=== PATIENT | male | born 1950 | race Caucasian/White ===

== ENCOUNTER 2016-08-11 01:44 | Inpatient (IN) | payer MEDICARE ==
[~2016-08-11] VITALS: Ht 182.9 cm; Wt 71.3 kg
[2016-08-11] VITALS (11 sets, daily range): BP systolic 101–121; BP diastolic 67–88; PULSE 76–114; RESP 12–20; TEMP 97.1–98.1; O2SAT 90–98
[~2016-08-11 01:44] MED LIST: ACIDCAP17 PO; ADVA250A INH; ALBU.5I NEB; ALBU6.7H INH; CARD120C4 PO; CIAL5TAB PO; CITRTAB7 PO; DICL1GEL TOP; DIGO.125 PO; DIPH25 PO; DOCU1CAP39 PO; FLUT1SPR9 EACH NARE; FOLI1 PO; GABA100C4 PO; GLUCTAB6 PO; KCL10C PO; LACT20SO4 PO; MECL25 PO; MULT-65 PO; NITR0.4S SL; OXYC5 PO; PERI8.6T PO; PREV30CA36 PO; PROM25TA5 PO; RAMI2.5C29 PO; REST30CA PO; ROSU10 PO; SPIRCAP INH; TORS20 PO; TRAZ100 PO; VALI10TA PO; VENL75XR PO; VIST25CA PO; VITA400C58 PO; VITA500C PO; [UNRECOGNIZED DRUG - CODE] IV
[2016-08-11] MEDS ORDERED: SODIUM CHLOR 0.9% 1000 ML INJ 1,000 ML IV SCH (02:10)
[2016-08-11] MEDS ORDERED: PANTOPRAZOLE SODIUM 40 MG VIAL IVP ONE (02:15)
[2016-08-11] MEDS ORDERED: ONDANSETRON HCL 4 MG/2 ML VIAL IVP ONE (02:15)
[2016-08-11] MEDS ORDERED: SODIUM CHLORIDE 0.9% FLUSH 5 ML FLUSH IVF PRN (02:15)
[2016-08-11] MEDS ORDERED: FAMOTIDINE 20 MG/2 ML VIAL IV PUSH ONE (02:15)
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
[2016-08-11] MEDS ORDERED: SODIUM CHLORID 0.9% 500 ML INJ 500 ML IV ONE (02:30)
--- NOTE | 2016-08-11 02:56 | RADRPT ---
EXAM DATE/TIME: 08/11/2016 02:16 [facility] COMPARISON: CHEST PA & LAT, May 11, 2016, 16:40. INDICATIONS : Chest and abdominal pain. MEDICAL HISTORY : Congestive hearrt failure. Myocardial infarction. Hypertension.Liver cancer, A-Fib, COPD, hiatal kristen ia. SURGICAL HISTORY : Coronary artery stent. Cardiac cath; Left upper lobectomy; port placement; [place] filter; liver c yst removal. ENCOUNTER: Initial ACUITY: 1 day PAIN SCORE: 7/10 LOCATION: Bilateral lower chest FINDINGS: Trace atelectasis seen in both lung bases. No dense infiltrates seen. No pleural effusion or pneumoth orax. Heart size stable, within normal limits. Thoracic aorta is tortuous. Right IJ [id number] catheter with tip in the right atrium again noted. CONCLUSION: Trace bibasilar atelectasis. Richard Tamez MD on August 11, 2016 at 2:54 Board Certified Radiologist. This report was verified electronically.
[2016-08-11 03:08] LABS: HEMATOCRIT 29.9 % (39.0-51.0); MEAN CELL VOLUME 88.8 FL (80.0-100.0); MEAN CORPUSCULAR HEMOGLOBIN 29.9 PG (27.0-34.0); MEAN CORPUSCULAR HGB CONC 33.7 % (32.0-36.0); PLATELET COUNT 97 TH/MM3 (150-450); RED BLOOD COUNT 3.36 MIL/MM3 (4.50-5.90); RED CELL DISTRIBUTION WIDTH 22.4 % (11.6-17.2); WHITE BLOOD COUNT 4.3 TH/MM3 (4.0-11.0)
[2016-08-11 03:09] LABS: HEMO FLAGS AUTO DIFF
[2016-08-11] MEDS: PANTOPRAZOLE INJ 80 MG in SODIUM CHLORIDE 0.9% INJ 100 ML IV SCH ×2 (03:09→23:00)
[2016-08-11 03:10] LABS: INTERNATIONAL NORMALIZED RATIO 1.1 RATIO; PROTHROMBIN TIME - PATIENT 12.7 SEC (9.8-11.6)
[2016-08-11 03:13] LABS: ALT (GPT) 160 U/L (12-78); ANION GAP 10 MEQ/L (5-15); AST (GOT) 327 U/L (15-37); BICARBONATE 26.7 MEQ/L (21.0-32.0); BLOOD UREA NITROGEN 23 MG/DL (7-18); CHLORIDE 104 MEQ/L (98-107); GLOMERULAR FILTRATION RATE 56 ML/MIN (>89); POTASSIUM 3.7 MEQ/L (3.5-5.1); SODIUM (NA) 141 MEQ/L (136-145)
[2016-08-11 03:17] LABS: ALKALINE PHOSPHATASE 799 U/L (45-117); TOTAL BILIRUBIN ADULT 3.1 MG/DL (0.2-1.0)
[2016-08-11 03:20] LABS: CREATINE KINASE 57 U/L (39-308)
[2016-08-11 03:32] LABS: BASOPHILS 3 % (0-2); EOSINOPHILS 1 % (0-4); NEUTROPHIL # MANUAL DIFF 2.9 TH/MM3 (1.8-7.7); POLYS (SEG NEUTROPHILS) 67 % (16-70); WBC DIFF SAMPLE 100
[2016-08-11 03:33] LABS: OVALOCYTES 1+ (NORMAL); PLATELET ESTIMATE SMEAR LOW (NORMAL); PLATELET MORPHOLOGY NORMAL (NORMAL); SCAN/DIFF FINAL DIFF MANUAL; TARGET CELLS 1+ (NORMAL)
--- NOTE | 2016-08-11 04:14 | RADRPT ---
EXAM DATE/TIME: 08/11/2016 03:25 [facility] COMPARISON: CT ABDOMEN W CONTRAST, July 21, 2015, 11:43. INDICATIONS : Abdomen pain with swelling. ORAL CONTRAST: No oral contrast ingested. RADIATION DOSE: 10.09 CTDIvol (mGy) MEDICAL HISTORY : Cardiovascular disease. Hypertension. Gastroesophageal reflux disease.COPD Hiatal Hernia Liver cance r SURGICAL HISTORY : Lobectomy. IVC Filter placement. ENCOUNTER: Initial ACUITY: 1 day PAIN SCALE: 7/10 LOCATION: Bilateral abdomen TECHNIQUE: Volumetric scanning of the abdomen and pelvis was performed. Using automated exposure control and ad justment of the mA and/or kV according to patient size, radiation dose was kept as low as reasonably achievable to obtain optimal diagnostic quality images. FINDINGS: LOWER LUNGS: Chronic interstitial changes and pleural nodularity are again seen of both lung bases. LIVER: Shr unken and very nodular liver again noted. There is heterogeneous attenuation within the parenchyma. A 19 mm rounded area is seen posteriorly of the right hepatic lobe near the dome. More inferiorly, a v ague area measuring about 4.9 cm is also noted of the right hepatic lobe, series 2 image 55. There is moderate to large ascites. Prominent caliber portal vein noted. Evaluation for thrombosis not possib le on this noncontrast study. There is a 3 mm stone seen within the gallbladder. SPLEEN: 17.5 cm craniocaudal, previously 14.7 cm. No focal splenic lesions seen. PANCREAS: Within normal limits. KIDNEYS: Normal in size and shape. There is no mass, stone, or hydronephrosis. ADRENAL GLANDS: Within normal limits. VASCULAR: There is no aortic aneurysm. BOWEL/MESENTERY: The stomach, small bowel, and colon demonstrate no acute abnormality. There is no free intraperitone al air or fluid. ABDOMINAL WALL: Within normal limits. RETROPERITONEUM: There is no lymphadenopathy. BLADDER: No wall thickening or mass. REPRODUCTIVE: Within normal limits. INGUINAL: There is no lymphadenopathy or hernia. MUSCULOSKELETAL: There is a 5.3 x 5.3 x 6.7 cm right paraspinous mass of the upper lumbar spine,, new and with associa maggie destruction of the right transverse processes of L1 and L2. Chronic pars defects are again noted of L5 with L5/S1 spondylolisthesis. CONCLUSION: 1. Cirrhosis with moderate to large ascites and increased splenomegaly. Heterogeneous and very nodula r liver; possibility of liver masses difficult to exclude. 2. 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 Plasmacytoma related to multiple myeloma would also be in the differential. This is new . I believe it arose from the right transverse process of L1. Richard Tamez MD on August 11, 2016 at 3:59 Board Certified Radiologist. This report was verified electronically.
[2016-08-11 04:43] LABS: BLOOD, URINE NEG (NEG); COMMENT (UR) CULT NOT INDICATED; CULTURE IF INDICATED CULT NOT INDICATED; GLUCOSE,URINE NEG (NEG); HYALINE CAST, URINE 52 /lpf (RARE); KETONE, URINE NEG (NEG); MUCUS URINE FEW /lpf (OCC); NITRITE,URINE NEG (NEG); URINE COLOR YELLOW (YELLW/STRAW)
[2016-08-11] MEDS ORDERED: NALOXONE HCL 0.4 MG/ML AMP IV PRN (05:00)
[2016-08-11] MEDS ORDERED: SODIUM CHLORIDE 0.9% FLUSH 5 ML FLUSH FLUSH PRN (05:00)
[2016-08-11] MEDS ORDERED: OCTREOTIDE INJ 50 MCG/ML AMP IV ONE (05:30)
[2016-08-11] MEDS: OCTREOTIDE INJ 500 MCG in SODIUM CHLORID 0.9% 500 ML INJ 499.5 ML IV SCH ×3 (08:04→20:46)
[2016-08-11] MEDS: SODIUM CHLORIDE 0.9% FLUSH 5 ML FLUSH FLUSH SCH ×2 (09:00→20:47)
--- NOTE | 2016-08-11 09:14 | PD.CONS ---
HPI History of Present Illness This is a 65 year old male with history of Alpha 1 antitrypsin deficiency and liver cancer, presents to ER with c/o of hematemesis that started last night. symptoms started last night around 9 Pm, he had finished eating gummy bears, he didn't feel good and thought he had too much to eat, shortly after he started vomiting up bright red blood about 7 times in a row, but non after that. This is associated with abd pain and increased ascites. He denies hematochezia, melena, constipation, diarrhea, fever, or chills. Last EGD was few years ago, he doesn't remember the date, looking back in the hospital records, EGD was done in 2007. He doesn't have a local GI. Patient is being followed by a oncologist and crystal gazer at [facility] for a couple of months, and there are plans for him to start a new clinical trial in September. CT done and that showed Cirrhosis with moderate to large ascites and increased splenomegaly. Heterogeneous and very nodular liver; possibility of liver masses difficult to exclude. 2. 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 Plasmacytoma related to multiple myeloma would also be in the differential. This is new. I believe it arose from the right transverse process of L1. hgb is 10, PPI drip started, patient is comfortable in bed, no more vomiting, hemodynamically stable (Ghada Xavier) PFSH Past Medical History ALPHA 1 ANTITRYPSIN DEFICIENCY cirrhosis, hypertension, A. fib COPD, left upper lobectomy, surgically fused right elbow with a wrist drop also with chronic wound and history of MRSA, hypercholesterolemia, CHF, CAD status post MT in 1991, hiatal hernia MRSA pneumonia Past Surgical History Right elbow I&D and removal of hard francisco on 05/17/16 Cyst removed from the liver Report to right upper chest Cardiac stents Vena cava filter Left upper lobectomy Right elbow orthopedic surgery (Ghada Xavier) Coded Allergies: Adhesives (Verified Allergy, Severe, "TAKES SKIN OFF", 08/11/16) Beta Blockers (Verified Allergy, Severe, UNKNOWN ALL BETA BLOCKERS EXCEPT TENORMIN, 08/11/16) Hydromorphone (Verified Allergy, Severe, "RACES HEART", 08/11/16) Medrol (Verified Allergy, Severe, Hives, 08/11/16) Morphine (Verified Allergy, Severe, Hallucinations, 08/11/16) Sulfa (Verified Allergy, Severe, "EATS SKIN OFF", 08/11/16) *MDRO Multi-Drug Resistant Organism (Verified Adverse Reaction, Unknown, 08/11/16) 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, 02/2008, 06/2008, 04/2014.; MRSA Elbow Wound 05/17/2016 Medications Current Medications Medications (Trade) Dose Ordered Sig/Barak Route Start Time Stop Time Status Last Admin (Protonix Inj/NS Inj) 100 ml @ 10 mls/hr Q10H IV 08/11/16 02:15 08/11/16 03:09 (NS Flush) 2 ml UNSCH PRN FLUSH 08/11/16 05:00 (NS Flush) 2 ml BID FLUSH 08/11/16 09:00 (Zofran Inj) 4 mg Q6H PRN IVP 08/11/16 05:00 Naloxone HCl 0.4 mg 0.4 mg UNSCH PRN IV 08/11/16 05:00 (SandoSTATIN INJ/ NS 500 ml Inj) 500.0 ml @ 50 mls/hr Q10H IV 08/11/16 07:30 08/11/16 08:04 Family History Positive for brother with alpha-1 antitrypsin deficiency, and father with diabetes mellitus Social History Denies EtOH, smoking, illicit drug use. (Ghada Xavier) Review of Systems Constitutional: COMPLAINS OF: Fatigue Endocrine: DENIES: Polyuria Eyes: DENIES: Photosensitivity Ears, nose, mouth, throat: DENIES: Hoarseness Respiratory: COMPLAINS OF: Shortness of breath Cardiovascular: DENIES: Lower Extremity Edema Gastrointestinal: COMPLAINS OF: Abdominal pain, Nausea, Vomiting, Swelling of Abdomen, Heartburn, Hematemesis, DENIES: Black stools, Bloody stools, Constipation, Diarrhea, Difficulty Swallowing, Anorexia, Odynophagia Genitourinary: DENIES: Hematuria Musculoskeletal: DENIES: Neck pain Integumentary: DENIES: Jaundice Hematologic/lymphatic: DENIES: Bruising Immunologic/allergic: DENIES: Eczema Neurologic: DENIES: Abnormal gait Psychiatric: DENIES: Anxiety (Ghada Xavier) GI Exam Vitals I&O Vital Signs Date Time Temp Pulse Resp B/P Pulse Ox O2 Delivery O2 Flow Rate FiO2 08/11/16 07:32 86 18 101/74 98 Nasal Cannula 2 08/11/16 06:17 88 18 105/79 94 08/11/16 02:39 95 117/88 08/11/16 02:31 98 20 95 Room Air 08/11/16 02:09 18 08/11/16 01:48 98.1 114 20 121/78 90 Imaging Last Impressions Chest X-Ray 08/11/16209 Signed Impressions: Service Date/Time: Thursday, August 11, 2016 02:16 - CONCLUSION: Trace bibasilar atelectasis. Richard Tamez MD Abdomen/Pelvis CT 08/11/16209 Signed Impressions: Service Date/Time: Thursday, August 11, 2016 03:25 - CONCLUSION: 1. Cirrhosis with moderate to large ascites and increased splenomegaly. Heterogeneous and very nodular liver; possibility of liver masses difficult to exclude. 2. 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 Plasmacytoma related to multiple myeloma would also be in the differential. This is new. I believe it arose from the right transverse process of L1. Richard Tamez MD Laboratory Test 08/11/16 08/11/16 02:45 04:27 White Blood Count 4.3 TH/MM3 Red Blood Count 3.36 MIL/MM3 Hemoglobin 10.1 GM/DL Hematocrit 29.9 % Mean Corpuscular Volume 88.8 FL Mean Corpuscular Hemoglobin 29.9 PG Mean Corpuscular Hemoglobin 33.7 % Concent Red Cell Distribution Width 22.4 % Platelet Count 97 TH/MM3 Mean Platelet Volume 10.4 FL Neutrophils (%) (Auto) % Lymphocytes (%) (Auto) % Monocytes (%) (Auto) % Eosinophils (%) (Auto) % Basophils (%) (Auto) % Neutrophils # (Auto) TH/MM3 Lymphocytes # (Auto) TH/MM3 Monocytes # (Auto) TH/MM3 Eosinophils # (Auto) TH/MM3 Basophils # (Auto) TH/MM3 CBC Comment AUTO DIFF Differential Total Cells 100 Counted Neutrophils % (Manual) 67 % Lymphocytes % 17 % Monocytes % 12 % Eosinophils % 1 % Basophils % 3 % Neutrophils # (Manual) 2.9 TH/MM3 Differential Comment FINAL DIFF MANUAL Platelet Estimate LOW Platelet Morphology Comment NORMAL Target Cells 1+ Ovalocytes 1+ Prothrombin Time 12.7 SEC Prothromb Time International 1.1 RATIO Ratio Activated Partial 26.0 SEC Thromboplast Time Sodium Level 141 MEQ/L Potassium Level 3.7 MEQ/L Chloride Level 104 MEQ/L Carbon Dioxide Level 26.7 MEQ/L Anion Gap 10 MEQ/L Blood Urea Nitrogen 23 MG/DL Creatinine 1.28 MG/DL Estimat Glomerular Filtration 56 ML/MIN Rate Random Glucose 98 MG/DL Lactic Acid Level 2.1 mmol/L Calcium Level 9.2 MG/DL Total Bilirubin 3.1 MG/DL Aspartate Amino Transf 327 U/L (AST/SGOT) Alanine Aminotransferase 160 U/L (ALT/SGPT) Alkaline Phosphatase 799 U/L Ammonia LESS THAN 10 MCMOL/L Total Creatine Kinase 57 U/L Troponin I LESS THAN 0.02 NG/ML Total Protein 7.0 GM/DL Albumin 2.6 GM/DL Lipase 51 U/L Blood Type AB POSITIVE Antibody Screen NEGATIVE Urine Color YELLOW Urine Turbidity CLEAR Urine pH 5.0 Urine Specific [place] 1.007 Urine Protein NEG mg/dL Urine Glucose (UA) NEG mg/dL Urine Ketones NEG mg/dL Urine Occult Blood NEG Urine Nitrite NEG Urine Bilirubin NEG Urine Urobilinogen LESS THAN 2.0 MG/DL Urine Leukocyte Esterase NEG Urine RBC 1 /hpf Urine WBC 2 /hpf Urine Hyaline Casts 52 /lpf Urine Mucus FEW /lpf Microscopic Urinalysis Comment CULT NOT INDICATED Physical Examination HEENT: Pupils round and reactive to light; normocephalic; atraumatic; no jaundice. Throat is clear. NECK: Neck is supple, no JVD, no lymphadenopathy. CHEST: Chest is clear to auscultation and percussion. CARDIAC: Regular rate and rhythm with no murmur gallop or rubs. ABDOMEN: Soft,slightly distended, nontender; ascites, bowel sounds are present in all four quadrants. EXTREMITIES: No clubbing, cyanosis, or edema. SKIN: Normal; no rash; no jaundice. 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 (Morenita,Ghada ELIZABETH) Assessment and Plan Plan - Hematemesis- started last night, 7 times in a row, no recent EGD, no hx of varices. patient with hx of liver cancer, cirrhosis secondary to Alpha 1 antitrypsin deficiency, hgb is 10.1, no more hematemesis PPI drip started, patient is comfortable in bed, no more vomiting, hemodynamically stable - Alpha 1 antitrypsin deficiency/liver cancer/cirrhosis- weekly Prolastin, Patient is being followed by a oncologist and crystal gazer at [facility] for a couple of months, and there are plans for him to start a new clinical trial in September. CT done and that showed Cirrhosis with moderate to large ascites and increased splenomegaly. Heterogeneous and very nodular liver; possibility of liver masses difficult to exclude. 2. 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 Plasmacytoma related to multiple myeloma would also be in the differential. This is new. 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 PPI drip - Monitor hh - Transfuse as needed - Supportive care - Patient seen and examined by Dr. Dodge and myself and this note is written on his behalf. (Ghada Xavier) Physician Comments Seen and examined with Ghada plan as above, will proceed with EGD and possible banding today. Further recommendations to follow. (Oscar Dodge MD) Ghada Xavier Aug 11, 2016 09:14 Ocsar Dodge MD Aug 11, 2016 11:35
--- NOTE | 2016-08-11 11:33 | HHI.HP ---
HPI Service [facility] Primary Care Physician Mark Oconnor Admission Diagnosis GI Bleed, concern for Variceal bleed Diagnoses: (1) GI bleed (2) Cirrhosis of liver (3) Baioj-4-cjgoabnjioo deficiency (4) COPD (chronic obstructive pulmonary disease) (5) Liver mass Chief Complaint: Hematemesis Travel History International Travel<30 Days: No Contact w/Intl Traveler <30 Da: No Traveled to Known Affected Are: No History of Present Illness 65 year-old male with a past medical history of alpha 1 antitrypsin deficiency, liver cancer, cirrhosis presents to the ED for evaluation of an acute onset hematemesis 2 associated with abdominal pain and distention which started last night without any hematochezia, melena. Patient currently is being followed by hepatology at [facility] and states, there is a plan for a new clinical trial in September for treatment. Although H&H stable, CT abdomen with evidence of cirrhosis as well as what appear to be metastasis. He denies any chest pain however reports shortness of breath Review of Systems Other Other 12 system reviewed and are negative except for the one mentioned in history of present illness Past Family Social History Past Medical History ALPHA 1 ANTITRYPSIN DEFICIENCY cirrhosis, hypertension, A. fib COPD, left upper lobectomy, surgically fused right elbow with a wrist drop also with chronic wound and history of MRSA, hypercholesterolemia, CHF, CAD status post SD in 1991, hiatal hernia MRSA pneumonia Past Surgical History Right elbow I&D and removal of hard francisco on 05/17/16 Cyst removed from the liver Report to right upper chest Cardiac stents Vena cava filter Left upper lobectomy Right elbow orthopedic surgery Reported Medications Paige-Colace 8.61 Ta1 1 Tab Tab 2 Tab PO BID PRN Roxicodone 5 Mg5 Mg 5 Mg Tab 10 Mg PO Q4H PRN Reported Citracal + D3 Maximu 3 Tab PO BID Gabapentin 100 Mg Cap 100 Mg PO TID Nitrostat (Nitroglycerin) 0.4 Mg Subl 0.4 Mg SL PRN PRN 1 TAB SL EVERY 5 MINS X 3 PRN CHEST PAIN Trazodone HCl 100 Mg Tab 100 Mg PO HS Glucosamine Chondro1 1 Tab PO BID Benadryl 25 Mg Cap (Diphenhydramine Hcl) 25 Mg Cap 25 Mg PO WEEKLY Weekly on Wednesdays with IV treatment Proventil Hfa (Albuterol Sulfate) 6.7 Gm Aero 2 Puff INH Q4 * SHAKE WELL BEFORE USE * Valium (Diazepam) 10 Mg Tab 10 Mg PO BID PRN Voltaren 1% Gel (Diclofenac Sodium (Topical)) 1 % Gel 1 Applic TOP QID PRN Meclizine Hcl25 M4 25 Mg Tab 25 Mg PO BID PRN Acidophilus 1 Cap PO BID Flonase Allergy Relief Ch (Fluticasone Propionate (Nasal)) 50 Mcg/Act Spr 2 [place] EACH NARE DAILY KCl 10 Meq Cap (Potassium Chloride) 10 Meq Capcr 10 Meq PO TID Multi-Vitamin Daily (Multivitamins) Daily Tab 1 Tab PO DAILY Cardizem [id number] 120MG/24 Cap 120 Mg PO DAILY Phenergan (Promethazine HCl) 25 Mg Tab 25 Mg PO TID Vitamin D3 (Cholecalciferol) 400 Unit Cap 400 Unit PO DAILY Vitamin C (Ascorbic Acid) 500 Mg Chw 500 Mg PO DAILY Spiriva Handihaler (Tiotropium [place]) 18 Mcg Cap 1 Dose INH DAILY DO NOT SWALLOW CAPSULES Prolastin-C (Alpha-1 Proteinase Inhibitor) 1,000 Mg Inj 6,000 Mg IV WEEKLY PT GET ON WEDNESDAYS Folate 1 Mg Tab (Folic Acid) 1 Mg Tab 1 Mg PO DAILY Proventil Conc Ud 0.5% (2.5 Mg/0.5 Ml) (Albuterol Sulfate) 2.5 Mg/0.5 Ml Inha 2.5 Mg NEB QID PRN Colace 100 Mg Cap (Docusate Sodium) 100 Mg Cap 100 Mg PO BID Altace (Ramipril) 2.5 Mg Cap 2.5 Mg PO DAILY Restoril 30 mg (Temazepam) 30 Mg Cap 30 Mg PO HS FOR INSOMNIA Advair Disku1 250 Mcg/50 Mcg Inhp 1 Puff INH BID Crestor (Rosuvastatin Calcium) 10 Mg Tab 10 Mg PO HS Effexor-Xr (Venlafaxine HCl) 75 Mg Caper 150 Mg PO DAILY Demadex (Torsemide) 20 Mg Tab 20 Mg PO DAILY Prevacid (Lansoprazole) 30 Mg Capcr 30 Mg PO BID Vistaril (Hydroxyzine Pamoate) 25 Mg Cap 25 Mg PO QID FOR ITCHING Lanoxin (Digoxin) 0.125 Mg Tab 0.125 Mg PO DAILY Allergies: Coded Allergies: Adhesives (Verified Allergy, Severe, "TAKES SKIN OFF", 08/11/16) Beta Blockers (Verified Allergy, Severe, UNKNOWN ALL BETA BLOCKERS EXCEPT TENORMIN, 08/11/16) Hydromorphone (Verified Allergy, Severe, "RACES HEART", 08/11/16) Medrol (Verified Allergy, Severe, Hives, 08/11/16) Morphine (Verified Allergy, Severe, Hallucinations, 08/11/16) Sulfa (Verified Allergy, Severe, "EATS SKIN OFF", 08/11/16) *MDRO Multi-Drug Resistant Organism (Verified Adverse Reaction, Unknown, 08/11/16) 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, 02/2008, 06/2008, 04/2014.; MRSA Elbow Wound 05/17/2016 Family History Positive for brother with alpha-1 antitrypsin deficiency, and father with diabetes mellitus Social History Denies EtOH, smoking, illicit drug use. Physical Exam Vital Signs Vital Signs Date Time Temp Pulse Resp B/P Pulse Ox O2 Delivery O2 Flow Rate FiO2 08/11/16 07:32 86 18 101/74 98 Nasal Cannula 2 08/11/16 06:17 88 18 105/79 94 08/11/16 02:39 95 117/88 08/11/16 02:31 98 20 95 Room Air 08/11/16 02:09 18 08/11/16 01:48 98.1 114 20 121/78 90 Physical Exam GENERAL: This is a well-nourished, well-developed patient, in no apparent distress. SKIN: No rashes, ecchymoses or lesions. Cool and dry. HEAD: Atraumatic. Normocephalic. No temporal or scalp tenderness. EYES: Pupils equal round and reactive. Extraocular motions intact. No scleral icterus. No injection or drainage. ENT: Nose without bleeding, purulent drainage or septal hematoma. Throat without erythema, tonsillar hypertrophy or exudate. Uvula midline. Airway patent. NECK: Trachea midline. No JVD or lymphadenopathy. Supple, nontender, no meningeal signs. CARDIOVASCULAR: Regular rate and rhythm without murmurs, gallops, or rubs. RESPIRATORY: Clear to auscultation. Breath sounds equal bilaterally. No wheezes , rales, or rhonchi. GASTROINTESTINAL: Abdomen soft, non-tender, nondistended. No hepato-splenomegaly , or palpable masses. No guarding. MUSCULOSKELETAL: Extremities without clubbing, cyanosis, or edema. No joint tenderness, effusion, or edema noted. No calf tenderness. Negative Homans sign bilaterally. NEUROLOGICAL: Awake and alert. Cranial nerves II through XII intact. Motor and sensory grossly within normal limits. Five out of 5 muscle strength in all muscle groups. Normal speech. Laboratory Laboratory Tests Test 08/11/16 08/11/16 08/11/16 02:45 04:27 09:05 White Blood Count 4.3 Red Blood Count 3.36 Hemoglobin 10.1 9.3 Hematocrit 29.9 28.0 Mean Corpuscular Volume 88.8 Mean Corpuscular Hemoglobin 29.9 Mean Corpuscular Hemoglobin 33.7 Concent Red Cell Distribution Width 22.4 Platelet Count 97 Mean Platelet Volume 10.4 Neutrophils (%) (Auto) Lymphocytes (%) (Auto) Monocytes (%) (Auto) Eosinophils (%) (Auto) Basophils (%) (Auto) Neutrophils # (Auto) Lymphocytes # (Auto) Monocytes # (Auto) Eosinophils # (Auto) Basophils # (Auto) CBC Comment AUTO DIFF Differential Total Cells 100 Counted Neutrophils % (Manual) 67 Lymphocytes % 17 Monocytes % 12 Eosinophils % 1 Basophils % 3 Neutrophils # (Manual) 2.9 Differential Comment FINAL DIFF MANUAL Platelet Estimate LOW Platelet Morphology Comment NORMAL Target Cells 1+ Ovalocytes 1+ Prothrombin Time 12.7 Prothromb Time International 1.1 Ratio Activated Partial 26.0 Thromboplast Time Sodium Level 141 Potassium Level 3.7 Chloride Level 104 Carbon Dioxide Level 26.7 Anion Gap 10 Blood Urea Nitrogen 23 Creatinine 1.28 Estimat Glomerular Filtration 56 Rate Random Glucose 98 Lactic Acid Level 2.1 Calcium Level 9.2 Total Bilirubin 3.1 Aspartate Amino Transf 327 (AST/SGOT) Alanine Aminotransferase 160 (ALT/SGPT) Alkaline Phosphatase 799 Ammonia LESS THAN 10 Total Creatine Kinase 57 Troponin I LESS THAN 0.02 Total Protein 7.0 Albumin 2.6 Lipase 51 Blood Type AB POSITIVE Antibody Screen NEGATIVE Urine Color YELLOW Urine Turbidity CLEAR Urine pH 5.0 Urine Specific [place] 1.007 Urine Protein NEG Urine Glucose (UA) NEG Urine Ketones NEG Urine Occult Blood NEG Urine Nitrite NEG Urine Bilirubin NEG Urine Urobilinogen LESS THAN 2.0 Urine Leukocyte Esterase NEG Urine RBC 1 Urine WBC 2 Urine Hyaline Casts 52 Urine Mucus FEW Microscopic Urinalysis Comment CULT NOT INDICATED Result Diagram: 08/11/1690408/11/16 0245 Imaging Last Impressions Chest X-Ray 08/11/16209 Signed Impressions: Service Date/Time: Thursday, August 11, 2016 02:16 - CONCLUSION: Trace bibasilar atelectasis. Richard Tamez MD Abdomen/Pelvis CT 08/11/16209 Signed Impressions: Service Date/Time: Thursday, August 11, 2016 03:25 - CONCLUSION: 1. Cirrhosis with moderate to large ascites and increased splenomegaly. Heterogeneous and very nodular liver; possibility of liver masses difficult to exclude. 2. 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 Plasmacytoma related to multiple myeloma would also be in the differential. This is new. I believe it arose from the right transverse process of L1. Richard Tamez MD Assessment and Plan Problem List: (1) Hematemesis ICD Code: K92.0 Status: Acute (2) GI bleed ICD Code: K92.2 Status: Acute (3) Cirrhosis of liver ICD Code: K74.60 Status: Chronic (4) Liver mass ICD Code: R16.0 Status: Chronic (5) Ddncc-3-dpfsjfyyuuk deficiency ICD Code: E88.01 Status: Chronic Assessment and Plan 65-year-old male with Hematemesis/GI bleed: Currently on PPI as well as octreotide drip with consultation to gastroenterology for possible EGD +/- ligations of band. Keep nothing by mouth, monitor H&H and transfuse accordingly. Discontinue Xarelto History of Alpha I antitrypsin deficiency: Continue weekly Prolastin patient to follow up outpatient with hepatology at [facility] for new clinical trial in September 2016 History of liver cancer: CT abdomen noted and review by me with finding of Cirrhosis with moderate to large ascites and increased splenomegaly. Heterogeneous and very nodular liver; possibility of liver masses difficult to exclude. 2. 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 Although patient is oriented established with oncology and the pathology at [facility], however will consult medical oncology here at [facility]. History of ascites: Continue Demadex Atrial fibrillation: Currently rate control History of hypertension: Currently BP soft, hold all oral antihypertensive medications Other chronic medical conditions: Resume outpatient medications DVT prophylaxis: Chemical anti-prophylaxis is contraindicated secondary to GI bleed, bilateral SCDs. GI prophylaxis: PPI. Code Status Full code Discussed Condition With Patient, Physician Certification 2 Midnight Certification Type: Admission for Inpatient Services Order for Inpatient Services The services are ordered in accordance with Medicare regulations or non- Medicare payer requirements, as applicable. In the case of services not specified as inpatient-only, they are appropriately provided as inpatient services in accordance with the 2-midnight benchmark. Estimated LOS (days): 2 days is the estimated time the patient will need to remain in the hospital, assuming treatment plan goals are met and no additional complications. Post-Hospital Plan: Not yet determined Problem Qualifiers (1) GI bleed: Qualified Code: K92.2 - Gastrointestinal hemorrhage, unspecified gastrointestinal hemorrhage type Efraín Gil MD Aug 11, 2016 11:33
[2016-08-11] MEDS ORDERED: PROPOFOL 200 MG/20 ML AMP IV ONE (11:50)
[2016-08-11] MEDS ORDERED: ALBU0.08 NEB (12:56)
[2016-08-11] MEDS ORDERED: ALPH1INJ3 IV (12:56)
[2016-08-11] MEDS ORDERED: ADVA250A INH (12:56)
[2016-08-11] MEDS ORDERED: PROB1CAP12 PO (12:56)
[2016-08-11] MEDS ORDERED: ASCO1CHW8 PO (12:56)
[2016-08-11] MEDS ORDERED: CARD120C4 PO (12:56)
[2016-08-11] MEDS ORDERED: VENTAER INH (12:56)
[2016-08-11] MEDS ORDERED: VITA100018 PO (13:00)
[2016-08-11] MEDS ORDERED: DICL1GEL7 TOPICAL (13:00)
[2016-08-11] MEDS ORDERED: BENA25TA3 PO (13:00)
[2016-08-11] MEDS ORDERED: DIAZ10 PO (13:00)
[2016-08-11] MEDS ORDERED: CITRTAB7 PO (13:00)
[2016-08-11] MEDS ORDERED: REST30CA PO (13:12)
[2016-08-11] MEDS ORDERED: MULT-135 PO (13:12)
[2016-08-11] MEDS ORDERED: RAMI2.5C PO (13:12)
[2016-08-11] MEDS ORDERED: NITR1SUB3 SL (13:12)
[2016-08-11] MEDS ORDERED: PROM25TA5 PO (13:12)
[2016-08-11] MEDS ORDERED: GLUCTAB6 PO (13:12)
[2016-08-11] MEDS ORDERED: ROSU10 PO (13:12)
[2016-08-11] MEDS ORDERED: OXYC1TAB13 PO (13:12)
[2016-08-11] MEDS ORDERED: K-TA10TA PO (13:12)
[2016-08-11] MEDS ORDERED: DOCU100C PO (13:12)
[2016-08-11] MEDS ORDERED: FLUT1SPR5 EACH NARE (13:12)
[2016-08-11] MEDS ORDERED: SENN8.6T19 PO (13:12)
[2016-08-11] MEDS ORDERED: FOLI1TAB4 PO (13:12)
[2016-08-11] MEDS ORDERED: GABA100C4 PO (13:12)
[2016-08-11] MEDS ORDERED: VIST25CA PO (13:12)
[2016-08-11] MEDS ORDERED: LANS30CA PO (13:12)
[2016-08-11] MEDS ORDERED: SPIRCAP INH (13:12)
[2016-08-11] MEDS ORDERED: VENL150T PO (13:12)
[2016-08-11] MEDS ORDERED: TRAZ100T4 PO (13:12)
[2016-08-11] MEDS ORDERED: MECL1TAB42 PO (13:12)
[2016-08-11] MEDS ORDERED: TORS20TA PO (13:12)
[2016-08-11] MEDS ORDERED: DIGO0.12 PO (13:13)
[2016-08-11] MEDS ORDERED: DOCUSATE SODIUM 50 MG/SENNA 8.6 MG TAB PO PRN (15:45)
[2016-08-11 17:24] LABS: HEMATOCRIT 27.8 % (39.0-51.0)
[2016-08-11 17:26] LABS: REVIEW FLAG FINAL
[2016-08-11] MEDS: POTASSIUM CHLORIDE 10 MEQ CONTROLLED RELEASE TAB PO SCH (18:08)
[2016-08-11] MEDS: GABAPENTIN 100 MG CAP PO SCH (18:08)
[2016-08-11] MEDS: traZODone HCL 100 MG TAB PO SCH (20:47)
[2016-08-11] MEDS: TEMAZEPAM 15 MG CAP PO SCH (20:47)
[2016-08-11] MEDS: CALCIUM/VITAMIN D 250 MG/125 U TAB PO SCH (20:47)
[2016-08-11] MEDS: BUDESONIDE-FORMOTEROL 160/4.5 MCG INHALER INH SCH (20:48)
[2016-08-11] MEDS: ATORVASTATIN 20 MG TAB PO SCH (20:49)
--- NOTE | 2016-08-11 21:01 | EKG ---
Date Performed: 08/11/2016 Time Performed: 02:34:05 PTAGE: 65 years EKG: Sinus rhythm POSSIBLE INFERIOR MYOCARDIAL INFARCTION BORDERLINE ECG PREVIOUS TRACING : 05/08/2016 10.15 Since previous tracing, no significant change noted DOCTOR: Hope Addison Interpretating Date/Time 08/11/2016 21:00:12
[2016-08-11] MEDS: RESP: ALBUTEROL 2.5 MG/IPRATROPIUM 0.5 MG NEB (PRN) NEB (21:26)
[2016-08-11 23:15] LABS: HEMATOCRIT 26.3 % (39.0-51.0); REVIEW FLAG FINAL
[2016-08-12] VITALS (7 sets, daily range): BP systolic 100–159; BP diastolic 64–75; PULSE 56–99; RESP 17–20; TEMP 97.4–98; O2SAT 90–95
[2016-08-12 07:23] LABS: HEMATOCRIT 25.9 % (39.0-51.0); MEAN CELL VOLUME 90.6 FL (80.0-100.0); MEAN CORPUSCULAR HGB CONC 33.1 % (32.0-36.0); PLATELET COUNT 71 TH/MM3 (150-450); RED BLOOD COUNT 2.86 MIL/MM3 (4.50-5.90); RED CELL DISTRIBUTION WIDTH 22.3 % (11.6-17.2); WHITE BLOOD COUNT 2.5 TH/MM3 (4.0-11.0)
[2016-08-12 07:29] LABS: HEMO FLAGS AUTO DIFF
[2016-08-12 07:32] LABS: BICARBONATE 28.2 MEQ/L (21.0-32.0); POTASSIUM 4.2 MEQ/L (3.5-5.1)
[2016-08-12] MEDS: SODIUM CHLORIDE 0.9% FLUSH 5 ML FLUSH FLUSH SCH ×2 (09:00→21:00)
[2016-08-12 09:15] LABS: EOSINOPHILS 8 % (0-4); NEUTROPHIL # MANUAL DIFF 1.4 TH/MM3 (1.8-7.7); POLYS (SEG NEUTROPHILS) 54 % (16-70); WBC DIFF SAMPLE 100
[2016-08-12 09:17] LABS: PLATELET ESTIMATE SMEAR LOW (NORMAL); PLATELET MORPHOLOGY NORMAL (NORMAL); SCAN/DIFF FINAL DIFF MANUAL; TARGET CELLS 1+ (NORMAL)
[2016-08-12] MEDS: CALCIUM/VITAMIN D 250 MG/125 U TAB PO SCH ×2 (09:29→22:08)
[2016-08-12] MEDS: GABAPENTIN 100 MG CAP PO SCH ×3 (09:29→16:54)
[2016-08-12] MEDS: POTASSIUM CHLORIDE 10 MEQ CONTROLLED RELEASE TAB PO SCH ×3 (09:29→16:54)
[2016-08-12] MEDS: TORSEMIDE 20 MG TAB PO SCH (09:29)
[2016-08-12] MEDS: DIGOXIN 0.125 MG TAB PO SCH (09:30)
[2016-08-12] MEDS: fentaNYL 100 MCG/HR PATCH TD SCH (09:30)
[2016-08-12] MEDS: VENLAFAXINE HCL XR 75 MG CAP PO SCH (09:30)
[2016-08-12] MEDS: TIOTROPIUM BROMIDE 18 MCG INH INH SCH (09:31)
[2016-08-12] MEDS: BUDESONIDE-FORMOTEROL 160/4.5 MCG INHALER INH SCH ×2 (09:31→22:09)
[2016-08-12] MEDS: PANTOPRAZOLE INJ 80 MG in SODIUM CHLORIDE 0.9% INJ 100 ML IV SCH ×2 (09:52→16:57)
--- NOTE | 2016-08-12 09:55 | HHI.PR ---
Subjective Remarks Follow-up hematemesis 08/12/16-patient seen and examined; he is status post EGD with band ligation . Patient states overnight he had episode of hematemesis. Also complains of hematuria. Otherwise stable and no other issues. Objective Vitals Vital Signs Date Time Temp Pulse Resp B/P Pulse Ox O2 Delivery O2 Flow Rate FiO2 08/12/16 04:00 97.5 83 18 105/75 95 08/12/16 00:00 97.9 56 18 159/67 94 08/11/16 20:00 97.6 85 18 104/70 93 08/11/16 17:43 98 Nasal Cannula 2.00 08/11/16 15:25 97.1 93 12 109/80 90 08/11/16 15:15 80 16 110/67 98 Room Air 08/11/16 12:25 79 18 92/65 95 08/11/16 12:20 84 18 90/60 93 08/11/16 12:15 Nasal Cannula 2 08/11/16 12:15 97.2 87 18 97/65 93 08/11/16 12:00 76 18 107/68 93 Nasal Cannula 3 I/O 08/11/16 08/11/16 08/11/16 08/12/16 08/12/16 08/12/16 06:59 14:59 22:59 06:59 14:59 22:59 Intake Total 225 ml Output Total 400 ml Balance 225 ml -400 ml Intake IV Total 225 ml Output Urine Total 400 ml # Voids 2 # Bowel Movements 0 Result Diagram: 08/12/16 0650 08/12/16 0650 Imaging Last Impressions Chest X-Ray 08/11/16209 Signed Impressions: Service Date/Time: Thursday, August 11, 2016 02:16 - CONCLUSION: Trace bibasilar atelectasis. Richard Tamez MD Abdomen/Pelvis CT 08/11/16209 Signed Impressions: Service Date/Time: Thursday, August 11, 2016 03:25 - CONCLUSION: 1. Cirrhosis with moderate to large ascites and increased splenomegaly. Heterogeneous and very nodular liver; possibility of liver masses difficult to exclude. 2. 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 Plasmacytoma related to multiple myeloma would also be in the differential. This is new. I believe it arose from the right transverse process of L1. Richard Tamez MD Objective Remarks GENERAL: No acute distress SKIN: Warm and dry. HEAD: Normocephalic. EYES: No scleral icterus. No injection or drainage. NECK: Supple, trachea midline. No JVD or lymphadenopathy. CARDIOVASCULAR: Regular rate and rhythm without murmurs, gallops, or rubs. RESPIRATORY: Breath sounds equal bilaterally. No accessory muscle use. GASTROINTESTINAL: Abdomen soft, non-tender, nondistended. MUSCULOSKELETAL: No cyanosis, or edema. BACK: Nontender without obvious deformity. No CVA tenderness. 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 Appreciate input from gastroenterology and, monitor H&H and transfuse accordingly. Discontinue Xarelto History of Alpha I antitrypsin deficiency: Continue weekly Prolastin patient to follow up outpatient with hepatology at [facility] for new clinical trial in September 2016 History of liver cancer: CT abdomen noted and review by me with finding of Cirrhosis with moderate to large ascites and increased splenomegaly. Heterogeneous and very nodular liver; possibility of liver masses difficult to exclude. 2. 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 Although patient is oriented established with oncology and the pathology at [facility], however will consult medical oncology here at [place]. History of ascites: Continue Demadex Atrial fibrillation: Currently rate control, continue with digoxin and monitor level History of hypertension: Currently BP soft, continue to hold all oral antihypertensive medications Other chronic medical conditions including depression, hyperlipidemia, history of CHF: Continue outpatient medications Hematuria: Monitor however consider urology consultation if no improvement for evaluation for possible cystoscopy. DVT prophylaxis: Chemical anti-prophylaxis is contraindicated secondary to GI bleed, bilateral SCDs. GI prophylaxis: PPI. Problem Qualifiers (1) GI bleed: Qualified Code: K92.2 - Gastrointestinal hemorrhage, unspecified gastrointestinal hemorrhage type Efraín Gil MD Aug 12, 2016 09:55
[2016-08-12] MEDS: OCTREOTIDE INJ 500 MCG in SODIUM CHLORID 0.9% 500 ML INJ 499.5 ML IV SCH ×2 (13:17→22:10)
--- NOTE | 2016-08-12 15:49 | HHI.GIFU ---
Subjective Remarks Patient is talking on the phone,states he had one episode of emesis last night, but he doesn't think it was bloody or coffee ground, non since, no nausea or vomiting, reports some abd tenderness. (MorenitaTonoamelia ELIZABETH) Objective Vitals I&O Vital Signs Date Time Temp Pulse Resp B/P Pulse Ox O2 Delivery O2 Flow Rate FiO2 08/12/16 13:38 2.00 08/12/16 08:00 81 08/12/16 08:00 97.7 84 20 109/71 92 08/12/16 04:00 97.5 83 18 105/75 95 08/12/16 00:00 97.9 56 18 159/67 94 08/11/16 20:00 97.6 85 18 104/70 93 08/11/16 17:43 98 Nasal Cannula 2.00 I/O 08/11/16 08/11/16 08/11/16 08/12/16 08/12/16 08/12/16 07:00 15:00 23:00 07:00 15:00 23:00 Intake Total 225 ml Output Total 400 ml Balance 225 ml -400 ml Intake IV Total 225 ml Output Urine Total 400 ml # Voids 2 # Bowel Movements 0 Laboratory Laboratory Tests Test 08/11/16 08/11/16 08/12/16 17:05 23:00 06:50 Hemoglobin 9.2 9.2 8.6 Hematocrit 27.8 26.3 25.9 White Blood Count 2.5 Red Blood Count 2.86 Mean Corpuscular Volume 90.6 Mean Corpuscular Hemoglobin 30.0 Mean Corpuscular Hemoglobin 33.1 Concent Red Cell Distribution Width 22.3 Platelet Count 71 Mean Platelet Volume 10.1 Neutrophils (%) (Auto) Lymphocytes (%) (Auto) Monocytes (%) (Auto) Eosinophils (%) (Auto) Basophils (%) (Auto) Neutrophils # (Auto) Lymphocytes # (Auto) Monocytes # (Auto) Eosinophils # (Auto) Basophils # (Auto) CBC Comment AUTO DIFF Differential Total Cells 100 Counted Neutrophils % (Manual) 54 Lymphocytes % 28 Monocytes % 10 Eosinophils % 8 Neutrophils # (Manual) 1.4 Differential Comment FINAL DIFF MANUAL Platelet Estimate LOW Platelet Morphology Comment NORMAL Target Cells 1+ Sodium Level 138 Potassium Level 4.2 Chloride Level 102 Carbon Dioxide Level 28.2 Anion Gap 8 Blood Urea Nitrogen 21 Creatinine 0.99 Estimat Glomerular Filtration 76 Rate Random Glucose 88 Calcium Level 8.6 Ammonia LESS THAN 10 Imaging Last Impressions Chest X-Ray 08/11/16209 Signed Impressions: Service Date/Time: Thursday, August 11, 2016 02:16 - CONCLUSION: Trace bibasilar atelectasis. Richard Tamez MD Abdomen/Pelvis CT 08/11/16209 Signed Impressions: Service Date/Time: Thursday, August 11, 2016 03:25 - CONCLUSION: 1. Cirrhosis with moderate to large ascites and increased splenomegaly. Heterogeneous and very nodular liver; possibility of liver masses difficult to exclude. 2. 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 Plasmacytoma related to multiple myeloma would also be in the differential. This is new. I believe it arose from the right transverse process of L1. Richard Tamez MD Physical Exam HEENT: Pupils round and reactive to light; normocephalic; atraumatic; no jaundice. Throat is clear. NECK: Neck is supple, no JVD, no lymphadenopathy. CHEST: Chest is clear to auscultation and percussion. CARDIAC: Regular rate and rhythm with no murmur gallop or rubs. ABDOMEN: Soft, slightly distended, slight diffused tenderness; no hepatosplenomegaly; bowel sounds are present in all four quadrants. Ascites EXTREMITIES: No clubbing, cyanosis, or edema. SKIN: Normal; no rash; no jaundice. 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 (Ghada Xavier) Assessment and Plan Plan - Hematemesis- No more bleeding , hgb today is 8.6. S/P EGD/banding on ()------> medium esophageal varices distal esophagus, one column, two bands applied, a medium nodule was located in the 2nd part of the duodenum , greenish gastric content and no evidence of active recent bleeding. Bx pending, PPI, octreotide - Alpha 1 antitrypsin deficiency/liver cancer/cirrhosis- weekly Prolastin, Patient is being followed by a oncologist and guest services assistant at [facility] for a couple of months, and there are plans for him to start a new clinical trial in September. CT done and that showed Cirrhosis with moderate to large ascites and increased splenomegaly. Heterogeneous and very nodular liver; possibility of liver masses difficult to exclude. 2. 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 Plasmacytoma related to multiple myeloma would also be in the differential. This is new. 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 octreotide - Cont PPI - EGD in 4 weeks - Monitor hh - Transfuse as needed - Supportive care - Patient seen and examined by Dr. Dodge and myself and this note is written on his behalf. (Ghada Xavier) Physician Comments Seen and examined,plan as above, will follow up with you, diet to be advanced in AM if no further bleeding. (Oscar Dodge MD) Ghada Xavier Aug 12, 2016 15:49 Oscar Dodge MD Aug 12, 2016 22:04
[2016-08-12] MEDS: ONDANSETRON HCL 4 MG/2 ML VIAL IVP PRN ×2 (16:52→22:08)
[2016-08-12] MEDS: TEMAZEPAM 15 MG CAP PO SCH (22:08)
[2016-08-12] MEDS: ATORVASTATIN 20 MG TAB PO SCH (22:08)
[2016-08-12] MEDS: traZODone HCL 100 MG TAB PO SCH (22:08)
[2016-08-13] VITALS (10 sets, daily range): BP systolic 106–126; BP diastolic 56–82; PULSE 67–102; RESP 16–20; TEMP 97.2–97.8; O2SAT 86–95
[2016-08-13] MEDS: PANTOPRAZOLE INJ 80 MG in SODIUM CHLORIDE 0.9% INJ 100 ML IV SCH ×2 (05:28→22:29)
[2016-08-13 05:57] LABS: HEMATOCRIT 25.7 % (39.0-51.0); MEAN CELL VOLUME 89.9 FL (80.0-100.0); MEAN CORPUSCULAR HEMOGLOBIN 29.9 PG (27.0-34.0); MEAN CORPUSCULAR HGB CONC 33.2 % (32.0-36.0); PLATELET COUNT 68 TH/MM3 (150-450); RED BLOOD COUNT 2.86 MIL/MM3 (4.50-5.90); RED CELL DISTRIBUTION WIDTH 22.5 % (11.6-17.2); WHITE BLOOD COUNT 2.6 TH/MM3 (4.0-11.0)
[2016-08-13 06:02] LABS: HEMO FLAGS AUTO DIFF
[2016-08-13 06:19] LABS: ALT (GPT) 132 U/L (12-78); ANION GAP 9 MEQ/L (5-15); AST (GOT) 275 U/L (15-37); BLOOD UREA NITROGEN 19 MG/DL (7-18); CHLORIDE 100 MEQ/L (98-107); GLOMERULAR FILTRATION RATE 79 ML/MIN (>89); POTASSIUM 3.8 MEQ/L (3.5-5.1); SODIUM (NA) 138 MEQ/L (136-145)
[2016-08-13 06:21] LABS: ALKALINE PHOSPHATASE 645 U/L (45-117); TOTAL BILIRUBIN ADULT 3.6 MG/DL (0.2-1.0)
[2016-08-13 08:43] LABS: BANDS 2 % (0-6); EOSINOPHILS 3 % (0-4); NEUTROPHIL # MANUAL DIFF 1.6 TH/MM3 (1.8-7.7); POLYS (SEG NEUTROPHILS) 60 % (16-70); SCAN/DIFF FINAL DIFF MANUAL; WBC DIFF SAMPLE 100
[2016-08-13 08:44] LABS: PLATELET ESTIMATE SMEAR LOW (NORMAL); PLATELET MORPHOLOGY NORMAL (NORMAL)
[2016-08-13 08:45] LABS: TARGET CELLS 1+ (NORMAL); TEARDROP RBCS 1+ (NORMAL)
[2016-08-13] MEDS: SODIUM CHLORIDE 0.9% FLUSH 5 ML FLUSH FLUSH SCH ×2 (09:00→20:40)
--- NOTE | 2016-08-13 09:21 | HHI.PR ---
Subjective Remarks Follow-up hematemesis 08/12/16-patient seen and examined; he is status post EGD with band ligation . Patient states overnight he had episode of hematemesis. Also complains of hematuria. Otherwise stable and no other issues. 08/13/16-patient seen and examined; reports some episode of light hematemesis however stable. H&H stable. Patient with some mild confusion this morning Objective Vitals Vital Signs Date Time Temp Pulse Resp B/P Pulse Ox O2 Delivery O2 Flow Rate FiO2 08/13/16 08:00 97.4 88 16 111/78 90 08/13/16 04:00 97.4 90 18 119/70 91 08/13/16 00:10 Nasal Cannula 2.00 08/13/16 00:10 97.4 88 18 115/58 91 08/12/16 20:04 96 08/12/16 20:00 Nasal Cannula 3.00 08/12/16 20:00 97.9 88 17 104/70 92 08/12/16 16:00 98.0 99 20 100/64 90 08/12/16 13:38 2.00 08/12/16 12:00 97.4 93 20 106/73 91 I/O 08/12/16 08/12/16 08/12/16 08/13/16 08/13/16 08/13/16 06:59 14:59 22:59 06:59 14:59 22:59 Intake Total 480 ml 1122 ml 662 ml Output Total 800 ml 700 ml 350 ml Balance -320 ml 422 ml 312 ml Intake Oral 480 ml 500 ml 100 ml IV Total 622 ml 562 ml Output Urine Total 800 ml 700 ml 350 ml # Voids 2 1 # Bowel Movements 0 0 0 Result Diagram: 08/13/16 0530 08/13/16 0530 Imaging Last Impressions Chest X-Ray 08/11/16209 Signed Impressions: Service Date/Time: Thursday, August 11, 2016 02:16 - CONCLUSION: Trace bibasilar atelectasis. Richard Tamez MD Abdomen/Pelvis CT 08/11/16209 Signed Impressions: Service Date/Time: Thursday, August 11, 2016 03:25 - CONCLUSION: 1. Cirrhosis with moderate to large ascites and increased splenomegaly. Heterogeneous and very nodular liver; possibility of liver masses difficult to exclude. 2. 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 Plasmacytoma related to multiple myeloma would also be in the differential. This is new. I believe it arose from the right transverse process of L1. Richard Tamez MD Objective Remarks GENERAL: No acute distress SKIN: Warm and dry. HEAD: Normocephalic. EYES: No scleral icterus. No injection or drainage. NECK: Supple, trachea midline. No JVD or lymphadenopathy. CARDIOVASCULAR: Regular rate and rhythm without murmurs, gallops, or rubs. RESPIRATORY: Breath sounds equal bilaterally. No accessory muscle use. GASTROINTESTINAL: Abdomen soft, non-tender, nondistended. MUSCULOSKELETAL: No cyanosis, or edema. BACK: Nontender without obvious deformity. No CVA tenderness. A/P Problem List: (1) Hematemesis ICD Code: K92.0 Status: Acute (2) GI bleed ICD Code: K92.2 Status: Acute (3) Cirrhosis of liver ICD Code: K74.60 Status: Chronic (4) Liver mass ICD Code: R16.0 Status: Chronic (5) Uyikf-5-eyugpngalws deficiency ICD Code: E88.01 Status: Chronic Assessment and Plan 65-year-old male with Hematemesis/GI bleed: H&H remained stable. Status post EGD with band ligation 08/11/16 and Currently on PPI as well as octreotide drip. Appreciate input from gastroenterology and, monitor H&H and transfuse accordingly. Discontinue Xarelto History of Alpha I antitrypsin deficiency: Continue weekly Prolastin patient to follow up outpatient with hepatology at [facility] for new clinical trial in September 2016 History of liver cancer: CT abdomen noted and review by me with finding of Cirrhosis with moderate to large ascites and increased splenomegaly. Heterogeneous and very nodular liver; possibility of liver masses difficult to exclude. 2. 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 Although patient is oriented established with oncology and the pathology at [facility], however medical oncology here at [place] consultation pending History of ascites: Continue Demadex Atrial fibrillation: Currently rate control, continue with digoxin and monitor level History of hypertension: Currently BP soft, continue to hold all oral antihypertensive medications Other chronic medical conditions including depression, hyperlipidemia, history of CHF: Continue outpatient medications Hematuria: Monitor however consider urology consultation if no improvement for evaluation for possible cystoscopy. DVT prophylaxis: Chemical anti-prophylaxis is contraindicated secondary to GI bleed, bilateral SCDs. GI prophylaxis: PPI. Problem Qualifiers (1) GI bleed: Qualified Code: K92.2 - Gastrointestinal hemorrhage, unspecified gastrointestinal hemorrhage type Efraín Gil MD Aug 13, 2016 09:21
[2016-08-13] MEDS: GABAPENTIN 100 MG CAP PO SCH ×3 (09:23→17:20)
[2016-08-13] MEDS: POTASSIUM CHLORIDE 10 MEQ CONTROLLED RELEASE TAB PO SCH ×3 (09:23→17:20)
[2016-08-13] MEDS: CALCIUM/VITAMIN D 250 MG/125 U TAB PO SCH ×2 (09:23→20:39)
[2016-08-13] MEDS: TORSEMIDE 20 MG TAB PO SCH (09:23)
[2016-08-13] MEDS: OCTREOTIDE INJ 500 MCG in SODIUM CHLORID 0.9% 500 ML INJ 499.5 ML IV SCH ×2 (09:24→22:40)
[2016-08-13] MEDS: VENLAFAXINE HCL XR 75 MG CAP PO SCH (09:24)
[2016-08-13] MEDS: DIGOXIN 0.125 MG TAB PO SCH (09:24)
[2016-08-13] MEDS: TIOTROPIUM BROMIDE 18 MCG INH INH SCH (09:26)
[2016-08-13] MEDS: BUDESONIDE-FORMOTEROL 160/4.5 MCG INHALER INH SCH ×2 (09:26→20:40)
--- NOTE | 2016-08-13 10:00 | MB ---
cc: JASWANT PATRICIO DATE OF CONSULTATION 08/13/2016 CHIEF COMPLAINT ON ADMISSION "I am vomiting blood", duration today. PRESENT ILLNESS This patient is a 65-year-old male who has a history of Alpha-1 Antitrypsin deficiency, liver cancer, cirrhosis and chronic abdominal pain. He presented to the [place] emergency room with melena and vomiting of blood. He is a patient of [facility] where he evidently has been receiving care. The patient did undergo evaluation here. A CT scan of the abdomen showed an area worrisome for metastasis to the lumbar paraspinal area. The doctors requested a Hematology/Oncology consultation. The patient states he does have back pain, but it has been stable for 10 years. PRIOR HOSPITALIZATIONS AND MEDICAL EXAMS Include a history of: 1. Migraines 2. Arteriosclerotic heart disease 3. Myocardial infarction 4. Congestive heart failure 5. Coronary stenting 6. Atrial fibrillation 7. Hypertension 8. Alpha-1 Antitrypsin deficiency 9. History of hematemesis 10. Circumcision 11. Degenerative arthritis 12. Chronic back problems 13. Orthopedic surgery of his right arm 14. Cirrhosis 15. A history of tobacco which he quit in 1967. He does admit to Alpha-1 Antitrypsin Deficiency and states he has hepatoma. 16. Hepatoma HABITS The patient, at the present time, does not smoke abuse drugs or drink alcohol. ALLERGIES Include MULTIDRUG RESISTANT ORGANISMS, ADHESIVES, BETA BLOCKERS, HYDROMORPHONE, MEDROL, MORPHINE AND SULFA. MEDICATIONS At the time of admission were multiple and included: 1. Albuterol inhaler 2. Alpha-1 proteinase inhibitor 6000 mg IV weekly on Tuesday 3. Ascorbic acid 500 mg daily 4. Calcitriol with vitamin D3 three tablets b.i.d. 5. Cholecalciferol 1000 units daily 6. Diazepam 10 mg b.i.d. 7. Topical diclofenac 1% q.i.d. p.r.n. 8. Lanoxin 0.125 daily 9. Diltiazem 120 mg daily - Diltiazem CD 10. Benadryl 25 mg weekly 11. Fluticasone nasal spray 2 puffs each nostril daily 12. Advair discus 1 puff b.i.d., 250/50 13. Folic acid 1 mg daily 14. Gabapentin 100 mg t.i.d. 15. Glucosamine chondroitin 1 tablet b.i.d. 16. Vistaril 25 mg q.i.d. 17. Lansoprazole 30 mg b.i.d. 18. Meclizine 25 mg b.i.d. 19. One multivitamin tablet daily 20. Nitroglycerin 0.4 sublingually p.r.n. 21. Oxycodone 10 mg q4h p.r.n. 22. K-tabs 10 mEq t.i.d. 23. Probiotics one cap b.i.d. 24. Phenergan 25 mg t.i.d. 25. Ramipril 2-1/2 mg daily 26. Crest 10 mg daily 27. Senokot-S two tablets b.i.d. 28. Temazepam 30 mg q.h.s. 29. Spiriva 18 mcg inhaled daily 30. Torsemide 20 mg daily 31. Trazodone 100 mg daily 32. Venlafaxine ER 24/150 mg daily SOCIAL HISTORY This man is . He lives locally. He is retired. FAMILY HISTORY Noncontributory HABITS The patient again at this time does not smoke, drink or abuse drugs. REVIEW OF SYSTEMS Note, I did review the nurse 13-point review of systems and he does admit to neck pain, visual problems, dizziness, numbness in his thigh for one week, history of heart disease with myocardial infarction and congestive heart failure and stenting as well as atrial fibrillation, hypertension, Alpha-1 antitrypsin deficiency with cirrhosis and hepatoma. History of chronic abdominal pain, nausea, hematemesis gastroesophageal reflux disease, degenerative arthritis, chronic back problems and depression, as well as autoimmune disease related to his Alpha-1 antitrypsin deficiency. He has had MRSA infection of his elbow and MRSA in his sputum. Patient does not complain of recent appetite or weight change, weakness, fever, chills, night sweats, temperature, headache, double vision or recent visual change. Recent hearing or taste alterations are not reported. There are no reports of swallowing difficulty, . Patient makes no complaint of dysuria, pyuria, frequency, urgency, hematuria, skin eruption or skin breakdown. PHYSICAL EXAMINATION GENERAL: Chronically ill male in no acute distress. VITAL SIGNS: Temperature 97.4, pulse is 90, respirations are 18, blood pressure is 119/70 HEAD: No pain, irregularities or exostosis. EARS: External anatomy is normal; ear canals are normal. NOSE: No cysts or deviation of nasal septa appreciated. MOUTH: Tongue is in midline; uvula is non deviated. No masses are evident. NECK: Pulses are full and equal bilaterally. No bruits are identified. No goiter or masses are palpated. CHEST: Appearance is normal with adequate expansion. LUNGS: Diminished chest wall expansion. HEART: Normal S1 and S2 are present. There are no bruits, lifts, murmurs or thrills. S3 and S4 are absent. ABDOMEN: Abdomen is scaphoid. There is no localized tenderness or rebound. There are no masses. The liver and spleen cannot be palpated. There are normal bowel sounds. INGUINAL: Exam not performed. GENITALIA: Genital exam not performed. RECTAL: Rectal exam not performed. EXTREMITIES: Reveals degenerative changes NEUROLOGIC: Adequate motor power and sensory perception is appreciated. There is adequate mentation, insight and affect. The patient is slow to answer questions. LYMPHATIC: Pathologic adenopathy is not appreciated. SKIN: The skin surface integrity is maintained symmetrically without edema or breakdown. ASSESSMENT 1. Paraspinous mass suggestive of metastasis versus primary disease process. 2. History of hepatoma. 3. Alpha-1 antitrypsin deficiency 4. Cirrhosis secondary to 3. 5. Arteriosclerotic heart disease with coronary stent, congestive heart failure and atrial fibrillation 6. Hypertension 7. Degenerative arthritis 8. History of hematemesis. 9. Depression RECOMMENDATIONS I have been asked to see this man regarding his destructive paraspinous process. The radiologist considers this to be likely malignant, possibly a myeloma. I have ordered a workup. This may be a metastatic lesion from this man's hepatoma. Jaswant Patricio MD WJD/DEREK /8:54 AM /9:29 AM MTDMark
--- NOTE | 2016-08-13 12:16 | HHI.GIFU ---
Subjective Remarks Patient is resting in bed, reports few episodes of vomiting last night, denies hematemesis, nothing was documented, nurse wasn't aware that he had any vomiting , hgb stable. No nausea or vomiting today (Ghada Xavier) Objective Vitals I&O Vital Signs Date Time Temp Pulse Resp B/P Pulse Ox O2 Delivery O2 Flow Rate FiO2 08/13/16 12:00 97.2 94 16 106/78 87 08/13/16 10:26 92 High Flow Nasal Cannula 2.00 08/13/16 08:00 97.4 88 16 111/78 90 08/13/16 04:00 97.4 90 18 119/70 91 08/13/16 00:10 Nasal Cannula 2.00 08/13/16 00:10 97.4 88 18 115/58 91 08/12/16 20:04 96 08/12/16 20:00 Nasal Cannula 3.00 08/12/16 20:00 97.9 88 17 104/70 92 08/12/16 16:00 98.0 99 20 100/64 90 08/12/16 13:38 2.00 I/O 08/12/16 08/12/16 08/12/16 08/13/16 08/13/16 08/13/16 07:00 15:00 23:00 07:00 15:00 23:00 Intake Total 480 ml 1122 ml 662 ml Output Total 800 ml 700 ml 350 ml Balance -320 ml 422 ml 312 ml Intake Oral 480 ml 500 ml 100 ml IV Total 622 ml 562 ml Output Urine Total 800 ml 700 ml 350 ml # Voids 2 1 # Bowel Movements 0 0 0 Laboratory Laboratory Tests Test 08/13/16 05:30 White Blood Count 2.6 Red Blood Count 2.86 Hemoglobin 8.5 Hematocrit 25.7 Mean Corpuscular Volume 89.9 Mean Corpuscular Hemoglobin 29.9 Mean Corpuscular Hemoglobin 33.2 Concent Red Cell Distribution Width 22.5 Platelet Count 68 Mean Platelet Volume 10.0 Neutrophils (%) (Auto) Lymphocytes (%) (Auto) Monocytes (%) (Auto) Eosinophils (%) (Auto) Basophils (%) (Auto) Neutrophils # (Auto) Lymphocytes # (Auto) Monocytes # (Auto) Eosinophils # (Auto) Basophils # (Auto) CBC Comment AUTO DIFF Differential Total Cells 100 Counted Neutrophils % (Manual) 60 Band Neutrophils % 2 Lymphocytes % 24 Monocytes % 11 Eosinophils % 3 Neutrophils # (Manual) 1.6 Differential Comment FINAL DIFF MANUAL Platelet Estimate LOW Platelet Morphology Comment NORMAL Target Cells 1+ Tear Drop Cells 1+ Sodium Level 138 Potassium Level 3.8 Chloride Level 100 Carbon Dioxide Level 29.0 Anion Gap 9 Blood Urea Nitrogen 19 Creatinine 0.95 Estimat Glomerular Filtration 79 Rate Random Glucose 113 Calcium Level 8.4 Total Bilirubin 3.6 Aspartate Amino Transf 275 (AST/SGOT) Alanine Aminotransferase 132 (ALT/SGPT) Alkaline Phosphatase 645 Total Protein 5.7 Albumin 2.2 Imaging Last Impressions Chest X-Ray 08/11/16209 Signed Impressions: Service Date/Time: Thursday, August 11, 2016 02:16 - CONCLUSION: Trace bibasilar atelectasis. Richard Tamez MD Abdomen/Pelvis CT 08/11/16209 Signed Impressions: Service Date/Time: Thursday, August 11, 2016 03:25 - CONCLUSION: 1. Cirrhosis with moderate to large ascites and increased splenomegaly. Heterogeneous and very nodular liver; possibility of liver masses difficult to exclude. 2. 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 Plasmacytoma related to multiple myeloma would also be in the differential. This is new. I believe it arose from the right transverse process of L1. Richard Tamez MD Physical Exam HEENT: Pupils round and reactive to light; normocephalic; atraumatic; no jaundice. Throat is clear. NECK: Neck is supple, no JVD, no lymphadenopathy. CHEST: Chest is clear to auscultation and percussion. CARDIAC: Regular rate and rhythm with no murmur gallop or rubs. ABDOMEN: Soft, slightly distended, slight diffused tenderness; no hepatosplenomegaly; bowel sounds are present in all four quadrants. Ascites EXTREMITIES: No clubbing, cyanosis, or edema. SKIN: Normal; no rash; no jaundice. VISUAL LEAD: No focal deficits; alert and oriented times three. (Ghada Xavier) Assessment and Plan Plan - Hematemesis- Reports few episodes of vomiting over night, however, nothing documented, nurse not aware of this, no complaints of nausea or vomiting today, patient himself denies hematemesis, hgb stable at 8.5, S/P EGD/banding on (08/11/16)------> medium esophageal varices distal esophagus, one column, two bands applied, a medium nodule was located in the 2nd part of the duodenum , greenish gastric content and no evidence of active recent bleeding. Bx of small intestine, duodenum second portion showed hyperplastic and reactive duodenal mucosa with surface mucosal erosion and foveolar metaplasia , PPI, octreotide - Alpha 1 antitrypsin deficiency/liver cancer/cirrhosis- weekly Prolastin, Patient is being followed by a oncologist and clinical nursing assistant at [facility] for a couple of months, and there are plans for him to start a new clinical trial in September. CT done and that showed Cirrhosis with moderate to large ascites and increased splenomegaly. Heterogeneous and very nodular liver; possibility of liver masses difficult to exclude. 2. 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 Plasmacytoma related to multiple myeloma would also be in the differential. This is new. I believe it arose from the right transverse process of L1 - Paraspinous mass/ possible mets- oncology on the case - Ascites- on Demadex - Afib- Xarelto discontinued per [facility] wishes - COPD per attending Plan: - Full liquids - Notify GI for any bleeding - Cont. octreotide - Cont PPI - EGD in 4 weeks - Monitor hh - Transfuse as needed - Supportive care - Patient seen and examined by Dr. Dodge and myself and this note is written on his behalf. (Ghada Xavier) Physician Comments Seen and examined, biopsies pending, no signs of active bleeding, will follow up with you. (Oscar Dodge MD) Ghada Xvaier Aug 13, 2016 12:16 Oscar Dodge MD Aug 13, 2016 12:42
[2016-08-13] MEDS ORDERED: GADODIAMIDE PF 287 MG/ML 5 ML VIAL (for RAD MRI) IV ONE (15:50)
--- NOTE | 2016-08-13 17:05 | RADRPT ---
EXAM DATE/TIME: 08/13/2016 15:36 [facility] COMPARISON: CT ABDOMEN & PELVIS W/O CONTRAST, August 11, 2016, 3:25. INDICATIONS : Mass. Lower back pain. CONTRAST: 15 cc Omniscan (gadodiamide) IV MEDICAL HISTORY : Cardiovascular disease Hernia, hiatal. Cirrhosis. Carcinoma, liver. COPD. HTN. GERD. SURGICAL HISTORY : IVC Filter placement. Lobectomy. Port. ENCOUNTER: Subsequent ACUITY: 1 day PAIN SCORE: 8/10 LOCATION: Lower back. TECHNIQUE: Multiplanar multisequence MRI of the lumbar spine was performed with and without contrast. FINDINGS: The most caudal appearing lumbar vertebra is numbered as L5. VERTEBRAE: A large right paraspinal soft tissue mass is seen. Epicenter is near the right L1 transverse process. This mass measures 6.5 x 4.5 x 4.3 cm and shows heterogeneous enhancement. There is destruction of t he right L1 transverse process. The mass extends slightly into the right L1 nerve foramen. It does no t have any appreciable intrathecal extension. The marrow signal throughout the vertebral bodies is ot herwise unremarkable. Bilateral L5 pars defects resulted in a grade 2 anterolisthesis of L5 on S1. CONUS: Normal level and configuration. POST CONTRAST: Enhancing right paraspinal mass is detailed above. Tiny renal cysts are noted. No dominant cyst or solid lesion observed. T12-L1: The thecal sac has a normal diameter. No evidence of disc bulge or protrusion. The neural foramina are patent bilaterally. L1-L2: There is disc space narrowing and disc desiccation with a broad-based disc osteophyte complex. Latera l recesses and central canal are patent. There is some narrowing of the right neural foramen due to t he previously described mass. The left neural foramen is patent. L2-L3: A mild broad-based disc bulge. Mild bony hypertrophy of the facets. Mild narrowing of the left latera l recess without impingement. Right lateral recess and central canal are patent. Some narrowing of th e neural foramina bilaterally without impingement. L3-L4: There is a mild broad-based disc bulge. Mild ligamentum flavum hypertrophy of the facets. Lateral rec esses, central canal, and neural foramen are patent. L4-L5: There is a mild broad-based disc bulge. Central canal and lateral recesses are patent. Neural foramen are patent. L5-S1: Anterolisthesis. Central canal and lateral recesses are patent. Impingement of both L5 nerve roots wi thin the neural foramen. CONCLUSION: 1. 6.5 x 4.5 x 4.3 cm right paraspinal mass likely related to a metastasis. This does extend into the right neural foramen for the L1 nerve but there is no intrathecal extension appreciated. 2. Bilateral L5 pars defects with grade 2 anterolisthesis and bilateral L5 impingement within the meseret ral foramen. 3. Central canal patent throughout. Aidan Wright Jr., MD on August 13, 2016 at 16:39 Board Certified Radiologist. This report was verified electronically.
[2016-08-13] MEDS: traZODone HCL 100 MG TAB PO SCH (20:39)
[2016-08-13] MEDS: ATORVASTATIN 20 MG TAB PO SCH (20:39)
[2016-08-13] MEDS: TEMAZEPAM 15 MG CAP PO SCH (20:39)
[2016-08-13] MEDS: ONDANSETRON HCL 4 MG/2 ML VIAL IVP PRN (20:54)
--- NOTE | 2016-08-13 23:31 | RADRPT ---
EXAM DATE/TIME: 08/13/2016 12:42 [facility] COMPARISON: CT ABDOMEN & PELVIS W/O CONTRAST, August 11, 2016, 3:25. PRIOR BONE SCANS: No correlative bone scan available for comparison. INDICATIONS : Liver cancer. DOSE: 32.4 mCi Tc99m MDP IV IMAGING: SPECT/CT imaging with fusion was performed. RADIATION DOSE: 5.21 CTDIvol (mGy) MEDICAL HISTORY : Congestive hearrt failure. Myocardial infarction. SURGICAL HISTORY : Coronary artery stent. Right arm surgery. ENCOUNTER: Initial ACUITY: 4 - 6 days PAIN SCALE: 3/10 LOCATION: Back. TECHNIQUE: Three hours post intravenous administration of radiotracer, whole body bone scan imaging was performe d. FINDINGS: There are severe degenerative changes and associated uptake involving the spine, primarily the thorac olumbar spine. There are no areas of abnormal uptake suspicious for metastatic disease when correlate d with the CT images. CONCLUSION: Benign whole-body bone scan and bone SPECT of the lumbar spine Richard Lester MD on August 13, 2016 at 23:23 Board Certified Radiologist. This report was verified electronically.
[2016-08-14] VITALS (12 sets, daily range): BP systolic 99–122; BP diastolic 57–79; PULSE 84–99; RESP 16–20; TEMP 97.1–98.5; O2SAT 87–95
[2016-08-14] MEDS: OCTREOTIDE INJ 500 MCG in SODIUM CHLORID 0.9% 500 ML INJ 499.5 ML IV SCH ×2 (05:18→10:03)
[2016-08-14] MEDS: ONDANSETRON HCL 4 MG/2 ML VIAL IVP PRN ×2 (05:57→18:39)
[2016-08-14 06:15] LABS: AUTOMATED NEUTROPHIL # 2.4 TH/MM3 (1.8-7.7); EOSINOPHIL # 0.1 TH/MM3 (0-0.4); EOSINOPHIL % 3.9 % (0.0-4.0); HEMATOCRIT 26.9 % (39.0-51.0); LYMPH % 12.7 % (9.0-44.0); LYMPHOCYTE # 0.4 TH/MM3 (1.0-4.8); MEAN CELL VOLUME 90.9 FL (80.0-100.0); MEAN CORPUSCULAR HEMOGLOBIN 30.3 PG (27.0-34.0); MEAN CORPUSCULAR HGB CONC 33.4 % (32.0-36.0); MONO % 12.8 % (0.0-8.0); NEUT % 69.6 % (16.0-70.0); PLATELET COUNT 79 TH/MM3 (150-450); RED BLOOD COUNT 2.96 MIL/MM3 (4.50-5.90); RED CELL DISTRIBUTION WIDTH 22.2 % (11.6-17.2); WHITE BLOOD COUNT 3.5 TH/MM3 (4.0-11.0)
[2016-08-14 06:19] LABS: HEMO FLAGS AUTO DIFF
[2016-08-14 07:36] LABS: PLATELET ESTIMATE SMEAR LOW (NORMAL); PLATELET MORPHOLOGY NORMAL (NORMAL); SCAN/DIFF AUTO DIFF CONFIRMED; TARGET CELLS 1+ (NORMAL)
--- NOTE | 2016-08-14 07:57 | HHI.PR ---
Subjective Remarks Follow-up hematemesis 08/12/16-patient seen and examined; he is status post EGD with band ligation . Patient states overnight he had episode of hematemesis. Also complains of hematuria. Otherwise stable and no other issues. 08/13/16-patient seen and examined; reports some episode of light hematemesis however stable. H&H stable. Patient with some mild confusion this morning 08/14/16-patient seen and examined; denies any more episode of hematemesis. Stable and tolerated full liquid diet. Objective Vitals Vital Signs Date Time Temp Pulse Resp B/P Pulse Ox O2 Delivery O2 Flow Rate FiO2 08/14/16 04:00 97.9 91 20 122/78 93 08/14/16 00:00 97.1 94 20 99/64 92 08/13/16 20:05 100 08/13/16 20:00 97.8 99 20 106/69 93 08/13/16 20:00 Nasal Cannula 3.00 08/13/16 17:59 92 Nasal Cannula 2.00 08/13/16 16:00 97.3 102 16 119/82 86 08/13/16 12:00 97.2 94 16 106/78 87 08/13/16 10:26 92 High Flow Nasal Cannula 2.00 08/13/16 08:04 77 08/13/16 08:00 97.4 88 16 111/78 90 08/13/16 08:00 Nasal Cannula 2.00 I/O 08/13/16 08/13/16 08/13/16 08/14/16 08/14/16 08/14/16 06:59 14:59 22:59 06:59 14:59 22:59 Intake Total 662 ml 960 ml 1060 ml 600 ml Output Total 350 ml 1200 ml 450 ml 350 ml Balance 312 ml -240 ml 610 ml 250 ml Intake Oral 100 ml 960 ml 580 ml 120 ml IV Total 562 ml 480 ml 480 ml Output Urine Total 350 ml 1200 ml 450 ml 350 ml # Voids 1 1 # Bowel Movements 0 0 Result Diagram: 08/14/16 0558 08/13/16 0530 Imaging Last Impressions SPECT Scan-Bone Nuclear Medicine 08/13/16 0000 Signed Impressions: Service Date/Time: Saturday, August 13, 2016 12:42 - CONCLUSION: Benign whole-body bone scan and bone SPECT of the lumbar spine Richard Lester MD Lumbar Spine MRI 08/13/16 0000 Signed Impressions: Service Date/Time: Saturday, August 13, 2016 15:36 - CONCLUSION: 1. 6.5 x 4.5 x 4.3 cm right paraspinal mass likely related to a metastasis. This does extend into the right neural foramen for the L1 nerve but there is no intrathecal extension appreciated. 2. Bilateral L5 pars defects with grade 2 anterolisthesis and bilateral L5 impingement within the neural foramen. 3. Central canal patent throughout. Aidan Wright Jr., MD Chest X-Ray 08/11/16209 Signed Impressions: Service Date/Time: Thursday, August 11, 2016 02:16 - CONCLUSION: Trace bibasilar atelectasis. Richard Tamez MD Abdomen/Pelvis CT 08/11/16209 Signed Impressions: Service Date/Time: Thursday, August 11, 2016 03:25 - CONCLUSION: 1. Cirrhosis with moderate to large ascites and increased splenomegaly. Heterogeneous and very nodular liver; possibility of liver masses difficult to exclude. 2. 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 Plasmacytoma related to multiple myeloma would also be in the differential. This is new. I believe it arose from the right transverse process of L1. Richard Tamez MD Objective Remarks GENERAL: No acute distress SKIN: Warm and dry. HEAD: Normocephalic. EYES: No scleral icterus. No injection or drainage. NECK: Supple, trachea midline. No JVD or lymphadenopathy. CARDIOVASCULAR: Regular rate and rhythm without murmurs, gallops, or rubs. RESPIRATORY: Breath sounds equal bilaterally. No accessory muscle use. GASTROINTESTINAL: Abdomen soft, non-tender, nondistended. MUSCULOSKELETAL: No cyanosis, or edema. BACK: Nontender without obvious deformity. No CVA tenderness. A/P Problem List: (1) Hematemesis ICD Code: K92.0 Status: Resolved (2) GI bleed ICD Code: K92.2 Status: Acute (3) Cirrhosis of liver ICD Code: K74.60 Status: Chronic (4) Liver mass ICD Code: R16.0 Status: Chronic (5) [id number] deficiency ICD Code: E88.01 Status: Chronic Assessment and Plan 65-year-old male with Hematemesis/GI bleed: H&H remained stable. Status post EGD with band ligation 08/11/16 and Currently on PPI as well as octreotide drip likely this continue within next 24 hours. Appreciate input from gastroenterology and, monitor H&H and transfuse accordingly. Discontinue Xarelto History of Alpha I antitrypsin deficiency: Continue weekly Prolastin patient to follow up outpatient with hepatology at [facility] for new clinical trial in September 2016 History of liver cancer: CT abdomen noted and review by me with finding of Cirrhosis with moderate to large ascites and increased splenomegaly. Heterogeneous and very nodular liver; possibility of liver masses difficult to exclude. 2. 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 Appreciate input from medical oncology. Workup for possible ruling out multiple myeloma in process versus metastasis from hepatoma History of ascites: Continue Demadex Atrial fibrillation: Currently rate control, continue with digoxin and monitor level History of hypertension: continue to hold all oral antihypertensive medications Other chronic medical conditions including depression, hyperlipidemia, history of CHF: Continue outpatient medications Hematuria: Resolved. DVT prophylaxis: Chemical anti-prophylaxis is contraindicated secondary to GI bleed, bilateral SCDs. GI prophylaxis: PPI. Problem Qualifiers (1) GI bleed: Qualified Code: K92.2 - Gastrointestinal hemorrhage, unspecified gastrointestinal hemorrhage type Efraín Gil MD Aug 14, 2016 07:57
[2016-08-14] MEDS: SODIUM CHLORIDE 0.9% FLUSH 5 ML FLUSH FLUSH SCH ×2 (09:00→21:39)
[2016-08-14] MEDS: TIOTROPIUM BROMIDE 18 MCG INH INH SCH (10:00)
[2016-08-14] MEDS: BUDESONIDE-FORMOTEROL 160/4.5 MCG INHALER INH SCH ×2 (10:00→21:40)
[2016-08-14] MEDS: TORSEMIDE 20 MG TAB PO SCH (10:01)
[2016-08-14] MEDS: CALCIUM/VITAMIN D 250 MG/125 U TAB PO SCH ×2 (10:01→21:42)
[2016-08-14] MEDS: DIGOXIN 0.125 MG TAB PO SCH (10:01)
[2016-08-14] MEDS: POTASSIUM CHLORIDE 10 MEQ CONTROLLED RELEASE TAB PO SCH ×3 (10:01→18:09)
[2016-08-14] MEDS: GABAPENTIN 100 MG CAP PO SCH ×3 (10:01→18:09)
[2016-08-14] MEDS: VENLAFAXINE HCL XR 75 MG CAP PO SCH (10:01)
[2016-08-14] MEDS: PANTOPRAZOLE INJ 80 MG in SODIUM CHLORIDE 0.9% INJ 100 ML IV SCH (10:02)
--- NOTE | 2016-08-14 10:13 | HHI.GIFU ---
Subjective Remarks Patient is resting in bed, a little groggy due to receiving narcotics, denies nausea, vomiting or hematemesis. (Tono Xavieramelia ELIZABETH) Objective Vitals I&O Vital Signs Date Time Temp Pulse Resp B/P Pulse Ox O2 Delivery O2 Flow Rate FiO2 08/14/16 09:00 93 Venturi Mask 6.00 50 08/14/16 04:00 97.9 91 20 122/78 93 08/14/16 00:00 97.1 94 20 99/64 92 08/13/16 20:05 100 08/13/16 20:00 97.8 99 20 106/69 93 08/13/16 20:00 Nasal Cannula 3.00 08/13/16 17:59 92 Nasal Cannula 2.00 08/13/16 16:00 97.3 102 16 119/82 86 08/13/16 12:00 97.2 94 16 106/78 87 08/13/16 10:26 92 High Flow Nasal Cannula 2.00 I/O 08/13/16 08/13/16 08/13/16 08/14/16 08/14/16 08/14/16 07:00 15:00 23:00 07:00 15:00 23:00 Intake Total 662 ml 960 ml 1060 ml 600 ml Output Total 350 ml 1200 ml 450 ml 350 ml Balance 312 ml -240 ml 610 ml 250 ml Intake Oral 100 ml 960 ml 580 ml 120 ml IV Total 562 ml 480 ml 480 ml Output Urine Total 350 ml 1200 ml 450 ml 350 ml # Voids 1 1 # Bowel Movements 0 0 Laboratory Laboratory Tests Test 08/13/16 08/14/16 10:20 05:58 Lactate Dehydrogenase 318 Total Protein 6.0 Tumor Marker Alpha Fetoprotein GREATER THAN 12481.0 Carcinoembryonic Antigen 4.3 CA 15-3 Antigen 36.0 CA 19-9 Antigen 35.9 Prostate Specific Antigen 0.19 Tumor Marker HCG 2 Immunoglobulin G Total 1350 Immunoglobulin A 474 Immunoglobulin M 139 White Blood Count 3.5 Red Blood Count 2.96 Hemoglobin 9.0 Hematocrit 26.9 Mean Corpuscular Volume 90.9 Mean Corpuscular Hemoglobin 30.3 Mean Corpuscular Hemoglobin 33.4 Concent Red Cell Distribution Width 22.2 Platelet Count 79 Mean Platelet Volume 10.0 Neutrophils (%) (Auto) 69.6 Lymphocytes (%) (Auto) 12.7 Monocytes (%) (Auto) 12.8 Eosinophils (%) (Auto) 3.9 Basophils (%) (Auto) 1.0 Neutrophils # (Auto) 2.4 Lymphocytes # (Auto) 0.4 Monocytes # (Auto) 0.4 Eosinophils # (Auto) 0.1 Basophils # (Auto) 0.0 CBC Comment AUTO DIFF Differential Comment AUTO DIFF CONFIRMED Platelet Estimate LOW Platelet Morphology Comment NORMAL Target Cells 1+ Imaging Last Impressions SPECT Scan-Bone Nuclear Medicine 08/13/16 0000 Signed Impressions: Service Date/Time: Saturday, August 13, 2016 12:42 - CONCLUSION: Benign whole-body bone scan and bone SPECT of the lumbar spine Richard Lester MD Lumbar Spine MRI 08/13/16 Signed Impressions: Service Date/Time: Saturday, August 13, 2016 15:36 - CONCLUSION: 1. 6.5 x 4.5 x 4.3 cm right paraspinal mass likely related to a metastasis. This does extend into the right neural foramen for the L1 nerve but there is no intrathecal extension appreciated. 2. Bilateral L5 pars defects with grade 2 anterolisthesis and bilateral L5 impingement within the neural foramen. 3. Central canal patent throughout. Aidan Wright Jr., MD Chest X-Ray 08/11/16209 Signed Impressions: Service Date/Time: Thursday, August 11, 2016 02:16 - CONCLUSION: Trace bibasilar atelectasis. Richard Tamez MD Abdomen/Pelvis CT 08/11/16209 Signed Impressions: Service Date/Time: Thursday, August 11, 2016 03:25 - CONCLUSION: 1. Cirrhosis with moderate to large ascites and increased splenomegaly. Heterogeneous and very nodular liver; possibility of liver masses difficult to exclude. 2. 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 Plasmacytoma related to multiple myeloma would also be in the differential. This is new. I believe it arose from the right transverse process of L1. Richard Tamez MD Physical Exam HEENT: Pupils round and reactive to light; normocephalic; atraumatic; no jaundice. Throat is clear. NECK: Neck is supple, no JVD, no lymphadenopathy. CHEST: Chest is clear to auscultation and percussion. CARDIAC: Regular rate and rhythm with no murmur gallop or rubs. ABDOMEN: Soft, slightly distended, slight diffused tenderness; no hepatosplenomegaly; bowel sounds are present in all four quadrants. Ascites EXTREMITIES: No clubbing, cyanosis, or edema. SKIN: Normal; no rash; no jaundice. SKIN CARVER: No focal deficits; alert and oriented times three. (Ghada Xavier) Assessment and Plan Plan - Esophageal varices- hgb stable at 9.0, no more hematemesis S/P EGD/banding on (08/11/16)------> medium esophageal varices distal esophagus, one column, two bands applied, a medium nodule was located in the 2nd part of the duodenum , greenish gastric content and no evidence of active recent bleeding. Bx of small intestine, duodenum second portion showed hyperplastic and reactive duodenal mucosa with surface mucosal erosion and foveolar metaplasia , PPI, octreotide - Alpha 1 antitrypsin deficiency/liver cancer/cirrhosis- weekly Prolastin, Patient is being followed by a oncologist and fifth hand at [facility] for a couple of months, and there are plans for him to start a new clinical trial in September. CT done and that showed Cirrhosis with moderate to large ascites and increased splenomegaly. Heterogeneous and very nodular liver; possibility of liver masses difficult to exclude. 2. 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 Plasmacytoma related to multiple myeloma would also be in the differential. This is new. I believe it arose from the right transverse process of L1 - Paraspinous mass/ possible mets- oncology on the case - Ascites- on Demadex - Afib- Xarelto discontinued per [facility] wishes - COPD per attending Plan: - Advance diet - DC octreotide - PO PPI - EGD in 4 weeks - Okay to DC home from GI stand point - GI will sign off - Patient seen and examined by Dr. Dodge and myself and this note is written on his behalf. (Ghada Xavier) Physician Comments Agree with above assessment and plan, please notify us if needed. (Oscar Dodge MD) Ghada Xavier Aug 14, 2016 10:13 Oscar Dodge MD Aug 14, 2016 11:47
[2016-08-14] MEDS ORDERED: REMOVE OLD PATCH TD SCH (15:45)
[2016-08-14] MEDS: traZODone HCL 100 MG TAB PO SCH (21:42)
[2016-08-14] MEDS: PANTOPRAZOLE SOD 40 MG DELAYED RELEASE TAB PO SCH (21:42)
[2016-08-14] MEDS: ATORVASTATIN 20 MG TAB PO SCH (21:43)
[2016-08-14] MEDS: TEMAZEPAM 15 MG CAP PO SCH (21:59)
[2016-08-15 03:28] VITALS: BP 106/73; PULSE 89; RESP 16; TEMP 98.2; O2SAT 93
[2016-08-15 03:51] LABS: KAPPA/LAMBDA FREE 1.28 (0.26-1.65)
[2016-08-15 08:00] VITALS: BP 103/67; PULSE 85; PULSE 94; RESP 22; TEMP 97.5; O2SAT 68
--- NOTE | 2016-08-15 09:02 | HHI.PR ---
Subjective Remarks Follow-up hematemesis 08/12/16-patient seen and examined; he is status post EGD with band ligation . Patient states overnight he had episode of hematemesis. Also complains of hematuria. Otherwise stable and no other issues. 08/13/16-patient seen and examined; reports some episode of light hematemesis however stable. H&H stable. Patient with some mild confusion this morning 08/14/16-patient seen and examined; denies any more episode of hematemesis. Stable and tolerated full liquid diet. 08/15/16-patient seen and examined. No report of GI bleed overnight and this morning. Stable and afebrile. Objective Vitals Vital Signs Date Time Temp Pulse Resp B/P Pulse Ox O2 Delivery O2 Flow Rate FiO2 08/15/16 03:28 98.2 89 16 106/73 93 08/14/16 23:13 98.5 93 16 111/74 95 08/14/16 22:42 95 Venturi Mask 6.00 50 08/14/16 21:58 Venturi Mask 6.00 50 08/14/16 21:57 99 19 115/79 08/14/16 20:01 89 08/14/16 19:35 98.3 89 16 100/57 92 08/14/16 16:00 97.9 99 20 109/75 87 08/14/16 12:00 97.1 94 20 114/72 93 I/O 08/14/16 08/14/16 08/14/16 08/15/16 08/15/16 08/15/16 06:59 14:59 22:59 06:59 14:59 22:59 Intake Total 600 ml 120 ml 0 ml Output Total 350 ml 0 ml 625 ml Balance 250 ml 120 ml -625 ml Intake Oral 120 ml 120 ml 0 ml IV Total 480 ml Output Urine Total 350 ml 0 ml 625 ml # Voids 1 # Bowel Movements 0 0 1 Result Diagram: 08/14/1658 08/13/16 0530 Objective Remarks GENERAL: No acute distress SKIN: Warm and dry. HEAD: Normocephalic. EYES: No scleral icterus. No injection or drainage. NECK: Supple, trachea midline. No JVD or lymphadenopathy. CARDIOVASCULAR: Regular rate and rhythm without murmurs, gallops, or rubs. RESPIRATORY: Breath sounds equal bilaterally. No accessory muscle use. GASTROINTESTINAL: Abdomen soft, non-tender, nondistended. MUSCULOSKELETAL: No cyanosis, or edema. BACK: Nontender without obvious deformity. No CVA tenderness. A/P Problem List: (1) Hematemesis ICD Code: K92.0 Status: Resolved (2) GI bleed ICD Code: K92.2 Status: Acute (3) Cirrhosis of liver ICD Code: K74.60 Status: Chronic (4) Liver mass ICD Code: R16.0 Status: Chronic (5) Ddzut-[id number]-lrtgwfaltes deficiency ICD Code: E88.01 Status: Chronic Assessment and Plan 65-year-old male with Hematemesis/GI bleed: H&H remained stable. Status post EGD with band ligation 08/11/16 and and stable without any GI bleed. Patient is now off PPI as well as octreotide drip 08/14/16.. Appreciate input from gastroenterology and, monitor H&H and transfuse accordingly. Discontinue Xarelto History of Alpha I antitrypsin deficiency: Continue weekly Prolastin patient to follow up outpatient with hepatology at [facility] for new clinical trial in September 2016 History of liver cancer: CT abdomen noted and review by me with finding of Cirrhosis with moderate to large ascites and increased splenomegaly. Heterogeneous and very nodular liver; possibility of liver masses difficult to exclude. 2. 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 Appreciate input from medical oncology. Workup for possible ruling out multiple myeloma in process versus metastasis from hepatoma. History of ascites: Continue Demadex Atrial fibrillation: Currently rate control, continue with digoxin and monitor level History of hypertension: continue to hold all oral antihypertensive medications Other chronic medical conditions including depression, hyperlipidemia, history of CHF: Continue outpatient medications Hematuria: Resolved. DVT prophylaxis: Chemical anti-prophylaxis is contraindicated secondary to GI bleed, bilateral SCDs. GI prophylaxis: PPI. Problem Qualifiers (1) GI bleed: Qualified Code: K92.2 - Gastrointestinal hemorrhage, unspecified gastrointestinal hemorrhage type Efraín Gil MD Aug 15, 2016 09:02
[2016-08-15] MEDS: SODIUM CHLORIDE 0.9% FLUSH 5 ML FLUSH FLUSH SCH ×2 (09:08→20:35)
[2016-08-15] MEDS: DIGOXIN 0.125 MG TAB PO SCH (09:09)
[2016-08-15] MEDS: VENLAFAXINE HCL XR 75 MG CAP PO SCH (09:09)
[2016-08-15] MEDS: PANTOPRAZOLE SOD 40 MG DELAYED RELEASE TAB PO SCH ×2 (09:09→20:26)
[2016-08-15] MEDS: GABAPENTIN 100 MG CAP PO SCH ×3 (09:09→17:17)
[2016-08-15] MEDS: POTASSIUM CHLORIDE 10 MEQ CONTROLLED RELEASE TAB PO SCH ×3 (09:09→17:17)
[2016-08-15] MEDS: TORSEMIDE 20 MG TAB PO SCH (09:09)
[2016-08-15] MEDS: CALCIUM/VITAMIN D 250 MG/125 U TAB PO SCH ×2 (09:09→20:26)
[2016-08-15] MEDS: fentaNYL 100 MCG/HR PATCH TD SCH (09:10)
[2016-08-15] MEDS: TIOTROPIUM BROMIDE 18 MCG INH INH SCH (09:16)
[2016-08-15] MEDS: BUDESONIDE-FORMOTEROL 160/4.5 MCG INHALER INH SCH ×2 (09:16→20:35)
[2016-08-15] MEDS: RESP: ALBUTEROL 2.5 MG/IPRATROPIUM 0.5 MG NEB (PRN) NEB ×2 (09:54→15:49)
[2016-08-15 09:56] VITALS: O2SAT 92
--- NOTE | 2016-08-15 10:47 | PD.ONC.PN ---
Subjective Subjective Remarks Afebrile overnight. Patient continuing to have pain in his back radiating down his right leg. Pain is sharp in character and constant. He is wanting to know when he can go home. No further bleeding. Abdominal pain controlled. Objective Data Date Time Temp Pulse Resp B/P Pulse Ox O2 Delivery O2 Flow Rate FiO2 08/15/16 10:19 Venturi Mask 6.00 50 08/15/16 09:56 92 Venturi Mask 50 08/15/16 08:00 97.5 94 22 103/67 68 08/15/16 03:28 98.2 89 16 106/73 93 08/14/16 23:13 98.5 93 16 111/74 95 08/14/16 22:42 95 Venturi Mask 6.00 50 08/14/16 21:58 Venturi Mask 6.00 50 08/14/16 21:57 99 19 115/79 08/14/16 20:01 89 08/14/16 19:35 98.3 89 16 100/57 92 08/14/16 16:00 97.9 99 20 109/75 87 08/14/16 12:00 97.1 94 20 114/72 93 08/15/16 08/15/16 08/15/16 06:59 14:59 22:59 Intake Total 0 ml Output Total 625 ml Balance -625 ml Result Diagram: 08/14/16 0558 08/13/16 0530 Administered Medications Medications (Trade) Dose Ordered Sig/Barak Route PRN Reason Start Time Stop Time Status Last Admin Dose Admin IV Flush (NS Flush) 2 ml BID FLUSH 08/11/16 09:00 08/15/16 09:08 Ondansetron HCl (Zofran Inj) 4 mg Q6H PRN IVP NAUSEA OR VOMITING 08/11/16 05:00 08/14/16 18:39 Digoxin (Lanoxin) 0.125 mg DAILY PO 08/12/16 09:00 08/15/16 09:09 Gabapentin (Neurontin) 100 mg TID PO 08/11/16 18:00 08/15/16 09:09 Potassium Chloride (KCl) 10 meq TID PO 08/11/16 18:00 08/15/16 09:09 Temazepam (Restoril) 30 mg HS PO 08/11/16 21:00 08/14/16 21:59 Tiotropium [place] (Spiriva Inh) 18 mcg DAILY INH 08/12/16 09:00 08/15/16 09:16 Torsemide (Demadex) 20 mg DAILY PO 08/12/16 09:00 08/15/16 09:09 Trazodone HCl (Desyrel) 100 mg HS PO 08/11/16 21:00 08/14/16 21:42 Venlafaxine HCl (Effexor Xr) 150 mg DAILY PO 08/12/16 09:00 08/15/16 09:09 Calcium/Vitamin D (Oscal-D 250-125) 500 mg BID PO CA 08/11/16 21:00 08/15/16 09:09 Budesonide/ Formoterol Fumarate (Symbicort 160-4.5 Inh) 2 puff BID INH 08/11/16 21:00 08/15/16 09:16 Atorvastatin Calcium (Lipitor) 20 mg HS PO CM 08/11/16 21:00 08/14/16 21:43 Fentanyl (Duragesic 100 Mcg Patch.72 Hr) 1 patch Q3D TD 08/12/16 09:00 08/15/16 09:10 Oxycodone HCl (Roxicodone) 10 mg Q12HR PRN PO BREAKTHROUGH PAIN 08/13/16 21:00 08/13/16 20:38 Pantoprazole Sodium (Protonix) 40 mg Q12HR PO 08/14/16 21:00 08/15/16 09:09 Objective Remarks GENERAL: Elderly weak male, jaundiced, sitting up in bed in [facility]. SKIN: Warm and dry. HEAD: Normocephalic. EYES: + scleral icterus. No injection or drainage. NECK: Supple, trachea midline. CARDIOVASCULAR: +S1/S2 RESPIRATORY: diminished at bases. anterior oliver clear. GASTROINTESTINAL: Abdomen mildly distended with ascites. +hepatosplenomegaly. EXTREMITIES: No cyanosis NEUROLOGICAL: awake and alert but somewhat confused. +asterixis Assessment/Plan Assessment 65y/o male with hepatocellular carcinoma, admitted with GI bleed. Oncology consulted for newly found paraspinal mass. Plan 1. Had extensive discussion with patient and also called patient's and discussed that patient has cirrhosis, worsening hepatocellular carcinoma with AFP of 20K. patient is likely too weak to travel to [facility] and would be unlikely to qualify for any type of experimental trial at [facility], either. Recommend consulting radiation oncology for possible radiation to paraspinous mass for consult and also consulting palliative care to assist with goals of care and symptom management. Patient will likely benefit from hospice support once radiation finished or if they will allow, while completing radiation. agrees. d/w patient, patient's , Dr. Gil Attending Statement The exam, history, and the medical decision-making described in the above note were completed with the assistance of the mid-level provider. I reviewed and agree with the findings presented. I attest that I had a [id number] encounter with the patient on the same day, and personally performed and documented my assessment and findings in the medical record. -MRI, bone scan images reviewed and lab reviewed. He has a large paraspinous at L1 at the neural foramen which is responsible for his pain. His markedly elevated alpha feta protein is convincing evidence that we are dealing with hepatocellular carcinoma. The immune globulin studies including serum for free kappa and lambda light chain do not support a dx of myeloma. He jaundiced and has asterixis and does not have much time to live and it is unlikely we can go on a protocol at [facility] with his performance status. I spoke with at length about situation and have recommended radiation to right paraspinous mass for pain management and consideration of hospice. She is unsure about hospice and therefore will consult palliative care and hold discharge. Discussed with Dr. Be and he is in agreement. time 45 minutes. Glenna Honeycutt Aug 15, 2016 10:47 Vlad Machuca MD Aug 15, 2016 11:13
[2016-08-15 12:00] VITALS: BP 92/64; PULSE 85; RESP 22; TEMP 97.3; O2SAT 89
[2016-08-15] MEDS: ONDANSETRON HCL 4 MG/2 ML VIAL IVP PRN (12:29)
[2016-08-15 20:00] VITALS: BP 105/75; PULSE 108; PULSE 98; RESP 24; TEMP 98.4; O2SAT 94
[2016-08-15] MEDS: traZODone HCL 100 MG TAB PO SCH (20:26)
[2016-08-15] MEDS: ATORVASTATIN 20 MG TAB PO SCH (20:26)
[2016-08-15] MEDS: TEMAZEPAM 15 MG CAP PO SCH (20:26)
[2016-08-16 00:10] VITALS: BP 98/62; PULSE 92; RESP 20; TEMP 98.5; O2SAT 94
[2016-08-16 04:26] VITALS: BP 100/60; PULSE 88; RESP 24; TEMP 98.3; O2SAT 94
[2016-08-16 08:00] VITALS: BP 94/69; PULSE 84; PULSE 86; RESP 18; TEMP 97.2; O2SAT 88
[2016-08-16] MEDS: PANTOPRAZOLE SOD 40 MG DELAYED RELEASE TAB PO SCH ×2 (09:40→21:41)
[2016-08-16] MEDS: POTASSIUM CHLORIDE 10 MEQ CONTROLLED RELEASE TAB PO SCH ×3 (09:41→18:24)
[2016-08-16] MEDS: VENLAFAXINE HCL XR 75 MG CAP PO SCH (09:41)
[2016-08-16] MEDS: DIGOXIN 0.125 MG TAB PO SCH (09:41)
[2016-08-16] MEDS: TIOTROPIUM BROMIDE 18 MCG INH INH SCH (09:42)
[2016-08-16] MEDS: TORSEMIDE 20 MG TAB PO SCH (09:42)
[2016-08-16] MEDS: CALCIUM/VITAMIN D 250 MG/125 U TAB PO SCH ×2 (09:42→21:42)
[2016-08-16] MEDS: GABAPENTIN 100 MG CAP PO SCH ×3 (09:42→18:22)
[2016-08-16] MEDS: BUDESONIDE-FORMOTEROL 160/4.5 MCG INHALER INH SCH ×2 (09:43→21:42)
[2016-08-16] MEDS: SODIUM CHLORIDE 0.9% FLUSH 5 ML FLUSH FLUSH SCH ×2 (09:51→21:43)
--- NOTE | 2016-08-16 10:30 | PD.CONS ---
Consult Service Palliative Care Consult Requested By [facility] [place] Mark Oconnor Reason for Consultation a. To assist with evaluation and management of symptoms including:Pain b. To assist medical decision maker(s) with: better understanding of current medical conditions; weighing benefits/burdens of medical treatment options; making medical treatment decisions. HPI History of Present Illness Pt is 65 year old with a pmh significant for but not limited to COPD (2nd to alpha I antitrpsyn deficiency, weakly prolastin shots), A. Fib, GERD, heard disease, CO, depression, cirrohsis (ascites, esophageal varicies) anxiety, hiatal hernia, history of liver mass(hepatocellular carcinoma), . 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 Pt presented to the ER for melena and vomiting of blood. In the ER 08/11/2016. * vitals 114, RR 20, 121/78; Pulse ox 90% * WBC 4.3; H and H 10.1 and 29.9 ; plt 97 * Na 141; K 3.7; Cl 104; CO2, 26.7; BUN 23; Cr 1.28. * PT 12.7; INR 1.1 * UA unremarkable. * CT of the abdomen and pelvis show Cirrhosis with moderate to large ascites, splenomegaly, nodular liver (possible liver masses). Destructive malignant appearing upper lumbar right paraspinos mass, non specific but most likely mets . Plasmacytoma related to multiple myeloma in the differential. This is new. * Chest X ray show bibasilar atelectasis. * NG tube ordered for gastric lavage as pt was vomiting bright red blood ( but pt refuses as doctor's have tried to pass NG tube in the past with no success, he did not want to attempt. * Pt admitted to hospital services; GI consulted. 08/11==Pt was seen by GI and planned for EGD and possibility of banding. EGD showed medium esophageal varices, distal esophagus, one column and 2 bands applied. 08/12== Pt had an episode of emesis, but pt did not think it was bloody or coffe grounds. GI continue to follow. There were complaints of hematuria. Oncology consulted. 08/13== Oncology came and evaluated pt, especially concerning is the paraspinous process. Oncology feels this may be mestastatic lesion from hepatoma. 08/14==hgb stable. Pt seen and examined and denies episodes of hematemesis. Pt tolerating full liquid diet. AFP came back as > 20K.-MRI, bone scan images reviewed and lab reviewed. He has a large paraspinous at L1 at the neural foramen which is responsible for his pain. His markedly elevated alpha feta protein is convincing evidence that we are dealing with hepatocellular carcinoma. The immune globulin studies including serum for free kappa and lambda light chain do not support a dx of myeloma 08/15==Pt complaining of back pain radiating down to his right leg. Ask when he can go home. There are no episodes of further bleeding. Oncology has discussed with pt and pt's that with his cirrhosis, worsening hepatocellular carcinoma with AFP of 20K with mets, complicated by cirrohsis, acites, esophageal varices with esophageal bleed (that required banding) pt performance status is too poor and unlkiley to qualify for any experimental trial at [facility] in Sep. Oncology recommended radiation oncology for possible radiation to paraspinous mass. Palliative care was consulted to manage pain, and goals of care. Oncology have discussed hospice with , once radiation is finished. Pt rate pain with an intensity of 8-9 at the back and had about one dose. Pain regimen includes Oxycodone 10 mg q12 hours prn btp. Duragesic patch of 100 Mcg q 72 schedule. Gabapentin 100 mg PO TID Pt at times somewhat confused and have poor short term memory. I have spoke with attending physician, and pt's prognosis, and cancer status was extensively reviewed; however, pt could not record any of it, and ask "What is going to be the plan?" Function/Cognitive Trajectory Poor functional status, weak, tired fatigued. Review of Systems ROS Limitations: Clinical Condition Constitutional: COMPLAINS OF: Fatigue Respiratory: COMPLAINS OF: Wheezing, Shortness of breath Cardiovascular: COMPLAINS OF: Dyspnea on Exertion Gastrointestinal: COMPLAINS OF: Abdominal pain, Nausea, Vomiting, Difficulty Swallowing, Vomiting blood Genitourinary: COMPLAINS OF: Hematuria Past Family Social History Coded Allergies: Adhesives (Verified Allergy, Severe, "TAKES SKIN OFF", 08/11/16) Beta Blockers (Verified Allergy, Severe, UNKNOWN ALL BETA BLOCKERS EXCEPT TENORMIN, 08/11/16) Hydromorphone (Verified Allergy, Severe, "RACES HEART", 08/11/16) Medrol (Verified Allergy, Severe, Hives, 08/11/16) Morphine (Verified Allergy, Severe, Hallucinations, 08/11/16) Sulfa (Verified Allergy, Severe, "EATS SKIN OFF", 08/11/16) *MDRO Multi-Drug Resistant Organism (Verified Adverse Reaction, Unknown, 08/11/16) 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, 02/2008, 06/2008, 04/2014.; MRSA Elbow Wound 05/17/2016 Past Medical History ALPHA 1 ANTITRYPSIN DEFICIENCY cirrhosis, hypertension, A. fib COPD, left upper lobectomy, surgically fused right elbow with a wrist drop also with chronic wound and history of MRSA, hypercholesterolemia, CHF, CAD status post CO in 1991, hiatal hernia MRSA pneumonia Past Surgical History Right elbow I&D and removal of hard francisco on 05/17/16 Cyst removed from the liver Report to right upper chest Cardiac stents Vena cava filter Left upper lobectomy Right elbow orthopedic surgery Reported Medications Citracal + D3 Maximu 3 Tab PO BID Gabapentin 100 Mg Cap 100 Mg PO TID Nitrostat (Nitroglycerin) 0.4 Mg Subl 0.4 Mg SL PRN PRN 1 TAB SL EVERY 5 MINS X 3 PRN CHEST PAIN Trazodone HCl 100 Mg Tab 100 Mg PO HS Glucosamine Chondro1 1 Tab PO BID Benadryl 25 Mg Cap (Diphenhydramine Hcl) 25 Mg Cap 25 Mg PO WEEKLY Weekly on Wednesdays with IV treatment Proventil Hfa (Albuterol Sulfate) 6.7 Gm Aero 2 Puff INH Q4 * SHAKE WELL BEFORE USE * Valium (Diazepam) 10 Mg Tab 10 Mg PO BID PRN Voltaren 1% Gel (Diclofenac Sodium (Topical)) 1 % Gel 1 Applic TOP QID PRN Meclizine Hcl25 M4 25 Mg Tab 25 Mg PO BID PRN Acidophilus 1 Cap PO BID Flonase Allergy Relief Ch (Fluticasone Propionate (Nasal)) 50 Mcg/Act Spr 2 [place] EACH NARE DAILY KCl 10 Meq Cap (Potassium Chloride) 10 Meq Capcr 10 Meq PO TID Multi-Vitamin Daily (Multivitamins) Daily Tab 1 Tab PO DAILY Cardizem [id number] 120MG/24 Cap 120 Mg PO DAILY Phenergan (Promethazine HCl) 25 Mg Tab 25 Mg PO TID Vitamin D3 (Cholecalciferol) 400 Unit Cap 400 Unit PO DAILY Vitamin C (Ascorbic Acid) 500 Mg Chw 500 Mg PO DAILY Spiriva Handihaler (Tiotropium [place]) 18 Mcg Cap 1 Dose INH DAILY DO NOT SWALLOW CAPSULES Prolastin-C (Alpha-1 Proteinase Inhibitor) 1,000 Mg Inj 6,000 Mg IV WEEKLY PT GET ON WEDNESDAYS Folate 1 Mg Tab (Folic Acid) 1 Mg Tab 1 Mg PO DAILY Proventil Conc Ud 0.5% (2.5 Mg/0.5 Ml) (Albuterol Sulfate) 2.5 Mg/0.5 Ml Inha 2.5 Mg NEB QID PRN Colace 100 Mg Cap (Docusate Sodium) 100 Mg Cap 100 Mg PO BID Altace (Ramipril) 2.5 Mg Cap 2.5 Mg PO DAILY Restoril 30 mg (Temazepam) 30 Mg Cap 30 Mg PO HS FOR INSOMNIA Advair Disku1 250 Mcg/50 Mcg Inhp 1 Puff INH BID Crestor (Rosuvastatin Calcium) 10 Mg Tab 10 Mg PO HS Effexor-Xr (Venlafaxine HCl) 75 Mg Caper 150 Mg PO DAILY Demadex (Torsemide) 20 Mg Tab 20 Mg PO DAILY Prevacid (Lansoprazole) 30 Mg Capcr 30 Mg PO BID Vistaril (Hydroxyzine Pamoate) 25 Mg Cap 25 Mg PO QID FOR ITCHING Lanoxin (Digoxin) 0.125 Mg Tab 0.125 Mg PO DAILY Allergies: Coded Allergies: Adhesives (Verified Allergy, Severe, "TAKES SKIN OFF", 08/11/16) Beta Blockers (Verified Allergy, Severe, UNKNOWN ALL BETA BLOCKERS EXCEPT TENORMIN, 08/11/16) Hydromorphone (Verified Allergy, Severe, "RACES HEART", 08/11/16) Medrol (Verified Allergy, Severe, Hives, 08/11/16) Morphine (Verified Allergy, Severe, Hallucinations, 08/11/16) Sulfa (Verified Allergy, Severe, "EATS SKIN OFF", 08/11/16) *MDRO Multi-Drug Resistant Organism (Verified Adverse Reaction, Unknown, 08/11/16) 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, 02/2008, 06/2008, 04/2014.; MRSA Elbow Wound 05/17/2016 Current Medications Medications (Trade) Dose Ordered Sig/Barak Route Start Time Stop Time Status Last Admin (NS Flush) 2 ml UNSCH PRN FLUSH 08/11/16 05:00 (NS Flush) 2 ml BID FLUSH 08/11/16 09:00 08/15/16 20:35 (Zofran Inj) 4 mg Q6H PRN IVP 08/11/16 05:00 08/15/16 12:29 (Narcan Inj) 0.4 mg UNSCH PRN IV 08/11/16 05:00 (Lanoxin) 0.125 mg DAILY PO 08/12/16 09:00 08/15/16 09:09 (Neurontin) 100 mg TID PO 08/11/16 18:00 08/15/16 17:17 (KCl) 10 meq TID PO 08/11/16 18:00 08/15/16 17:17 (Paige-Colace) 2 tab BID PRN PO 08/11/16 15:45 (Restoril) 30 mg HS PO 08/11/16 21:00 08/15/16 20:26 (Spiriva Inh) 18 mcg DAILY INH 08/12/16 09:00 08/15/16 09:16 (Demadex) 20 mg DAILY PO 08/12/16 09:00 08/15/16 09:09 (Desyrel) 100 mg HS PO 08/11/16 21:00 08/15/16 20:26 (Effexor Xr) 150 mg DAILY PO 08/12/16 09:00 08/15/16 09:09 (Oscal-D 250-125) 500 mg BID PO 08/11/16 21:00 08/15/16 20:26 (Symbicort 160-4.5 Inh) 2 puff BID INH 08/11/16 21:00 08/15/16 20:35 (Lipitor) 20 mg HS PO 08/11/16 21:00 08/15/16 20:26 (Duragesic 100 Mcg Patch.72 Hr) 1 patch Q3D TD 08/12/16 09:00 08/15/16 09:10 Miscellaneous Information 1 Q3D TD 08/14/16 15:45 (Roxicodone) 10 mg Q12HR PRN PO 08/13/16 21:00 08/16/16 08:37 (Protonix) 40 mg Q12HR PO 08/14/16 21:00 08/15/16 20:26 Family History Positive for brother with alpha-1 antitrypsin deficiency, and father with diabetes mellitus Substance Use Tobacco:no Alcohol:no Prescription med abuse:no Illicits:no Psychosocial History . Estella Hunter Spiritual/Cultural Factors Yarsanism Physical Exam Vital Signs Date Time Temp Pulse Resp B/P Pulse Ox O2 Delivery O2 Flow Rate FiO2 08/16/16 08:00 97.2 84 18 94/69 88 08/16/16 04:26 98.3 88 24 100/60 94 08/16/16 00:10 98.5 92 20 98/62 94 08/15/16 20:00 108 08/15/16 20:00 98.4 98 24 105/75 94 08/15/16 20:00 Venturi Mask 6.00 50 08/15/16 20:00 98.4 98 24 105/75 94 08/15/16 12:00 97.3 85 22 92/64 89 08/15/16 10:19 Venturi Mask 6.00 50 08/15/16 09:56 92 Venturi Mask 50 08/15/16 08/16/16 19:00 07:00 Intake Total 240 ml 360 ml Output Total 400 ml Balance -160 ml 360 ml Intake Oral 240 ml 360 ml Output Urine Total 400 ml # Voids 2 # Bowel Movements 0 Exam CONSTITUTIONAL/GENERAL: This is an weak,frial gentlemen with O2 mask on currently.. SKIN: No jaundice, rashes, or lesions. Ecchymoses on upper extremities. No wounds seen anteriorly. Skin temperature appropriate. Not diaphoretic. HEAD: Atraumatic. Normocephalic. EYES: Pupils equal and round and reactive. Extraocular motions intact. No scleral icterus. No injection or drainage. Fundi not examined. ENT: Hearing grossly normal. Nose without bleeding or purulent drainage. Throat without visible erythema, exudates, masses, or lesions. NECK: Trachea midline. Supple, nontender. No palpable thyroid enlargement or nodularity. CARDIOVASCULAR: Regular rate and rhythm without murmurs, gallops, or rubs. No JVD. Peripheral pulses symmetric. RESPIRATORY/CHEST: Decrease breath sound bilaterally GASTROINTESTINAL: Abdomen soft, non-tender, umblical hernia present.. GENITOURINARY: Without palpable bladder distension. Valdovinos catheter in place. MUSCULOSKELETAL: Extremities without clubbing, cyanosis, or edema. No joint tenderness or effusion noted. No calf tenderness. No mottling or clubbing. LYMPHATICS: No palpable cervical or supraclavicular adenopathy. NEUROLOGICAL: Awake and alert.. Follows commands. Confused, have difficulty remembering. Diagnostic Tests Laboratory Laboratory Tests Test 08/13/16 08/14/16 10:20 05:58 Lactate Dehydrogenase 318 U/L (87-241) Total Protein 6.0 GM/DL (6.0-7.6) Tumor Marker Alpha Fetoprotein GREATER THAN 54598.0 NG/ML (0.5-8.0) Carcinoembryonic Antigen 4.3 NG/ML (0.2-5.0) CA 15-3 Antigen 36.0 U/ML (0.0-32.4) CA 19-9 Antigen 35.9 U/ML (0.0-35.0) Prostate Specific Antigen 0.19 NG/ML (0.00-4.00) Tumor Marker HCG 2 MIU/ML (0-5) Immunoglobulin G Total 1350 MG/DL (670-1650) Immunoglobulin A 474 MG/DL (98-543) Immunoglobulin M 139 MG/DL (39-238) Free Vader Light Chains 68.12 mg/L (3.3-19.4) Free Lambda Light Chains 53.11 mg/L (5.7-26.3) Free Vader/Lambda Light Chain 1.28 Ratio (0.26-1.65) White Blood Count 3.5 TH/MM3 (4.0-11.0) Red Blood Count 2.96 MIL/MM3 (4.50-5.90) Hemoglobin 9.0 GM/DL (13.0-17.0) Hematocrit 26.9 % (39.0-51.0) Mean Corpuscular Volume 90.9 FL (80.0-100.0) Mean Corpuscular Hemoglobin 30.3 PG (27.0-34.0) Mean Corpuscular Hemoglobin 33.4 % Concent (32.0-36.0) Red Cell Distribution Width 22.2 % (11.6-17.2) Platelet Count 79 TH/MM3 (150-450) Mean Platelet Volume 10.0 FL (7.0-11.0) Neutrophils (%) (Auto) 69.6 % (16.0-70.0) Lymphocytes (%) (Auto) 12.7 % (9.0-44.0) Monocytes (%) (Auto) 12.8 % (0.0-8.0) Eosinophils (%) (Auto) 3.9 % (0.0-4.0) Basophils (%) (Auto) 1.0 % (0.0-2.0) Neutrophils # (Auto) 2.4 TH/MM3 (1.8-7.7) Lymphocytes # (Auto) 0.4 TH/MM3 (1.0-4.8) Monocytes # (Auto) 0.4 TH/MM3 (0-0.9) Eosinophils # (Auto) 0.1 TH/MM3 (0-0.4) Basophils # (Auto) 0.0 TH/MM3 (0-0.2) CBC Comment AUTO DIFF Differential Comment AUTO DIFF CONFIRMED Platelet Estimate LOW (NORMAL) Platelet Morphology Comment NORMAL (NORMAL) Target Cells 1+ (NORMAL) Result Diagram: 08/14/16 0558 08/13/16 0530 Imaging Last Impressions SPECT Scan-Bone Nuclear Medicine 08/13/16 0000 Signed Impressions: Service Date/Time: Saturday, August 13, 2016 12:42 - CONCLUSION: Benign whole-body bone scan and bone SPECT of the lumbar spine Richard Lester MD Lumbar Spine MRI 08/13/16 0000 Signed Impressions: Service Date/Time: Saturday, August 13, 2016 15:36 - CONCLUSION: 1. 6.5 x 4.5 x 4.3 cm right paraspinal mass likely related to a metastasis. This does extend into the right neural foramen for the L1 nerve but there is no intrathecal extension appreciated. 2. Bilateral L5 pars defects with grade 2 anterolisthesis and bilateral L5 impingement within the neural foramen. 3. Central canal patent throughout. Aidan Wright Jr., MD Chest X-Ray 08/11/16209 Signed Impressions: Service Date/Time: Thursday, August 11, 2016 02:16 - CONCLUSION: Trace bibasilar atelectasis. Richard Tamez MD Abdomen/Pelvis CT 08/11/16209 Signed Impressions: Service Date/Time: Thursday, August 11, 2016 03:25 - CONCLUSION: 1. Cirrhosis with moderate to large ascites and increased splenomegaly. Heterogeneous and very nodular liver; possibility of liver masses difficult to exclude. 2. 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 Plasmacytoma related to multiple myeloma would also be in the differential. This is new. I believe it arose from the right transverse process of L1. Richard Tamez MD Patient/Family Conference Family Conference Location: Bedside Issues Discussed: * Palliative care role, purpose, approach * Additional medical, psychosocial, and spiritual history * Patients general health, functional status, and cognitive changes in the months leading up to the current hospitalization * Patient/family understanding of the current medical problems * Patient/family understanding of prognosis * Patients goals of care as best understood from advance directives and/or conversations and/or values * Current medical treatment options and benefits/burdens of those options * Likely scenarios comparing ongoing aggressive care with a transition to comfort measures only * Questions answered to the best of my ability * Palliative care contact information provided Assessment and Plan Disease Oriented Problem List: (1) Phhkb-7-vaatnlvroth deficiency (2) Liver mass Comment: with mets to the paraspinal process. (3) Depression (4) CAD (coronary artery disease) (5) GI bleed (6) Cirrhosis of liver (7) COPD (chronic obstructive pulmonary disease) (8) Chronic atrial fibrillation Symptom Scale: (1) Pain 0-10 Scale: 9 Comment: cancer burden, met to the spine, and abdominal pain. 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 course of illness progress to COPD, cirrohsis and no hepatocelluar cancer with mets. Prognosis is poor. Plan == capacity- appears pt could not recall events in the past days, and that oncology have discussed his mass, performance status. Could not recall theses conversations day to day. At my time of exam, pt is somewhat confused, but again has difficulty recalling tests and certain detail, and at times even his occupation. As a result, on my exam today, I do not have full capacity to weigh the risk and benefits of medical options, and the very least, family/ proxy would need to be involve with decision making. == Proxy- . Estella == goals: evolving, called and left message to both voicemail. == Code Status: will review pending family meeting. ==Pain- discussed with attending physician. When pt was getting oxy q 8 hours, he became more confused. Will remain at q 12 hours for now. Radiation oncology pending, but likely can help with back pain, if patient able to tolerate treatment. Consider increasing gabapentin. If it is a limited number of radiation treatment, hospice may be able to admit patient. == confusion- fluctuates, due to pt medical condition/ encephalopathy. == nausea- did not complain of it today. denies == palliative care will continue to follow as pt clinical condition evolves. Thank you for the opportunity to participate in the care of Mr. Hunter. Attestation To help prompt me to consider important information that might be impacting today's encounter and assessment, information from prior notes written by myself or my colleagues may have been "brought forward" into today's note. My signature on this note, however, is an attestation that I personally performed the exam, history, and/or decision-making noted today, and, unless otherwise indicated, the interactions with patient, family, and staff as well as the review of records all occurred today. I also attest that the listed assessment and stated plan reflect my best clinical judgment today based on the combination of historical information, prior notes, and today's exam/ interactions. When time spent is documented, it refers only to time spent today by the signer, or if indicated, combined time spent today by collaborating physician/nurse practitioner. Roderick Arteaga MD Aug 16, 2016 10:30
--- NOTE | 2016-08-16 11:09 | HHI.PR ---
Subjective Remarks Follow-up hematemesis 08/12/16-patient seen and examined; he is status post EGD with band ligation . Patient states overnight he had episode of hematemesis. Also complains of hematuria. Otherwise stable and no other issues. 08/13/16-patient seen and examined; reports some episode of light hematemesis however stable. H&H stable. Patient with some mild confusion this morning 08/14/16-patient seen and examined; denies any more episode of hematemesis. Stable and tolerated full liquid diet. 08/15/16-patient seen and examined. No report of GI bleed overnight and this morning. Stable and afebrile. 08/16/16-patient seen and examined; no acute event overnight. Pleasantly confused. Case discussed with Roderick Lane. Justin denies any bleeding. Objective Vitals Vital Signs Date Time Temp Pulse Resp B/P Pulse Ox O2 Delivery O2 Flow Rate FiO2 08/16/16 08:53 Venturi Mask 6.00 50 08/16/16 08:00 97.2 84 18 94/69 88 08/16/16 04:26 98.3 88 24 100/60 94 08/16/16 00:10 98.5 92 20 98/62 94 08/15/16 20:00 108 08/15/16 20:00 98.4 98 24 105/75 94 08/15/16 20:00 Venturi Mask 6.00 50 08/15/16 20:00 98.4 98 24 105/75 94 08/15/16 12:00 97.3 85 22 92/64 89 I/O 08/15/16 08/15/16 08/15/16 08/16/16 08/16/16 08/16/16 06:59 14:59 22:59 06:59 14:59 22:59 Intake Total 0 ml 240 ml 360 ml Output Total 625 ml 400 ml Balance -625 ml -160 ml 360 ml Intake Oral 0 ml 240 ml 360 ml Output Urine Total 625 ml 400 ml # Voids 2 # Bowel Movements 1 0 Result Diagram: 08/14/16 0558 08/13/16 0530 Objective Remarks GENERAL: No acute distress SKIN: Warm and dry. HEAD: Normocephalic. EYES: No scleral icterus. No injection or drainage. NECK: Supple, trachea midline. No JVD or lymphadenopathy. CARDIOVASCULAR: Regular rate and rhythm without murmurs, gallops, or rubs. RESPIRATORY: Breath sounds equal bilaterally. No accessory muscle use. GASTROINTESTINAL: Abdomen soft, non-tender, nondistended. MUSCULOSKELETAL: No cyanosis, or edema. BACK: Nontender without obvious deformity. No CVA tenderness. A/P Problem List: (1) Hematemesis ICD Code: K92.0 Status: Resolved (2) GI bleed ICD Code: K92.2 Status: Acute (3) Cirrhosis of liver ICD Code: K74.60 Status: Chronic (4) Liver mass ICD Code: R16.0 Status: Chronic (5) Gwwtx-2-vebtpctesge deficiency ICD Code: E88.01 Status: Chronic Assessment and Plan 65-year-old male with Hematemesis/GI bleed: H&H remained stable. Status post EGD with band ligation 08/11/16 and and stable without any GI bleed. s/p PPI as well as octreotide drip 08/14/16.. Appreciate input from gastroenterology and, monitor H&H and transfuse accordingly. Discontinue Xarelto History of Alpha I antitrypsin deficiency: Continue weekly Prolastin patient to follow up outpatient with hepatology at [facility] for new clinical trial in September 2016 History of liver cancer: CT abdomen noted and review by me with finding of Cirrhosis with moderate to large ascites and increased splenomegaly. Heterogeneous and very nodular liver; possibility of liver masses difficult to exclude. 2. 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 Appreciate input from medical oncology and consultation pending for radiation oncology for possible radiation to paraspinous mass for consult. Workup negative for multiple myeloma . Appreciate input from palliative care medicine History of ascites: Continue Demadex Atrial fibrillation: Currently rate control, continue with digoxin and monitor level History of hypertension: continue to hold all oral antihypertensive medications Other chronic medical conditions including depression, hyperlipidemia, history of CHF: Continue outpatient medications Hematuria: Resolved. DVT prophylaxis: Chemical anti-prophylaxis is contraindicated secondary to GI bleed, bilateral SCDs. GI prophylaxis: PPI. Problem Qualifiers (1) GI bleed: Qualified Code: K92.2 - Gastrointestinal hemorrhage, unspecified gastrointestinal hemorrhage type Efraín Gil MD Aug 16, 2016 11:09
[2016-08-16 12:00] VITALS: BP 107/72; PULSE 86; RESP 20; TEMP 97.3; O2SAT 84
[2016-08-16] MEDS: ONDANSETRON HCL 4 MG/2 ML VIAL IVP PRN (14:33)
[2016-08-16 16:00] VITALS: BP 117/77; PULSE 95; RESP 18; TEMP 97.4; O2SAT 94
[2016-08-16 20:00] VITALS: BP 114/65; PULSE 92; RESP 20; TEMP 97.9; O2SAT 91
[2016-08-16] MEDS: ATORVASTATIN 20 MG TAB PO SCH (21:41)
[2016-08-16] MEDS: traZODone HCL 100 MG TAB PO SCH (21:41)
[2016-08-16] MEDS: TEMAZEPAM 15 MG CAP PO SCH (21:41)
--- NOTE | 2016-08-16 23:25 | RC ---
cc: KEL GARCIA M.D., JUSTIN MD COYE, HILARY, PA ALVAREZ-FARINETTI, ALVARO MD PONTEY,BLANKA PISANO DATE OF SERVICE: 08/16/2016 REFERRING PHYSICIAN: Dr. Garcia. DIAGNOSIS: Metastatic progressive hepatocellular carcinoma. Stage IV. CHIEF COMPLAINT GI bleed. New painful mass at L-spine. REASON FOR VISIT The patient is being evaluated for palliative radiotherapy treatment options for his lumbar spine. HISTORY OF PRESENT ILLNESS A 65-year-old white male with a history of alpha I, antitrypsin deficiency, liver cancer, cirrhosis and chronic abdominal pain. It appears the patient presented to the hospital with melena and vomiting. The patient is receiving his care at [facility]. The patient denies any history of radiation therapy. It appears that the patient has been under investigational protocol and was possibly going to go into another protocol in September of 2016. The patient was noted to have on CT scan of the abdomen a paraspinal mass along the L1 vertebral body area. As a result of this a medical oncology consult was placed. The patient was evaluated and Dr. Garcia has requested for me to see the patient in consult for possible palliative radiotherapy to the L- spine. When I got to the room today, the patient was accompanied by his son. PAST MEDICAL HISTORY: As above. Also history of hepatoma, migraines, arteriosclerotic heart disease, myocardial infarction, congestive heart failure, coronary artery stenting, atrial fibrillation, hypertension circumcision, osteoarthritis, chronic back pain, right arm surgery, cirrhosis. MEDICATIONS As per hospital chart. ALLERGIES Beta-filippo, hydromorphone, adhesives, MDRO, Medrol, morphine and sulfa. FAMILY HISTORY No history of carcinoma in the family. SOCIAL HISTORY The patient smoked but quit in 1967. Denies ETOH intake. REVIEW OF SYSTEMS Constitutional: The patient admits to fatigue. No fevers or chills. ALLERGIES He has not had an allergic reaction recently. Eyes: Unremarkable. ENT: Unremarkable. Denies any difficulty or pain with swallowing. Neck: Unremarkable. Denies any neck masses. INTEGUMENTARY: The patient denies any recent skin lesions. CARDIOVASCULAR: Unremarkable. The patient denies any chest pain. No clinical signs of AL. RESPIRATORY: Unremarkable. The patient denies any hemoptysis or wheezing. GASTROINTESTINAL: Admits to abdominal discomfort. Admits to abdominal pressure and mass in the umbilical area. Appears to have recent episode of melena. Denies any rectal bleeding. GENITOURINARY: Unremarkable. MUSCULOSKELETAL: The patient admits to lower back pain. He rates the pain as 6 to 7/10, also appears to be more constant and more pronounced. NEUROLOGIC: Unremarkable. The patient denies any signs of stroke. No neurological deficits. PSYCHIATRIC: Unremarkable. ENDOCRINE: Unremarkable. HEMATOLOGIC: Unremarkable. DERMATOLOGIC: Unremarkable. PHYSICAL EXAMINATION The patient is oriented x3. No acute distress or discomfort at the time of evaluation. Pain rating scale 6 to 7/10 in the lower back. To palpation of lower back, there was pain elicited in the lumbar L1 area. This was quite tender. Lungs: Clear to auscultation with decreased ventilatory respiratory effort which is equal and bilateral. Heart: Appeared to regular rate and rhythm with no murmurs. Neck: Palpation of the neck and bilateral supraclavicular areas are free. Abdomen: Abdomen is tense. There is an irregularity of the entire abdominal cavity. It is slightly tender throughout. Appears to be hepatosplenomegaly and at least from what I can tell looks like diffuse fibrotic process or metastasis. The patient does have a periumbilical node superior to the umbilicals. This measures about 2.5 x 3.5 cm in diameter. It is hard, irregular in shape and nontender. Extremities: There is no lower extremity edema detected bilaterally. Neurological examination: The cognitive functions appear to be preserved. There is weakness of the upper extremities which is equal and bilateral. Lower extremity strength is decreased but equal and bilateral. No motor function deficits are detected. The patient has preservation of bowel and bladder control. No other positive findings. Surgical pathology: Recorded history of hepatocellular carcinoma with radiographic metastases to the L-spine. Surgical pathology 06/11/2016. Small intestine duodenum second portion biopsy hyperplastic and reactive duodenal mucosa with surface mucosal erosion and foveolar metaplasia. RADIOLOGY Lumbar spine MRI 08/13/2016. Conclusion: 6.5 x 4.5 x 4.3 cm right paraspinal mass likely related to metastases. This does extend to the right neuroforamen for the L1 nerve but there is no intrathecal extension appreciated. Bilateral L5 pars defect with grade 2 anterolisthesis and bilateral L5 impingement with the neural foramen. Central canal patent throughout. CT of the abdomen and pelvis with contrast 08/11/2016. Conclusion: Benign whole-body bone scan and bone SPECT of the lumbar spine. Abdomen and pelvis CT 08/11/2016. Impression. Cirrhosis with moderate to large ascites and increase in splenomegaly. Heterogeneous and very nodular liver, possibility of liver masses difficult to exclude. Destructive malignant appearing upper lumbar right paraspinous mass nonspecific but most likely metastasis. Plasmacytoma related to multiple myeloma would be also in the differential. This is new. I believe that it arose from the right transverse process of L1. Chest x-ray 08/11/2016. Impression: Trace bilateral atelectasis. ASSESSMENT A 65-year old white male with diagnosis of hepatocellular carcinoma with progressive disease, metastasis to the L spine. The patient being evaluated for palliative radiotherapy treatment options. PLAN I have reviewed this patient's imaging studies. I have also reviewed Dr. Garcia's note from 08/13/2016. I discussed with the patient the merits of the radiation therapy to the lumbar spine which will be for control of the growth of the mass, help with pain and prevent neurological deficits which may include loss of bowel and bladder control as well as hopefully prevent a pathological fracture. I discussed the side effects, complications of radiation therapy to include but not limited to weakness, fatigue, decreased blood counts, edema, skin necrosis, nausea, vomiting, diarrhea, bone damage and fracture, nerve damage, bowel and bladder, bleeding, bowel and bladder damage, kidney damage. The son was present during this discussion. They both understood what was explained. They would like to discuss treatment options with his when she returns today. I left both of them my business card. I told them if they wanted to proceed forward with treatment, my thought would be to simulate him today and start the treatment on Tuesday. I answered all their questions. They understood everything that was explained. They were advised that if I could be of any further assistance to please let me know, otherwise will proceed as appropriate. Dr. Garcia, thank you very much for placing this consult and allowing me to participate in the care of this patient. Should you have any further questions or concerns, please do not hesitate to contact me. Steffen Herbert MD Radiation Oncologist SHARAN FLORES/JOHN /12:21 PM /10:39 PM [facility]
[2016-08-17] VITALS (15 sets, daily range): BP systolic 88–106; BP diastolic 62–69; PULSE 82–104; RESP 16–20; TEMP 97.2–98.6; O2SAT 89–98
--- NOTE | 2016-08-17 06:17 | HHI.PR ---
Addendum to Inpatient Note Addendum Reason: Additional Documentation Additional Information Mr. Hunter who fell this morning and hit his head and back during fall. He has a superficial laceration to head and is complaining of headache and thoracic back pain following the fall. Will obtain STAT CT of head, CT of cervical spine, and CT of thoracic spine. We'll follow results. Paula Peña Aug 17, 2016 06:17
--- NOTE | 2016-08-17 07:13 | RADRPT ---
EXAM DATE/TIME: 08/17/2016 06:54 [facility] COMPARISON: CT BRAIN W/O CONTRAST, April 03, 2013, 18:04. INDICATIONS : Patient fell, hit back of head RADIATION DOSE: 56.35 CTDIvol (mGy) MEDICAL HISTORY : Cardiovascular disease. Hypertension. SURGICAL HISTORY : None. ENCOUNTER: Initial ACUITY: 2 days PAIN SCALE: 5/10 LOCATION: occipital TECHNIQUE: Multiple contiguous axial images were obtained of the head. Using automated exposure control and adj ustment of the mA and/or kV according to patient size, radiation dose was kept as low as reasonably a chievable to obtain optimal diagnostic quality images. FINDINGS: CEREBRUM: The ventricles are normal for age. No evidence of midline shift, mass lesion, hemorrhage or acute in farction. No extra-axial fluid collections are seen. There is chronic low-attenuation in the periven tricular white matter. POSTERIOR FOSSA: The cerebellum and brainstem are intact. The 4th ventricle is midline. The cerebellopontine angle i s unremarkable. EXTRACRANIAL: There is mucoperiosteal thickening of the visualized sinuses, mainly ethmoid and right sphenoid. Ther e is a posterior scalp laceration. SKULL: The calvaria is intact. No evidence of skull fracture. CONCLUSION: 1. No bleed or other acute intracranial abnormality. 2. Chronic white matter changes. 3. Sinus disease. 4. Occipital scalp laceration. Richard Tamez MD on August 17, 2016 at 7:11 Board Certified Radiologist. This report was verified electronically.
--- NOTE | 2016-08-17 07:24 | RADRPT ---
EXAM DATE/TIME: 08/17/2016 06:54 [facility] COMPARISON: No previous studies available for comparison. INDICATIONS : Patient fell, hit back of head RADIATION DOSE: 35.23 CTDIvol (mGy) MEDICAL HISTORY : Cardiovascular disease. Hypertension. SURGICAL HISTORY : None. ENCOUNTER: Initial ACUITY: 1 day PAIN SCALE: 5/10 LOCATION: neck TECHNIQUE: Volumetric scanning of the cervical spine was performed. Multiplanar reconstructions in the sagittal, coronal and oblique axial planes were performed. Using automated exposure control and adjustment o f the mA and/or kV according to patient size, radiation dose was kept as low as reasonably achievable to obtain optimal diagnostic quality images. FINDINGS: No fracture or acute appearing malalignment demonstrated. There are a few millimeters of degenerative appearing anterolisthesis at C5/C6. There is mild kyphosi s centered around C6 or C7. There is multilevel disc space narrowing with uncovertebral and facet osteoarthritis, severe at C6/C7 , moderate at C2/C3 and C4/C5, mild at the other levels. There is moderate osteoarthritis anteriorly at C1/C2. Dense sclerotic focus seen towards the left within the C3 vertebral body most likely a benign bone is land. CONCLUSION: No fracture or acute appearing malalignment seen of the cervical spine. Degenerative changes as above . Richard Tamez MD on August 17, 2016 at 7:18 Board Certified Radiologist. This report was verified electronically.
--- NOTE | 2016-08-17 07:58 | RADRPT ---
EXAM DATE/TIME: 08/17/2016 06:58 [facility] COMPARISON: CT PULMONARY ANGIOGRAM, May 07, 2016, 21:53. MRI LUMBAR SPINE W & W/O CONTRAST, August 13 016, 15:36. CT ABDOMEN & PELVIS W/O CONTRAST, August 11, 2016, 3:25. INDICATIONS : Patient fell backwards RADIATION DOSE: 24.78 CTDIvol (mGy) MEDICAL HISTORY : Cardiovascular disease. Hypertension. SURGICAL HISTORY : None. ENCOUNTER: Initial ACUITY: 1 day PAIN SCALE: 5/10 LOCATION: upper back TECHNIQUE: Volumetric scanning of the thoracic spine was performed. Multiplanar reconstructions in the sagittal , coronal and oblique axial planes were performed. Using automated exposure control and adjustment o f the mA and/or kV according to patient size, radiation dose was kept as low as reasonably achievable to obtain optimal diagnostic quality images. FINDINGS: Moderate as shaped thoracic spine curvature noted. No focal subluxation demonstrated. No cortical david ak or trabecular disruption seen. There is mild loss of height of the T10 vertebral body which appear s chronic. Moderate disc space narrowing with facet osteoarthritis seen from T6/T7 through T12/L1. Milder change s are seen in the upper thoracic spine. Lowermost axial images partly show the known right paraspinous mass of the upper lumbar spine. Disten ded azygos vein seen, not new. CONCLUSION: No acute fracture or subluxation of the thoracic spine. Scoliosis and multilevel degenerative changes as above. Nonacute appearing mild compression deformity of T10. Richard Tamez MD on August 17, 2016 at 7:52 Board Certified Radiologist. This report was verified electronically.
[2016-08-17] MEDS: RESP: ALBUTEROL 2.5 MG/IPRATROPIUM 0.5 MG NEB (PRN) NEB ×2 (07:59→12:08)
[2016-08-17] MEDS: BUDESONIDE-FORMOTEROL 160/4.5 MCG INHALER INH SCH ×2 (09:01→22:29)
[2016-08-17] MEDS: TIOTROPIUM BROMIDE 18 MCG INH INH SCH (09:01)
[2016-08-17] MEDS: SODIUM CHLORIDE 0.9% FLUSH 5 ML FLUSH FLUSH SCH ×2 (09:01→22:33)
[2016-08-17] MEDS: TORSEMIDE 20 MG TAB PO SCH (09:25)
[2016-08-17] MEDS: GABAPENTIN 100 MG CAP PO SCH ×3 (09:26→18:28)
[2016-08-17] MEDS: POTASSIUM CHLORIDE 10 MEQ CONTROLLED RELEASE TAB PO SCH ×3 (09:26→18:28)
[2016-08-17] MEDS: DIGOXIN 0.125 MG TAB PO SCH (09:26)
[2016-08-17] MEDS: PANTOPRAZOLE SOD 40 MG DELAYED RELEASE TAB PO SCH ×2 (09:26→22:34)
[2016-08-17] MEDS: CALCIUM/VITAMIN D 250 MG/125 U TAB PO SCH ×2 (09:26→22:34)
[2016-08-17] MEDS: VENLAFAXINE HCL XR 75 MG CAP PO SCH (09:26)
[2016-08-17 09:54] LABS: ALBUMIN SPE 3.09 GM/DL (3.50-5.00); ALPHA 1 GLOBULIN 0.09 GM/DL (0.11-0.29); ALPHA 2 GLOBULIN 0.64 GM/DL (0.22-1.00)
[2016-08-17 09:55] LABS: BETA GLOBULINS (SPE) 0.83 GM/DL (0.53-1.03)
--- NOTE | 2016-08-17 12:39 | HHI.HCPN ---
Reason for visit a. To assist with evaluation and management of symptoms including:Pain b. To assist medical decision maker(s) with: better understanding of current medical conditions; weighing benefits/burdens of medical treatment options; making medical treatment decisions. Subjective/Interval History Pt was evaluated by Rad/Onc and simulations was discussed with pt and son, although they wanted to wait for to decide. Pt had a fall early this morning. Imaging had been negative. ON my exam today, Pt lethargic, open eyes briefly quickly goes back to bed. On mask. Cannot endorse history at all today. Met at bedside, privately and then with patient and together. Pt became more arousable and able to say he is he [place], person and year. Updated patient and on chest x ray results and new infiltrates. Spend extensive time with who is struggling. Reviewed prognosis with and pt , and recommendation for hospice. I also explained my concern about his current performance status, and weather he can complete the radiation which is palliative/ not curative, especially with current lethargy and lung changes. After meeting with patient/; They both who says he is not ready for hospice. After the meeting goals is still aggressive although they are accepting pt prognosis is poor and it can either be days to weeks. They state= not amenable to hospice at this time. ask if travel registered nurse pacu could be consulted either Dr. Mckeon or Dr. Todd. If pt need to be coded, they would wand cpr/acls/ shock/ compression, but no intubation. Amenable to bipap. Pt state he does not want tubes down his throat again. ask if amonia level could be checked. 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 Fib, GERD, heard disease, [place], depression, cirrohsis (ascites, esophageal varicies) anxiety, hiatal hernia, history of liver mass(hepatocellular carcinoma), . He has been followed by oncologist and home economist consumer service in [facility], and per med rec, there is a plan for a new clinical trial in Sep or next year. Pt presented to the ER for melena and vomiting of blood. In the ER 08/11/2016. * vitals 114, RR 20, 121/78; Pulse ox 90% * WBC 4.3; H and H 10.1 and 29.9 ; plt 97 * Na 141; K 3.7; Cl 104; CO2, 26.7; BUN 23; Cr 1.28. * PT 12.7; INR 1.1 * UA unremarkable. * CT of the abdomen and pelvis show Cirrhosis with moderate to large ascites, splenomegaly, nodular liver (possible liver masses). Destructive malignant appearing upper lumbar right paraspinos mass, non specific but most likely mets . Plasmacytoma related to multiple myeloma in the differential. This is new. * Chest X ray show bibasilar atelectasis. * NG tube ordered for gastric lavage as pt was vomiting bright red blood ( but pt refuses as doctor's have tried to pass NG tube in the past with no success, he did not want to attempt. * Pt admitted to hospital services; GI consulted. 08/11==Pt was seen by GI and planned for EGD and possibility of banding. EGD showed medium esophageal varices, distal esophagus, one column and 2 bands applied. 08/12== Pt had an episode of emesis, but pt did not think it was bloody or coffe grounds. GI continue to follow. There were complaints of hematuria. Oncology consulted. 08/13== Oncology came and evaluated pt, especially concerning is the paraspinous process. Oncology feels this may be mestastatic lesion from hepatoma. 08/14==hgb stable. Pt seen and examined and denies episodes of hematemesis. Pt tolerating full liquid diet. AFP came back as > 20K.-MRI, bone scan images reviewed and lab reviewed. He has a large paraspinous at L1 at the neural foramen which is responsible for his pain. His markedly elevated alpha feta protein is convincing evidence that we are dealing with hepatocellular carcinoma. The immune globulin studies including serum for free kappa and lambda light chain do not support a dx of myeloma 08/15==Pt complaining of back pain radiating down to his right leg. Ask when he can go home. There are no episodes of further bleeding. Oncology has discussed with pt and pt's that with his cirrhosis, worsening hepatocellular carcinoma with AFP of 20K with mets, complicated by cirrohsis, acites, esophageal varices with esophageal bleed (that required banding) pt performance status is too poor and unlkiley to qualify for any experimental trial at [facility] in Sep. Oncology recommended radiation oncology for possible radiation to paraspinous mass. Palliative care was consulted to manage pain, and goals of care. Oncology have discussed hospice with , once radiation is finished. Pt rate pain with an intensity of 8-9 at the back and had about one dose. Pain regimen includes Oxycodone 10 mg q12 hours prn btp. Duragesic patch of 100 Mcg q 72 schedule. Gabapentin 100 mg PO TID Pt at times somewhat confused and have poor short term memory. I have spoke with attending physician, and pt's prognosis, and cancer status was extensively reviewed; however, pt could not record any of it, and ask "What is going to be the plan?" Family/friend interactions Met at bedside, privately and then with patient and together. Pt became more arousable and able to say he is he [place], person and year. Updated patient and on chest x ray results and new infiltrates. Spend extensive time with who is struggling. Reviewed prognosis with and pt , and recommendation for hospice. I also explained my concern about his current performance status, and weather he can complete the radiation which is palliative/ not curative, especially with current lethargy and lung changes. After meeting with patient/; They both who says he is not ready for hospice. After the meeting goals is still aggressive although they are accepting pt prognosis is poor and it can either be days to weeks. They state= not amenable to hospice at this time. ask if travel registered nurse pacu could be consulted either Dr. Mckeon or Dr. Todd. If pt need to be coded, they would wand cpr/acls/ shock/ compression, but no intubation. Amenable to bipap. Pt state he does not want tubes down his throat again. ask if amonia level could be checked. Objective Vital Signs Date Time Temp Pulse Resp B/P Pulse Ox O2 Delivery O2 Flow Rate FiO2 08/17/16 08:45 Venturi Mask 6.00 08/17/16 08:20 97.8 82 16 100/62 89 08/17/16 08:15 85 08/17/16 08:00 92 Venturi Mask 50 08/17/16 07:15 97.8 86 20 103/68 90 08/17/16 06:20 94 16 95/66 90 08/17/16 05:50 104 16 106/69 91 08/17/16 04:00 98.6 96 20 95/62 90 08/17/16 01:19 95 08/17/16 00:00 97.6 92 20 100/64 91 08/16/16 21:45 Venturi Mask 6.00 08/16/16 20:00 97.9 92 20 114/65 91 08/16/16 16:00 97.4 95 18 117/77 94 Intake & Output 08/17/16 08/17/16 07:00 19:00 Intake Total 722 ml Balance 722 ml Intake Oral 720 ml IV Total 2 ml # Voids 4 # Bowel Movements 0 Physical Exam CONSTITUTIONAL/GENERAL: This is an weak,frial gentlemen with O2 mask on currently, lethargic, later on in the afternoon, became a bit more alert. SKIN: No jaundice, rashes, or lesions. Ecchymoses on upper extremities. No wounds seen anteriorly. Skin temperature appropriate. Not diaphoretic. HEAD: Atraumatic. Normocephalic. EYES: No scleral icterus. No injection or drainage. Fundi not examined. ENT: Hearing grossly normal. Nose without bleeding or purulent drainage. Throat without visible erythema, exudates, masses, or lesions. NECK: Trachea midline. Supple, nontender. No palpable thyroid enlargement or nodularity. CARDIOVASCULAR: Regular rate and rhythm without murmurs, gallops, or rubs. No JVD. Peripheral pulses symmetric. RESPIRATORY/CHEST: Decrease breath sound bilaterally GASTROINTESTINAL: Abdomen soft, non-tender, umblical hernia present.. GENITOURINARY: Without palpable bladder distension. Valdovinos catheter in place. MUSCULOSKELETAL: Extremities without clubbing, cyanosis, or edema. No joint tenderness or effusion noted. No calf tenderness. No mottling or clubbing. LYMPHATICS: No palpable cervical or supraclavicular adenopathy. NEUROLOGICAL: more dyspneic, lethargic and short of breath than yesterday. Diagnostic Tests Laboratory Last Impressions Thoracic Spine CT 08/17/16 0000 Signed Impressions: Service Date/Time: Wednesday, August 17, 2016 06:58 - CONCLUSION: No acute fracture or subluxation of the thoracic spine. Scoliosis and multilevel degenerative changes as above. Nonacute appearing mild compression deformity of T10. Richard Tamez MD Head CT 08/17/16 0000 Signed Impressions: Service Date/Time: Wednesday, August 17, 2016 06:54 - CONCLUSION: 1. No bleed or other acute intracranial abnormality. 2. Chronic white matter changes. 3. Sinus disease. 4. Occipital scalp laceration. Richard Tamez MD Chest X-Ray 08/17/16 0000 Signed Impressions: Service Date/Time: Wednesday, August 17, 2016 15:10 - CONCLUSION: Right upper lobe and left lower lobe infiltrates are new. Aidan Wright Jr., MD Cervical Spine CT 08/17/16 0000 Signed Impressions: Service Date/Time: Wednesday, August 17, 2016 06:54 - CONCLUSION: No fracture or acute appearing malalignment seen of the cervical spine. Degenerative changes as above. Richard Tamez MD SPECT Scan-Bone Nuclear Medicine 08/13/16 0000 Signed Impressions: Service Date/Time: Saturday, August 13, 2016 12:42 - CONCLUSION: Benign whole-body bone scan and bone SPECT of the lumbar spine Richard Lester MD Lumbar Spine MRI 08/13/16 0000 Signed Impressions: Service Date/Time: Saturday, August 13, 2016 15:36 - CONCLUSION: 1. 6.5 x 4.5 x 4.3 cm right paraspinal mass likely related to a metastasis. This does extend into the right neural foramen for the L1 nerve but there is no intrathecal extension appreciated. 2. Bilateral L5 pars defects with grade 2 anterolisthesis and bilateral L5 impingement within the neural foramen. 3. Central canal patent throughout. Aidan Wright Jr., MD Abdomen/Pelvis CT 08/11/16 0210 Signed Impressions: Service Date/Time: Thursday, August 11, 2016 03:25 - CONCLUSION: 1. Cirrhosis with moderate to large ascites and increased splenomegaly. Heterogeneous and very nodular liver; possibility of liver masses difficult to exclude. 2. 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 Plasmacytoma related to multiple myeloma would also be in the differential. This is new. I believe it arose from the right transverse process of L1. Richard Tamez MD Result Diagram: 08/14/16 0558 08/13/16 0530 Imaging Last Impressions Thoracic Spine CT 08/17/16 0000 Signed Impressions: Service Date/Time: Wednesday, August 17, 2016 06:58 - CONCLUSION: No acute fracture or subluxation of the thoracic spine. Scoliosis and multilevel degenerative changes as above. Nonacute appearing mild compression deformity of T10. Richard Tamez MD Head CT 08/17/16 0000 Signed Impressions: Service Date/Time: Wednesday, August 17, 2016 06:54 - CONCLUSION: 1. No bleed or other acute intracranial abnormality. 2. Chronic white matter changes. 3. Sinus disease. 4. Occipital scalp laceration. Richard Tamez MD Chest X-Ray 08/17/16 0000 Signed Impressions: Service Date/Time: Wednesday, August 17, 2016 15:10 - CONCLUSION: Right upper lobe and left lower lobe infiltrates are new. Aidan Wright Jr., MD Cervical Spine CT 08/17/16 0000 Signed Impressions: Service Date/Time: Wednesday, August 17, 2016 06:54 - CONCLUSION: No fracture or acute appearing malalignment seen of the cervical spine. Degenerative changes as above. Richard Tamez MD SPECT Scan-Bone Nuclear Medicine 08/13/16 0000 Signed Impressions: Service Date/Time: Saturday, August 13, 2016 12:42 - CONCLUSION: Benign whole-body bone scan and bone SPECT of the lumbar spine Richard Lester MD Lumbar Spine MRI 08/13/16 0000 Signed Impressions: Service Date/Time: Saturday, August 13, 2016 15:36 - CONCLUSION: 1. 6.5 x 4.5 x 4.3 cm right paraspinal mass likely related to a metastasis. This does extend into the right neural foramen for the L1 nerve but there is no intrathecal extension appreciated. 2. Bilateral L5 pars defects with grade 2 anterolisthesis and bilateral L5 impingement within the neural foramen. 3. Central canal patent throughout. Aidan Wright Jr., MD Abdomen/Pelvis CT 08/11/16 0210 Signed Impressions: Service Date/Time: Thursday, August 11, 2016 03:25 - CONCLUSION: 1. Cirrhosis with moderate to large ascites and increased splenomegaly. Heterogeneous and very nodular liver; possibility of liver masses difficult to exclude. 2. 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 Plasmacytoma related to multiple myeloma would also be in the differential. This is new. I believe it arose from the right transverse process of L1. Richard Tamez MD Assessment and Plan Disease Oriented Problem List: (1) Opcod-1-[id number] deficiency (2) Liver mass Comment: with mets to the paraspinal process. (3) Depression (4) CAD (coronary artery disease) (5) GI bleed (6) Cirrhosis of liver (7) COPD (chronic obstructive pulmonary disease) (8) Chronic atrial fibrillation Symptom Scale: (1) Pain 0-10 Scale: 9 Comment: cancer burden, met to the spine, and abdominal pain. 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 course of illness progress to COPD, cirrohsis and no hepatocelluar cancer with mets. Prognosis is poor. Code Status: Alternative Code Plan == capacity- Pt I feel does not have full capacity, but can at the very least make joint decisions with . Mentation does flutuates. == Proxy- . == goals: Met at bedside, privately and then with patient and together. Pt became more arousable and able to say he is he [place], person and year. Updated patient and on chest x ray results and new infiltrates. Spend extensive time with who is struggling. Reviewed prognosis with and pt , and recommendation for hospice. I also explained my concern about his current performance status, and weather he can complete the radiation which is palliative/ not curative, especially with current lethargy and lung changes. After meeting with patient/; They both who says he is not ready for hospice. After the meeting goals is still aggressive although they are accepting that pts prognosis is poor.. They stateted= not amenable to hospice at this time. == ask if travel registered nurse pacu could be consulted either Dr. Mckeon or Dr. Todd. ==If pt need to be coded, they would wand cpr/acls/ shock/ compression, but no intubation. Amenable to bipap. Pt state he does not want tubes down his throat again. == ask if amonia level could be checked. == Code Status: They do not want intubation; but okay with Bipap. They are amenable to bipap, cpr/acls/shock/compressions if patient codes.. ==Pain- discussed with attending physician. When pt was getting oxy q 8 hours, he became more confused. Will remain at q 12 hours for now. == confusion- fluctuates, due to pt medical condition/ encephalopathy. == palliative care will continue to follow as pt clinical condition evolves. ==case d/w attending physician. Time Spent Total Floor Time (mins): 60 Face to Face Time (mins): 40 >50% Counseling/Coord of Care: Yes Attestation To help prompt me to consider important information that might be impacting today's encounter and assessment, information from prior notes written by myself or my colleagues may have been "brought forward" into today's note. My signature on this note, however, is an attestation that I personally performed the exam, history, and/or decision-making noted today, and, unless otherwise indicated, the interactions with patient, family, and staff as well as the review of records all occurred today. I also attest that the listed assessment and stated plan reflect my best clinical judgment today based on the combination of historical information, prior notes, and today's exam/ interactions. When time spent is documented, it refers only to time spent today by the signer, or if indicated, combined time spent today by collaborating physician/nurse practitioner. Roderick Arteaga MD Aug 17, 2016 12:39
--- NOTE | 2016-08-17 14:38 | HHI.PR ---
Subjective Remarks Follow-up hematemesis 08/12/16-patient seen and examined; he is status post EGD with band ligation . Patient states overnight he had episode of hematemesis. Also complains of hematuria. Otherwise stable and no other issues. 08/13/16-patient seen and examined; reports some episode of light hematemesis however stable. H&H stable. Patient with some mild confusion this morning 08/14/16-patient seen and examined; denies any more episode of hematemesis. Stable and tolerated full liquid diet. 08/15/16-patient seen and examined. No report of GI bleed overnight and this morning. Stable and afebrile. 08/16/16-patient seen and examined; no acute event overnight. Pleasantly confused. Case discussed with Roderick Lane. Justin denies any bleeding. 08/17/16-patient seen and examined; overnight patient had a fall for which head CT, cervical and thoracic spine were ordered and did not reveal any abnormalities, this morning during my exam patient appear lethargic and currently on Venturi mask Objective Vitals Vital Signs Date Time Temp Pulse Resp B/P Pulse Ox O2 Delivery O2 Flow Rate FiO2 08/17/16 12:00 98.2 92 18 101/68 98 08/17/16 08:45 Venturi Mask 6.00 08/17/16 08:20 97.8 82 16 100/62 89 08/17/16 08:15 85 08/17/16 08:00 92 Venturi Mask 50 08/17/16 07:15 97.8 86 20 103/68 90 08/17/16 06:20 94 16 95/66 90 08/17/16 05:50 104 16 106/69 91 08/17/16 04:00 98.6 96 20 95/62 90 08/17/16 01:19 95 08/17/16 00:00 97.6 92 20 100/64 91 08/16/16 21:45 Venturi Mask 6.00 08/16/16 20:00 97.9 92 20 114/65 91 08/16/16 16:00 97.4 95 18 117/77 94 I/O 08/16/16 08/16/16 08/16/16 08/17/16 08/17/16 08/17/16 06:59 14:59 22:59 06:59 14:59 22:59 Intake Total 720 ml 242 ml 480 ml 2 ml Balance 720 ml 242 ml 480 ml 2 ml Intake Oral 720 ml 240 ml 480 ml IV Total 2 ml 2 ml # Voids 4 1 3 # Bowel Movements 0 0 Result Diagram: 08/14/16 0558 08/13/16 0530 Imaging Last Impressions Thoracic Spine CT 08/17/16 0000 Signed Impressions: Service Date/Time: Wednesday, August 17, 2016 06:58 - CONCLUSION: No acute fracture or subluxation of the thoracic spine. Scoliosis and multilevel degenerative changes as above. Nonacute appearing mild compression deformity of T10. Richard Tamez MD Head CT 08/17/16 0000 Signed Impressions: Service Date/Time: Wednesday, August 17, 2016 06:54 - CONCLUSION: 1. No bleed or other acute intracranial abnormality. 2. Chronic white matter changes. 3. Sinus disease. 4. Occipital scalp laceration. Richard Tamez MD Cervical Spine CT 08/17/16 0000 Signed Impressions: Service Date/Time: Wednesday, August 17, 2016 06:54 - CONCLUSION: No fracture or acute appearing malalignment seen of the cervical spine. Degenerative changes as above. Richard Tamez MD SPECT Scan-Bone Nuclear Medicine 08/13/16 0000 Signed Impressions: Service Date/Time: Saturday, August 13, 2016 12:42 - CONCLUSION: Benign whole-body bone scan and bone SPECT of the lumbar spine Richard Lester MD Lumbar Spine MRI 08/13/16 0000 Signed Impressions: Service Date/Time: Saturday, August 13, 2016 15:36 - CONCLUSION: 1. 6.5 x 4.5 x 4.3 cm right paraspinal mass likely related to a metastasis. This does extend into the right neural foramen for the L1 nerve but there is no intrathecal extension appreciated. 2. Bilateral L5 pars defects with grade 2 anterolisthesis and bilateral L5 impingement within the neural foramen. 3. Central canal patent throughout. Aidan Wright Jr., MD Chest X-Ray 08/11/16209 Signed Impressions: Service Date/Time: Thursday, August 11, 2016 02:16 - CONCLUSION: Trace bibasilar atelectasis. Richard Tamez MD Abdomen/Pelvis CT 08/11/16209 Signed Impressions: Service Date/Time: Thursday, August 11, 2016 03:25 - CONCLUSION: 1. Cirrhosis with moderate to large ascites and increased splenomegaly. Heterogeneous and very nodular liver; possibility of liver masses difficult to exclude. 2. 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 Plasmacytoma related to multiple myeloma would also be in the differential. This is new. I believe it arose from the right transverse process of L1. Richard Tamez MD Objective Remarks GENERAL: No acute distress SKIN: Warm and dry. HEAD: Normocephalic. EYES: No scleral icterus. No injection or drainage. NECK: Supple, trachea midline. No JVD or lymphadenopathy. CARDIOVASCULAR: Regular rate and rhythm without murmurs, gallops, or rubs. RESPIRATORY: Breath sounds equal bilaterally. No accessory muscle use. GASTROINTESTINAL: Abdomen soft, non-tender, nondistended. MUSCULOSKELETAL: No cyanosis, or edema. BACK: Nontender without obvious deformity. No CVA tenderness. 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 Status post EGD with band ligation 08/11/16; currently stable without any GI bleed. s/p PPI as well as octreotide drip 08/14/16.. Appreciate input from gastroenterology and, monitor H&H and transfuse accordingly. Discontinue Xarelto History of Alpha I antitrypsin deficiency: Continue weekly Prolastin patient to follow up outpatient with hepatology at [facility] for new clinical trial in September 2016 History of liver cancer: CT abdomen with malignant appearing upper lumbar right paraspinous mass, nonspecific but most likely a metastasis. Appreciate input from medical oncology and consultation pending for radiation oncology for possible radiation to paraspinous mass for consult. Workup negative for multiple myeloma . Appreciate input from palliative care medicine History of ascites: Continue Demadex Atrial fibrillation: Currently rate control, continue with digoxin and monitor level History of hypertension: continue to hold all oral antihypertensive medications Other chronic medical conditions including depression, hyperlipidemia, history of CHF: Continue outpatient medications Hematuria: Resolved. Fall: Status post mechanical fall 08/17/[address], thoracic and cervical spine noted and review and are unremarkable. Fall precaution and continue with judicious use of narcotics Acute on chronic respiratory failure: Patient with history of alpha 1 antitrypsin deficiency, metastasis liver to the paraspinous muscles and on pain management and now requiring Venturi mask; will check chest x-ray to rule out aspiration, scheduled DuoNeb and give a short course of steroid 08/17/16. Avoid all [employer] depressant medication and consider increasing frequency of narcotics DVT prophylaxis: Chemical anti-prophylaxis is contraindicated secondary to GI bleed, bilateral SCDs. GI prophylaxis: PPI. Problem Qualifiers (1) GI bleed: Qualified Code: K92.2 - Gastrointestinal hemorrhage, unspecified gastrointestinal hemorrhage type Efraín Gil MD Aug 17, 2016 14:38
--- NOTE | 2016-08-17 15:33 | RADRPT ---
EXAM DATE/TIME: 08/17/2016 15:10 [place] COMPARISON: CHEST SINGLE AP, August 11, 2016, 2:16. INDICATIONS : Shortness of breath. MEDICAL HISTORY : Hypertension. Cardiovascular disease. Myocardial infarction. CHF, Liver cancer, AFIB, Hernia SURGICAL HISTORY : Coronary artery stent. Left upper lobectomy; port placement, Felch filter; liver cyst removal ENCOUNTER: Subsequent ACUITY: 1 week PAIN SCORE: Non-responsive. LOCATION: Bilateral chest FINDINGS: A single portable frontal view of the chest shows low lung volumes. A patchy intra-alveolar opacity i s seen within the right upper lobe and left lower lobe. These are new. No effusions. Heart is normal in size. A curvature to the spine is felt to be positional in nature. A standard Port-A-Cath overlies the right chest. CONCLUSION: Right upper lobe and left lower lobe infiltrates are new. Aidan Wright Jr., MD on August 17, 2016 at 15:30 Board Certified Radiologist. This report was verified electronically.
[2016-08-17 18:57] LABS: BLOOD GAS BASE EXCESS 10.3 mmol/L (-2-2); BLOOD GAS CARBOXYHEMOGLOBIN 2.7 % (0-4); BLOOD GAS HCO3 35 mmol/L (22-26); BLOOD GAS METHEMOGLOBIN 0.7 % (0-2); BLOOD GAS O2 HGB SATURATION 94 % (90-100); BLOOD GAS OXYGEN CONTENT 13.6 Vol % (12.0-20.0); BLOOD GAS PCO2 52 mmHg (38-42); BLOOD GAS PO2 96 mmHg (61-120); BLOOD GAS TOTAL HGB 10.2 G/DL (12.0-16.0); TEMP CORR TO 98.6
[2016-08-17 18:58] LABS: CRITICAL VALUE YES; DRAW SITE LT RADIAL; LITER FLOW 6 L/M; NUMBER OF ARTERIAL PUNCTURES 1; OXYGEN DEVICE NASAL CANNULA; STAT NO; ULNAR PULSE PRESENT
[2016-08-17] MEDS: RESP: ALBUTEROL 2.5 MG/IPRATROPIUM 0.5 MG NEB (SCH) NEB (19:23)
[2016-08-17] MEDS ORDERED: methylPREDNISolone SOD SUCC 40 MG/1 ML VIAL IV PUSH SCH (21:00)
[2016-08-17] MEDS: TEMAZEPAM 15 MG CAP PO SCH (21:00)
[2016-08-17] MEDS: ATORVASTATIN 20 MG TAB PO SCH (22:33)
[2016-08-17] MEDS: traZODone HCL 100 MG TAB PO SCH (22:33)
[2016-08-18] VITALS (11 sets, daily range): BP systolic 91–127; BP diastolic 56–75; PULSE 87–100; RESP 18–20; TEMP 97.3–98.9; O2SAT 91–95
[2016-08-18 07:14] LABS: HEMATOCRIT 26.9 % (39.0-51.0); MEAN CELL VOLUME 92.2 FL (80.0-100.0); MEAN CORPUSCULAR HEMOGLOBIN 30.9 PG (27.0-34.0); MEAN CORPUSCULAR HGB CONC 33.6 % (32.0-36.0); PLATELET COUNT 73 TH/MM3 (150-450); RED BLOOD COUNT 2.91 MIL/MM3 (4.50-5.90); RED CELL DISTRIBUTION WIDTH 22.5 % (11.6-17.2); WHITE BLOOD COUNT 2.8 TH/MM3 (4.0-11.0)
[2016-08-18 07:26] LABS: HEMO FLAGS AUTO DIFF
[2016-08-18 07:54] LABS: BICARBONATE 37.8 MEQ/L (21.0-32.0); DIGOXIN 0.9 NG/ML (0.8-2.0); POTASSIUM 3.7 MEQ/L (3.5-5.1)
[2016-08-18] MEDS: RESP: ALBUTEROL 2.5 MG/IPRATROPIUM 0.5 MG NEB (SCH) NEB ×3 (08:50→19:06)
[2016-08-18 09:44] LABS: BANDS 6 % (0-6); BASOPHILS 1 % (0-2); NEUTROPHIL # MANUAL DIFF 1.7 TH/MM3 (1.8-7.7); PLATELET ESTIMATE SMEAR LOW (NORMAL); PLATELET MORPHOLOGY NORMAL (NORMAL); POLYS (SEG NEUTROPHILS) 54 % (16-70); SCAN/DIFF FINAL DIFF MANUAL; TARGET CELLS 1+ (NORMAL); WBC DIFF SAMPLE 100
[2016-08-18] MEDS: PANTOPRAZOLE SOD 40 MG DELAYED RELEASE TAB PO SCH ×2 (10:04→20:29)
[2016-08-18] MEDS: CALCIUM/VITAMIN D 250 MG/125 U TAB PO SCH ×2 (10:04→20:29)
[2016-08-18] MEDS: VENLAFAXINE HCL XR 75 MG CAP PO SCH (10:04)
[2016-08-18] MEDS: DIGOXIN 0.125 MG TAB PO SCH (10:05)
[2016-08-18] MEDS: POTASSIUM CHLORIDE 10 MEQ CONTROLLED RELEASE TAB PO SCH ×3 (10:05→18:06)
[2016-08-18] MEDS: GABAPENTIN 100 MG CAP PO SCH ×3 (10:05→18:06)
[2016-08-18] MEDS: TORSEMIDE 20 MG TAB PO SCH (10:05)
[2016-08-18] MEDS: fentaNYL 100 MCG/HR PATCH TD SCH (10:06)
[2016-08-18] MEDS: BUDESONIDE-FORMOTEROL 160/4.5 MCG INHALER INH SCH ×2 (10:06→20:30)
[2016-08-18] MEDS: TIOTROPIUM BROMIDE 18 MCG INH INH SCH (10:06)
--- NOTE | 2016-08-18 11:35 | MB ---
cc: ANJU CALVILLO MD DATE OF CONSULTATION 08/17/[address] Efraín Gil REASON FOR CONSULTATION COPD and alpha 1 antitrypsin deficiency, cancer of lung and liver mets HISTORY OF PRESENT ILLNESS Mr. Hunter is a 65-year-old male with history of COPD, alpha 1 antitrypsin deficiency. He is on Prolastin therapy. He was diagnosed with hepatocellular carcinoma. He was being followed at [facility] and now it was found that he has metastatic disease. The patient was admitted to this hospital now with hematemesis and melena. He has mild shortness of breath. He has occasional coughing up small amount of blood. Not sure whether it is residual from his hematemesis. He had a workup done in the hospital. His WBC count is 3.5, hemoglobin 9.0, 26.9 MCV 90, platelet count 79. Sodium 130, potassium 3.8, chloride 100, CO2 29, BUN 19, creatinine 0.95. His albumin is 2.2, AFB is greater than 20,000. INR is 1.21. His chest x-ray shows right upper lobe and lower lobe infiltrate. PAST MEDICAL HISTORY 1. History of alpha 1 antitrypsin deficiency 2. COPD 3. Hepatocellular carcinoma 4. Atrial fibrillation, 5. DVT status post IVC filter placement. 6. History of coronary artery disease. MEDICATIONS Currently taking 1. Solu-Medrol 40 mg q. 12-hour. 2. Albuterol/Atrovent nebulizer treatment. 3. Protonix 40 mg a day. 4. Oxycodone 10 mg q. 12 HR for pain. 5. Digoxin 0.125 mg daily 6. Spiriva once a day, 7. Demodex 20 mg a day. 8. Effexor 150 mg a day. 9. Fentanyl patch 100 mcg q. 72-hour 10. Temazepam 30 mg at nighttime 11. Trazodone 100 mg at nighttime. 12. Symbicort twice a day. 13. Lipitor 20 mg a day 14. Neurontin 100 mg three times a day. ALLERGIES DILAUDID MEDROL MORPHINE SULFA BETA RONNA SOCIAL HISTORY He has history of smoking for a few years when he was young. No alcohol use. 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 He became disabled when he was diagnosed of alpha 1 antitrypsin deficiency. FAMILY HISTORY He has two children. Both are healthy. He has one brother who with alpha 1 antitrypsin deficiency, one from disease related to alpha 1. REVIEW OF SYSTEMS He has lost weight, appetite is poor. No headache, dizziness, no nausea or vomiting. PHYSICAL EXAMINATION GENERAL: Well built, well-nourished male in no acute distress. VITAL SIGNS: Blood pressure 95/66, heart rate 83, respiration 18, temperature 97.2 HEENT: Examination unremarkable NECK: Supple. JVP not raised. CHEST: He has hyperresonant chest, few rhonchi. CARDIOVASCULAR: S1. S2 normal. ABDOMEN: Soft, nondistended. Bowel sounds present. EXTREMITIES: No edema. IMPRESSION 1. COPD 2. Alpha 1 antitrypsin deficiency. 3. Hepatocellular carcinoma 4. History of atrial fibrillation. 5. History of deep venous thrombosis status post IVC filter. 6. History of coronary artery disease PLAN Discussed with the patient and his we will get his blood gas, supplement the oxygen to keep the saturation greater than 92%. Continue IV Solu-Medrol aerosol treatments with albuterol and Atrovent, Symbicort twice a day. Palliative Care is seeing the patient. Further treatment will depend on the course in the hospital. Thank you, Dr. Efraín Gil, for this consultation. MD NUVIA Gregg/ /6:26 PM /11:34 AM
--- NOTE | 2016-08-18 14:51 | HHI.HCPN ---
Reason for visit a. To assist with evaluation and management of symptoms including:Pain b. To assist medical decision maker(s) with: better understanding of current medical conditions; weighing benefits/burdens of medical treatment options; making medical treatment decisions. Subjective/Interval History Pt was evaluated by pulmonology yesterday. Pt currently getting nebulizers. Pt stated he feels okay. No change in goals of care. 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 Fib, GERD, heard disease, [place], depression, cirrohsis (ascites, esophageal varicies) anxiety, hiatal hernia, history of liver mass(hepatocellular carcinoma), . 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 Pt presented to the ER for melena and vomiting of blood. In the ER 08/11/2016. * vitals 114, RR 20, 121/78; Pulse ox 90% * WBC 4.3; H and H 10.1 and 29.9 ; plt 97 * Na 141; K 3.7; Cl 104; CO2, 26.7; BUN 23; Cr 1.28. * PT 12.7; INR 1.1 * UA unremarkable. * CT of the abdomen and pelvis show Cirrhosis with moderate to large ascites, splenomegaly, nodular liver (possible liver masses). Destructive malignant appearing upper lumbar right paraspinos mass, non specific but most likely mets . Plasmacytoma related to multiple myeloma in the differential. This is new. * Chest X ray show bibasilar atelectasis. * NG tube ordered for gastric lavage as pt was vomiting bright red blood ( but pt refuses as doctor's have tried to pass NG tube in the past with no success, he did not want to attempt. * Pt admitted to hospital services; GI consulted. 08/11==Pt was seen by GI and planned for EGD and possibility of banding. EGD showed medium esophageal varices, distal esophagus, one column and 2 bands applied. 08/12== Pt had an episode of emesis, but pt did not think it was bloody or coffe grounds. GI continue to follow. There were complaints of hematuria. Oncology consulted. 08/13== Oncology came and evaluated pt, especially concerning is the paraspinous process. Oncology feels this may be mestastatic lesion from hepatoma. 08/14==hgb stable. Pt seen and examined and denies episodes of hematemesis. Pt tolerating full liquid diet. AFP came back as > 20K.-MRI, bone scan images reviewed and lab reviewed. He has a large paraspinous at L1 at the neural foramen which is responsible for his pain. His markedly elevated alpha feta protein is convincing evidence that we are dealing with hepatocellular carcinoma. The immune globulin studies including serum for free kappa and lambda light chain do not support a dx of myeloma 08/15==Pt complaining of back pain radiating down to his right leg. Ask when he can go home. There are no episodes of further bleeding. Oncology has discussed with pt and pt's that with his cirrhosis, worsening hepatocellular carcinoma with AFP of 20K with mets, complicated by cirrohsis, acites, esophageal varices with esophageal bleed (that required banding) pt performance status is too poor and unlkiley to qualify for any experimental trial at [facility] in Sep. Oncology recommended radiation oncology for possible radiation to paraspinous mass. Palliative care was consulted to manage pain, and goals of care. Oncology have discussed hospice with , once radiation is finished. Pt rate pain with an intensity of 8-9 at the back and had about one dose. Pain regimen includes Oxycodone 10 mg q12 hours prn btp. Duragesic patch of 100 Mcg q 72 schedule. Gabapentin 100 mg PO TID Pt at times somewhat confused and have poor short term memory. I have spoke with attending physician, and pt's prognosis, and cancer status was extensively reviewed; however, pt could not record any of it, and ask "What is going to be the plan?" Family/friend interactions none at bedside today. Objective Vital Signs Date Time Temp Pulse Resp B/P Pulse Ox O2 Delivery O2 Flow Rate FiO2 08/18/16 12:00 97.3 97 20 106/65 95 08/18/16 08:50 93 Venturi Mask 6.00 50 08/18/16 08:00 97.4 87 20 91/56 93 08/18/16 04:49 98.9 90 20 127/60 95 08/18/16 00:38 97.6 91 20 110/60 95 08/17/16 21:00 96/66 08/17/16 20:36 97.8 85 16 88/62 96 08/17/16 20:00 91 08/17/16 20:00 Venturi Mask 6.00 08/17/16 19:23 94 Venturi Mask 6.00 50 08/17/16 16:00 Venturi Mask 6.00 08/17/16 16:00 97.2 83 18 95/66 94 Intake & Output 08/18/16 08/18/16 07:00 19:00 Intake Total 870 ml Output Total 800 ml Balance 70 ml Intake Oral 870 ml Output Urine Total 800 ml # Voids 2 # Bowel Movements 0 Physical Exam CONSTITUTIONAL/GENERAL: This is an weak,frial gentlemen with O2 mask on currently,more alert today on my visit. SKIN: No jaundice, rashes, or lesions. Ecchymoses on upper extremities. No wounds seen anteriorly. Skin temperature appropriate. Not diaphoretic. HEAD: Atraumatic. Normocephalic. EYES: No scleral icterus. No injection or drainage. Fundi not examined. ENT: Hearing grossly normal. Nose without bleeding or purulent drainage. Throat without visible erythema, exudates, masses, or lesions. NECK: Trachea midline. Supple, nontender. No palpable thyroid enlargement or nodularity. CARDIOVASCULAR: Regular rate and rhythm without murmurs, gallops, or rubs. No JVD. Peripheral pulses symmetric. RESPIRATORY/CHEST: Decrease breath sound bilaterally GASTROINTESTINAL: Abdomen soft, non-tender, umblical hernia present.. GENITOURINARY: Without palpable bladder distension. Valdovinos catheter in place. MUSCULOSKELETAL: Extremities without clubbing, cyanosis, or edema. No joint tenderness or effusion noted. No calf tenderness. No mottling or clubbing. LYMPHATICS: No palpable cervical or supraclavicular adenopathy. NEUROLOGICAL: more alert today. Diagnostic Tests Laboratory Laboratory Tests Test 08/17/16 08/17/16 08/18/16 18:40 21:18 06:30 Blood Gas Puncture Site LT RADIAL Blood Gas Patient Temperature 98.6 Blood Gas HCO3 35 mmol/L (22-26) Blood Gas Base Excess 10.3 mmol/L (-2-2) Blood Gas Oxygen Saturation 94 % (90-100) Arterial Blood pH 7.45 (7.380-7.420) Arterial Blood Partial 52 mmHg (38-42) Pressure CO2 Arterial Blood Partial 96 mmHg Pressure O2 (61-120) Arterial Blood Oxygen Content 13.6 Vol % (12.0-20.0) Arterial Blood 2.7 % (0-4) Carboxyhemoglobin Arterial Blood Methemoglobin 0.7 % (0-2) Blood Gas Hemoglobin 10.2 G/DL (12.0-16.0) Oxygen Delivery Device NASAL CANNULA Blood Gas Liter Flow 6 L/M Ammonia 25 MCMOL/L (11-32) White Blood Count 2.8 TH/MM3 (4.0-11.0) Red Blood Count 2.91 MIL/MM3 (4.50-5.90) Hemoglobin 9.0 GM/DL (13.0-17.0) Hematocrit 26.9 % (39.0-51.0) Mean Corpuscular Volume 92.2 FL (80.0-100.0) Mean Corpuscular Hemoglobin 30.9 PG (27.0-34.0) Mean Corpuscular Hemoglobin 33.6 % Concent (32.0-36.0) Red Cell Distribution Width 22.5 % (11.6-17.2) Platelet Count 73 TH/MM3 (150-450) Mean Platelet Volume 10.3 FL (7.0-11.0) Neutrophils (%) (Auto) % (16.0-70.0) Lymphocytes (%) (Auto) % (9.0-44.0) Monocytes (%) (Auto) % (0.0-8.0) Eosinophils (%) (Auto) % (0.0-4.0) Basophils (%) (Auto) % (0.0-2.0) Neutrophils # (Auto) TH/MM3 (1.8-7.7) Lymphocytes # (Auto) TH/MM3 (1.0-4.8) Monocytes # (Auto) TH/MM3 (0-0.9) Eosinophils # (Auto) TH/MM3 (0-0.4) Basophils # (Auto) TH/MM3 (0-0.2) CBC Comment AUTO DIFF Differential Total Cells 100 Counted Neutrophils % (Manual) 54 % (16-70) Band Neutrophils % 6 % (0-6) Lymphocytes % 34 % (9-44) Monocytes % 5 % (0-8) Basophils % 1 % (0-2) Neutrophils # (Manual) 1.7 TH/MM3 (1.8-7.7) Differential Comment FINAL DIFF MANUAL Platelet Estimate LOW (NORMAL) Platelet Morphology Comment NORMAL (NORMAL) Target Cells 1+ (NORMAL) Sodium Level 139 MEQ/L (136-145) Potassium Level 3.7 MEQ/L (3.5-5.1) Chloride Level 95 MEQ/L (98-107) Carbon Dioxide Level 37.8 MEQ/L (21.0-32.0) Anion Gap 6 MEQ/L (5-15) Blood Urea Nitrogen 31 MG/DL (7-18) Creatinine 1.09 MG/DL (0.60-1.30) Estimat Glomerular Filtration 68 ML/MIN (>89) Rate Random Glucose 79 MG/DL (74-106) Calcium Level 9.0 MG/DL (8.5-10.1) Digoxin Level 0.9 NG/ML (0.8-2.0) Result Diagram: 08/18/1662908/18/16629 Assessment and Plan Disease Oriented Problem List: (1) Tgstt-7-shgzcyybuxy deficiency (2) Liver mass Comment: with mets to the paraspinal process. (3) Depression (4) CAD (coronary artery disease) (5) GI bleed (6) Cirrhosis of liver (7) COPD (chronic obstructive pulmonary disease) (8) Chronic atrial fibrillation Symptom Scale: (1) Pain 0-10 Scale: 9 Comment: cancer burden, met to the spine, and abdominal pain. 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 course of illness progress to COPD, cirrohsis and no hepatocelluar cancer with mets. Prognosis is poor. Code Status: Alternative Code Plan == capacity- Pt I feel does not have full capacity, but can at the very least make joint decisions with . Mentation does flutuates. == Proxy- . == goals: Extensive meeting with pt/ on 08/17. After meeting with patient/; They both who says he is not ready for hospice. After the meeting goals is still aggressive although they are accepting that pts prognosis is poor.. They stateted= not amenable to hospice at this time. == ask if review assistant could be consulted ==If pt need to be coded, they would wand cpr/acls/ shock/ compression, but no intubation. Amenable to bipap. Pt state he does not want tubes down his throat again. No change in goals of care today 08/18 I suspect goals of care would not change until another setback. Goals are aggressive short of intubation. == Code Status: They do not want intubation; but okay with Bipap. They are amenable to bipap, cpr/acls/shock/compressions if patient codes.. ==Pain- discussed with Dr. Lester in the past. When pt was getting oxy q 8 hours, he became more confused. Will remain at q 12 hours for now. == confusion- fluctuates, due to pt medical condition/ encephalopathy. == palliative care will continue to follow as pt clinical condition evolves. Time Spent Total Floor Time (mins): 35 Face to Face Time (mins): 25 Attestation To help prompt me to consider important information that might be impacting today's encounter and assessment, information from prior notes written by myself or my colleagues may have been "brought forward" into today's note. My signature on this note, however, is an attestation that I personally performed the exam, history, and/or decision-making noted today, and, unless otherwise indicated, the interactions with patient, family, and staff as well as the review of records all occurred today. I also attest that the listed assessment and stated plan reflect my best clinical judgment today based on the combination of historical information, prior notes, and today's exam/ interactions. When time spent is documented, it refers only to time spent today by the signer, or if indicated, combined time spent today by collaborating physician/nurse practitioner. Roderick Arteaga MD Aug 18, 2016 14:51
--- NOTE | 2016-08-18 16:57 | HHI.PR ---
Subjective Remarks Patient reports that he is feeling better. His breathing is better. Objective Vitals Vital Signs Date Time Temp Pulse Resp B/P Pulse Ox O2 Delivery O2 Flow Rate FiO2 08/18/16 12:00 97.3 97 20 106/65 95 08/18/16 08:50 93 Venturi Mask 6.00 50 08/18/16 08:00 97.4 87 20 91/56 93 08/18/16 04:49 98.9 90 20 127/60 95 08/18/16 00:38 97.6 91 20 110/60 95 08/17/16 21:00 96/66 08/17/16 20:36 97.8 85 16 88/62 96 08/17/16 20:00 91 08/17/16 20:00 Venturi Mask 6.00 08/17/16 19:23 94 Venturi Mask 6.00 50 I/O 08/17/16 08/17/16 08/17/16 08/18/16 08/18/16 08/18/16 06:59 14:59 22:59 06:59 14:59 22:59 Intake Total 480 ml 482 ml 450 ml 420 ml Output Total 650 ml 600 ml 200 ml Balance 480 ml -168 ml -150 ml 220 ml Intake Oral 480 ml 480 ml 450 ml 420 ml IV Total 2 ml Output Urine Total 650 ml 600 ml 200 ml # Voids 3 2 # Bowel Movements 0 0 0 0 Result Diagram: 08/18/16 0630 08/18/16 0630 Imaging Last Impressions Thoracic Spine CT 08/17/16 0000 Signed Impressions: Service Date/Time: Wednesday, August 17, 2016 06:58 - CONCLUSION: No acute fracture or subluxation of the thoracic spine. Scoliosis and multilevel degenerative changes as above. Nonacute appearing mild compression deformity of T10. Richard Tamez MD Head CT 08/17/16 0000 Signed Impressions: Service Date/Time: Wednesday, August 17, 2016 06:54 - CONCLUSION: 1. No bleed or other acute intracranial abnormality. 2. Chronic white matter changes. 3. Sinus disease. 4. Occipital scalp laceration. Richard Tamez MD Chest X-Ray 08/17/16 0000 Signed Impressions: Service Date/Time: Wednesday, August 17, 2016 15:10 - CONCLUSION: Right upper lobe and left lower lobe infiltrates are new. Aidan Wright Jr., MD Cervical Spine CT 08/17/16 0000 Signed Impressions: Service Date/Time: Wednesday, August 17, 2016 06:54 - CONCLUSION: No fracture or acute appearing malalignment seen of the cervical spine. Degenerative changes as above. Richard Tamez MD SPECT Scan-Bone Nuclear Medicine 08/13/16 0000 Signed Impressions: Service Date/Time: Saturday, August 13, 2016 12:42 - CONCLUSION: Benign whole-body bone scan and bone SPECT of the lumbar spine Richard Lester MD Lumbar Spine MRI 08/13/16 0000 Signed Impressions: Service Date/Time: Saturday, August 13, 2016 15:36 - CONCLUSION: 1. 6.5 x 4.5 x 4.3 cm right paraspinal mass likely related to a metastasis. This does extend into the right neural foramen for the L1 nerve but there is no intrathecal extension appreciated. 2. Bilateral L5 pars defects with grade 2 anterolisthesis and bilateral L5 impingement within the neural foramen. 3. Central canal patent throughout. Aidan Wright Jr., MD Abdomen/Pelvis CT 08/11/16 0210 Signed Impressions: Service Date/Time: Thursday, August 11, 2016 03:25 - CONCLUSION: 1. Cirrhosis with moderate to large ascites and increased splenomegaly. Heterogeneous and very nodular liver; possibility of liver masses difficult to exclude. 2. 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 Plasmacytoma related to multiple myeloma would also be in the differential. This is new. I believe it arose from the right transverse process of L1. Richard Tamez MD Objective Remarks GENERAL: Patient appear older than stated age, in no apparent distress. CARDIOVASCULAR: Regular rate and rhythm without murmurs, gallops, or rubs. RESPIRATORY: Diminished breath sounds meredith. Faint rhonchi bilaterally. No wheezing. GASTROINTESTINAL: Abdomen soft, non-tender, nondistended. Normal active bowel sounds MUSCULOSKELETAL: Extremities without clubbing, cyanosis, or edema. NEURO: Alert & Oriented x4 to person, place, time, situation. Moves all ext x4 A/P Problem List: (1) Hematemesis ICD Code: K92.0 Status: Resolved (2) GI bleed ICD Code: K92.2 Status: Acute (3) Cirrhosis of liver ICD Code: K74.60 Status: Chronic (4) Liver mass ICD Code: R16.0 Status: Chronic (5) Tdmmh-8-affdclivpxh deficiency ICD Code: E88.01 Status: Chronic (6) Respiratory failure, acute and chronic ICD Code: J96.20 Status: Acute Assessment and Plan 65-year-old male with Hematemesis/GI bleed: H&H remained stable. Status post EGD with band ligation 08/11/16; currently stable without any GI bleed. s/p PPI as well as octreotide drip 08/14/16.. Appreciate input from gastroenterology and, monitor H&H and transfuse accordingly. 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 Respiratory status worsen on 08/17. Repeat chest X-ray shows new right upper and left lower lobe infiltrates - Start on Levaquin. - Continue breathing treatments. History of Alpha I antitrypsin deficiency: Continue weekly Prolastin patient to follow up outpatient with hepatology at [facility] for new clinical trial in September 2016 History of liver cancer: CT abdomen with malignant appearing upper lumbar right paraspinous mass, nonspecific but most likely a metastasis. Appreciate input from medical oncology. Radiation Oncology following with plan for palliative radiation to the back if patient and family agreeable. Appreciate input from palliative care medicine History of ascites: Continue Demadex Atrial fibrillation: Currently rate control, continue with digoxin and monitor level History of hypertension: Currently normotensive. continue to hold all oral antihypertensive medications Other chronic medical conditions including depression, hyperlipidemia, history of CHF: Continue outpatient medications Hematuria: Resolved. Fall: Status post mechanical fall 08/17/[address], thoracic and cervical spine noted and review and are unremarkable. Fall precaution and continue with judicious use of narcotics DVT prophylaxis: Chemical anti-prophylaxis is contraindicated secondary to GI bleed, bilateral SCDs. GI prophylaxis: PPI. Problem Qualifiers (1) GI bleed: Qualified Code: K92.2 - Gastrointestinal hemorrhage, unspecified gastrointestinal hemorrhage type Warren Mary MD Aug 18, 2016 16:57
[2016-08-18] MEDS ORDERED: Infusaport/Implanted VAD PRN NS Lock Flush IVF (19:45)
[2016-08-18] MEDS: ATORVASTATIN 20 MG TAB PO SCH (20:29)
[2016-08-18] MEDS: traZODone HCL 100 MG TAB PO SCH (20:29)
[2016-08-18] MEDS: SODIUM CHLORIDE 0.9% FLUSH 5 ML FLUSH FLUSH SCH (20:29)
[2016-08-18] MEDS: TEMAZEPAM 15 MG CAP PO SCH (20:29)
--- NOTE | 2016-08-18 20:49 | HHI.PR ---
Subjective Remarks 65 YOWM with COPD, Hepatocellular ca,AF, CAD On Simple mask ABG Showes compensated Resp acidosis Breathing better less sob Objective Vital Signs Vital Signs Date Time Temp Pulse Resp B/P Pulse Ox O2 Delivery O2 Flow Rate FiO2 08/18/16 19:06 92 Venturi Mask 6.00 50 08/18/16 16:00 Venturi Mask 6.00 08/18/16 16:00 97.4 97 20 110/65 92 08/18/16 12:00 97.3 97 20 106/65 95 08/18/16 11:06 20 08/18/16 09:00 Venturi Mask 6.00 08/18/16 08:50 93 Venturi Mask 6.00 50 08/18/16 08:44 92 08/18/16 08:00 97.4 87 20 91/56 93 08/18/16 04:49 98.9 90 20 127/60 95 08/18/16 00:38 97.6 91 20 110/60 95 08/17/16 21:00 96/66 I/O 08/17/16 08/17/16 08/17/16 08/18/16 08/18/16 08/18/16 07:00 15:00 23:00 07:00 15:00 23:00 Intake Total 480 ml 482 ml 450 ml 420 ml 720 ml Output Total 650 ml 600 ml 200 ml 700 ml Balance 480 ml -168 ml -150 ml 220 ml 20 ml Intake Oral 480 ml 480 ml 450 ml 420 ml 720 ml IV Total 2 ml Output Urine Total 650 ml 600 ml 200 ml 700 ml # Voids 3 2 # Bowel Movements 0 0 0 0 1 Result Diagram: 08/18/1662908/18/1630 Objective Remarks GENERAL: MBMN WM, mild SOB SKIN: Warm and dry. HEAD: Normocephalic. EYES: No scleral icterus. No injection or drainage. NECK: Supple, trachea midline. No JVD or lymphadenopathy. CARDIOVASCULAR: Regular rate and rhythm without murmurs, gallops, or rubs. RESPIRATORY: Breath sounds equal bilaterally. No accessory muscle use. Decreased Chest excursion. GASTROINTESTINAL: Abdomen soft, non-tender, nondistended. MUSCULOSKELETAL: No cyanosis, or edema. BACK: Nontender without obvious deformity. No CVA tenderness. A/P Assessment and Plan COPD Alpha-1 Antitrypsin def Hepatocellular ca AF CAD PLAN: Aerosol nebs Symbicort 2 puffs bid Spiriva daily Protonix 40 mg daily Wean 02 to keep sat >90% Cristobal Antoino MD Aug 18, 2016 20:49
[2016-08-18] MEDS: LEVOFLOXACIN 750 MG PREMIX INJ 150 ML IV SCH (23:13)
[2016-08-19] VITALS (9 sets, daily range): BP systolic 94–110; BP diastolic 60–75; PULSE 83–101; RESP 17–20; TEMP 97.4–98.4; O2SAT 90–93
[2016-08-19] MEDS: RESP: ALBUTEROL 2.5 MG/IPRATROPIUM 0.5 MG NEB (SCH) NEB ×3 (07:37→19:49)
[2016-08-19] MEDS: DIGOXIN 0.125 MG TAB PO SCH (08:43)
[2016-08-19] MEDS: POTASSIUM CHLORIDE 10 MEQ CONTROLLED RELEASE TAB PO SCH ×3 (08:43→17:25)
[2016-08-19] MEDS: CALCIUM/VITAMIN D 250 MG/125 U TAB PO SCH ×2 (08:43→21:18)
[2016-08-19] MEDS: GABAPENTIN 100 MG CAP PO SCH ×3 (08:43→17:25)
[2016-08-19] MEDS: SODIUM CHLORIDE 0.9% FLUSH 5 ML FLUSH FLUSH SCH ×2 (08:43→21:18)
[2016-08-19] MEDS: PANTOPRAZOLE SOD 40 MG DELAYED RELEASE TAB PO SCH ×2 (08:43→21:17)
[2016-08-19] MEDS: TORSEMIDE 20 MG TAB PO SCH (08:43)
[2016-08-19] MEDS: VENLAFAXINE HCL XR 75 MG CAP PO SCH (08:43)
[2016-08-19] MEDS: BUDESONIDE-FORMOTEROL 160/4.5 MCG INHALER INH SCH ×2 (08:48→21:18)
[2016-08-19] MEDS: TIOTROPIUM BROMIDE 18 MCG INH INH SCH (08:49)
--- NOTE | 2016-08-19 10:47 | HHI.PR ---
Subjective Remarks Patient reports that he is feeling better. Still requiring Venturi mask. I discussed with his . He has radiation scheduled for tomorrow. Objective Vitals Vital Signs Date Time Temp Pulse Resp B/P Pulse Ox O2 Delivery O2 Flow Rate FiO2 08/19/16 08:56 Venturi Mask 6.00 50 08/19/16 08:05 98.2 84 17 110/60 92 08/19/16 08:05 83 08/19/16 07:37 92 Venturi Mask 6.00 50 08/19/16 04:07 97.5 87 18 94/61 93 08/18/16 23:30 97.5 92 18 106/75 91 08/18/16 20:05 97.9 100 18 99/70 91 08/18/16 20:00 98 08/18/16 20:00 Venturi Mask 50 08/18/16 19:06 92 Venturi Mask 6.00 50 08/18/16 16:00 Venturi Mask 6.00 08/18/16 16:00 97.4 97 20 110/65 92 08/18/16 12:00 97.3 97 20 106/65 95 08/18/16 11:06 20 I/O 08/18/16 08/18/16 08/18/16 08/19/16 08/19/16 08/19/16 06:59 14:59 22:59 06:59 14:59 22:59 Intake Total 420 ml 720 ml 720 ml 150 ml Output Total 200 ml 700 ml 350 ml 250 ml Balance 220 ml 20 ml 370 ml -100 ml Intake Oral 420 ml 720 ml 720 ml 0 ml IV Total 0 ml 150 ml Output Urine Total 200 ml 700 ml 350 ml 250 ml # Voids 2 # Bowel Movements 0 1 1 0 Result Diagram: 08/18/1630 08/18/16 0630 Objective Remarks GENERAL: Patient appear older than stated age, in no apparent distress. CARDIOVASCULAR: Regular rate and rhythm without murmurs, gallops, or rubs. RESPIRATORY: Diminished breath sounds meredith. Faint rhonchi bilaterally. No wheezing. GASTROINTESTINAL: Abdomen soft, non-tender, nondistended. Normal active bowel sounds MUSCULOSKELETAL: Extremities without clubbing, cyanosis, or edema. NEURO: Alert & Oriented x4 to person, place, time, situation. Moves all ext x4 A/P Problem List: (1) Hematemesis ICD Code: K92.0 Status: Resolved (2) GI bleed ICD Code: K92.2 Status: Acute (3) Cirrhosis of liver ICD Code: K74.60 Status: Chronic (4) Liver mass ICD Code: R16.0 Status: Chronic (5) Muvef-6-yzwoghaopbq deficiency ICD Code: E88.01 Status: Chronic (6) Respiratory failure, acute and chronic ICD Code: J96.20 Status: Acute Assessment and Plan 65-year-old male with Hematemesis/GI bleed: H&H remained stable. Status post EGD with band ligation 08/11/16; currently stable without any GI bleed. s/p PPI as well as octreotide drip 08/14/16.. Appreciate input from gastroenterology and, monitor H&H and transfuse accordingly. 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 Respiratory status worsen on 08/17. Repeat chest X-ray shows new right upper and left lower lobe infiltrates -Continue Levaquin. - Continue breathing treatments. History of Alpha I antitrypsin deficiency: Continue weekly Prolastin patient to follow up outpatient with hepatology at [facility] for new clinical trial in September 2016 History of liver cancer: CT abdomen with malignant appearing upper lumbar right paraspinous mass, nonspecific but most likely a metastasis. Appreciate input from medical oncology. Radiation Oncology following with plan for palliative radiation starting tomorrow. History of ascites: Continue Demadex Atrial fibrillation: Currently rate control, continue with digoxin and monitor level History of hypertension: Currently normotensive. continue to hold all oral antihypertensive medications Other chronic medical conditions including depression, hyperlipidemia, history of CHF: Continue outpatient medications Hematuria: Resolved. Fall: Status post mechanical fall 08/17/[address], thoracic and cervical spine noted and review and are unremarkable. Fall precaution and continue with judicious use of narcotics DVT prophylaxis: Chemical anti-prophylaxis is contraindicated secondary to GI bleed, bilateral SCDs. GI prophylaxis: PPI. Problem Qualifiers (1) GI bleed: Qualified Code: K92.2 - Gastrointestinal hemorrhage, unspecified gastrointestinal hemorrhage type Warren Mary MD Aug 19, 2016 10:47
--- NOTE | 2016-08-19 12:49 | HHI.HCPN ---
Attempted to see Mr. Hunter in his room for palliative care visit and support for . Mr. Hunter was resting, did not disturb him. Placed call to , Estella. She appears to be coping appropriately. Goals remain the same. She verbalizes understanding of radiation therapy to start tomorrow. She remains hopeful and states she appreciates ongoing updates from each specialty. Reports she spoke with oncology and understands treatment options at this time. She denies any further questions or concerns. Offered emotional support. Confirmed she has palliative care contact information. Palliative care will continue to follow throughout hospitalization. SW will follow as needed for emotional and social support. Mary Wright, RET[employer] MANAGER Aug 19, 2016 12:49
--- NOTE | 2016-08-19 19:35 | HHI.PR ---
Subjective Remarks 65 YOWM with COPD, Hepatocellular ca,AF, CAD On Simple mask ABG Showes compensated Resp acidosis Breathing better less sob Desaturates on NC Objective Vital Signs Vital Signs Date Time Temp Pulse Resp B/P Pulse Ox O2 Delivery O2 Flow Rate FiO2 08/19/16 16:06 98.4 85 20 99/70 92 08/19/16 12:06 98.1 87 17 105/63 90 08/19/16 08:56 Venturi Mask 6.00 50 08/19/16 08:05 98.2 84 17 110/60 92 08/19/16 08:05 83 08/19/16 07:37 92 Venturi Mask 6.00 50 08/19/16 04:07 97.5 87 18 94/61 93 08/18/16 23:30 97.5 92 18 106/75 91 08/18/16 20:05 97.9 100 18 99/70 91 08/18/16 20:00 98 08/18/16 20:00 Venturi Mask 50 I/O 08/18/16 08/18/16 08/18/16 08/19/16 08/19/16 08/19/16 07:00 15:00 23:00 07:00 15:00 23:00 Intake Total 420 ml 720 ml 720 ml 150 ml 360 ml Output Total 200 ml 700 ml 350 ml 250 ml 800 ml Balance 220 ml 20 ml 370 ml -100 ml -440 ml Intake Oral 420 ml 720 ml 720 ml 0 ml 360 ml IV Total 0 ml 150 ml Output Urine Total 200 ml 700 ml 350 ml 250 ml 800 ml # Voids 2 # Bowel Movements 0 1 1 0 1 Result Diagram: 08/18/1662908/18/1630 Objective Remarks GENERAL: MBMN WM, mild SOB SKIN: Warm and dry. HEAD: Normocephalic. EYES: No scleral icterus. No injection or drainage. NECK: Supple, trachea midline. No JVD or lymphadenopathy. CARDIOVASCULAR: Regular rate and rhythm without murmurs, gallops, or rubs. RESPIRATORY: Breath sounds equal bilaterally. No accessory muscle use. Decreased Chest excursion. GASTROINTESTINAL: Abdomen soft, non-tender, nondistended. MUSCULOSKELETAL: No cyanosis, or edema. BACK: Nontender without obvious deformity. No CVA tenderness. A/P Assessment and Plan COPD Alpha-1 Antitrypsin def Hepatocellular ca AF CAD PLAN: Aerosol nebs Symbicort 2 puffs bid Spiriva daily Protonix 40 mg daily Wean 02 to keep sat >90% DW pt and his Going to start radiation in AM Cristobal Antonio MD Aug 19, 2016 19:35
[2016-08-19] MEDS: TEMAZEPAM 15 MG CAP PO SCH (21:00)
[2016-08-19] MEDS: traZODone HCL 100 MG TAB PO SCH (21:17)
[2016-08-19] MEDS: ATORVASTATIN 20 MG TAB PO SCH (21:18)
[2016-08-19] MEDS: LEVOFLOXACIN 750 MG PREMIX INJ 150 ML IV SCH (22:19)
[2016-08-20] VITALS (8 sets, daily range): BP systolic 97–115; BP diastolic 65–79; PULSE 77–93; RESP 18–20; TEMP 96–97.7; O2SAT 90–95
[2016-08-20] MEDS: TEMAZEPAM 15 MG CAP PO SCH ×3 (00:52→23:43)
[2016-08-20 05:35] LABS: HEMATOCRIT 25.4 % (39.0-51.0); MEAN CELL VOLUME 91.5 FL (80.0-100.0); MEAN CORPUSCULAR HEMOGLOBIN 30.7 PG (27.0-34.0); MEAN CORPUSCULAR HGB CONC 33.6 % (32.0-36.0); PLATELET COUNT 66 TH/MM3 (150-450); RED BLOOD COUNT 2.77 MIL/MM3 (4.50-5.90); RED CELL DISTRIBUTION WIDTH 21.7 % (11.6-17.2); WHITE BLOOD COUNT 2.9 TH/MM3 (4.0-11.0)
[2016-08-20 05:39] LABS: REVIEW FLAG FINAL
[2016-08-20 05:59] LABS: BICARBONATE 35.6 MEQ/L (21.0-32.0)
[2016-08-20] MEDS: RESP: ALBUTEROL 2.5 MG/IPRATROPIUM 0.5 MG NEB (SCH) NEB ×3 (08:00→20:31)
[2016-08-20] MEDS: PANTOPRAZOLE SOD 40 MG DELAYED RELEASE TAB PO SCH ×2 (08:12→21:38)
[2016-08-20] MEDS: GABAPENTIN 100 MG CAP PO SCH ×3 (08:12→17:42)
[2016-08-20] MEDS: DIGOXIN 0.125 MG TAB PO SCH (08:13)
[2016-08-20] MEDS: CALCIUM/VITAMIN D 250 MG/125 U TAB PO SCH ×2 (08:13→21:37)
[2016-08-20] MEDS: POTASSIUM CHLORIDE 10 MEQ CONTROLLED RELEASE TAB PO SCH ×3 (08:13→17:42)
[2016-08-20] MEDS: TORSEMIDE 20 MG TAB PO SCH (08:13)
[2016-08-20] MEDS: VENLAFAXINE HCL XR 75 MG CAP PO SCH (08:13)
[2016-08-20] MEDS: SODIUM CHLORIDE 0.9% FLUSH 5 ML FLUSH FLUSH SCH ×2 (08:17→21:34)
[2016-08-20] MEDS: BUDESONIDE-FORMOTEROL 160/4.5 MCG INHALER INH SCH ×2 (08:18→21:37)
[2016-08-20] MEDS: TIOTROPIUM BROMIDE 18 MCG INH INH SCH (08:19)
--- NOTE | 2016-08-20 17:12 | HHI.PR ---
Subjective Remarks Patient reports that he is doing okay. He had markings for radiation today. Plan for radiation tomorrow. Objective Vitals Vital Signs Date Time Temp Pulse Resp B/P Pulse Ox O2 Delivery O2 Flow Rate FiO2 08/20/16 16:06 97.3 88 20 107/69 93 08/20/16 12:26 97.3 77 20 97/65 94 08/20/16 08:58 95 Venturi Mask 6.00 08/20/16 08:57 95 Venturi Mask 6.00 50 08/20/16 08:05 91 08/20/16 08:00 96.0 84 18 101/65 90 08/20/16 03:58 97.3 89 18 104/69 92 08/19/16 23:45 97.4 93 18 98/67 91 08/19/16 23:00 93 08/19/16 21:20 Venturi Mask 6.00 08/19/16 19:55 97.4 101 18 103/75 92 08/19/16 19:50 91 Venturi Mask 50 I/O 08/19/16 08/19/16 08/19/16 08/20/16 08/20/16 08/20/16 06:59 14:59 22:59 06:59 14:59 22:59 Intake Total 150 ml 360 ml 774 ml 240 ml Output Total 250 ml 800 ml 425 ml 200 ml Balance -100 ml -440 ml 349 ml 40 ml Intake Oral 0 ml 360 ml 720 ml 240 ml IV Total 150 ml 54 ml Output Urine Total 250 ml 800 ml 425 ml 200 ml # Bowel Movements 0 1 0 0 Result Diagram: 08/20/1615 08/20/16514 Objective Remarks GENERAL: Patient appear older than stated age, in no apparent distress. CARDIOVASCULAR: Regular rate and rhythm without murmurs, gallops, or rubs. RESPIRATORY: Diminished breath sounds meredith. Faint rhonchi bilaterally. No wheezing. GASTROINTESTINAL: Abdomen soft, non-tender, nondistended. Normal active bowel sounds MUSCULOSKELETAL: Extremities without clubbing, cyanosis, or edema. NEURO: Alert & Oriented x4 to person, place, time, situation. Moves all ext x4 A/P Problem List: (1) Hematemesis ICD Code: K92.0 Status: Resolved (2) GI bleed ICD Code: K92.2 Status: Acute (3) Cirrhosis of liver ICD Code: K74.60 Status: Chronic (4) Liver mass ICD Code: R16.0 Status: Chronic (5) Mhxrc-9-wejynezmady deficiency ICD Code: E88.01 Status: Chronic (6) Respiratory failure, acute and chronic ICD Code: J96.20 Status: Acute Assessment and Plan 65-year-old male with Hematemesis/GI bleed: H&H remained stable. Status post EGD with band ligation 08/11/16; currently stable without any GI bleed. s/p PPI as well as octreotide drip 08/14/16.. Appreciate input from gastroenterology and, monitor H&H and transfuse accordingly. 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 Respiratory status worsen on 08/17. Repeat chest X-ray shows new right upper and left lower lobe infiltrates -Continue Levaquin. - Continue breathing treatments. History of Alpha I antitrypsin deficiency: Continue weekly Prolastin patient to follow up outpatient with hepatology at [facility] for new clinical trial in September 2016 History of liver cancer: CT abdomen with malignant appearing upper lumbar right paraspinous mass, nonspecific but most likely a metastasis. Appreciate input from medical oncology. Radiation Oncology following with plan for palliative radiation starting tomorrow. History of ascites: Continue Demadex Atrial fibrillation: Currently rate control, continue with digoxin and monitor level History of hypertension: Currently normotensive. continue to hold all oral antihypertensive medications Other chronic medical conditions including depression, hyperlipidemia, history of CHF: Continue outpatient medications Hematuria: Resolved. Fall: Status post mechanical fall 08/17/[address], thoracic and cervical spine noted and review and are unremarkable. Fall precaution and continue with judicious use of narcotics DVT prophylaxis: Chemical anti-prophylaxis is contraindicated secondary to GI bleed, bilateral SCDs. GI prophylaxis: PPI. Problem Qualifiers (1) GI bleed: Qualified Code: K92.2 - Gastrointestinal hemorrhage, unspecified gastrointestinal hemorrhage type Warren Mary MD Aug 20, 2016 17:12
--- NOTE | 2016-08-20 19:49 | HHI.PR ---
Subjective Remarks 65 YOWM with COPD, Hepatocellular ca,AF, CAD On Simple mask ABG Showes compensated Resp acidosis Breathing better less sob Desaturates on NC Anxious to go home Objective Vital Signs Vital Signs Date Time Temp Pulse Resp B/P Pulse Ox O2 Delivery O2 Flow Rate FiO2 08/20/16 16:06 97.3 88 20 107/69 93 08/20/16 12:26 97.3 77 20 97/65 94 08/20/16 08:58 95 Venturi Mask 6.00 08/20/16 08:57 95 Venturi Mask 6.00 50 08/20/16 08:05 91 08/20/16 08:00 96.0 84 18 101/65 90 08/20/16 03:58 97.3 89 18 104/69 92 08/19/16 23:45 97.4 93 18 98/67 91 08/19/16 23:00 93 08/19/16 21:20 Venturi Mask 6.00 08/19/16 19:55 97.4 101 18 103/75 92 08/19/16 19:50 91 Venturi Mask 50 I/O 08/19/16 08/19/16 08/19/16 08/20/16 08/20/16 08/20/16 07:00 15:00 23:00 07:00 15:00 23:00 Intake Total 150 ml 360 ml 774 ml 240 ml 600 ml Output Total 250 ml 800 ml 425 ml 200 ml 600 ml Balance -100 ml -440 ml 349 ml 40 ml 0 ml Intake Oral 0 ml 360 ml 720 ml 240 ml 600 ml IV Total 150 ml 54 ml Output Urine Total 250 ml 800 ml 425 ml 200 ml 600 ml # Bowel Movements 0 1 0 0 Result Diagram: 08/20/1651408/20/16514 Objective Remarks GENERAL: MBMN WM, mild SOB SKIN: Warm and dry. HEAD: Normocephalic. EYES: No scleral icterus. No injection or drainage. NECK: Supple, trachea midline. No JVD or lymphadenopathy. CARDIOVASCULAR: Regular rate and rhythm without murmurs, gallops, or rubs. RESPIRATORY: Breath sounds equal bilaterally. No accessory muscle use. Decreased Chest excursion. GASTROINTESTINAL: Abdomen soft, non-tender, nondistended. MUSCULOSKELETAL: No cyanosis, or edema. BACK: Nontender without obvious deformity. No CVA tenderness. A/P Assessment and Plan COPD Alpha-1 Antitrypsin def Hepatocellular ca AF CAD PLAN: Aerosol nebs Symbicort 2 puffs bid Spiriva daily Protonix 40 mg daily Wean 02 to keep sat >90% Cristobal Antonio MD Aug 20, 2016 19:48
[2016-08-20] MEDS: ATORVASTATIN 20 MG TAB PO SCH (21:38)
[2016-08-20] MEDS: traZODone HCL 100 MG TAB PO SCH (21:38)
[2016-08-20] MEDS: LEVOFLOXACIN 750 MG PREMIX INJ 150 ML IV SCH (23:43)
[2016-08-21] VITALS (10 sets, daily range): BP systolic 88–123; BP diastolic 57–76; PULSE 74–97; RESP 18–20; TEMP 96.7–98.3; O2SAT 88–100
[2016-08-21 06:24] LABS: HEMATOCRIT 24.7 % (39.0-51.0); MEAN CELL VOLUME 91.3 FL (80.0-100.0); MEAN CORPUSCULAR HEMOGLOBIN 30.6 PG (27.0-34.0); MEAN CORPUSCULAR HGB CONC 33.5 % (32.0-36.0); PLATELET COUNT 64 TH/MM3 (150-450); RED BLOOD COUNT 2.71 MIL/MM3 (4.50-5.90); RED CELL DISTRIBUTION WIDTH 21.8 % (11.6-17.2); WHITE BLOOD COUNT 2.9 TH/MM3 (4.0-11.0)
[2016-08-21 06:34] LABS: REVIEW FLAG FINAL
[2016-08-21 06:59] LABS: BICARBONATE 32.2 MEQ/L (21.0-32.0); POTASSIUM 3.9 MEQ/L (3.5-5.1)
[2016-08-21] MEDS: RESP: ALBUTEROL 2.5 MG/IPRATROPIUM 0.5 MG NEB (SCH) NEB ×3 (08:28→19:11)
[2016-08-21] MEDS: DIGOXIN 0.125 MG TAB PO SCH (08:49)
[2016-08-21] MEDS: SODIUM CHLORIDE 0.9% FLUSH 5 ML FLUSH FLUSH SCH ×2 (08:49→20:58)
[2016-08-21] MEDS: CALCIUM/VITAMIN D 250 MG/125 U TAB PO SCH ×2 (08:49→21:00)
[2016-08-21] MEDS: PANTOPRAZOLE SOD 40 MG DELAYED RELEASE TAB PO SCH ×2 (08:49→20:59)
[2016-08-21] MEDS: TORSEMIDE 20 MG TAB PO SCH (08:49)
[2016-08-21] MEDS: POTASSIUM CHLORIDE 10 MEQ CONTROLLED RELEASE TAB PO SCH ×3 (08:49→16:56)
[2016-08-21] MEDS: GABAPENTIN 100 MG CAP PO SCH ×3 (08:49→16:56)
[2016-08-21] MEDS: fentaNYL 100 MCG/HR PATCH TD SCH (08:50)
[2016-08-21] MEDS: VENLAFAXINE HCL XR 75 MG CAP PO SCH (08:50)
[2016-08-21] MEDS: REMOVE OLD PATCH TD SCH (08:51)
[2016-08-21] MEDS: TIOTROPIUM BROMIDE 18 MCG INH INH SCH (08:51)
[2016-08-21] MEDS: BUDESONIDE-FORMOTEROL 160/4.5 MCG INHALER INH SCH ×2 (08:52→20:59)
--- NOTE | 2016-08-21 15:45 | HHI.PR ---
Subjective Remarks No new complaints. Same back pain. Objective Vitals Vital Signs Date Time Temp Pulse Resp B/P Pulse Ox O2 Delivery O2 Flow Rate FiO2 08/21/16 12:00 97.8 84 18 88/59 100 08/21/16 08:45 Venturi Mask 6.00 08/21/16 08:30 96 Venturi Mask 50 08/21/16 08:00 96.7 74 18 123/57 98 08/21/16 08:00 77 08/21/16 04:57 86 08/21/16 04:00 97.4 83 20 91/60 92 08/21/16 00:00 97.2 90 20 104/69 92 08/20/16 22:30 90 Venturi Mask 6.00 08/20/16 20:31 94 Venturi Mask 50 08/20/16 20:00 97.7 93 20 115/79 93 08/20/16 16:06 97.3 88 20 107/69 93 I/O 08/20/16 08/20/16 08/20/16 08/21/16 08/21/16 08/21/16 07:00 15:00 23:00 07:00 15:00 23:00 Intake Total 240 ml 600 ml 327 ml 360 ml 2 ml Output Total 200 ml 600 ml 350 ml Balance 40 ml 0 ml 327 ml 10 ml 2 ml Intake Oral 240 ml 600 ml 240 ml 360 ml IV Total 87 ml 2 ml Output Urine Total 200 ml 600 ml 350 ml # Voids 1 # Bowel Movements 0 1 0 Result Diagram: 08/21/1660408/21/16604 Objective Remarks GENERAL: Patient appear older than stated age, in no apparent distress. CARDIOVASCULAR: Regular rate and rhythm without murmurs, gallops, or rubs. RESPIRATORY: Diminished breath sounds meredith. Faint rhonchi bilaterally. No wheezing. GASTROINTESTINAL: Abdomen soft, non-tender, nondistended. Normal active bowel sounds MUSCULOSKELETAL: Extremities without clubbing, cyanosis, or edema. NEURO: Alert & Oriented x4 to person, place, time, situation. Moves all ext x4 A/P Problem List: (1) Hematemesis ICD Code: K92.0 Status: Resolved (2) GI bleed ICD Code: K92.2 Status: Acute (3) Cirrhosis of liver ICD Code: K74.60 Status: Chronic (4) Liver mass ICD Code: R16.0 Status: Chronic (5) Zqxoo-8-jswleihzgam deficiency ICD Code: E88.01 Status: Chronic (6) Respiratory failure, acute and chronic ICD Code: J96.20 Status: Acute Assessment and Plan 65-year-old male with metastatic liver cancer initially presented with GI bleed. Patient found to have a paraspinous mass causing back pain. Patient currently undergoing radiation therapy. Hematemesis/GI bleed: H&H remained stable. Status post EGD with band ligation 08/11/16; currently stable without any GI bleed. s/p PPI as well as octreotide drip 08/14/16.. Appreciate input from gastroenterology and, monitor H&H and transfuse accordingly. Discontinue Xarelto History of liver cancer: CT abdomen with malignant appearing upper lumbar right paraspinous mass, nonspecific but most likely a metastasis. Appreciate input from medical oncology. Radiation Oncology following, palliative radiation to be started today. 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 Respiratory status worsen on 08/17. Repeat chest X-ray shows new right upper and left lower lobe infiltrates -Continue Levaquin. - Continue breathing treatments. History of Alpha I antitrypsin deficiency: Continue weekly Prolastin patient to follow up outpatient with hepatology at [facility] for new clinical trial in September 2016 History of ascites: Continue Demadex Atrial fibrillation: Currently rate control, continue with digoxin and monitor level History of hypertension: Currently normotensive. continue to hold all oral antihypertensive medications Other chronic medical conditions including depression, hyperlipidemia, history of CHF: Continue outpatient medications Hematuria: Resolved. Fall: Status post mechanical fall 08/17/[address], thoracic and cervical spine noted and review and are unremarkable. Fall precaution and continue with judicious use of narcotics DVT prophylaxis: Chemical anti-prophylaxis is contraindicated secondary to GI bleed, bilateral SCDs. GI prophylaxis: PPI. Discharge Planning Continue radiation. May need SNF. His goal is to take him home. Problem Qualifiers (1) GI bleed: Qualified Code: K92.2 - Gastrointestinal hemorrhage, unspecified gastrointestinal hemorrhage type Warren Mary MD Aug 21, 2016 15:45
--- NOTE | 2016-08-21 16:24 | HHI.PR ---
Subjective Remarks 65 YOWM with COPD, Hepatocellular ca,AF, CAD On Simple mask ABG Showes compensated Resp acidosis Breathing better less sob Desaturates on NC No new complaint Objective Vital Signs Vital Signs Date Time Temp Pulse Resp B/P Pulse Ox O2 Delivery O2 Flow Rate FiO2 08/21/16 12:00 97.8 84 18 88/59 100 08/21/16 08:45 Venturi Mask 6.00 08/21/16 08:30 96 Venturi Mask 50 08/21/16 08:00 96.7 74 18 123/57 98 08/21/16 08:00 77 08/21/16 04:57 86 08/21/16 04:00 97.4 83 20 91/60 92 08/21/16 00:00 97.2 90 20 104/69 92 08/20/16 22:30 90 Venturi Mask 6.00 08/20/16 20:31 94 Venturi Mask 50 08/20/16 20:00 97.7 93 20 115/79 93 I/O 08/20/16 08/20/16 08/20/16 08/21/16 08/21/16 08/21/16 07:00 15:00 23:00 07:00 15:00 23:00 Intake Total 240 ml 600 ml 327 ml 360 ml 2 ml Output Total 200 ml 600 ml 350 ml Balance 40 ml 0 ml 327 ml 10 ml 2 ml Intake Oral 240 ml 600 ml 240 ml 360 ml IV Total 87 ml 2 ml Output Urine Total 200 ml 600 ml 350 ml # Voids 1 # Bowel Movements 0 1 0 Result Diagram: 08/21/1660408/21/16604 Objective Remarks GENERAL: MBMN WM, mild SOB SKIN: Warm and dry. HEAD: Normocephalic. EYES: No scleral icterus. No injection or drainage. NECK: Supple, trachea midline. No JVD or lymphadenopathy. CARDIOVASCULAR: Regular rate and rhythm without murmurs, gallops, or rubs. RESPIRATORY: Breath sounds equal bilaterally. No accessory muscle use. Decreased Chest excursion. GASTROINTESTINAL: Abdomen soft, non-tender, nondistended. MUSCULOSKELETAL: No cyanosis, or edema. BACK: Nontender without obvious deformity. No CVA tenderness. A/P Assessment and Plan COPD Alpha-1 Antitrypsin def Hepatocellular ca AF CAD PLAN: Aerosol nebs Symbicort 2 puffs bid Spiriva daily Protonix 40 mg daily Wean 02 to keep sat >90% For Radiation treatment. Cristobal Antonio MD Aug 21, 2016 16:24
[2016-08-21] MEDS: ONDANSETRON HCL 4 MG/2 ML VIAL IVP PRN (16:54)
[2016-08-21] MEDS: ATORVASTATIN 20 MG TAB PO SCH (20:59)
[2016-08-21] MEDS: traZODone HCL 100 MG TAB PO SCH (21:00)
[2016-08-21] MEDS: TEMAZEPAM 15 MG CAP PO SCH (21:01)
[2016-08-21] MEDS: LEVOFLOXACIN 750 MG PREMIX INJ 150 ML IV SCH (22:27)
[2016-08-22] VITALS (9 sets, daily range): BP systolic 90–108; BP diastolic 55–75; PULSE 82–92; RESP 16–20; TEMP 97.2–97.5; O2SAT 90–96
[2016-08-22 05:39] LABS: BICARBONATE 33.1 MEQ/L (21.0-32.0); POTASSIUM 4.1 MEQ/L (3.5-5.1)
[2016-08-22 06:15] LABS: MEAN CELL VOLUME 91.7 FL (80.0-100.0); MEAN CORPUSCULAR HEMOGLOBIN 30.9 PG (27.0-34.0); MEAN CORPUSCULAR HGB CONC 33.7 % (32.0-36.0); PLATELET COUNT 62 TH/MM3 (150-450); RED BLOOD COUNT 2.72 MIL/MM3 (4.50-5.90); RED CELL DISTRIBUTION WIDTH 21.6 % (11.6-17.2); WHITE BLOOD COUNT 3.1 TH/MM3 (4.0-11.0)
[2016-08-22 06:19] LABS: REVIEW FLAG FINAL
[2016-08-22] MEDS: RESP: ALBUTEROL 2.5 MG/IPRATROPIUM 0.5 MG NEB (PRN) NEB (07:41)
[2016-08-22] MEDS: TORSEMIDE 20 MG TAB PO SCH (08:34)
[2016-08-22] MEDS: ONDANSETRON HCL 4 MG/2 ML VIAL IVP PRN (08:34)
[2016-08-22] MEDS: CALCIUM/VITAMIN D 250 MG/125 U TAB PO SCH ×2 (08:34→22:00)
[2016-08-22] MEDS: GABAPENTIN 100 MG CAP PO SCH ×3 (08:34→17:05)
[2016-08-22] MEDS: VENLAFAXINE HCL XR 75 MG CAP PO SCH (08:35)
[2016-08-22] MEDS: PANTOPRAZOLE SOD 40 MG DELAYED RELEASE TAB PO SCH ×2 (08:35→22:02)
[2016-08-22] MEDS: POTASSIUM CHLORIDE 10 MEQ CONTROLLED RELEASE TAB PO SCH ×3 (08:35→17:04)
[2016-08-22] MEDS: DIGOXIN 0.125 MG TAB PO SCH (08:35)
[2016-08-22] MEDS: TIOTROPIUM BROMIDE 18 MCG INH INH SCH (08:36)
[2016-08-22] MEDS: SODIUM CHLORIDE 0.9% FLUSH 5 ML FLUSH FLUSH SCH ×2 (08:36→22:04)
[2016-08-22] MEDS: BUDESONIDE-FORMOTEROL 160/4.5 MCG INHALER INH SCH ×2 (08:36→22:03)
[2016-08-22 12:26] LABS: BLOOD GAS BASE EXCESS 10.5 mmol/L (-2-2); BLOOD GAS HCO3 35 mmol/L (22-26); BLOOD GAS PCO2 50 mmHg (38-42); BLOOD GAS PO2 74 mmHg (61-120)
[2016-08-22 12:27] LABS: BLOOD GAS CARBOXYHEMOGLOBIN 2.1 % (0-4); BLOOD GAS METHEMOGLOBIN 0.7 % (0-2); BLOOD GAS O2 HGB SATURATION 95 % (90-100); BLOOD GAS TOTAL HGB 10.2 G/DL (12.0-16.0)
[2016-08-22 12:28] LABS: CRITICAL VALUE YES; FIO2 31 %; OXYGEN DEVICE Venti Mask
[2016-08-22 12:29] LABS: DRAW SITE LRA; NUMBER OF ARTERIAL PUNCTURES 1; STAT YES; ULNAR PULSE PRESENT
--- NOTE | 2016-08-22 12:44 | RADRPT ---
EXAM DATE/TIME: 08/22/2016 12:30 [facility] COMPARISON: CHEST SINGLE AP, August 17, 2016, 15:10. INDICATIONS : Repiratory distress. MEDICAL HISTORY : Congestive heart failure. Hypertension. Cardiovascular disease. Myocardial infarction. Liver ca ncer. AFIB. SURGICAL HISTORY : Coronary artery stent. Left upper lobectomy. Port placement. Madi filter. Liver cyst removal. ENCOUNTER: Subsequent ACUITY: 1 week PAIN SCORE: Non-responsive. LOCATION: chest FINDINGS: Shallow lung volumes and interstitial prominence again seen. Right port catheter tip overlies the rig ht atrium. Cardiomegaly. Apical scarring. CONCLUSION: No significant change has occurred. Jay Ventura MD on August 22, 2016 at 12:42 Board Certified Radiologist. This report was verified electronically.
[2016-08-22 13:35] LABS: HEMATOCRIT 27.9 % (39.0-51.0); MEAN CELL VOLUME 92.2 FL (80.0-100.0); MEAN CORPUSCULAR HEMOGLOBIN 31.4 PG (27.0-34.0); PLATELET COUNT 67 TH/MM3 (150-450); RED BLOOD COUNT 3.03 MIL/MM3 (4.50-5.90); WHITE BLOOD COUNT 3.5 TH/MM3 (4.0-11.0)
[2016-08-22 13:58] LABS: ALKALINE PHOSPHATASE 868 U/L (45-117); ALT (GPT) 148 U/L (12-78); ANION GAP 8 MEQ/L (5-15); AST (GOT) 566 U/L (15-37); BICARBONATE 32.6 MEQ/L (21.0-32.0); BLOOD UREA NITROGEN 33 MG/DL (7-18); CHLORIDE 91 MEQ/L (98-107); GLOMERULAR FILTRATION RATE 55 ML/MIN (>89); POTASSIUM 4.5 MEQ/L (3.5-5.1); SODIUM (NA) 132 MEQ/L (136-145)
--- NOTE | 2016-08-22 14:10 | HHI.PR ---
Subjective Remarks 65 YOWM with COPD, Hepatocellular ca,AF, CAD On Simple mask ABG Showes compensated Resp acidosis Breathing better Lethargic ABG showes compensated Resp acidosis Objective Vital Signs Vital Signs Date Time Temp Pulse Resp B/P Pulse Ox O2 Delivery O2 Flow Rate FiO2 08/22/16 12:00 97.4 89 16 107/69 96 08/22/16 08:00 97.4 92 18 101/70 94 08/22/16 07:41 96 4.00 08/22/16 04:00 97.3 89 18 93/61 92 08/22/16 02:01 92 Venturi Mask 6.00 50 08/22/16 00:00 97.2 89 18 100/55 95 08/21/16 20:45 98.3 97 20 111/73 88 08/21/16 20:00 86 08/21/16 20:00 Venturi Mask 4.00 50 08/21/16 19:11 96 Nasal Cannula 4.00 08/21/16 16:00 97.2 90 20 104/76 96 I/O 08/21/16 08/21/16 08/21/16 08/22/16 08/22/16 08/22/16 07:00 15:00 23:00 07:00 15:00 23:00 Intake Total 360 ml 482 ml 240 ml 240 ml Output Total 350 ml 775 ml 200 ml 400 ml Balance 10 ml -293 ml 40 ml -160 ml Intake Oral 360 ml 480 ml 240 ml 240 ml IV Total 2 ml Output Urine Total 350 ml 775 ml 200 ml 400 ml # Bowel Movements 0 0 Result Diagram: 08/22/16 1316 08/22/16 1316 Objective Remarks GENERAL: MBMN WM, mild SOB SKIN: Warm and dry. HEAD: Normocephalic. EYES: No scleral icterus. No injection or drainage. NECK: Supple, trachea midline. No JVD or lymphadenopathy. CARDIOVASCULAR: Regular rate and rhythm without murmurs, gallops, or rubs. RESPIRATORY: Breath sounds equal bilaterally. No accessory muscle use. Decreased Chest excursion. GASTROINTESTINAL: Abdomen soft, non-tender, nondistended. MUSCULOSKELETAL: No cyanosis, or edema. BACK: Nontender without obvious deformity. No CVA tenderness. A/P Assessment and Plan COPD Alpha-1 Antitrypsin def Hepatocellular ca AF CAD PLAN: Aerosol nebs Symbicort 2 puffs bid Spiriva daily Protonix 40 mg daily Wean 02 to keep sat >90% Cont VM Check Ammonia level. Cristobal Antonio MD Aug 22, 2016 14:10
--- NOTE | 2016-08-22 15:17 | HHI.PR ---
Subjective Remarks Patient seen in follow-up for Halicat today. Patient hypoxemic and with shallow respirations. Patient's blood gas, chest x-ray and labs reviewed. LFTs worsening. Objective Vitals Vital Signs Date Time Temp Pulse Resp B/P Pulse Ox O2 Delivery O2 Flow Rate FiO2 08/22/16 14:49 Nasal Cannula 5.00 08/22/16 12:00 97.4 89 16 107/69 96 08/22/16 08:00 97.4 92 18 101/70 94 08/22/16 08:00 92 08/22/16 07:41 96 4.00 08/22/16 04:00 97.3 89 18 93/61 92 08/22/16 02:01 92 Venturi Mask 6.00 50 08/22/16 00:00 97.2 89 18 100/55 95 08/21/16 20:45 98.3 97 20 111/73 88 08/21/16 20:00 86 08/21/16 20:00 Venturi Mask 4.00 50 08/21/16 19:11 96 Nasal Cannula 4.00 08/21/16 16:00 97.2 90 20 104/76 96 I/O 08/21/16 08/21/16 08/21/16 08/22/16 08/22/16 08/22/16 07:00 15:00 23:00 07:00 15:00 23:00 Intake Total 360 ml 482 ml 240 ml 240 ml Output Total 350 ml 775 ml 200 ml 400 ml Balance 10 ml -293 ml 40 ml -160 ml Intake Oral 360 ml 480 ml 240 ml 240 ml IV Total 2 ml Output Urine Total 350 ml 775 ml 200 ml 400 ml # Bowel Movements 0 0 Result Diagram: 08/22/16 1316 08/22/16 1316 Imaging Last Impressions Chest X-Ray 08/22/16 0000 Signed Impressions: Service Date/Time: Monday, August 22, 2016 12:30 - CONCLUSION: No significant change has occurred. Jay Ventura MD Thoracic Spine CT 08/17/16 0000 Signed Impressions: Service Date/Time: Wednesday, August 17, 2016 06:58 - CONCLUSION: No acute fracture or subluxation of the thoracic spine. Scoliosis and multilevel degenerative changes as above. Nonacute appearing mild compression deformity of T10. Richard Tamez MD Head CT 08/17/16 0000 Signed Impressions: Service Date/Time: Wednesday, August 17, 2016 06:54 - CONCLUSION: 1. No bleed or other acute intracranial abnormality. 2. Chronic white matter changes. 3. Sinus disease. 4. Occipital scalp laceration. Richard Tamez MD Cervical Spine CT 08/17/16 0000 Signed Impressions: Service Date/Time: Wednesday, August 17, 2016 06:54 - CONCLUSION: No fracture or acute appearing malalignment seen of the cervical spine. Degenerative changes as above. Richard Tamez MD SPECT Scan-Bone Nuclear Medicine 08/13/16 0000 Signed Impressions: Service Date/Time: Saturday, August 13, 2016 12:42 - CONCLUSION: Benign whole-body bone scan and bone SPECT of the lumbar spine Richard Lester MD Lumbar Spine MRI 08/13/16 0000 Signed Impressions: Service Date/Time: Saturday, August 13, 2016 15:36 - CONCLUSION: 1. 6.5 x 4.5 x 4.3 cm right paraspinal mass likely related to a metastasis. This does extend into the right neural foramen for the L1 nerve but there is no intrathecal extension appreciated. 2. Bilateral L5 pars defects with grade 2 anterolisthesis and bilateral L5 impingement within the neural foramen. 3. Central canal patent throughout. Aidan Wright Jr., MD Abdomen/Pelvis CT 08/11/16 0210 Signed Impressions: Service Date/Time: Thursday, August 11, 2016 03:25 - CONCLUSION: 1. Cirrhosis with moderate to large ascites and increased splenomegaly. Heterogeneous and very nodular liver; possibility of liver masses difficult to exclude. 2. 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 Plasmacytoma related to multiple myeloma would also be in the differential. This is new. I believe it arose from the right transverse process of L1. Richard Tamez MD Objective Remarks GENERAL: This is a frail, jaundiced male who appears chronically ill CARDIOVASCULAR: Regular rate and rhythm without murmurs, gallops, or rubs. RESPIRATORY: Clear to auscultation. Breath sounds equal bilaterally. No wheezes , rales, or rhonchi. GASTROINTESTINAL: Abdomen soft, non-tender, nondistended. Normal active bowel sounds MUSCULOSKELETAL: Extremities without clubbing, cyanosis, or edema. NEURO: Alert & nonverbal A/P Assessment and Plan 1. Back pain due to paraspinous mass (? Mets) undergoing radiation therapy. Known Liver CA 2. GI bleed, Hg stable (Status post EGD with band ligation 08/11/16). follow Hg and stopped Xarelto 3. Acute on chronic respiratory failure, CXR and blood gas for H 4. Atrial fibrillation: Currently rate control, continue with digoxin and monitor level 5. Metabolic Encephalopathy, ammonia level 6. Hypertension, normotensive off meds Discharge Planning Called Estella Hunter to update on ptn status, with shallow breathing and worsening encephalopathy Yolanda Her MD Aug 22, 2016 15:17
[2016-08-22] MEDS: TEMAZEPAM 15 MG CAP PO SCH (21:00)
[2016-08-22] MEDS: traZODone HCL 100 MG TAB PO SCH (22:00)
[2016-08-22] MEDS: ATORVASTATIN 20 MG TAB PO SCH (22:02)
[2016-08-23] VITALS (10 sets, daily range): BP systolic 93–110; BP diastolic 61–76; PULSE 81–95; RESP 12–20; TEMP 97.1–97.9; O2SAT 86–96
[2016-08-23] MEDS: LEVOFLOXACIN 750 MG PREMIX INJ 150 ML IV SCH ×2 (00:07→23:04)
[2016-08-23 06:49] LABS: HEMATOCRIT 23.9 % (39.0-51.0); MEAN CELL VOLUME 91.1 FL (80.0-100.0); MEAN CORPUSCULAR HEMOGLOBIN 30.6 PG (27.0-34.0); MEAN CORPUSCULAR HGB CONC 33.6 % (32.0-36.0); PLATELET COUNT 61 TH/MM3 (150-450); RED BLOOD COUNT 2.63 MIL/MM3 (4.50-5.90); RED CELL DISTRIBUTION WIDTH 21.1 % (11.6-17.2); WHITE BLOOD COUNT 3.6 TH/MM3 (4.0-11.0)
[2016-08-23 06:55] LABS: REVIEW FLAG FINAL
[2016-08-23] MEDS: DIGOXIN 0.125 MG TAB PO SCH (08:47)
[2016-08-23] MEDS: PANTOPRAZOLE SOD 40 MG DELAYED RELEASE TAB PO SCH ×2 (08:47→21:03)
[2016-08-23] MEDS: TORSEMIDE 20 MG TAB PO SCH (08:47)
[2016-08-23] MEDS: VENLAFAXINE HCL XR 75 MG CAP PO SCH (08:47)
[2016-08-23] MEDS: SODIUM CHLORIDE 0.9% FLUSH 5 ML FLUSH FLUSH SCH ×2 (08:47→21:02)
[2016-08-23] MEDS: CALCIUM/VITAMIN D 250 MG/125 U TAB PO SCH ×2 (08:47→21:04)
[2016-08-23] MEDS: POTASSIUM CHLORIDE 10 MEQ CONTROLLED RELEASE TAB PO SCH ×3 (08:47→16:48)
[2016-08-23] MEDS: GABAPENTIN 100 MG CAP PO SCH ×3 (08:47→16:48)
[2016-08-23] MEDS: TIOTROPIUM BROMIDE 18 MCG INH INH SCH (08:48)
[2016-08-23] MEDS: BUDESONIDE-FORMOTEROL 160/4.5 MCG INHALER INH SCH ×2 (08:48→21:04)
--- NOTE | 2016-08-23 13:45 | HHI.PR ---
Subjective Remarks Patient seen and evaluated today in follow-up for encephalopathy and liver issues. Also the bedside and patient more responsive. More alert today. Keep the mask on and no further hypoxemic events. Abdomen distended Objective Vitals Vital Signs Date Time Temp Pulse Resp B/P Pulse Ox O2 Delivery O2 Flow Rate FiO2 08/23/16 12:20 91 Venturi Mask 35 08/23/16 12:00 97.4 85 16 93/61 95 08/23/16 09:00 88 08/23/16 08:00 97.1 88 12 102/71 96 08/23/16 04:00 97.6 81 20 100/68 92 08/23/16 00:00 97.4 90 20 110/76 94 08/22/16 20:47 93 Venturi Mask 6.00 35 08/22/16 20:00 82 08/22/16 20:00 Venturi Mask 5.00 08/22/16 20:00 97.2 88 20 108/75 96 08/22/16 16:00 97.5 87 18 90/56 90 08/22/16 14:49 Nasal Cannula 5.00 I/O 08/22/16 08/22/16 08/22/16 08/23/16 08/23/16 08/23/16 07:00 15:00 23:00 07:00 15:00 23:00 Intake Total 240 ml 720 ml 400 ml 220 ml Output Total 400 ml 300 ml 500 ml 500 ml Balance -160 ml 420 ml -100 ml 220 ml -500 ml Intake Oral 240 ml 720 ml 400 ml 220 ml Output Urine Total 400 ml 300 ml 500 ml 500 ml # Voids 2 # Bowel Movements 0 0 0 Result Diagram: 08/23/16 0630 08/22/16 1316 Objective Remarks GENERAL: This is a frail, jaundiced male who appears chronically ill CARDIOVASCULAR: Regular rate and rhythm without murmurs, gallops, or rubs. RESPIRATORY: Clear to auscultation. Breath sounds equal bilaterally. No wheezes , rales, or rhonchi. GASTROINTESTINAL: Abdomen soft, non-tender, mildly distended. Normal active bowel sounds MUSCULOSKELETAL: Extremities without clubbing, cyanosis, or edema. 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 Back pain due to paraspinous mass (? Mets) undergoing radiation therapy. Known Liver CA 2. GI bleed, Hg stable (Status post EGD with band ligation 08/11/16). follow Hg and stopped Xarelto 3. Acute on chronic respiratory failure, better today, Eval for ascites by US 4. Atrial fibrillation: Currently rate control, continue with digoxin and monitor level 5. Metabolic Encephalopathy, ammonia level wnl 6. Hypertension, normotensive off meds Discharge Planning SNF v HHC at d/c Problem Qualifiers (1) GI bleed: Qualified Code: K92.2 - Gastrointestinal hemorrhage, unspecified gastrointestinal hemorrhage type Yolanda Her MD Aug 23, 2016 13:45
--- NOTE | 2016-08-23 15:21 | HHI.HCPN ---
Reason for visit a. To assist with evaluation and management of symptoms including:Pain b. To assist medical decision maker(s) with: better understanding of current medical conditions; weighing benefits/burdens of medical treatment options; making medical treatment decisions. Subjective/Interval History Pt halicated earlier this weekend, but today has been more stable. Pt is on O2 mask. Pt alert and oriented. at bedside. Pt stated "Doc I am still here." He state he has pain in his abdomen. Both and pt, hopes a paracentesis will help reduce the pressure and pain he is feeling. Goals remains aggressive. Earlier in the week, I have discussed with pt/ that I feel pt poor prognosis, and that its days to weeks. Hospice has been recommended. Both have declined. No change in goals of care. was thinking once his lungs stablized, she wants to bring him to [place] and ask for Lung transplant. I told , that is unlikely considering his metastatic cancer. Both pt wants to take things a day at a time. Pt state "I am a fighter,." His brother has alpha 1 antitrypsin deficiency and for vasculitis. Pt not ready for comfort measures. Family/friend interactions at bedside. Objective Vital Signs Date Time Temp Pulse Resp B/P Pulse Ox O2 Delivery O2 Flow Rate FiO2 08/23/16 12:20 91 Venturi Mask 35 08/23/16 12:00 97.4 85 16 93/61 95 08/23/16 09:00 88 08/23/16 08:00 Venturi Mask 5.00 35 08/23/16 08:00 97.1 88 12 102/71 96 08/23/16 04:00 97.6 81 20 100/68 92 08/23/16 00:00 97.4 90 20 110/76 94 08/22/16 20:47 93 Venturi Mask 6.00 35 08/22/16 20:00 82 08/22/16 20:00 Venturi Mask 5.00 08/22/16 20:00 97.2 88 20 108/75 96 08/22/16 16:00 97.5 87 18 90/56 90 Intake & Output 08/23/16 08/23/16 06:59 18:59 Intake Total 620 ml 0 ml Output Total 500 ml 500 ml Balance 120 ml -500 ml Intake Oral 620 ml IV Total 0 ml Output Urine Total 500 ml 500 ml # Voids 2 # Bowel Movements 0 Physical Exam CONSTITUTIONAL/GENERAL: This is an weak,frial gentlemen with O2 mask on currently,alert. SKIN: No jaundice, rashes, or lesions. Ecchymoses on upper extremities. No wounds seen anteriorly. Skin temperature appropriate. Not diaphoretic. HEAD: Atraumatic. Normocephalic. EYES: No scleral icterus. No injection or drainage. Fundi not examined. ENT: Hearing grossly normal. Nose without bleeding or purulent drainage. Throat without visible erythema, exudates, masses, or lesions. NECK: Trachea midline. Supple, nontender. No palpable thyroid enlargement or nodularity. CARDIOVASCULAR: Regular rate and rhythm without murmurs, gallops, or rubs. No JVD. Peripheral pulses symmetric. RESPIRATORY/CHEST: Decrease breath sound bilaterally GASTROINTESTINAL: Abdomen soft, non-tender, umblical hernia present, more distended.. GENITOURINARY: Without palpable bladder distension. Valdovinos catheter in place. MUSCULOSKELETAL: Extremities without clubbing, cyanosis, or edema. No joint tenderness or effusion noted. No calf tenderness. No mottling or clubbing. LYMPHATICS: No palpable cervical or supraclavicular adenopathy. NEUROLOGICAL:alert today. Diagnostic Tests Laboratory Laboratory Tests Test 08/21/16 08/22/16 08/22/16 08/22/16 06:05 04:40 12:20 13:16 White Blood Count 2.9 TH/MM3 3.1 TH/MM3 3.5 TH/MM3 (4.0-11.0) (4.0-11.0) (4.0-11.0) Red Blood Count 2.71 MIL/MM3 2.72 MIL/MM3 3.03 MIL/MM3 (4.50-5.90) (4.50-5.90) (4.50-5.90) Hemoglobin 8.3 GM/DL 8.4 GM/DL 9.5 GM/DL (13.0-17.0) (13.0-17.0) (13.0-17.0) Hematocrit 24.7 % 25.0 % 27.9 % (39.0-51.0) (39.0-51.0) (39.0-51.0) Mean Corpuscular Volume 91.3 FL 91.7 FL 92.2 FL (80.0-100.0) (80.0-100.0) (80.0-100.0) Mean Corpuscular Hemoglobin 30.6 PG 30.9 PG 31.4 PG (27.0-34.0) (27.0-34.0) (27.0-34.0) Mean Corpuscular Hemoglobin 33.5 % 33.7 % 34.0 % Concent (32.0-36.0) (32.0-36.0) (32.0-36.0) Red Cell Distribution Width 21.8 % 21.6 % 22.0 % (11.6-17.2) (11.6-17.2) (11.6-17.2) Platelet Count 64 TH/MM3 62 TH/MM3 67 TH/MM3 (150-450) (150-450) (150-450) Mean Platelet Volume 10.1 FL 10.3 FL 10.5 FL (7.0-11.0) (7.0-11.0) (7.0-11.0) Sodium Level 137 MEQ/L 136 MEQ/L 132 MEQ/L (136-145) (136-145) (136-145) Potassium Level 3.9 MEQ/L 4.1 MEQ/L 4.5 MEQ/L (3.5-5.1) (3.5-5.1) (3.5-5.1) Chloride Level 95 MEQ/L 95 MEQ/L 91 MEQ/L (98-107) (98-107) (98-107) Carbon Dioxide Level 32.2 MEQ/L 33.1 MEQ/L 32.6 MEQ/L (21.0-32.0) (21.0-32.0) (21.0-32.0) Anion Gap 10 MEQ/L (5-15) 8 MEQ/L (5-15) 8 MEQ/L (5-15) Blood Urea Nitrogen 30 MG/DL (7-18) 31 MG/DL (7-18) 33 MG/DL (7-18) Creatinine 1.18 MG/DL 1.18 MG/DL 1.31 MG/DL (0.60-1.30) (0.60-1.30) (0.60-1.30) Estimat Glomerular Filtration 62 ML/MIN (>89) 62 ML/MIN (>89) 55 ML/MIN (>89) Rate Random Glucose 80 MG/DL 69 MG/DL 87 MG/DL (74-106) (74-106) (74-106) Calcium Level 9.1 MG/DL 8.9 MG/DL 8.9 MG/DL (8.5-10.1) (8.5-10.1) (8.5-10.1) Blood Gas Puncture Site LRA Blood Gas HCO3 35 mmol/L (22-26) Blood Gas Base Excess 10.5 mmol/L (-2-2) Blood Gas Oxygen Saturation 95 % (90-100) Arterial Blood pH 7.42 (7.380-7.420) Arterial Blood Partial 50 mmHg (38-42) Pressure CO2 Arterial Blood Partial 74 mmHg Pressure O2 (61-120) Arterial Blood 2.1 % (0-4) Carboxyhemoglobin Arterial Blood Methemoglobin 0.7 % (0-2) Blood Gas Hemoglobin 10.2 G/DL (12.0-16.0) Oxygen Delivery Device Venti Mask Blood Gas Ventilator Setting Blood Gas Inspired Oxygen 31 % Total Bilirubin 5.0 MG/DL (0.2-1.0) Aspartate Amino Transf 566 U/L (15-37) (AST/SGOT) Alanine Aminotransferase 148 U/L (12-78) (ALT/SGPT) Alkaline Phosphatase 868 U/L (45-117) Ammonia LESS THAN 20 MCMOL/L (11-32) Total Protein 6.6 GM/DL (6.4-8.2) Albumin 2.2 GM/DL (3.4-5.0) Test 08/23/16 06:30 White Blood Count 3.6 TH/MM3 (4.0-11.0) Red Blood Count 2.63 MIL/MM3 (4.50-5.90) Hemoglobin 8.0 GM/DL (13.0-17.0) Hematocrit 23.9 % (39.0-51.0) Mean Corpuscular Volume 91.1 FL (80.0-100.0) Mean Corpuscular Hemoglobin 30.6 PG (27.0-34.0) Mean Corpuscular Hemoglobin 33.6 % Concent (32.0-36.0) Red Cell Distribution Width 21.1 % (11.6-17.2) Platelet Count 61 TH/MM3 (150-450) Mean Platelet Volume 10.1 FL (7.0-11.0) Result Diagram: 08/23/1630 08/22/16 1316 Imaging Last Impressions Chest X-Ray 08/22/16 0000 Signed Impressions: Service Date/Time: Monday, August 22, 2016 12:30 - CONCLUSION: No significant change has occurred. Jay Ventura MD Thoracic Spine CT 08/17/16 0000 Signed Impressions: Service Date/Time: Wednesday, August 17, 2016 06:58 - CONCLUSION: No acute fracture or subluxation of the thoracic spine. Scoliosis and multilevel degenerative changes as above. Nonacute appearing mild compression deformity of T10. Richard Tamez MD Head CT 08/17/16 0000 Signed Impressions: Service Date/Time: Wednesday, August 17, 2016 06:54 - CONCLUSION: 1. No bleed or other acute intracranial abnormality. 2. Chronic white matter changes. 3. Sinus disease. 4. Occipital scalp laceration. Richard Tamez MD Cervical Spine CT 08/17/16 0000 Signed Impressions: Service Date/Time: Wednesday, August 17, 2016 06:54 - CONCLUSION: No fracture or acute appearing malalignment seen of the cervical spine. Degenerative changes as above. Richard Tamez MD SPECT Scan-Bone Nuclear Medicine 08/13/16 0000 Signed Impressions: Service Date/Time: Saturday, August 13, 2016 12:42 - CONCLUSION: Benign whole-body bone scan and bone SPECT of the lumbar spine Richard Lester MD Lumbar Spine MRI 08/13/16 0000 Signed Impressions: Service Date/Time: Saturday, August 13, 2016 15:36 - CONCLUSION: 1. 6.5 x 4.5 x 4.3 cm right paraspinal mass likely related to a metastasis. This does extend into the right neural foramen for the L1 nerve but there is no intrathecal extension appreciated. 2. Bilateral L5 pars defects with grade 2 anterolisthesis and bilateral L5 impingement within the neural foramen. 3. Central canal patent throughout. Aidan Wright Jr., MD Abdomen/Pelvis CT 08/11/16 0210 Signed Impressions: Service Date/Time: Thursday, August 11, 2016 03:25 - CONCLUSION: 1. Cirrhosis with moderate to large ascites and increased splenomegaly. Heterogeneous and very nodular liver; possibility of liver masses difficult to exclude. 2. 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 Plasmacytoma related to multiple myeloma would also be in the differential. This is new. I believe it arose from the right transverse process of L1. Richard Tamez MD Assessment and Plan Disease Oriented Problem List: (1) Bqday-1-fxlzdlfhkvt deficiency (2) Liver mass Comment: with mets to the paraspinal process. (3) Depression (4) CAD (coronary artery disease) (5) GI bleed (6) Cirrhosis of liver (7) COPD (chronic obstructive pulmonary disease) (8) Chronic atrial fibrillation Symptom Scale: (1) Pain 0-10 Scale: 9 Comment: cancer burden, met to the spine, and abdominal pain. 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 course of illness progress to COPD, cirrohsis and no hepatocelluar cancer with mets. Prognosis is poor. Code Status: Alternative Code Plan == capacity-Mentation tent to fluctuates, at the very least on my exam today, pt can make joint decisions. == Proxy- . == goals: Extensive meeting with pt/ on 08/17. After meeting with patient/; Goals remains aggressive. Earlier last week, I have discussed with pt/ poor prognosis and timeframe of days to weeks. Hospice has been recommended. Both have declined. No change in goals of care today. was thinking once his lungs stablized, she wants to bring him to [place] and ask for Lung transplant. I told , that is unlikely considering his metastatic cancer. Both pt and wants to take things a day at a time. Pt state "I am a fighter ,." His brother has alpha 1 antitrypsin deficiency and for vasculitis. Pt not ready for comfort measures. == Code Status: They do not want intubation; but okay with Bipap. They are amenable to bipap, cpr/acls/shock/compressions if patient codes.. ==Pain- discussed with Dr. Lester in the past. When pt was getting oxy q 8 hours, he became more confused. Will remain at q 12 hours for now. == confusion- fluctuates, appears alert and with it today. == palliative care will continue to follow as pt clinical condition evolves. Attestation To help prompt me to consider important information that might be impacting today's encounter and assessment, information from prior notes written by myself or my colleagues may have been "brought forward" into today's note. My signature on this note, however, is an attestation that I personally performed the exam, history, and/or decision-making noted today, and, unless otherwise indicated, the interactions with patient, family, and staff as well as the review of records all occurred today. I also attest that the listed assessment and stated plan reflect my best clinical judgment today based on the combination of historical information, prior notes, and today's exam/ interactions. When time spent is documented, it refers only to time spent today by the signer, or if indicated, combined time spent today by collaborating physician/nurse practitioner. Roderick Arteaga MD Aug 23, 2016 15:21
[2016-08-23 17:17] LABS: INTERNATIONAL NORMALIZED RATIO 1.3 RATIO
--- NOTE | 2016-08-23 17:26 | HHI.PR ---
Subjective Remarks 65 YOWM with COPD, Hepatocellular ca,AF, CAD On Simple mask ABG Showes compensated Resp acidosis Breathing better " Why can't I go home" at BS, " He is not ready for Hospice" Objective Vital Signs Vital Signs Date Time Temp Pulse Resp B/P Pulse Ox O2 Delivery O2 Flow Rate FiO2 08/23/16 12:20 91 Venturi Mask 35 08/23/16 12:00 97.4 85 16 93/61 95 08/23/16 09:00 88 08/23/16 08:00 Venturi Mask 5.00 35 08/23/16 08:00 97.1 88 12 102/71 96 08/23/16 04:00 97.6 81 20 100/68 92 08/23/16 00:00 97.4 90 20 110/76 94 08/22/16 20:47 93 Venturi Mask 6.00 35 08/22/16 20:00 82 08/22/16 20:00 Venturi Mask 5.00 08/22/16 20:00 97.2 88 20 108/75 96 I/O 08/22/16 08/22/16 08/22/16 08/23/16 08/23/16 08/23/16 07:00 15:00 23:00 07:00 15:00 23:00 Intake Total 240 ml 720 ml 400 ml 220 ml 0 ml Output Total 400 ml 300 ml 500 ml 500 ml Balance -160 ml 420 ml -100 ml 220 ml -500 ml Intake Oral 240 ml 720 ml 400 ml 220 ml IV Total 0 ml Output Urine Total 400 ml 300 ml 500 ml 500 ml # Voids 2 # Bowel Movements 0 0 0 Result Diagram: 08/23/16 0630 08/22/16 1316 Objective Remarks GENERAL: MBMN WM, mild SOB SKIN: Warm and dry. HEAD: Normocephalic. EYES: No scleral icterus. No injection or drainage. NECK: Supple, trachea midline. No JVD or lymphadenopathy. CARDIOVASCULAR: Regular rate and rhythm without murmurs, gallops, or rubs. RESPIRATORY: Breath sounds equal bilaterally. No accessory muscle use. Decreased Chest excursion. GASTROINTESTINAL: Abdomen soft, non-tender, nondistended. MUSCULOSKELETAL: No cyanosis, or edema. BACK: Nontender without obvious deformity. No CVA tenderness. A/P Assessment and Plan COPD Alpha-1 Antitrypsin def Hepatocellular ca AF CAD PLAN: Aerosol nebs Symbicort 2 puffs bid Spiriva daily Protonix 40 mg daily Wean 02 to keep sat >90% Cont Cristobal Cano MD Aug 23, 2016 17:26
[2016-08-23] MEDS: TEMAZEPAM 15 MG CAP PO SCH ×2 (21:00→21:02)
[2016-08-23] MEDS: ATORVASTATIN 20 MG TAB PO SCH (21:03)
[2016-08-23] MEDS: traZODone HCL 100 MG TAB PO SCH (21:04)
[2016-08-24] VITALS (10 sets, daily range): BP systolic 101–131; BP diastolic 56–85; PULSE 86–109; RESP 16–20; TEMP 97–98; O2SAT 91–97
[2016-08-24] MEDS: PANTOPRAZOLE SOD 40 MG DELAYED RELEASE TAB PO SCH ×2 (09:12→20:58)
[2016-08-24] MEDS: TORSEMIDE 20 MG TAB PO SCH (09:13)
[2016-08-24] MEDS: CALCIUM/VITAMIN D 250 MG/125 U TAB PO SCH ×2 (09:13→20:58)
[2016-08-24] MEDS: GABAPENTIN 100 MG CAP PO SCH ×3 (09:13→18:56)
[2016-08-24] MEDS: POTASSIUM CHLORIDE 10 MEQ CONTROLLED RELEASE TAB PO SCH ×3 (09:13→18:56)
[2016-08-24] MEDS: DIGOXIN 0.125 MG TAB PO SCH (09:13)
[2016-08-24] MEDS: fentaNYL 100 MCG/HR PATCH TD SCH (09:13)
[2016-08-24] MEDS: VENLAFAXINE HCL XR 75 MG CAP PO SCH (09:13)
[2016-08-24] MEDS: TIOTROPIUM BROMIDE 18 MCG INH INH SCH (09:14)
[2016-08-24] MEDS: SODIUM CHLORIDE 0.9% FLUSH 5 ML FLUSH FLUSH SCH ×2 (09:14→20:59)
[2016-08-24] MEDS: BUDESONIDE-FORMOTEROL 160/4.5 MCG INHALER INH SCH ×2 (09:14→20:59)
[2016-08-24] MEDS: REMOVE OLD PATCH TD SCH (09:23)
--- NOTE | 2016-08-24 10:48 | HHI.PR ---
Subjective Remarks The pt was going for a paracentesis. His family was at the bedside and they mentioned the pt was on too much oxygen. Also had concerns about hospice. The pt has been acting confused at times. He has been ambulating to the bathroom with assistance. Objective Vitals Vital Signs Date Time Temp Pulse Resp B/P Pulse Ox O2 Delivery O2 Flow Rate FiO2 08/24/16 10:19 97.7 88 18 108/75 91 08/24/16 08:00 Venturi Mask 5.00 35 08/24/16 08:00 97.0 97 18 106/72 94 08/24/16 04:12 97.5 99 20 108/70 93 08/24/16 00:25 97.2 86 18 101/56 94 08/23/16 20:15 Venturi Mask 5.00 31 08/23/16 19:50 91 08/23/16 19:48 97.9 95 18 103/71 86 08/23/16 17:59 96 Venturi Mask 6.00 35 08/23/16 16:00 97.4 86 14 102/67 96 08/23/16 12:20 91 Venturi Mask 35 08/23/16 12:00 97.4 85 16 93/61 95 I/O 08/23/16 08/23/16 08/23/16 08/24/16 08/24/16 08/24/16 07:00 15:00 23:00 07:00 15:00 23:00 Intake Total 220 ml 360 ml 482 ml 392 ml Output Total 500 ml 175 ml 200 ml Balance 220 ml -140 ml 307 ml 192 ml Intake Oral 220 ml 360 ml 480 ml 240 ml IV Total 0 ml 2 ml 152 ml Output Urine Total 500 ml 175 ml 200 ml # Voids 2 6 1 1 # Bowel Movements 0 1 1 0 Result Diagram: 08/23/16 0630 08/22/16 1316 Imaging Last Impressions Chest X-Ray 08/22/16 0000 Signed Impressions: Service Date/Time: Monday, August 22, 2016 12:30 - CONCLUSION: No significant change has occurred. Jay Ventura MD Thoracic Spine CT 08/17/16 0000 Signed Impressions: Service Date/Time: Wednesday, August 17, 2016 06:58 - CONCLUSION: No acute fracture or subluxation of the thoracic spine. Scoliosis and multilevel degenerative changes as above. Nonacute appearing mild compression deformity of T10. Richard Tamez MD Head CT 08/17/16 0000 Signed Impressions: Service Date/Time: Wednesday, August 17, 2016 06:54 - CONCLUSION: 1. No bleed or other acute intracranial abnormality. 2. Chronic white matter changes. 3. Sinus disease. 4. Occipital scalp laceration. Richard Tamez MD Cervical Spine CT 08/17/16 0000 Signed Impressions: Service Date/Time: Wednesday, August 17, 2016 06:54 - CONCLUSION: No fracture or acute appearing malalignment seen of the cervical spine. Degenerative changes as above. Richard Tamez MD SPECT Scan-Bone Nuclear Medicine 08/13/16 0000 Signed Impressions: Service Date/Time: Saturday, August 13, 2016 12:42 - CONCLUSION: Benign whole-body bone scan and bone SPECT of the lumbar spine Richard Lester MD Lumbar Spine MRI 08/13/16 0000 Signed Impressions: Service Date/Time: Saturday, August 13, 2016 15:36 - CONCLUSION: 1. 6.5 x 4.5 x 4.3 cm right paraspinal mass likely related to a metastasis. This does extend into the right neural foramen for the L1 nerve but there is no intrathecal extension appreciated. 2. Bilateral L5 pars defects with grade 2 anterolisthesis and bilateral L5 impingement within the neural foramen. 3. Central canal patent throughout. Aidan Wright Jr., MD Abdomen/Pelvis CT 08/11/16 0210 Signed Impressions: Service Date/Time: Thursday, August 11, 2016 03:25 - CONCLUSION: 1. Cirrhosis with moderate to large ascites and increased splenomegaly. Heterogeneous and very nodular liver; possibility of liver masses difficult to exclude. 2. 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 Plasmacytoma related to multiple myeloma would also be in the differential. This is new. I believe it arose from the right transverse process of L1. Richard Tamez MD Objective Remarks GENERAL: This is a frail, jaundiced male who appears chronically ill CARDIOVASCULAR: Regular rate and rhythm without murmurs, gallops, or rubs. RESPIRATORY: Clear to auscultation. Breath sounds equal bilaterally. No wheezes , rales, or rhonchi. GASTROINTESTINAL: Abdomen soft, non-tender, mildly distended. Normal active bowel sounds MUSCULOSKELETAL: Extremities without clubbing, cyanosis, or edema. NEURO: Alert & nonverbal Medications and IVs Current Medications Medications (Trade) Dose Ordered Sig/Barak Route Start Time Stop Time Status Last Admin (NS Flush) 2 ml UNSCH PRN FLUSH 08/11/16 05:00 (NS Flush) 2 ml BID FLUSH 08/11/16 09:00 08/24/16 09:14 (Zofran Inj) 4 mg Q6H PRN IVP 08/11/16 05:00 08/22/16 08:34 (Narcan Inj) 0.4 mg UNSCH PRN IV 08/11/16 05:00 (Lanoxin) 0.125 mg DAILY PO 08/12/16 09:00 08/24/16 09:13 (Neurontin) 100 mg TID PO 08/11/16 18:00 08/24/16 09:13 (KCl) 10 meq TID PO 08/11/16 18:00 08/24/16 09:13 (Paige-Colace) 2 tab BID PRN PO 08/11/16 15:45 (Restoril) 30 mg HS PO 08/11/16 21:00 08/21/16 21:01 (Spiriva Inh) 18 mcg DAILY INH 08/12/16 09:00 08/24/16 09:14 (Demadex) 20 mg DAILY PO 08/12/16 09:00 08/24/16 09:13 (Desyrel) 100 mg HS PO 08/11/16 21:00 08/23/16 21:04 (Effexor Xr) 150 mg DAILY PO 08/12/16 09:00 08/24/16 09:13 (Oscal-D 250-125) 500 mg BID PO 08/11/16 21:00 08/24/16 09:13 (Symbicort 160-4.5 Inh) 2 puff BID INH 08/11/16 21:00 08/24/16 09:14 (Lipitor) 20 mg HS PO 08/11/16 21:00 08/23/16 21:03 (Duragesic 100 Mcg Patch.72 Hr) 1 patch Q3D TD 08/12/16 09:00 08/24/16 09:13 (Roxicodone) 10 mg Q12HR PRN PO 08/13/16 21:00 08/23/16 21:05 (Protonix) 40 mg Q12HR PO 08/14/16 21:00 08/24/16 09:12 (NS Flush) 5 ml UNSCH PRN IVF 08/18/16 19:45 (Heparin Central Flush) 250 units UNSCH PRN IVF 08/18/16 19:45 Heparin Sodium (Porcine) 500 units 500 units UNSCH IVF 08/18/16 19:45 08/18/16 20:30 (Levaquin 750 Mg Premix Inj) 150 ml @ 100 mls/hr Q24H IV 08/18/16 23:00 08/23/16 23:04 Miscellaneous Information 1 Q3D TD 08/21/16 09:00 08/24/16 09:23 A/P Problem List: (1) Hematemesis ICD Code: K92.0 Status: Resolved (2) GI bleed ICD Code: K92.2 Status: Acute (3) Cirrhosis of liver ICD Code: K74.60 Status: Chronic (4) Liver mass ICD Code: R16.0 Status: Chronic (5) Awfzz-7-heomxqmvane deficiency ICD Code: E88.01 Status: Chronic (6) Respiratory failure, acute and chronic ICD Code: J96.20 Status: Acute Assessment and Plan 65-year-old male with metastatic liver cancer initially presented with GI bleed. Patient found to have a paraspinous mass causing back pain. Patient currently undergoing radiation therapy. Hematemesis/GI bleed: H&H remained stable. Status post EGD with band ligation 08/11/16; currently stable without any GI bleed. s/p PPI as well as octreotide drip 08/14/16.. Appreciate input from gastroenterology and, monitor H&H and transfuse accordingly. Discontinue Xarelto History of liver cancer: CT abdomen with malignant appearing upper lumbar right paraspinous mass, nonspecific but most likely a metastasis. Appreciate input from medical oncology. Radiation Oncology following, palliative radiation planned. Paracentesis 08/24. 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 Respiratory status worsen on 08/17. Repeat chest X-ray shows new right upper and left lower lobe infiltrates - Continue Levaquin. - Continue breathing treatments. - Paracentesis. History of Alpha I antitrypsin deficiency: Continue weekly Prolastin patient to follow up outpatient with hepatology at [facility] for new clinical trial in September 2016 History of ascites: Continue Demadex - paracentesis 08/24. Atrial fibrillation: Currently rate control, continue with digoxin and monitor level History of hypertension: Currently normotensive. continue to hold all oral antihypertensive medications Fall: Status post mechanical fall 08/17/ a.m. head CT, thoracic and cervical spine noted and review and are unremarkable. Fall precaution and continue with judicious use of narcotics DVT prophylaxis: Chemical anti-prophylaxis is contraindicated secondary to GI bleed, bilateral SCDs. GI prophylaxis: PPI. Discharge Planning Consider home hospice. Problem Qualifiers (1) GI bleed: Qualified Code: K92.2 - Gastrointestinal hemorrhage, unspecified gastrointestinal hemorrhage type Tone Hensley DO Aug 24, 2016 10:48
--- NOTE | 2016-08-24 12:54 | RADRPT ---
EXAM DATE/TIME: 08/24/2016 10:20 [place] COMPARISON: No previous studies available for comparison. INDICATIONS : Ascites. MEDICAL HISTORY : Myocardial infarction. Congestive heart failure. Hypertension. Migraines. CAD. Afib. Alpha anti-tryps in deficiency. Dyspnea. Abdominal pain. Hematemesis. Hematuria. Arthritis. Liver disease. MRSA. Dep ression. SURGICAL HISTORY : Coronary artery stent. Cardiac cath. Orthopedic surgery, right arm. Blood transfusions. ENCOUNTER: Initial ACUITY: 2 days PAIN SCORE: 0/10 LOCATION: Right lower quadrant FLUID: Total volume of 2,500 cc of clear, yellow fluid was removed. Fluid was discarded. Paracentesis was therapeutic only. Post procedure scanning reveals no hematoma or other complication. TECHNIQUE: 1. Ultrasound guidance for abdominal paracentesis. 2. Paracentesis. The risks, benefits, and alternatives to ultrasound guided paracentesis were explained to the patient in detail including the risk of bleeding and infection. Written and verbal informed consent was obt ained. With the patient on the ultrasound table, ultrasound imaging was used to select the most appropriate approach for paracentesis. Overlying skin was prepped and draped in the usual sterile fashion and wi th a local anesthetic, a dermatotomy was made with an 11 blade scalpel. A 6 [place] ca theter was introduced into the peritoneal cavity and fluid was collected. The patient tolerated the procedure well and left the ultrasound suite in stable condition. CONCLUSION: Uncomplicated ultrasound guided paracentesis. Kiran Perez MD on August 24, 2016 at 12:53 Board Certified Radiologist. This report was verified electronically.
[2016-08-24] MEDS ORDERED: LIDOCAINE HCL 1% 30 ML VIAL ONE (13:02)
--- NOTE | 2016-08-24 19:41 | HHI.PR ---
Subjective Remarks 65 YOWM with COPD, Hepatocellular ca,AF, CAD On Simple mask ABG Showes compensated Resp acidosis Breathing better had Paracentesis done today Objective Vital Signs Vital Signs Date Time Temp Pulse Resp B/P Pulse Ox O2 Delivery O2 Flow Rate FiO2 08/24/16 18:00 97 Venturi Mask 6.00 35 08/24/16 12:10 98.0 90 16 105/57 97 08/24/16 12:00 97.2 89 18 112/76 95 08/24/16 11:56 92 Venturi Mask 35 08/24/16 10:19 97.7 88 18 108/75 91 08/24/16 08:00 Venturi Mask 5.00 35 08/24/16 08:00 95 08/24/16 08:00 97.0 97 18 106/72 94 08/24/16 04:12 97.5 99 20 108/70 93 08/24/16 00:25 97.2 86 18 101/56 94 08/23/16 20:15 Venturi Mask 5.00 31 08/23/16 19:50 91 08/23/16 19:48 97.9 95 18 103/71 86 I/O 08/23/16 08/23/16 08/23/16 08/24/16 08/24/16 08/24/16 07:00 15:00 23:00 07:00 15:00 23:00 Intake Total 220 ml 360 ml 482 ml 392 ml Output Total 500 ml 175 ml 200 ml Balance 220 ml -140 ml 307 ml 192 ml Intake Oral 220 ml 360 ml 480 ml 240 ml IV Total 0 ml 2 ml 152 ml Output Urine Total 500 ml 175 ml 200 ml # Voids 2 6 1 1 # Bowel Movements 0 1 1 0 Result Diagram: 08/23/16 0630 08/22/16 1316 Objective Remarks GENERAL: MBMN WM, mild SOB SKIN: Warm and dry. HEAD: Normocephalic. EYES: No scleral icterus. No injection or drainage. NECK: Supple, trachea midline. No JVD or lymphadenopathy. CARDIOVASCULAR: Regular rate and rhythm without murmurs, gallops, or rubs. RESPIRATORY: Breath sounds equal bilaterally. No accessory muscle use. Decreased Chest excursion. GASTROINTESTINAL: Abdomen soft, non-tender, nondistended. MUSCULOSKELETAL: No cyanosis, or edema. BACK: Nontender without obvious deformity. No CVA tenderness. A/P Assessment and Plan COPD Alpha-1 Antitrypsin def Hepatocellular ca AF CAD PLAN: Aerosol nebs Symbicort 2 puffs bid Spiriva daily Protonix 40 mg daily Wean 02 to keep sat >90% Cont VM DW at [facility] MD Aug 24, 2016 19:41
[2016-08-24] MEDS: ATORVASTATIN 20 MG TAB PO SCH (20:58)
[2016-08-24] MEDS: LEVOFLOXACIN 750 MG PREMIX INJ 150 ML IV SCH (23:27)
[2016-08-24] MEDS: TEMAZEPAM 15 MG CAP PO SCH (23:28)
[2016-08-24] MEDS: traZODone HCL 100 MG TAB PO SCH (23:28)
[2016-08-25] VITALS (9 sets, daily range): BP systolic 84–136; BP diastolic 56–74; PULSE 82–97; RESP 18–20; TEMP 97.3–98.9; O2SAT 88–96
[2016-08-25 05:17] LABS: HEMATOCRIT 26.5 % (39.0-51.0); MEAN CORPUSCULAR HEMOGLOBIN 30.7 PG (27.0-34.0); MEAN CORPUSCULAR HGB CONC 33.7 % (32.0-36.0); PLATELET COUNT 75 TH/MM3 (150-450); RED BLOOD COUNT 2.91 MIL/MM3 (4.50-5.90); RED CELL DISTRIBUTION WIDTH 20.4 % (11.6-17.2); WHITE BLOOD COUNT 4.4 TH/MM3 (4.0-11.0)
[2016-08-25 05:20] LABS: REVIEW FLAG FINAL
[2016-08-25 05:35] LABS: BICARBONATE 30.1 MEQ/L (21.0-32.0); MAGNESIUM 1.7 MG/DL (1.5-2.5); POTASSIUM 3.9 MEQ/L (3.5-5.1)
[2016-08-25 05:40] LABS: INDIRECT BILIRUBIN 1.5 MG/DL (0.0-0.8); TOTAL BILIRUBIN ADULT 8.1 MG/DL (0.2-1.0)
[2016-08-25] MEDS: PANTOPRAZOLE SOD 40 MG DELAYED RELEASE TAB PO SCH ×2 (09:00→20:54)
[2016-08-25] MEDS: POTASSIUM CHLORIDE 10 MEQ CONTROLLED RELEASE TAB PO SCH ×3 (09:00→17:25)
[2016-08-25] MEDS: GABAPENTIN 100 MG CAP PO SCH ×3 (09:00→17:25)
[2016-08-25] MEDS: CALCIUM/VITAMIN D 250 MG/125 U TAB PO SCH ×2 (09:01→20:54)
[2016-08-25] MEDS: VENLAFAXINE HCL XR 75 MG CAP PO SCH (09:01)
[2016-08-25] MEDS: TORSEMIDE 20 MG TAB PO SCH (09:02)
[2016-08-25] MEDS: BUDESONIDE-FORMOTEROL 160/4.5 MCG INHALER INH SCH ×2 (09:06→20:55)
--- NOTE | 2016-08-25 09:06 | HHI.PR ---
Subjective Remarks The patient was lethargic and confused. He did not know where he was. He did know his name. He denied any pain. Nursing was at the bedside. Objective Vitals Vital Signs Date Time Temp Pulse Resp B/P Pulse Ox O2 Delivery O2 Flow Rate FiO2 08/25/16 08:00 Nasal Cannula 5.00 08/25/16 04:00 98.7 94 20 90/61 96 08/25/16 04:00 98.7 94 20 90/61 93 08/25/16 00:26 98.9 97 20 136/69 88 08/24/16 20:34 97.7 109 20 131/85 96 08/24/16 20:26 89 08/24/16 19:45 Nasal Cannula 5.00 08/24/16 18:00 97 Venturi Mask 6.00 35 08/24/16 12:10 98.0 90 16 105/57 97 08/24/16 12:00 97.2 89 18 112/76 95 08/24/16 11:56 92 Venturi Mask 35 08/24/16 10:19 97.7 88 18 108/75 91 I/O 08/24/16 08/24/16 08/24/16 08/25/16 08/25/16 08/25/16 07:00 15:00 23:00 07:00 15:00 23:00 Intake Total 392 ml 480 ml 500 ml Output Total 200 ml 200 ml Balance 192 ml 480 ml 300 ml Intake Oral 240 ml 480 ml 500 ml IV Total 152 ml Output Urine Total 200 ml 200 ml # Voids 1 3 # Bowel Movements 0 1 0 Result Diagram: 08/25/16 0450 08/25/16 0450 Imaging Last Impressions Cyst Biopsy Asp-Paracentesis US 08/24/16 0000 Signed Impressions: Service Date/Time: Wednesday, August 24, 2016 10:20 - CONCLUSION: Uncomplicated ultrasound guided paracentesis. Kiran Perez MD Chest X-Ray 08/22/16 0000 Signed Impressions: Service Date/Time: Monday, August 22, 2016 12:30 - CONCLUSION: No significant change has occurred. Jay Ventura MD Thoracic Spine CT 08/17/16 0000 Signed Impressions: Service Date/Time: Wednesday, August 17, 2016 06:58 - CONCLUSION: No acute fracture or subluxation of the thoracic spine. Scoliosis and multilevel degenerative changes as above. Nonacute appearing mild compression deformity of T10. Richard Tamez MD Head CT 08/17/16 0000 Signed Impressions: Service Date/Time: Wednesday, August 17, 2016 06:54 - CONCLUSION: 1. No bleed or other acute intracranial abnormality. 2. Chronic white matter changes. 3. Sinus disease. 4. Occipital scalp laceration. Richard Tamez MD Cervical Spine CT 08/17/16 0000 Signed Impressions: Service Date/Time: Wednesday, August 17, 2016 06:54 - CONCLUSION: No fracture or acute appearing malalignment seen of the cervical spine. Degenerative changes as above. Richard Tamez MD SPECT Scan-Bone Nuclear Medicine 08/13/16 0000 Signed Impressions: Service Date/Time: Saturday, August 13, 2016 12:42 - CONCLUSION: Benign whole-body bone scan and bone SPECT of the lumbar spine Richard Lester MD Lumbar Spine MRI 08/13/16 0000 Signed Impressions: Service Date/Time: Saturday, August 13, 2016 15:36 - CONCLUSION: 1. 6.5 x 4.5 x 4.3 cm right paraspinal mass likely related to a metastasis. This does extend into the right neural foramen for the L1 nerve but there is no intrathecal extension appreciated. 2. Bilateral L5 pars defects with grade 2 anterolisthesis and bilateral L5 impingement within the neural foramen. 3. Central canal patent throughout. Aidan Wright Jr., MD Abdomen/Pelvis CT 08/11/16 0210 Signed Impressions: Service Date/Time: Thursday, August 11, 2016 03:25 - CONCLUSION: 1. Cirrhosis with moderate to large ascites and increased splenomegaly. Heterogeneous and very nodular liver; possibility of liver masses difficult to exclude. 2. 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 Plasmacytoma related to multiple myeloma would also be in the differential. This is new. I believe it arose from the right transverse process of L1. Richard Tamez MD Objective Remarks GENERAL: This is a frail, jaundiced male who appears chronically ill CARDIOVASCULAR: Regular rate and rhythm without murmurs, gallops, or rubs. RESPIRATORY: Clear to auscultation. Breath sounds equal bilaterally. No wheezes , rales, or rhonchi. GASTROINTESTINAL: Abdomen soft, non-tender, mildly distended. Normal active bowel sounds MUSCULOSKELETAL: Extremities without clubbing, cyanosis, or edema. NEURO: Confused, minimally verbal. Moves upper and lower extremities. PSYCH: Flat affect. Procedures Paracentesis Medications and IVs Current Medications Medications (Trade) Dose Ordered Sig/Barak Route Start Time Stop Time Status Last Admin (NS Flush) 2 ml UNSCH PRN FLUSH 08/11/16 05:00 (NS Flush) 2 ml BID FLUSH 08/11/16 09:00 08/24/16 20:59 (Zofran Inj) 4 mg Q6H PRN IVP 08/11/16 05:00 08/22/16 08:34 (Narcan Inj) 0.4 mg UNSCH PRN IV 08/11/16 05:00 (Lanoxin) 0.125 mg DAILY PO 08/12/16 09:00 08/24/16 09:13 (Neurontin) 100 mg TID PO 08/11/16 18:00 08/24/16 18:56 (KCl) 10 meq TID PO 08/11/16 18:00 08/24/16 18:56 (Paige-Colace) 2 tab BID PRN PO 08/11/16 15:45 (Restoril) 30 mg HS PO 08/11/16 21:00 08/24/16 23:28 (Spiriva Inh) 18 mcg DAILY INH 08/12/16 09:00 08/24/16 09:14 (Demadex) 20 mg DAILY PO 08/12/16 09:00 08/24/16 09:13 (Desyrel) 100 mg HS PO 08/11/16 21:00 08/24/16 23:28 (Effexor Xr) 150 mg DAILY PO 08/12/16 09:00 08/24/16 09:13 (Oscal-D 250-125) 500 mg BID PO 08/11/16 21:00 08/24/16 20:58 (Symbicort 160-4.5 Inh) 2 puff BID INH 08/11/16 21:00 08/24/16 20:59 (Lipitor) 20 mg HS PO 08/11/16 21:00 08/24/16 20:58 (Duragesic 100 Mcg Patch.72 Hr) 1 patch Q3D TD 08/12/16 09:00 08/24/16 09:13 (Roxicodone) 10 mg Q12HR PRN PO 08/13/16 21:00 08/24/16 13:49 (Protonix) 40 mg Q12HR PO 08/14/16 21:00 08/24/16 20:58 (NS Flush) 5 ml UNSCH PRN IVF 08/18/16 19:45 (Heparin Central Flush) 250 units UNSCH PRN IVF 08/18/16 19:45 Heparin Sodium (Porcine) 500 units 500 units UNSCH IVF 08/18/16 19:45 08/18/16 20:30 (Levaquin 750 Mg Premix Inj) 150 ml @ 100 mls/hr Q24H IV 08/18/16 23:00 08/24/16 23:27 Miscellaneous Information 1 Q3D TD 08/21/16 09:00 08/24/16 09:23 A/P Problem List: (1) Hematemesis ICD Code: K92.0 Status: Resolved (2) GI bleed ICD Code: K92.2 Status: Acute (3) Cirrhosis of liver ICD Code: K74.60 Status: Chronic (4) Liver mass ICD Code: R16.0 Status: Chronic (5) Hkpen-[id number]-zraxazbtzjg deficiency ICD Code: E88.01 Status: Chronic (6) Respiratory failure, acute and chronic ICD Code: J96.20 Status: Acute Assessment and Plan 65-year-old male with metastatic liver cancer initially presented with GI bleed. Patient found to have a paraspinous mass causing back pain. Patient currently undergoing radiation therapy. End stage liver disease/ ascites/ metabolic encephalopathy LFTs continue to increase. Pt is encephalopathic. S/p paracentesis 1/3 with removal of over 2 L fluid. - Continue Demadex - IV albumin. - reconsult GI. - start lactulose. - consider hospice. - trend LFTs. Hypotension May be s/t fluid shifts s/t paracentesis. - IV albumin ordered. - fluids if needed. Hematemesis/GI bleed: H&H remained stable. Status post EGD with band ligation 08/11/16; currently stable without any GI bleed. s/p PPI as well as octreotide drip 08/14/16.. Appreciate input from gastroenterology and, monitor H&H and transfuse accordingly. Discontinue Xarelto. History of liver cancer: CT abdomen with malignant appearing upper lumbar right paraspinous mass, nonspecific but most likely a metastasis. Appreciate input from medical oncology. Radiation Oncology following, palliative radiation planned. 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 Respiratory status worsen on 08/17. Repeat chest X-ray shows new right upper and left lower lobe infiltrates. Appreciate pulmonology consult. - Continue Levaquin. - Continue breathing treatments. - nebs and oxygen as needed. History of Alpha I antitrypsin deficiency: Continue weekly Prolastin patient to follow up outpatient with hepatology at [facility] for new clinical trial in September 2016 Atrial fibrillation: Currently rate control, continue with digoxin and monitor level History of hypertension Currently hypotensive. - Continue to hold all oral antihypertensive medications Fall Status post mechanical fall 08/17/[address], thoracic and cervical spine noted and review and are unremarkable. - Fall precautions. - PT/OT. DVT prophylaxis: Chemical anti-prophylaxis is contraindicated secondary to GI bleed, bilateral SCDs. GI prophylaxis: PPI. Discharge Planning Consider home hospice. Problem Qualifiers (1) GI bleed: Qualified Code: K92.2 - Gastrointestinal hemorrhage, unspecified gastrointestinal hemorrhage type Tone Hensley DO Aug 25, 2016 09:06
[2016-08-25] MEDS: SODIUM CHLORIDE 0.9% FLUSH 5 ML FLUSH FLUSH SCH ×2 (09:07→20:53)
[2016-08-25] MEDS: DIGOXIN 0.125 MG TAB PO SCH (09:07)
[2016-08-25] MEDS: LACTULOSE SYRUP 20 GM/30 ML CUP PO SCH ×4 (09:17→20:54)
[2016-08-25] MEDS: TIOTROPIUM BROMIDE 18 MCG INH INH SCH (09:17)
[2016-08-25] MEDS: ALBUMIN HUMAN 25% 25 GM/100 ML BAGP IV SCH ×2 (09:17→20:54)
--- NOTE | 2016-08-25 13:55 | HHI.GIFU ---
Subjective Remarks Reconsult for worsening elevation of LFTs and lethargy. Pt extremely lethargic. Not answering questions. Does have some RUQ tenderness on exam. ( Stephanie Colón) Objective Vitals I&O Vital Signs Date Time Temp Pulse Resp B/P Pulse Ox O2 Delivery O2 Flow Rate FiO2 08/25/16 12:54 94 Nasal Cannula 4.00 08/25/16 09:12 84/58 08/25/16 08:00 Nasal Cannula 5.00 08/25/16 04:00 98.7 94 20 90/61 96 08/25/16 04:00 98.7 94 20 90/61 93 08/25/16 00:26 98.9 97 20 136/69 88 08/24/16 20:34 97.7 109 20 131/85 96 08/24/16 20:26 89 08/24/16 19:45 Nasal Cannula 5.00 08/24/16 18:00 97 Venturi Mask 6.00 35 I/O 08/24/16 08/24/16 08/24/16 08/25/16 08/25/16 08/25/16 07:00 15:00 23:00 07:00 15:00 23:00 Intake Total 392 ml 480 ml 500 ml Output Total 200 ml 200 ml Balance 192 ml 480 ml 300 ml Intake Oral 240 ml 480 ml 500 ml IV Total 152 ml Output Urine Total 200 ml 200 ml # Voids 1 3 # Bowel Movements 0 1 0 Laboratory Laboratory Tests Test 08/25/16 04:50 White Blood Count 4.4 Red Blood Count 2.91 Hemoglobin 8.9 Hematocrit 26.5 Mean Corpuscular Volume 91.0 Mean Corpuscular Hemoglobin 30.7 Mean Corpuscular Hemoglobin 33.7 Concent Red Cell Distribution Width 20.4 Platelet Count 75 Mean Platelet Volume 10.0 Sodium Level 135 Potassium Level 3.9 Chloride Level 95 Carbon Dioxide Level 30.1 Anion Gap 10 Blood Urea Nitrogen 35 Creatinine 1.48 Estimat Glomerular Filtration 48 Rate Random Glucose 66 Calcium Level 8.9 Magnesium Level 1.7 Total Bilirubin 8.1 Direct Bilirubin 6.6 Indirect Bilirubin 1.5 Aspartate Amino Transf 856 (AST/SGOT) Alanine Aminotransferase 180 (ALT/SGPT) Alkaline Phosphatase 964 Total Protein 6.1 Albumin 2.0 Imaging Last Impressions Cyst Biopsy Asp-Paracentesis US 08/24/16 0000 Signed Impressions: Service Date/Time: Wednesday, August 24, 2016 10:20 - CONCLUSION: Uncomplicated ultrasound guided paracentesis. Kiran Perez MD Chest X-Ray 08/22/16 0000 Signed Impressions: Service Date/Time: Monday, August 22, 2016 12:30 - CONCLUSION: No significant change has occurred. Jay Ventura MD Thoracic Spine CT 08/17/16 0000 Signed Impressions: Service Date/Time: Wednesday, August 17, 2016 06:58 - CONCLUSION: No acute fracture or subluxation of the thoracic spine. Scoliosis and multilevel degenerative changes as above. Nonacute appearing mild compression deformity of T10. Richard Tamez MD Head CT 08/17/16 0000 Signed Impressions: Service Date/Time: Wednesday, August 17, 2016 06:54 - CONCLUSION: 1. No bleed or other acute intracranial abnormality. 2. Chronic white matter changes. 3. Sinus disease. 4. Occipital scalp laceration. Richard Tamez MD Cervical Spine CT 08/17/16 0000 Signed Impressions: Service Date/Time: Wednesday, August 17, 2016 06:54 - CONCLUSION: No fracture or acute appearing malalignment seen of the cervical spine. Degenerative changes as above. Richard Tamez MD SPECT Scan-Bone Nuclear Medicine 08/13/16 0000 Signed Impressions: Service Date/Time: Saturday, August 13, 2016 12:42 - CONCLUSION: Benign whole-body bone scan and bone SPECT of the lumbar spine Richard Lester MD Lumbar Spine MRI 08/13/16 0000 Signed Impressions: Service Date/Time: Saturday, August 13, 2016 15:36 - CONCLUSION: 1. 6.5 x 4.5 x 4.3 cm right paraspinal mass likely related to a metastasis. This does extend into the right neural foramen for the L1 nerve but there is no intrathecal extension appreciated. 2. Bilateral L5 pars defects with grade 2 anterolisthesis and bilateral L5 impingement within the neural foramen. 3. Central canal patent throughout. Aidan Wright Jr., MD Abdomen/Pelvis CT 08/11/16 0210 Signed Impressions: Service Date/Time: Thursday, August 11, 2016 03:25 - CONCLUSION: 1. Cirrhosis with moderate to large ascites and increased splenomegaly. Heterogeneous and very nodular liver; possibility of liver masses difficult to exclude. 2. 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 Plasmacytoma related to multiple myeloma would also be in the differential. This is new. I believe it arose from the right transverse process of L1. Richard Tamez MD Physical Exam HEENT: Normocephalic; atraumatic; no jaundice. CHEST: Resp. shallow/even, diminished breath sounds CARDIAC: RRR ABDOMEN: Soft, slightly distended, RUQ tenderness; hepatosplenomegaly; bowel sounds are present in all four quadrants. Ascites EXTREMITIES: No clubbing, cyanosis, or edema. SKIN: Normal; no rash; no jaundice. MUSIC COORDINATOR: Lethargic, almost obtunded (Stephanie Colón) Assessment and Plan Plan ASSESSMENT: - Worsening LFTs. T. Bili 8.1, Direct Bilirubin 6.6, Indirect Bilirubin 1.5, AST 856, ALT 180, Alk Phosph 964. This has been trending up. GI reconsulted for worsening LFTs. Unclear if this is decompensation of his liver disease or acute process such as biliary obstruction. Last imaging of the liver was on 08/11. Will get MRI to rule out obstruction and get better picture of nodular liver on CT to r/o masses. (GFR >30) Pt with poor prognosis. Palliative care following. - Worsening altered mental status. Ammonia < 20. Started on Lactulose. Consider further workup with eeg and/or other imaging. - Anemia. HH stable 8.9/26.5. - XUAN. Creat. 1.48. - Esophageal varices. S/P EGD/banding on (08/11/16)------> medium esophageal varices distal esophagus, one column, two bands applied, a medium nodule was located in the 2nd part of the duodenum , greenish gastric content and no evidence of active recent bleeding. Bx of small intestine, duodenum second portion showed hyperplastic and reactive duodenal mucosa with surface mucosal erosion and foveolar metaplasia. PPI - Alpha 1 antitrypsin deficiency/liver cancer/cirrhosis- weekly Prolastin, Patient is being followed by a oncologist and dock operator at [facility] for a couple of months, and there are plans for him to start a new clinical trial in September. CT done and that showed Cirrhosis with moderate to large ascites and increased splenomegaly. Heterogeneous and very nodular liver; possibility of liver masses difficult to exclude. 2. 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 Plasmacytoma related to multiple myeloma would also be in the differential. This is new. I believe it arose from the right transverse process of L1. - Paraspinous mass/ possible mets- oncology on the case - Ascites. Albumin. Demadex - Afib- Xarelto discontinued per [facility] wishes - COPD per attending Plan: - Advance diet - MRI Abdomen - Cont. Protonix - Cont. Albumin - Cont. Lactulose - EGD in 4 weeks - Consider further workup of AMS with EEG and/or other imaging- defer to primary - Poor prognosis, ? Hospice - Supportive care - Further recommendations to follow based on results of above - Patient seen and examined by Dr. Earl and myself and this note is written on his behalf. (Stephanie Colón) Physician Comments Patient was seen and examined, agree with above note and plan, await MRI and labs (Marly Earl MD) Stephanie Colón Aug 25, 2016 13:55 Marly Earl MD Aug 25, 2016 20:42
--- NOTE | 2016-08-25 14:47 | HHI.HCPN ---
Reason for visit a. To assist with evaluation and management of symptoms including: Pain; dyspnea; encephalopathy b. To assist medical decision maker(s) with: better understanding of current medical conditions; weighing benefits/burdens of medical treatment options; making medical treatment decisions. . Subjective/Interval History Mr Hunter was difficult to arouse at time of my visit. He had fallen asleep with the lunch tray in front of him and fork in his hand. Even after awakening him, he remained very lethargic and easily drifted back to sleep. He was not following commands. He could not tell me if he was in pain or SOB. He has had no recent sedating PRN medications, but his renal function is falling and his blood gabapentin levels may be higher than usual. He also has declining hepatic function so his lethargy may , in part , be due to his hepatic encephalopathy. Patient underwent paracentesis yesterday with removal of 2500 ccs of clear, yellow fluid. Recorded BP was as low as 84/58 at 0912 this AM. Patient's 02 sats went as low as 88 ( says this is not unusual for him. He has been satting in the 90's on 02 at 4-5 L/m via nasal cannula. I believe the patient has had one of 10 radiation treatments to date to the spine. Afebrile today. BP low as noted above. HR stable. RR stable. Urine output decreasing. Bowels moving. CBC stable. Renal function and hepatic function declining. Albumin dropping. . Family/friend interactions Spoke with on phone for 20 minutes. We reviewed patient's current lethargy and today's diagnostic test results. describes as a "fighter." We discussed the declining renal function and liver function. We discussed code status. feels continues to want aggressive care including a resuscitation attempt if necessary. She feels he wants to continue with radiation therapy. She does NOT believe he is suffering now. If she felt the aggressive care was causing suffering she would re-think it. . Advance Directives Living Will: Never completed Health Care Surrogate: Never completed Durable Power of Oliving Machine Operator: Never completed Advance Directive Specifics Date completed: No completed advance directives . Health Care Surrogate(s): No written designation of health care surrogate. . Documented care wishes: No written documentation of health care goals/preferences. . Objective Vital Signs Date Time Temp Pulse Resp B/P Pulse Ox O2 Delivery O2 Flow Rate FiO2 08/25/16 12:54 94 Nasal Cannula 4.00 08/25/16 09:12 84/58 08/25/16 08:00 Nasal Cannula 5.00 08/25/16 04:00 98.7 94 20 90/61 96 08/25/16 04:00 98.7 94 20 90/61 93 08/25/16 00:26 98.9 97 20 136/69 88 08/24/16 20:34 97.7 109 20 131/85 96 08/24/16 20:26 89 08/24/16 19:45 Nasal Cannula 5.00 08/24/16 18:00 97 Venturi Mask 6.00 35 Intake & Output 08/25/16 08/25/16 07:00 19:00 Intake Total 980 ml Output Total 200 ml Balance 780 ml Intake Oral 980 ml Output Urine Total 200 ml # Voids 3 # Bowel Movements 1 . Physical Exam CONSTITUTIONAL/GENERAL: This is an weak,frail gentlemen with 02 via nasal cannula in place. He is arousable, but very lethargic. Cannot converse. No obvious distress. SKIN:Mild jaundice, rashes, or lesions. No wounds seen anteriorly. Skin temperature appropriate. Not diaphoretic. HEAD: Atraumatic. Normocephalic. EYES: Mild scleral icterus. No injection or drainage. Fundi not examined. ENT: Hearing grossly normal. Nose without bleeding or purulent drainage. Throat without visible erythema, exudates, masses, or lesions. NECK: Trachea midline. Supple. CARDIOVASCULAR: Regular rate and rhythm without murmurs, gallops, or rubs. No JVD. RESPIRATORY/CHEST: Decrease breath sound bilaterally GASTROINTESTINAL: Abdomen soft, distended, non-tender, umblical hernia present. GENITOURINARY: Without palpable bladder distension. MUSCULOSKELETAL: Extremities without clubbing, cyanosis, or edema. No mottling or clubbing. LYMPHATICS: Not examined. NEUROLOGICAL: Lethargic; difficult to arouse. Unable to follow commands. PSYCHIATRIC: Unable to assess due to level of lethargy. . Diagnostic Tests Laboratory Laboratory Tests Test 08/23/16 08/23/16 08/25/16 06:30 16:55 04:50 White Blood Count 3.6 TH/MM3 4.4 TH/MM3 (4.0-11.0) (4.0-11.0) Red Blood Count 2.63 MIL/MM3 2.91 MIL/MM3 (4.50-5.90) (4.50-5.90) Hemoglobin 8.0 GM/DL 8.9 GM/DL (13.0-17.0) (13.0-17.0) Hematocrit 23.9 % 26.5 % (39.0-51.0) (39.0-51.0) Mean Corpuscular Volume 91.1 FL 91.0 FL (80.0-100.0) (80.0-100.0) Mean Corpuscular Hemoglobin 30.6 PG 30.7 PG (27.0-34.0) (27.0-34.0) Mean Corpuscular Hemoglobin 33.6 % 33.7 % Concent (32.0-36.0) (32.0-36.0) Red Cell Distribution Width 21.1 % 20.4 % (11.6-17.2) (11.6-17.2) Platelet Count 61 TH/MM3 75 TH/MM3 (150-450) (150-450) Mean Platelet Volume 10.1 FL 10.0 FL (7.0-11.0) (7.0-11.0) Prothrombin Time 14.0 SEC (9.8-11.6) Prothromb Time International 1.3 RATIO Ratio Sodium Level 135 MEQ/L (136-145) Potassium Level 3.9 MEQ/L (3.5-5.1) Chloride Level 95 MEQ/L (98-107) Carbon Dioxide Level 30.1 MEQ/L (21.0-32.0) Anion Gap 10 MEQ/L (5-15) Blood Urea Nitrogen 35 MG/DL (7-18) Creatinine 1.48 MG/DL (0.60-1.30) Estimat Glomerular Filtration 48 ML/MIN (>89) Rate Random Glucose 66 MG/DL (74-106) Calcium Level 8.9 MG/DL (8.5-10.1) Magnesium Level 1.7 MG/DL (1.5-2.5) Total Bilirubin 8.1 MG/DL (0.2-1.0) Direct Bilirubin 6.6 MG/DL (0.0-0.2) Indirect Bilirubin 1.5 MG/DL (0.0-0.8) Aspartate Amino Transf 856 U/L (15-37) (AST/SGOT) Alanine Aminotransferase 180 U/L (12-78) (ALT/SGPT) Alkaline Phosphatase 964 U/L (45-117) Total Protein 6.1 GM/DL (6.4-8.2) Albumin 2.0 GM/DL (3.4-5.0) . Result Diagram: 08/25/1644908/25/16 045 Imaging Last Impressions Cyst Biopsy Asp-Paracentesis US 08/24/16 0000 Signed Impressions: Service Date/Time: Wednesday, August 24, 2016 10:20 - CONCLUSION: Uncomplicated ultrasound guided paracentesis. Kiran Perez MD Chest X-Ray 08/22/16 0000 Signed Impressions: Service Date/Time: Monday, August 22, 2016 12:30 - CONCLUSION: No significant change has occurred. Jay Ventura MD Thoracic Spine CT 08/17/16 0000 Signed Impressions: Service Date/Time: Wednesday, August 17, 2016 06:58 - CONCLUSION: No acute fracture or subluxation of the thoracic spine. Scoliosis and multilevel degenerative changes as above. Nonacute appearing mild compression deformity of T10. Richard Tamez MD Head CT 08/17/16 0000 Signed Impressions: Service Date/Time: Wednesday, August 17, 2016 06:54 - CONCLUSION: 1. No bleed or other acute intracranial abnormality. 2. Chronic white matter changes. 3. Sinus disease. 4. Occipital scalp laceration. Richard Tamez MD Cervical Spine CT 08/17/16 0000 Signed Impressions: Service Date/Time: Wednesday, August 17, 2016 06:54 - CONCLUSION: No fracture or acute appearing malalignment seen of the cervical spine. Degenerative changes as above. Richard Tamez MD SPECT Scan-Bone Nuclear Medicine 08/13/16 0000 Signed Impressions: Service Date/Time: Saturday, August 13, 2016 12:42 - CONCLUSION: Benign whole-body bone scan and bone SPECT of the lumbar spine Richard Lester MD Lumbar Spine MRI 08/13/16 0000 Signed Impressions: Service Date/Time: Saturday, August 13, 2016 15:36 - CONCLUSION: 1. 6.5 x 4.5 x 4.3 cm right paraspinal mass likely related to a metastasis. This does extend into the right neural foramen for the L1 nerve but there is no intrathecal extension appreciated. 2. Bilateral L5 pars defects with grade 2 anterolisthesis and bilateral L5 impingement within the neural foramen. 3. Central canal patent throughout. Aidan Wright Jr., MD Abdomen/Pelvis CT 08/11/16 0210 Signed Impressions: Service Date/Time: Thursday, August 11, 2016 03:25 - CONCLUSION: 1. Cirrhosis with moderate to large ascites and increased splenomegaly. Heterogeneous and very nodular liver; possibility of liver masses difficult to exclude. 2. 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 Plasmacytoma related to multiple myeloma would also be in the differential. This is new. I believe it arose from the right transverse process of L1. Richard Tamez MD . Assessment and Plan Disease Oriented Problem List: (1) Kqocj-[id number] deficiency (2) Liver mass Comment: with mets to the paraspinal process. (3) Depression (4) CAD (coronary artery disease) (5) GI bleed (6) Cirrhosis of liver (7) COPD (chronic obstructive pulmonary disease) (8) Chronic atrial fibrillation Symptom Scale: (1) Pain 0-10 Scale: Unable to quantify Comment: LIkely sources of pain include met to the spine,abdominal pain., pain from prolonged bedbound status. . (2) Encephalopathy 0-10 Scale: Unable to quantify Comment: Encephalopathy may be multi-factorial. . (3) Nausea 0-10 Scale: Unable to quantify Pertinent Non-Medical Issues Psychosocial: . Normally lives with . Spiritual: Confucianist Legal: No living will or written health care surrogate documentation. Ethical issues impacting care: Patient is intermittently awake and alert. . Important Contacts * Estella Hunter ( and proxy) [phone]; [phone] . 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 Declining now in hospital with worsening renal and hepatic function. Receiving radiation therapy for spine lesion, but overall prognosis is considered to be poor. . Code Status: Alternative Code Plan == Code Status: ALTERNATE CODE. Patient last stated that he wanted chest compressions and shock but did not want intubation. OK to BiPAP. == Decision making: Patient has had fluctuating mental status. I recommend that the patient's , the proxy, be brought into any major decisions. == Goals of medical treatment: tells me patient has a strong will to live. In spite of worsening hepatic and renal function, still feels the patient wants ongoing aggressive care at this time. == Pain: Current regimen appears adequate. Pt unable to localize, quantify , or qualify pain at time of my visit. No recommended changes at this time. == Lethargy: Probably multi-factorial. There is probably an element of hepatic encephalopathy. As renal function declines, may need to decrease gabapentin dose as it is sedating and blood level will increase if kidney function declines. == If renal function decline is an emerging hepato-renal syndrom, life expectancy would be quite short. == Palliative care will continue to follow to assist with symptom management and to further clarify goals of medical treatment as the clinical case evolves. . Time Spent Total Floor Time (mins): 45 (Total time included chart review, patient exam, and above referenced conversation with . ) Face to Face Time (mins): 10 >50% Counseling/Coord of Care: Yes Attestation To help prompt me to consider important information that might be impacting today's encounter and assessment, information from prior notes written by myself or my colleagues may have been "brought forward" into today's note. My signature on this note, however, is an attestation that I personally performed the exam, history, and/or decision-making noted today, and, unless otherwise indicated, the interactions with patient, family, and staff as well as the review of records all occurred today. I also attest that the listed assessment and stated plan reflect my best clinical judgment today based on the combination of historical information, prior notes, and today's exam/ interactions. When time spent is documented, it refers only to time spent today by the signer, or if indicated, combined time spent today by collaborating physician/nurse practitioner. . Harrison Boo MD Aug 25, 2016 14:47
--- NOTE | 2016-08-25 18:42 | HHI.PR ---
Subjective Remarks 65 YOWM with COPD, Hepatocellular ca,AF, CAD On Simple mask ABG Showes compensated Resp acidosis Breathing better had Paracentesis done Palliative care consulted Objective Vital Signs Vital Signs Date Time Temp Pulse Resp B/P Pulse Ox O2 Delivery O2 Flow Rate FiO2 08/25/16 16:00 97.3 84 18 94/66 91 08/25/16 12:54 94 Nasal Cannula 4.00 08/25/16 12:00 97.5 84 18 114/74 94 08/25/16 09:12 84/58 08/25/16 08:00 Nasal Cannula 5.00 08/25/16 08:00 98.2 82 18 86/56 94 08/25/16 04:00 98.7 94 20 90/61 96 08/25/16 04:00 98.7 94 20 90/61 93 08/25/16 00:26 98.9 97 20 136/69 88 08/24/16 20:34 97.7 109 20 131/85 96 08/24/16 20:26 89 08/24/16 19:45 Nasal Cannula 5.00 I/O 08/24/16 08/24/16 08/24/16 08/25/16 08/25/16 08/25/16 07:00 15:00 23:00 07:00 15:00 23:00 Intake Total 392 ml 480 ml 500 ml 0 ml Output Total 200 ml 200 ml Balance 192 ml 480 ml 300 ml 0 ml Intake Oral 240 ml 480 ml 500 ml 0 ml IV Total 152 ml Output Urine Total 200 ml 200 ml # Voids 1 3 4 # Bowel Movements 0 1 0 Result Diagram: 08/25/16 0450 08/25/16 0450 Objective Remarks GENERAL: MBMN WM, mild SOB SKIN: Warm and dry. HEAD: Normocephalic. EYES: No scleral icterus. No injection or drainage. NECK: Supple, trachea midline. No JVD or lymphadenopathy. CARDIOVASCULAR: Regular rate and rhythm without murmurs, gallops, or rubs. RESPIRATORY: Breath sounds equal bilaterally. No accessory muscle use. Decreased Chest excursion. GASTROINTESTINAL: Abdomen soft, non-tender, nondistended. MUSCULOSKELETAL: No cyanosis, or edema. BACK: Nontender without obvious deformity. No CVA tenderness. A/P Assessment and Plan COPD Alpha-1 Antitrypsin def Hepatocellular ca AF CAD PLAN: Aerosol nebs Symbicort 2 puffs bid Spiriva daily Protonix 40 mg daily Wean 02 to keep sat >90% Cont Cristobal Cano MD Aug 25, 2016 18:42
[2016-08-25] MEDS ORDERED: GADODIAMIDE PF 287 MG/ML 5 ML VIAL (for RAD MRI) IV ONE (18:59)
--- NOTE | 2016-08-25 20:14 | RADRPT ---
EXAM DATE/TIME: 08/25/2016 18:47 [facility] COMPARISON: CT ABDOMEN & PELVIS W/O CONTRAST, August 11, 2016, 3:25. INDICATIONS : Liver Mass CONTRAST: 14 cc Omniscan (gadodiamide) IV MEDICAL HISTORY : Metastatic, liver. SURGICAL HISTORY : IVC Filter placement. ENCOUNTER: Sequela ACUITY: 2 weeks PAIN SCORE: 5/10 LOCATION: Abdomen TECHNIQUE: Multiplanar, multisequence magnetic resonance imaging of the abdomen was performed without and with i ntravenous contrast. FINDINGS: LIVER: Cirrhotic liver with extensive nodularity. Multiple nodular lesions are seen. Enhancement of the nodu lar densities is somewhat difficult to assess. There is abdominal ascites. BILIARY: There is no intra- or extra-hepatic biliary ductal dilatation. Gallbladder contains no stones. SPLEEN: There is a large mass in the right paraspinal region as seen on previous CT scan measuring 5.1 x 4.7 cm this extends into the right neural foramen and abuts the right lateral thecal sac. This mass arise s from the pedicle/transverse process at L1. CONCLUSION: 1. Cirrhotic liver with extensive nodularity likely representing multiple regenerating nodules. Under lying masses cannot be excluded. 2. Splenomegaly with abdominal ascites. 3. Right paraspinal mass along the right pedicle/transverse process at L1 again seen. Efraín Javier MD on August 25, 2016 at 20:05 Board Certified Radiologist. This report was verified electronically.
[2016-08-25] MEDS: traZODone HCL 100 MG TAB PO SCH (20:54)
[2016-08-25] MEDS: ATORVASTATIN 20 MG TAB PO SCH (20:55)
[2016-08-25] MEDS: TEMAZEPAM 15 MG CAP PO SCH (20:55)
[2016-08-25] MEDS: LEVOFLOXACIN 750 MG PREMIX INJ 150 ML IV SCH (23:10)
[2016-08-26] VITALS (10 sets, daily range): BP systolic 84–110; BP diastolic 59–70; PULSE 79–92; RESP 18–22; TEMP 97.3–97.6; O2SAT 92–98
[2016-08-26 07:31] LABS: ALT (GPT) 162 U/L (12-78); ANION GAP 8 MEQ/L (5-15); AST (GOT) 782 U/L (15-37); BICARBONATE 32.6 MEQ/L (21.0-32.0); BLOOD UREA NITROGEN 36 MG/DL (7-18); CHLORIDE 99 MEQ/L (98-107); GLOMERULAR FILTRATION RATE 44 ML/MIN (>89); POTASSIUM 3.5 MEQ/L (3.5-5.1); SODIUM (NA) 140 MEQ/L (136-145)
[2016-08-26 07:34] LABS: ALKALINE PHOSPHATASE 860 U/L (45-117); TOTAL BILIRUBIN ADULT 8.5 MG/DL (0.2-1.0)
[2016-08-26] MEDS: GABAPENTIN 100 MG CAP PO SCH ×3 (08:23→18:13)
[2016-08-26] MEDS: ALBUMIN HUMAN 25% 25 GM/100 ML BAGP IV SCH ×2 (08:23→21:32)
[2016-08-26] MEDS: DIGOXIN 0.125 MG TAB PO SCH (08:23)
[2016-08-26] MEDS: VENLAFAXINE HCL XR 75 MG CAP PO SCH (08:23)
[2016-08-26] MEDS: PANTOPRAZOLE SOD 40 MG DELAYED RELEASE TAB PO SCH ×2 (08:24→21:31)
[2016-08-26] MEDS: LACTULOSE SYRUP 20 GM/30 ML CUP PO SCH ×4 (08:24→21:31)
[2016-08-26] MEDS: CALCIUM/VITAMIN D 250 MG/125 U TAB PO SCH ×2 (08:24→21:31)
[2016-08-26] MEDS: POTASSIUM CHLORIDE 10 MEQ CONTROLLED RELEASE TAB PO SCH ×3 (08:24→18:13)
[2016-08-26] MEDS: SODIUM CHLORIDE 0.9% FLUSH 5 ML FLUSH FLUSH SCH ×2 (08:27→21:30)
[2016-08-26] MEDS: TIOTROPIUM BROMIDE 18 MCG INH INH SCH (08:34)
[2016-08-26] MEDS: BUDESONIDE-FORMOTEROL 160/4.5 MCG INHALER INH SCH ×2 (08:34→21:00)
[2016-08-26] MEDS ORDERED: POTASSIUM CHLORIDE 25 MEQ EFFERVESCENT TAB PO ONE (09:30)
--- NOTE | 2016-08-26 09:48 | HHI.PR ---
Subjective Remarks The patient said that he needed to have a bowel movement. He was alert and slightly lethargic. He was still confused. He seemed to indicate he had epigastric pain. No other acute complaints. Objective Vitals Vital Signs Date Time Temp Pulse Resp B/P Pulse Ox O2 Delivery O2 Flow Rate FiO2 08/26/16 08:00 97.3 79 18 84/62 93 08/26/16 04:00 97.3 82 18 91/60 95 08/26/16 00:00 97.3 84 18 88/60 94 08/25/16 20:30 Nasal Cannula 4.00 08/25/16 20:30 90 08/25/16 20:00 97.7 84 18 109/74 96 08/25/16 16:00 97.3 84 18 94/66 91 08/25/16 12:54 94 Nasal Cannula 4.00 08/25/16 12:00 97.5 84 18 114/74 94 I/O 08/25/16 08/25/16 08/25/16 08/26/16 08/26/16 08/26/16 06:59 14:59 22:59 06:59 14:59 22:59 Intake Total 500 ml 0 ml 240 ml 160 ml Output Total 200 ml 200 ml Balance 300 ml 0 ml 240 ml -40 ml Intake Oral 500 ml 0 ml 240 ml 0 ml IV Total 160 ml Output Urine Total 200 ml 200 ml # Voids 4 1 # Bowel Movements 0 1 0 Result Diagram: 08/25/16 0450 08/26/16 0600 Imaging Last Impressions Abdomen MRI 08/25/16 0000 Signed Impressions: Service Date/Time: Thursday, August 25, 2016 18:47 - CONCLUSION: 1. Cirrhotic liver with extensive nodularity likely representing multiple regenerating nodules. Underlying masses cannot be excluded. 2. Splenomegaly with abdominal ascites. 3. Right paraspinal mass along the right pedicle/transverse process at L1 again seen. Efraín Javier MD Cyst Biopsy Asp-Paracentesis US 08/24/16 0000 Signed Impressions: Service Date/Time: Wednesday, August 24, 2016 10:20 - CONCLUSION: Uncomplicated ultrasound guided paracentesis. Kiran Perez MD Chest X-Ray 08/22/16 0000 Signed Impressions: Service Date/Time: Monday, August 22, 2016 12:30 - CONCLUSION: No significant change has occurred. Jay Ventura MD Thoracic Spine CT 08/17/16 0000 Signed Impressions: Service Date/Time: Wednesday, August 17, 2016 06:58 - CONCLUSION: No acute fracture or subluxation of the thoracic spine. Scoliosis and multilevel degenerative changes as above. Nonacute appearing mild compression deformity of T10. Richard Tamez MD Head CT 08/17/16 0000 Signed Impressions: Service Date/Time: Wednesday, August 17, 2016 06:54 - CONCLUSION: 1. No bleed or other acute intracranial abnormality. 2. Chronic white matter changes. 3. Sinus disease. 4. Occipital scalp laceration. Richard Tamez MD Cervical Spine CT 08/17/16 0000 Signed Impressions: Service Date/Time: Wednesday, August 17, 2016 06:54 - CONCLUSION: No fracture or acute appearing malalignment seen of the cervical spine. Degenerative changes as above. Richard Tamez MD SPECT Scan-Bone Nuclear Medicine 08/13/16 0000 Signed Impressions: Service Date/Time: Saturday, August 13, 2016 12:42 - CONCLUSION: Benign whole-body bone scan and bone SPECT of the lumbar spine Richard Lester MD Lumbar Spine MRI 08/13/16 0000 Signed Impressions: Service Date/Time: Saturday, August 13, 2016 15:36 - CONCLUSION: 1. 6.5 x 4.5 x 4.3 cm right paraspinal mass likely related to a metastasis. This does extend into the right neural foramen for the L1 nerve but there is no intrathecal extension appreciated. 2. Bilateral L5 pars defects with grade 2 anterolisthesis and bilateral L5 impingement within the neural foramen. 3. Central canal patent throughout. Aidan Wright Jr., MD Abdomen/Pelvis CT 08/11/16 0210 Signed Impressions: Service Date/Time: Thursday, August 11, 2016 03:25 - CONCLUSION: 1. Cirrhosis with moderate to large ascites and increased splenomegaly. Heterogeneous and very nodular liver; possibility of liver masses difficult to exclude. 2. 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 Plasmacytoma related to multiple myeloma would also be in the differential. This is new. I believe it arose from the right transverse process of L1. Richard Tamez MD Objective Remarks GENERAL: This is a frail, jaundiced male who appears chronically ill CARDIOVASCULAR: Regular rate and rhythm without murmurs, gallops, or rubs. RESPIRATORY: Clear to auscultation. Breath sounds equal bilaterally. No wheezes , rales, or rhonchi. GASTROINTESTINAL: Abdomen soft, non-tender, mildly distended. Normal active bowel sounds MUSCULOSKELETAL: Extremities without clubbing, cyanosis, or edema. NEURO: Confused, slow speech. Moves upper and lower extremities. PSYCH: Flat affect. Procedures Paracentesis Medications and IVs Current Medications Medications (Trade) Dose Ordered Sig/Barak Route Start Time Stop Time Status Last Admin (NS Flush) 2 ml UNSCH PRN FLUSH 08/11/16 05:00 (NS Flush) 2 ml BID FLUSH 08/11/16 09:00 08/26/16 08:27 (Zofran Inj) 4 mg Q6H PRN IVP 08/11/16 05:00 08/22/16 08:34 (Narcan Inj) 0.4 mg UNSCH PRN IV 08/11/16 05:00 (Lanoxin) 0.125 mg DAILY PO 08/12/16 09:00 08/26/16 08:23 (Neurontin) 100 mg TID PO 08/11/16 18:00 08/26/16 08:23 (KCl) 10 meq TID PO 08/11/16 18:00 08/26/16 08:24 (Paige-Colace) 2 tab BID PRN PO 08/11/16 15:45 (Restoril) 30 mg HS PO 08/11/16 21:00 08/25/16 20:55 (Spiriva Inh) 18 mcg DAILY INH 08/12/16 09:00 08/26/16 08:34 (Demadex) 20 mg DAILY PO 08/12/16 09:00 08/25/16 09:02 (Desyrel) 100 mg HS PO 08/11/16 21:00 08/25/16 20:54 (Effexor Xr) 150 mg DAILY PO 08/12/16 09:00 08/26/16 08:23 (Oscal-D 250-125) 500 mg BID PO 08/11/16 21:00 08/26/16 08:24 (Symbicort 160-4.5 Inh) 2 puff BID INH 08/11/16 21:00 08/26/16 08:34 (Lipitor) 20 mg HS PO 08/11/16 21:00 08/25/16 20:55 (Duragesic 100 Mcg Patch.72 Hr) 1 patch Q3D TD 08/12/16 09:00 08/24/16 09:13 (Roxicodone) 10 mg Q12HR PRN PO 08/13/16 21:00 08/24/16 13:49 (Protonix) 40 mg Q12HR PO 08/14/16 21:00 08/26/16 08:24 (NS Flush) 5 ml UNSCH PRN IVF 08/18/16 19:45 (Heparin Central Flush) 250 units UNSCH PRN IVF 08/18/16 19:45 08/26/16 08:28 Heparin Sodium (Porcine) 500 units 500 units UNSCH IVF 08/18/16 19:45 08/25/16 23:10 (Levaquin 750 Mg Premix Inj) 150 ml @ 100 mls/hr Q24H IV 08/18/16 23:00 08/25/16 23:10 Miscellaneous Information 1 Q3D TD 08/21/16 09:00 08/24/16 09:23 (Lactulose Liq) 30 ml QID PO 08/25/16 09:00 08/25/16 20:54 (Albumin 25% Inj) 25 gm Q12H IV 08/25/16 09:00 08/26/16 08:23 A/P Problem List: (1) Hematemesis ICD Code: K92.0 Status: Resolved (2) GI bleed ICD Code: K92.2 Status: Acute (3) Cirrhosis of liver ICD Code: K74.60 Status: Chronic (4) Liver mass ICD Code: R16.0 Status: Chronic (5) Awqut-5-povhkmtbomh deficiency ICD Code: E88.01 Status: Chronic (6) Respiratory failure, acute and chronic ICD Code: J96.20 Status: Acute Assessment and Plan 65-year-old male with metastatic liver cancer initially presented with GI bleed. Patient found to have a paraspinous mass causing back pain. Patient currently undergoing radiation therapy. End stage liver disease/ ascites/ metabolic encephalopathy LFTs continue to increase. Pt is encephalopathic. S/p paracentesis 1/3 with removal of over 2 L fluid. Appreciate GI consult. MRI showed: Cirrhotic liver with extensive nodularity likely representing multiple regenerating nodules; Underlying masses cannot be excluded; Splenomegaly with abdominal ascites; Right paraspinal mass along the right pedicle/transverse process at L1. - Continue Demadex - IV albumin. - follow up with GI. - continue lactulose. - consider hospice. - trend LFTs. Hypotension May be s/t fluid shifts s/t paracentesis. - IV albumin ordered. D/c 08/27. - fluids if needed. Hematemesis/GI bleed H&H remained stable. Status post EGD with band ligation 08/11/16. Currently stable without any GI bleed. S/p PPI as well as octreotide drip 08/14/16. Appreciate input from gastroenterology. - monitor H&H and transfuse accordingly. - Discontinue Xarelto. - PPI. History of liver cancer CT abdomen with malignant appearing upper lumbar right paraspinous mass, nonspecific but most likely a metastasis. MRI as above. Appreciate input from medical oncology. - Radiation Oncology following, palliative radiation planned. 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 Respiratory status worsen on 08/17. Repeat chest X-ray shows new right upper and left lower lobe infiltrates. Appreciate pulmonology consult. - Continue Levaquin. - Continue breathing treatments. - nebs and oxygen as needed. - Continue weekly Prolastin patient to follow up outpatient with hepatology at [facility] for new clinical trial in September 2016. Atrial fibrillation Currently rate controlled. - continue with digoxin and monitor level. History of hypertension Currently hypotensive. - Continue to hold all oral antihypertensive medications Fall Status post mechanical fall 08/17/[address], thoracic and cervical spine noted and review and are unremarkable. - Fall precautions. - PT/OT. DVT prophylaxis: Chemical anti-prophylaxis is contraindicated secondary to GI bleed, bilateral SCDs. GI prophylaxis: PPI. Discharge Planning Consider home hospice. Problem Qualifiers (1) GI bleed: Qualified Code: K92.2 - Gastrointestinal hemorrhage, unspecified gastrointestinal hemorrhage type Tone Hensley DO Aug 26, 2016 09:48
[2016-08-26] MEDS: TORSEMIDE 20 MG TAB PO SCH (10:24)
--- NOTE | 2016-08-26 15:50 | HHI.GIFU ---
Subjective Remarks Resting in bed. Lethargic, but less so than yesterday. Denies abdominal pain although he does seem to have some epigastric tenderness. (Stephanie Colón) Objective Vitals I&O Vital Signs Date Time Temp Pulse Resp B/P Pulse Ox O2 Delivery O2 Flow Rate FiO2 08/26/16 12:20 92 08/26/16 12:00 97.4 92 22 97/59 92 08/26/16 11:15 92 Nasal Cannula 3.50 08/26/16 10:27 Nasal Cannula 4.00 08/26/16 10:23 82 100/65 08/26/16 08:00 97.3 79 18 84/62 93 08/26/16 07:54 83 08/26/16 04:00 97.3 82 18 91/60 95 08/26/16 00:00 97.3 84 18 88/60 94 08/25/16 20:30 Nasal Cannula 4.00 08/25/16 20:30 90 08/25/16 20:00 97.7 84 18 109/74 96 08/25/16 16:00 97.3 84 18 94/66 91 I/O 08/25/16 08/25/16 08/25/16 08/26/16 08/26/16 08/26/16 06:59 14:59 22:59 06:59 14:59 22:59 Intake Total 500 ml 0 ml 240 ml 160 ml Output Total 200 ml 200 ml Balance 300 ml 0 ml 240 ml -40 ml Intake Oral 500 ml 0 ml 240 ml 0 ml IV Total 160 ml Output Urine Total 200 ml 200 ml # Voids 4 1 # Bowel Movements 0 1 0 Laboratory Laboratory Tests Test 08/26/16 06:00 Sodium Level 140 Potassium Level 3.5 Chloride Level 99 Carbon Dioxide Level 32.6 Anion Gap 8 Blood Urea Nitrogen 36 Creatinine 1.57 Estimat Glomerular Filtration 44 Rate Random Glucose 66 Calcium Level 9.0 Total Bilirubin 8.5 Aspartate Amino Transf 782 (AST/SGOT) Alanine Aminotransferase 162 (ALT/SGPT) Alkaline Phosphatase 860 Total Protein 5.9 Albumin 2.4 Imaging Last Impressions Abdomen MRI 08/25/16 0000 Signed Impressions: Service Date/Time: Thursday, August 25, 2016 18:47 - CONCLUSION: 1. Cirrhotic liver with extensive nodularity likely representing multiple regenerating nodules. Underlying masses cannot be excluded. 2. Splenomegaly with abdominal ascites. 3. Right paraspinal mass along the right pedicle/transverse process at L1 again seen. Efraín Javier MD Cyst Biopsy Asp-Paracentesis US 08/24/16 0000 Signed Impressions: Service Date/Time: Wednesday, August 24, 2016 10:20 - CONCLUSION: Uncomplicated ultrasound guided paracentesis. Kiran Perez MD Chest X-Ray 08/22/16 0000 Signed Impressions: Service Date/Time: Monday, August 22, 2016 12:30 - CONCLUSION: No significant change has occurred. Jay Ventura MD Thoracic Spine CT 08/17/16 0000 Signed Impressions: Service Date/Time: Wednesday, August 17, 2016 06:58 - CONCLUSION: No acute fracture or subluxation of the thoracic spine. Scoliosis and multilevel degenerative changes as above. Nonacute appearing mild compression deformity of T10. Richard Tamez MD Head CT 08/17/16 0000 Signed Impressions: Service Date/Time: Wednesday, August 17, 2016 06:54 - CONCLUSION: 1. No bleed or other acute intracranial abnormality. 2. Chronic white matter changes. 3. Sinus disease. 4. Occipital scalp laceration. Richard Tamez MD Cervical Spine CT 08/17/16 0000 Signed Impressions: Service Date/Time: Wednesday, August 17, 2016 06:54 - CONCLUSION: No fracture or acute appearing malalignment seen of the cervical spine. Degenerative changes as above. Richard Tamez MD SPECT Scan-Bone Nuclear Medicine 08/13/16 0000 Signed Impressions: Service Date/Time: Saturday, August 13, 2016 12:42 - CONCLUSION: Benign whole-body bone scan and bone SPECT of the lumbar spine Richard Lester MD Lumbar Spine MRI 08/13/16 0000 Signed Impressions: Service Date/Time: Saturday, August 13, 2016 15:36 - CONCLUSION: 1. 6.5 x 4.5 x 4.3 cm right paraspinal mass likely related to a metastasis. This does extend into the right neural foramen for the L1 nerve but there is no intrathecal extension appreciated. 2. Bilateral L5 pars defects with grade 2 anterolisthesis and bilateral L5 impingement within the neural foramen. 3. Central canal patent throughout. Aidan Wright Jr., MD Abdomen/Pelvis CT 08/11/16 0210 Signed Impressions: Service Date/Time: Thursday, August 11, 2016 03:25 - CONCLUSION: 1. Cirrhosis with moderate to large ascites and increased splenomegaly. Heterogeneous and very nodular liver; possibility of liver masses difficult to exclude. 2. 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 Plasmacytoma related to multiple myeloma would also be in the differential. This is new. I believe it arose from the right transverse process of L1. Richard Tamez MD Physical Exam HEENT: Normocephalic; atraumatic; no jaundice. CHEST: Resp. shallow/even, diminished breath sounds CARDIAC: RRR ABDOMEN: Soft, slightly distended, RUQ tenderness; hepatosplenomegaly; bowel sounds are present in all four quadrants. Ascites EXTREMITIES: No clubbing, cyanosis, or edema. SKIN: Normal; no rash; no jaundice. PRODUCE MANAGER: Lethargic, does wake up and follow commands (Stephanie Colón) Assessment and Plan Plan ASSESSMENT: - Worsening LFTs. T. Bili 8.1, Direct Bilirubin 6.6, Indirect Bilirubin 1.5, AST 856, ALT 180, Alk Phosph 964. This has been trending up. GI reconsulted for worsening LFTs. Unclear if this is decompensation of his liver disease or acute process such as biliary obstruction. Last imaging of the liver was on 08/11. Abdomen MRI (08/25/16)-- ---> 1. Cirrhotic liver with extensive nodularity likely representing multiple regenerating nodules. Underlying masses cannot be excluded. 2. Splenomegaly with abdominal ascites. 3. Right paraspinal mass along the right pedicle/transverse process at L1 again seen. AFP is 20,000. This is likely hepatocellular carcinoma. Pt with poor prognosis. Recommend Hospice. Palliative care following. - Worsening altered mental status. Ammonia < 20. Started on Lactulose and improved today. - Anemia. HH stable 8.9/26.5. - XUAN. Creat. 1.57 - Esophageal varices. S/P EGD/banding on (08/11/16)------> medium esophageal varices distal esophagus, one column, two bands applied, a medium nodule was located in the 2nd part of the duodenum , greenish gastric content and no evidence of active recent bleeding. Bx of small intestine, duodenum second portion showed hyperplastic and reactive duodenal mucosa with surface mucosal erosion and foveolar metaplasia. PPI - Alpha 1 antitrypsin deficiency/liver cancer/cirrhosis- weekly Prolastin, Patient is being followed by a oncologist and billet heater at [facility] for a couple of months, and there are plans for him to start a new clinical trial in September. CT done and that showed Cirrhosis with moderate to large ascites and increased splenomegaly. Heterogeneous and very nodular liver; possibility of liver masses difficult to exclude. 2. 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 Plasmacytoma related to multiple myeloma would also be in the differential. This is new. I believe it arose from the right transverse process of L1. AFP 20,000 - Nodular liver with AFP 20,000, likely hepatocellular. - Paraspinous mass/ possible mets- oncology on the case - Ascites. Albumin. Demadex - Afib- Xarelto discontinued per [facility] wishes - COPD per attending Plan: - JOSHUA - Cont. Protonix - Cont. Albumin - Cont. Lactulose - Poor prognosis, Not much to add from GI standpoint, recommend hospice - Further recommendations to follow based on results of above - Patient seen and examined by Dr. Earl and myself and this note is written on his behalf. (Stephanie Colón) Physician Comments Patient was seen and examined, agree with above note and plan, we will sign off. (Marly Earl MD) Stephanie Colón Aug 26, 2016 15:50 Marly Earl MD Aug 26, 2016 20:38
--- NOTE | 2016-08-26 19:21 | HHI.PR ---
Subjective Remarks 65 YOWM with COPD, Hepatocellular ca,AF, CAD On Simple mask ABG Showes compensated Resp acidosis Breathing better Palliative care consulted Weaned to 4 LNC Objective Vital Signs Vital Signs Date Time Temp Pulse Resp B/P Pulse Ox O2 Delivery O2 Flow Rate FiO2 08/26/16 16:00 97.3 84 22 96/64 95 08/26/16 12:20 92 08/26/16 12:00 97.4 92 22 97/59 92 08/26/16 11:15 92 Nasal Cannula 3.50 08/26/16 10:27 Nasal Cannula 4.00 08/26/16 10:23 82 100/65 08/26/16 08:00 97.3 79 18 84/62 93 08/26/16 07:54 83 08/26/16 04:00 97.3 82 18 91/60 95 08/26/16 00:00 97.3 84 18 88/60 94 08/25/16 20:30 Nasal Cannula 4.00 08/25/16 20:30 90 08/25/16 20:00 97.7 84 18 109/74 96 I/O 08/25/16 08/25/16 08/25/16 08/26/16 08/26/16 08/26/16 07:00 15:00 23:00 07:00 15:00 23:00 Intake Total 500 ml 0 ml 240 ml 160 ml 240 ml Output Total 200 ml 200 ml Balance 300 ml 0 ml 240 ml -40 ml 240 ml Intake Oral 500 ml 0 ml 240 ml 0 ml 240 ml IV Total 160 ml Output Urine Total 200 ml 200 ml # Voids 4 1 3 # Bowel Movements 0 1 0 Result Diagram: 08/25/16 0450 08/26/16 0600 Objective Remarks GENERAL: MBMN WM, mild SOB SKIN: Warm and dry. HEAD: Normocephalic. EYES: No scleral icterus. No injection or drainage. NECK: Supple, trachea midline. No JVD or lymphadenopathy. CARDIOVASCULAR: Regular rate and rhythm without murmurs, gallops, or rubs. RESPIRATORY: Breath sounds equal bilaterally. No accessory muscle use. Decreased Chest excursion. GASTROINTESTINAL: Abdomen soft, non-tender, nondistended. MUSCULOSKELETAL: No cyanosis, or edema. BACK: Nontender without obvious deformity. No CVA tenderness. A/P Assessment and Plan COPD Alpha-1 Antitrypsin def Hepatocellular ca AF CAD PLAN: Aerosol nebs Symbicort 2 puffs bid Spiriva daily Protonix 40 mg daily Wean 02 to keep sat >90% Cristobal Antonio MD Aug 26, 2016 19:21
[2016-08-26] MEDS: traZODone HCL 100 MG TAB PO SCH (21:31)
[2016-08-26] MEDS: TEMAZEPAM 15 MG CAP PO SCH (21:31)
[2016-08-26] MEDS: ATORVASTATIN 20 MG TAB PO SCH (21:31)
[2016-08-26] MEDS: LEVOFLOXACIN 750 MG PREMIX INJ 150 ML IV SCH (21:32)
[2016-08-27] VITALS (9 sets, daily range): BP systolic 94–110; BP diastolic 63–70; PULSE 77–93; RESP 18–21; TEMP 97.3–98.5; O2SAT 93–100
[2016-08-27 07:05] LABS: ALT (GPT) 150 U/L (12-78); ANION GAP 8 MEQ/L (5-15); AST (GOT) 780 U/L (15-37); BICARBONATE 32.9 MEQ/L (21.0-32.0); BLOOD UREA NITROGEN 32 MG/DL (7-18); CHLORIDE 101 MEQ/L (98-107); GLOMERULAR FILTRATION RATE 47 ML/MIN (>89); POTASSIUM 3.5 MEQ/L (3.5-5.1); SODIUM (NA) 142 MEQ/L (136-145)
[2016-08-27 07:07] LABS: ALKALINE PHOSPHATASE 801 U/L (45-117); TOTAL BILIRUBIN ADULT 9.9 MG/DL (0.2-1.0)
[2016-08-27] MEDS: BUDESONIDE-FORMOTEROL 160/4.5 MCG INHALER INH SCH ×2 (10:32→21:29)
[2016-08-27] MEDS: TIOTROPIUM BROMIDE 18 MCG INH INH SCH (10:32)
[2016-08-27] MEDS: CALCIUM/VITAMIN D 250 MG/125 U TAB PO SCH ×2 (10:33→21:28)
[2016-08-27] MEDS: DIGOXIN 0.125 MG TAB PO SCH (10:35)
[2016-08-27] MEDS: GABAPENTIN 100 MG CAP PO SCH ×3 (10:35→18:12)
[2016-08-27] MEDS: VENLAFAXINE HCL XR 75 MG CAP PO SCH (10:35)
[2016-08-27] MEDS: PANTOPRAZOLE SOD 40 MG DELAYED RELEASE TAB PO SCH ×2 (10:35→21:28)
[2016-08-27] MEDS: ALBUMIN HUMAN 25% 25 GM/100 ML BAGP IV SCH (10:35)
[2016-08-27] MEDS: SODIUM CHLORIDE 0.9% FLUSH 5 ML FLUSH FLUSH SCH ×2 (10:36→21:30)
[2016-08-27] MEDS: LACTULOSE SYRUP 20 GM/30 ML CUP PO SCH ×4 (10:36→21:27)
[2016-08-27] MEDS: POTASSIUM CHLORIDE 10 MEQ CONTROLLED RELEASE TAB PO SCH ×3 (10:36→18:12)
[2016-08-27] MEDS: TORSEMIDE 20 MG TAB PO SCH (10:36)
[2016-08-27] MEDS: REMOVE OLD PATCH TD SCH (10:46)
[2016-08-27] MEDS: fentaNYL 100 MCG/HR PATCH TD SCH (10:47)
--- NOTE | 2016-08-27 13:26 | HHI.PR ---
Subjective Remarks The patient was lethargic but resting comfortably. He had no acute complaints. He did not know where he was. Objective Vitals Vital Signs Date Time Temp Pulse Resp B/P Pulse Ox O2 Delivery O2 Flow Rate FiO2 08/27/16 12:40 98.5 85 18 104/66 96 08/27/16 10:52 89 08/27/16 09:17 98 Nasal Cannula 3.00 08/27/16 08:06 97.3 86 21 94/63 94 08/27/16 04:00 97.4 82 18 101/70 100 08/27/16 00:00 97.6 93 18 102/70 93 08/26/16 20:00 97.6 84 20 110/70 98 08/26/16 20:00 86 08/26/16 20:00 Nasal Cannula 4.00 08/26/16 16:00 97.3 84 22 96/64 95 I/O 08/26/16 08/26/16 08/26/16 08/27/16 08/27/16 08/27/16 07:00 15:00 23:00 07:00 15:00 23:00 Intake Total 160 ml 240 ml 100 ml 280 ml Output Total 200 ml Balance -40 ml 240 ml 100 ml 280 ml Intake Oral 0 ml 240 ml 120 ml IV Total 160 ml 160 ml Albumin 100 ml Output Urine Total 200 ml # Voids 3 3 # Bowel Movements 0 3 Result Diagram: 08/25/16 0450 08/27/16 0630 Imaging Last Impressions Abdomen MRI 08/25/16 0000 Signed Impressions: Service Date/Time: Thursday, August 25, 2016 18:47 - CONCLUSION: 1. Cirrhotic liver with extensive nodularity likely representing multiple regenerating nodules. Underlying masses cannot be excluded. 2. Splenomegaly with abdominal ascites. 3. Right paraspinal mass along the right pedicle/transverse process at L1 again seen. Efraín Javier MD Cyst Biopsy Asp-Paracentesis US 08/24/16 0000 Signed Impressions: Service Date/Time: Wednesday, August 24, 2016 10:20 - CONCLUSION: Uncomplicated ultrasound guided paracentesis. Kiran Perez MD Chest X-Ray 08/22/16 0000 Signed Impressions: Service Date/Time: Monday, August 22, 2016 12:30 - CONCLUSION: No significant change has occurred. Jay Ventura MD Thoracic Spine CT 08/17/16 0000 Signed Impressions: Service Date/Time: Wednesday, August 17, 2016 06:58 - CONCLUSION: No acute fracture or subluxation of the thoracic spine. Scoliosis and multilevel degenerative changes as above. Nonacute appearing mild compression deformity of T10. Richard Tamez MD Head CT 08/17/16 0000 Signed Impressions: Service Date/Time: Wednesday, August 17, 2016 06:54 - CONCLUSION: 1. No bleed or other acute intracranial abnormality. 2. Chronic white matter changes. 3. Sinus disease. 4. Occipital scalp laceration. Richard Tamez MD Cervical Spine CT 08/17/16 0000 Signed Impressions: Service Date/Time: Wednesday, August 17, 2016 06:54 - CONCLUSION: No fracture or acute appearing malalignment seen of the cervical spine. Degenerative changes as above. Richard Tamez MD SPECT Scan-Bone Nuclear Medicine 08/13/16 0000 Signed Impressions: Service Date/Time: Saturday, August 13, 2016 12:42 - CONCLUSION: Benign whole-body bone scan and bone SPECT of the lumbar spine Richard Lester MD Lumbar Spine MRI 08/13/16 0000 Signed Impressions: Service Date/Time: Saturday, August 13, 2016 15:36 - CONCLUSION: 1. 6.5 x 4.5 x 4.3 cm right paraspinal mass likely related to a metastasis. This does extend into the right neural foramen for the L1 nerve but there is no intrathecal extension appreciated. 2. Bilateral L5 pars defects with grade 2 anterolisthesis and bilateral L5 impingement within the neural foramen. 3. Central canal patent throughout. Aidan Wright Jr., MD Abdomen/Pelvis CT 08/11/16 0210 Signed Impressions: Service Date/Time: Thursday, August 11, 2016 03:25 - CONCLUSION: 1. Cirrhosis with moderate to large ascites and increased splenomegaly. Heterogeneous and very nodular liver; possibility of liver masses difficult to exclude. 2. 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 Plasmacytoma related to multiple myeloma would also be in the differential. This is new. I believe it arose from the right transverse process of L1. Richard Tamez MD Objective Remarks GENERAL: This is a frail, jaundiced male who appears chronically ill CARDIOVASCULAR: Regular rate and rhythm without murmurs, gallops, or rubs. RESPIRATORY: Clear to auscultation. Breath sounds equal bilaterally. No wheezes , rales, or rhonchi. GASTROINTESTINAL: Abdomen soft, tender in the RUQ, mildly distended. Normal active bowel sounds MUSCULOSKELETAL: Extremities without clubbing, cyanosis, or edema. NEURO: Confused, slow speech, lethargic. Moves upper and lower extremities. PSYCH: Flat affect. Procedures Paracentesis Medications and IVs Current Medications Medications (Trade) Dose Ordered Sig/Barak Route Start Time Stop Time Status Last Admin (NS Flush) 2 ml UNSCH PRN FLUSH 08/11/16 05:00 (NS Flush) 2 ml BID FLUSH 08/11/16 09:00 08/27/16 10:36 (Zofran Inj) 4 mg Q6H PRN IVP 08/11/16 05:00 08/22/16 08:34 (Narcan Inj) 0.4 mg UNSCH PRN IV 08/11/16 05:00 (Lanoxin) 0.125 mg DAILY PO 08/12/16 09:00 08/27/16 10:35 (Neurontin) 100 mg TID PO 08/11/16 18:00 08/27/16 10:35 (KCl) 10 meq TID PO 08/11/16 18:00 08/27/16 10:36 (Paige-Colace) 2 tab BID PRN PO 08/11/16 15:45 (Restoril) 30 mg HS PO 08/11/16 21:00 08/26/16 21:31 (Spiriva Inh) 18 mcg DAILY INH 08/12/16 09:00 08/27/16 10:32 (Demadex) 20 mg DAILY PO 08/12/16 09:00 08/27/16 10:36 (Desyrel) 100 mg HS PO 08/11/16 21:00 08/26/16 21:31 (Effexor Xr) 150 mg DAILY PO 08/12/16 09:00 08/27/16 10:35 (Oscal-D 250-125) 500 mg BID PO 08/11/16 21:00 08/27/16 10:33 (Symbicort 160-4.5 Inh) 2 puff BID INH 08/11/16 21:00 08/27/16 10:32 (Lipitor) 20 mg HS PO 08/11/16 21:00 08/26/16 21:31 (Duragesic 100 Mcg Patch.72 Hr) 1 patch Q3D TD 08/12/16 09:00 08/27/16 10:47 (Roxicodone) 10 mg Q12HR PRN PO 08/13/16 21:00 08/26/16 21:30 (Protonix) 40 mg Q12HR PO 08/14/16 21:00 08/27/16 10:35 (NS Flush) 5 ml UNSCH PRN IVF 08/18/16 19:45 (Heparin Central Flush) 250 units UNSCH PRN IVF 08/18/16 19:45 08/26/16 08:28 Heparin Sodium (Porcine) 500 units 500 units UNSCH IVF 08/18/16 19:45 08/25/16 23:10 (Levaquin 750 Mg Premix Inj) 150 ml @ 100 mls/hr Q24H IV 08/18/16 23:00 08/26/16 21:32 Miscellaneous Information 1 Q3D TD 08/21/16 09:00 08/27/16 10:46 (Lactulose Liq) 30 ml QID PO 08/25/16 09:00 08/27/16 10:36 (Albumin 25% Inj) 25 gm Q12H IV 08/25/16 09:00 08/27/16 10:35 A/P Problem List: (1) Hematemesis ICD Code: K92.0 Status: Resolved (2) GI bleed ICD Code: K92.2 Status: Acute (3) Cirrhosis of liver ICD Code: K74.60 Status: Chronic (4) Liver mass ICD Code: R16.0 Status: Chronic (5) 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 Patient found to have a paraspinous mass causing back pain. Patient currently undergoing radiation therapy. End stage liver disease/ ascites/ metabolic encephalopathy LFTs continue to increase. Pt is encephalopathic. S/p paracentesis 1/3 with removal of over 2 L fluid. Appreciate GI consult. MRI showed: Cirrhotic liver with extensive nodularity likely representing multiple regenerating nodules; Underlying masses cannot be excluded; Splenomegaly with abdominal ascites; Right paraspinal mass along the right pedicle/transverse process at L1. - Continue Demadex. - IV albumin. D/c 08/27 as blood pressure is improved. - GI signed off. Reconsult if needed. - continue lactulose. - consider hospice. - trend LFTs. Hypotension May be s/t fluid shifts s/t paracentesis. - IV albumin ordered. D/c 08/27. - fluids if needed. Hematemesis/GI bleed H&H remained stable. Status post EGD with band ligation 08/11/16. Currently stable without any GI bleed. S/p PPI as well as octreotide drip 08/14/16. Appreciate input from gastroenterology. - monitor H&H and transfuse accordingly. - Discontinue Xarelto. - PPI. History of liver cancer CT abdomen with malignant appearing upper lumbar right paraspinous mass, nonspecific but most likely a metastasis. MRI as above. Appreciate input from medical oncology. - Radiation Oncology following, palliative radiation planned. 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 Respiratory status worsen on 08/17. Repeat chest X-ray shows new right upper and left lower lobe infiltrates. Appreciate pulmonology consult. - Continue Levaquin. - Continue breathing treatments. - nebs and oxygen as needed. - Continue weekly Prolastin patient to follow up outpatient with hepatology at [facility] for new clinical trial in September 2016. Atrial fibrillation Currently rate controlled. - continue with digoxin and monitor level. History of hypertension Currently hypotensive. - Continue to hold all oral antihypertensive medications Fall Status post mechanical fall 08/17/[address], thoracic and cervical spine noted and review and are unremarkable. - Fall precautions. - PT/OT. DVT prophylaxis: Chemical anti-prophylaxis is contraindicated secondary to GI bleed, bilateral SCDs. GI prophylaxis: PPI. Discharge Planning Consider home hospice. Problem Qualifiers (1) GI bleed: Qualified Code: K92.2 - Gastrointestinal hemorrhage, unspecified gastrointestinal hemorrhage type Tone Hensley DO Aug 27, 2016 13:26
--- NOTE | 2016-08-27 18:44 | HHI.PR ---
Subjective Remarks 65 YOWM with COPD, Hepatocellular ca,AF, CAD ABG Showes compensated Resp acidosis Breathing better Palliative care consulted Weaned to 4 LNC Feels tired Appetite poor Objective Vital Signs Vital Signs Date Time Temp Pulse Resp B/P Pulse Ox O2 Delivery O2 Flow Rate FiO2 08/27/16 16:05 98.2 77 18 110/69 93 08/27/16 12:40 98.5 85 18 104/66 96 08/27/16 10:52 89 08/27/16 09:17 98 Nasal Cannula 3.00 08/27/16 08:06 97.3 86 21 94/63 94 08/27/16 04:00 97.4 82 18 101/70 100 08/27/16 00:00 97.6 93 18 102/70 93 08/26/16 20:00 97.6 84 20 110/70 98 08/26/16 20:00 86 08/26/16 20:00 Nasal Cannula 4.00 I/O 08/26/16 08/26/16 08/26/16 08/27/16 08/27/16 08/27/16 07:00 15:00 23:00 07:00 15:00 23:00 Intake Total 160 ml 240 ml 100 ml 280 ml 600 ml Output Total 200 ml Balance -40 ml 240 ml 100 ml 280 ml 600 ml Intake Oral 0 ml 240 ml 120 ml 600 ml IV Total 160 ml 160 ml Albumin 100 ml Output Urine Total 200 ml # Voids 3 3 2 # Bowel Movements 0 3 3 Result Diagram: 08/25/16 0450 08/27/16 0630 Objective Remarks GENERAL: MBMN WM, mild SOB SKIN: Warm and dry. HEAD: Normocephalic. EYES: No scleral icterus. No injection or drainage. NECK: Supple, trachea midline. No JVD or lymphadenopathy. CARDIOVASCULAR: Regular rate and rhythm without murmurs, gallops, or rubs. RESPIRATORY: Breath sounds equal bilaterally. No accessory muscle use. Decreased Chest excursion. GASTROINTESTINAL: Abdomen soft, non-tender, nondistended. MUSCULOSKELETAL: No cyanosis, or edema. BACK: Nontender without obvious deformity. No CVA tenderness. A/P Assessment and Plan COPD Alpha-1 Antitrypsin def Hepatocellular ca AF CAD PLAN: Aerosol nebs Symbicort 2 puffs bid Spiriva daily Protonix 40 mg daily Wean 02 to keep sat >90% Encourage PO Aneja,Cristobal Dev MD Aug 27, 2016 18:44
[2016-08-27] MEDS: TEMAZEPAM 15 MG CAP PO SCH (21:28)
[2016-08-27] MEDS: ATORVASTATIN 20 MG TAB PO SCH (21:28)
[2016-08-27] MEDS: traZODone HCL 100 MG TAB PO SCH (21:28)
[2016-08-27] MEDS: LEVOFLOXACIN 750 MG PREMIX INJ 150 ML IV SCH (21:30)
[2016-08-27] MEDS: ONDANSETRON HCL 4 MG/2 ML VIAL IVP PRN (23:07)
[2016-08-28] VITALS (7 sets, daily range): BP systolic 82–101; BP diastolic 54–72; PULSE 79–87; RESP 18–22; TEMP 97.3–98.1; O2SAT 91–95
[2016-08-28] MEDS: PANTOPRAZOLE SOD 40 MG DELAYED RELEASE TAB PO SCH ×2 (10:00→20:54)
[2016-08-28] MEDS: POTASSIUM CHLORIDE 10 MEQ CONTROLLED RELEASE TAB PO SCH ×3 (10:01→17:18)
[2016-08-28] MEDS: VENLAFAXINE HCL XR 75 MG CAP PO SCH (10:01)
[2016-08-28] MEDS: DIGOXIN 0.125 MG TAB PO SCH (10:01)
[2016-08-28] MEDS: TORSEMIDE 20 MG TAB PO SCH (10:01)
[2016-08-28] MEDS: CALCIUM/VITAMIN D 250 MG/125 U TAB PO SCH ×2 (10:01→20:53)
[2016-08-28] MEDS: BUDESONIDE-FORMOTEROL 160/4.5 MCG INHALER INH SCH ×2 (10:01→20:58)
[2016-08-28] MEDS: GABAPENTIN 100 MG CAP PO SCH ×3 (10:01→17:18)
[2016-08-28] MEDS: LACTULOSE SYRUP 20 GM/30 ML CUP PO SCH ×4 (10:01→20:54)
[2016-08-28] MEDS: TIOTROPIUM BROMIDE 18 MCG INH INH SCH (10:01)
[2016-08-28] MEDS: SODIUM CHLORIDE 0.9% FLUSH 5 ML FLUSH FLUSH SCH ×2 (10:02→20:54)
--- NOTE | 2016-08-28 12:27 | HHI.PR ---
Subjective Remarks The patient was resting in bed. He was more awake and alert. He knew he was in the hospital. He said that he had some low back pain. He said he wanted to get better. When asked about hospice he said he wouldn't mind talking to somebody about that. He said that he can't eat and has no appetite. He does not like to drink the ensure shakes. He says he would not want an NG tube placed. Objective Vitals Vital Signs Date Time Temp Pulse Resp B/P Pulse Ox O2 Delivery O2 Flow Rate FiO2 08/28/16 09:23 92 Nasal Cannula 3.00 08/28/16 08:00 97.6 81 22 82/55 91 08/28/16 08:00 Nasal Cannula 4.00 08/28/16 04:00 97.4 83 18 94/54 93 08/28/16 00:00 97.4 87 18 96/60 93 08/27/16 21:34 94 Nasal Cannula 3.00 08/27/16 20:15 Nasal Cannula 4.00 08/27/16 20:15 Nasal Cannula 4.00 08/27/16 20:00 85 08/27/16 20:00 97.9 90 18 104/66 93 08/27/16 16:05 98.2 77 18 110/69 93 08/27/16 12:40 98.5 85 18 104/66 96 I/O 08/27/16 08/27/16 08/27/16 08/28/16 08/28/16 08/28/16 07:00 15:00 23:00 07:00 15:00 23:00 Intake Total 280 ml 600 ml 180 ml 235 ml Output Total 2 ml Balance 280 ml 600 ml 180 ml 233 ml Intake Oral 120 ml 600 ml 180 ml 80 ml IV Total 160 ml 155 ml Output Urine Total 2 ml # Voids 3 2 2 # Bowel Movements 3 3 Result Diagram: 08/25/16 0450 08/27/16 0630 Imaging Last Impressions Abdomen MRI 08/25/16 0000 Signed Impressions: Service Date/Time: Thursday, August 25, 2016 18:47 - CONCLUSION: 1. Cirrhotic liver with extensive nodularity likely representing multiple regenerating nodules. Underlying masses cannot be excluded. 2. Splenomegaly with abdominal ascites. 3. Right paraspinal mass along the right pedicle/transverse process at L1 again seen. Efraín Javier MD Cyst Biopsy Asp-Paracentesis US 08/24/16 0000 Signed Impressions: Service Date/Time: Wednesday, August 24, 2016 10:20 - CONCLUSION: Uncomplicated ultrasound guided paracentesis. Kiran Perez MD Chest X-Ray 08/22/16 0000 Signed Impressions: Service Date/Time: Monday, August 22, 2016 12:30 - CONCLUSION: No significant change has occurred. Jay Ventura MD Thoracic Spine CT 08/17/16 0000 Signed Impressions: Service Date/Time: Wednesday, August 17, 2016 06:58 - CONCLUSION: No acute fracture or subluxation of the thoracic spine. Scoliosis and multilevel degenerative changes as above. Nonacute appearing mild compression deformity of T10. Richard Tamez MD Head CT 08/17/16 0000 Signed Impressions: Service Date/Time: Wednesday, August 17, 2016 06:54 - CONCLUSION: 1. No bleed or other acute intracranial abnormality. 2. Chronic white matter changes. 3. Sinus disease. 4. Occipital scalp laceration. Richard Tamez MD Cervical Spine CT 08/17/16 0000 Signed Impressions: Service Date/Time: Wednesday, August 17, 2016 06:54 - CONCLUSION: No fracture or acute appearing malalignment seen of the cervical spine. Degenerative changes as above. Richard Tamez MD SPECT Scan-Bone Nuclear Medicine 08/13/16 0000 Signed Impressions: Service Date/Time: Saturday, August 13, 2016 12:42 - CONCLUSION: Benign whole-body bone scan and bone SPECT of the lumbar spine Richard Lester MD Lumbar Spine MRI 08/13/16 0000 Signed Impressions: Service Date/Time: Saturday, August 13, 2016 15:36 - CONCLUSION: 1. 6.5 x 4.5 x 4.3 cm right paraspinal mass likely related to a metastasis. This does extend into the right neural foramen for the L1 nerve but there is no intrathecal extension appreciated. 2. Bilateral L5 pars defects with grade 2 anterolisthesis and bilateral L5 impingement within the neural foramen. 3. Central canal patent throughout. Aidan Wright Jr., MD Abdomen/Pelvis CT 08/11/16 0210 Signed Impressions: Service Date/Time: Thursday, August 11, 2016 03:25 - CONCLUSION: 1. Cirrhosis with moderate to large ascites and increased splenomegaly. Heterogeneous and very nodular liver; possibility of liver masses difficult to exclude. 2. 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 Plasmacytoma related to multiple myeloma would also be in the differential. This is new. I believe it arose from the right transverse process of L1. Richard Tamez MD Objective Remarks GENERAL: This is a frail, jaundiced male who appears chronically ill CARDIOVASCULAR: Regular rate and rhythm without murmurs, gallops, or rubs. RESPIRATORY: Clear to auscultation. Breath sounds equal bilaterally. No wheezes , rales, or rhonchi. GASTROINTESTINAL: Abdomen soft, tender in the RUQ, mildly distended. Normal active bowel sounds MUSCULOSKELETAL: Extremities without clubbing, cyanosis, or edema. NEURO: Awake and alert, slow speech, lethargic. Moves upper and lower extremities. PSYCH: Flat affect. Procedures Paracentesis Medications and IVs Current Medications Medications (Trade) Dose Ordered Sig/Barak Route Start Time Stop Time Status Last Admin (NS Flush) 2 ml UNSCH PRN FLUSH 08/11/16 05:00 (NS Flush) 2 ml BID FLUSH 08/11/16 09:00 08/28/16 10:02 (Zofran Inj) 4 mg Q6H PRN IVP 08/11/16 05:00 08/27/16 23:07 (Narcan Inj) 0.4 mg UNSCH PRN IV 08/11/16 05:00 (Lanoxin) 0.125 mg DAILY PO 08/12/16 09:00 08/28/16 10:01 (Neurontin) 100 mg TID PO 08/11/16 18:00 08/28/16 10:01 (KCl) 10 meq TID PO 08/11/16 18:00 08/28/16 10:01 (Paige-Colace) 2 tab BID PRN PO 08/11/16 15:45 (Restoril) 30 mg HS PO 08/11/16 21:00 08/27/16 21:28 (Spiriva Inh) 18 mcg DAILY INH 08/12/16 09:00 08/28/16 10:01 (Demadex) 20 mg DAILY PO 08/12/16 09:00 08/28/16 10:01 (Desyrel) 100 mg HS PO 08/11/16 21:00 08/27/16 21:28 (Effexor Xr) 150 mg DAILY PO 08/12/16 09:00 08/28/16 10:01 (Oscal-D 250-125) 500 mg BID PO 08/11/16 21:00 08/28/16 10:01 (Symbicort 160-4.5 Inh) 2 puff BID INH 08/11/16 21:00 08/28/16 10:01 (Lipitor) 20 mg HS PO 08/11/16 21:00 08/27/16 21:28 (Duragesic 100 Mcg Patch.72 Hr) 1 patch Q3D TD 08/12/16 09:00 08/27/16 10:47 (Roxicodone) 10 mg Q12HR PRN PO 08/13/16 21:00 08/26/16 21:30 (Protonix) 40 mg Q12HR PO 08/14/16 21:00 08/28/16 10:00 (NS Flush) 5 ml UNSCH PRN IVF 08/18/16 19:45 (Heparin Central Flush) 250 units UNSCH PRN IVF 08/18/16 19:45 08/26/16 08:28 Heparin Sodium (Porcine) 500 units 500 units UNSCH IVF 08/18/16 19:45 08/25/16 23:10 (Levaquin 750 Mg Premix Inj) 150 ml @ 100 mls/hr Q24H IV 08/18/16 23:00 08/27/16 21:30 Miscellaneous Information 1 Q3D TD 08/21/16 09:00 08/27/16 10:46 (Lactulose Liq) 30 ml QID PO 08/25/16 09:00 08/28/16 10:01 A/P Problem List: (1) Hematemesis ICD Code: K92.0 Status: Resolved (2) GI bleed ICD Code: K92.2 Status: Acute (3) Cirrhosis of liver ICD Code: K74.60 Status: Chronic (4) Liver mass ICD Code: R16.0 Status: Chronic (5) Wcoyq-8-rnbtgjlabcu deficiency ICD Code: E88.01 Status: Chronic (6) Respiratory failure, acute and chronic ICD Code: J96.20 Status: Acute Assessment and Plan 65-year-old male with metastatic liver cancer initially presented with GI bleed. Patient found to have a paraspinous mass causing back pain. Patient currently undergoing radiation therapy. End stage liver disease/ ascites/ metabolic encephalopathy LFTs continue to increase. Pt is encephalopathic. S/p paracentesis / with removal of over 2 L fluid. Appreciate GI consult. MRI showed: Cirrhotic liver with extensive nodularity likely representing multiple regenerating nodules; Underlying masses cannot be excluded; Splenomegaly with abdominal ascites; Right paraspinal mass along the right pedicle/transverse process at L1. - Continue Demadex. - IV albumin d/c 08/27. - GI signed off. Reconsult if needed. - continue lactulose. - consider hospice. - trend LFTs. - pt with severe malnutrition. He said he would not want an NGT for tube feeds and seems also not to want a PEG. Encourage PO intake. Check prealbumin level. Hypotension May be s/t fluid shifts s/t paracentesis. - IV albumin ordered. D/c 08/27. - fluids if needed. Hematemesis/GI bleed H&H remained stable. Status post EGD with band ligation 08/11/16. Currently stable without any GI bleed. S/p PPI as well as octreotide drip 08/14/16. Appreciate input from gastroenterology. - monitor H&H and transfuse accordingly. - Discontinue Xarelto. - PPI. Liver cancer CT abdomen with malignant appearing upper lumbar right paraspinous mass, nonspecific but most likely a metastasis. MRI as above. Appreciate input from medical oncology. - Radiation Oncology following, palliative radiation scheduled. 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 Respiratory status worsen on 08/17. Repeat chest X-ray shows new right upper and left lower lobe infiltrates. Appreciate pulmonology consult. - Continue Levaquin. - Continue breathing treatments. - nebs and oxygen as needed. - Continue weekly Prolastin patient to follow up outpatient with hepatology at [facility] for new clinical trial in September 2016. Atrial fibrillation Currently rate controlled. - continue with digoxin and monitor level. History of hypertension Currently hypotensive. - Continue to hold all oral antihypertensive medications Fall Status post mechanical fall 08/17/[address], thoracic and cervical spine noted and review and are unremarkable. - Fall precautions. - PT/OT. DVT prophylaxis: Chemical anti-prophylaxis is contraindicated secondary to GI bleed, bilateral SCDs. GI prophylaxis: PPI. Discharge Planning Consider home hospice. Problem Qualifiers (1) GI bleed: Qualified Code: K92.2 - Gastrointestinal hemorrhage, unspecified gastrointestinal hemorrhage type Tone Hensley DO Aug 28, 2016 12:27
[2016-08-28] MEDS: traZODone HCL 100 MG TAB PO SCH (20:53)
[2016-08-28] MEDS: ATORVASTATIN 20 MG TAB PO SCH (20:53)
[2016-08-28] MEDS: TEMAZEPAM 15 MG CAP PO SCH (20:54)
[2016-08-28] MEDS: LEVOFLOXACIN 750 MG PREMIX INJ 150 ML IV SCH (23:06)
[2016-08-29] VITALS (8 sets, daily range): BP systolic 88–111; BP diastolic 54–77; PULSE 78–89; RESP 17–20; TEMP 97.2–99.5; O2SAT 92–95
[2016-08-29 06:25] LABS: INTERNATIONAL NORMALIZED RATIO 1.4 RATIO; PROTHROMBIN TIME - PATIENT 15.4 SEC (9.8-11.6)
[2016-08-29 06:40] LABS: ALT (GPT) 148 U/L (12-78); ANION GAP 6 MEQ/L (5-15); AST (GOT) 894 U/L (15-37); BICARBONATE 34.4 MEQ/L (21.0-32.0); BLOOD UREA NITROGEN 34 MG/DL (7-18); CHLORIDE 103 MEQ/L (98-107); GLOMERULAR FILTRATION RATE 46 ML/MIN (>89); POTASSIUM 3.9 MEQ/L (3.5-5.1); SODIUM (NA) 143 MEQ/L (136-145)
[2016-08-29 06:50] LABS: ALKALINE PHOSPHATASE 804 U/L (45-117); TOTAL BILIRUBIN ADULT 11.5 MG/DL (0.2-1.0)
[2016-08-29] MEDS: VENLAFAXINE HCL XR 75 MG CAP PO SCH (11:03)
[2016-08-29] MEDS: DIGOXIN 0.125 MG TAB PO SCH (11:03)
[2016-08-29] MEDS: TORSEMIDE 20 MG TAB PO SCH (11:03)
[2016-08-29] MEDS: CALCIUM/VITAMIN D 250 MG/125 U TAB PO SCH ×2 (11:03→20:37)
[2016-08-29] MEDS: GABAPENTIN 100 MG CAP PO SCH ×3 (11:03→17:13)
[2016-08-29] MEDS: POTASSIUM CHLORIDE 10 MEQ CONTROLLED RELEASE TAB PO SCH ×3 (11:03→17:13)
[2016-08-29] MEDS: PANTOPRAZOLE SOD 40 MG DELAYED RELEASE TAB PO SCH ×2 (11:03→20:37)
[2016-08-29] MEDS: BUDESONIDE-FORMOTEROL 160/4.5 MCG INHALER INH SCH ×2 (11:04→20:41)
[2016-08-29] MEDS: SODIUM CHLORIDE 0.9% FLUSH 5 ML FLUSH FLUSH SCH ×2 (11:04→20:37)
[2016-08-29] MEDS: LACTULOSE SYRUP 20 GM/30 ML CUP PO SCH ×4 (11:04→20:41)
[2016-08-29] MEDS: TIOTROPIUM BROMIDE 18 MCG INH INH SCH (11:04)
--- NOTE | 2016-08-29 16:26 | HHI.PR ---
Subjective Remarks The patient said that he felt poorly. He wanted to drink water. He said he didn't think the radiation was helping his back pain. Objective Vitals Vital Signs Date Time Temp Pulse Resp B/P Pulse Ox O2 Delivery O2 Flow Rate FiO2 08/29/16 12:00 97.3 82 18 88/54 92 08/29/16 08:00 78 08/29/16 08:00 97.2 86 18 95/64 95 08/29/16 08:00 Nasal Cannula 4.00 Humidified 08/29/16 04:00 97.6 86 18 95/58 93 08/29/16 00:16 Nasal Cannula 4.00 08/29/16 00:00 97.4 85 17 95/63 92 08/28/16 21:00 Nasal Cannula 4.00 08/28/16 20:00 97.3 87 18 99/59 92 08/28/16 20:00 84 I/O 08/28/16 08/28/16 08/28/16 08/29/16 08/29/16 08/29/16 07:00 15:00 23:00 07:00 15:00 23:00 Intake Total 235 ml 120 ml 360 ml 240 ml 480 ml Output Total 2 ml 1111 ml Balance 233 ml -991 ml 360 ml 240 ml 480 ml Intake Oral 80 ml 120 ml 360 ml 240 ml 480 ml IV Total 155 ml Output Urine Total 2 ml 1111 ml # Voids 2 3 2 # Bowel Movements 1 2 3 0 Result Diagram: 08/25/16 0450 08/29/16 0600 Imaging Last Impressions Abdomen MRI 08/25/16 0000 Signed Impressions: Service Date/Time: Thursday, August 25, 2016 18:47 - CONCLUSION: 1. Cirrhotic liver with extensive nodularity likely representing multiple regenerating nodules. Underlying masses cannot be excluded. 2. Splenomegaly with abdominal ascites. 3. Right paraspinal mass along the right pedicle/transverse process at L1 again seen. Efraín Javier MD Cyst Biopsy Asp-Paracentesis US 08/24/16 0000 Signed Impressions: Service Date/Time: Wednesday, August 24, 2016 10:20 - CONCLUSION: Uncomplicated ultrasound guided paracentesis. Kiran Perez MD Chest X-Ray 08/22/16 0000 Signed Impressions: Service Date/Time: Monday, August 22, 2016 12:30 - CONCLUSION: No significant change has occurred. Jay Ventura MD Thoracic Spine CT 08/17/16 0000 Signed Impressions: Service Date/Time: Wednesday, August 17, 2016 06:58 - CONCLUSION: No acute fracture or subluxation of the thoracic spine. Scoliosis and multilevel degenerative changes as above. Nonacute appearing mild compression deformity of T10. Richard Tamez MD Head CT 08/17/16 0000 Signed Impressions: Service Date/Time: Wednesday, August 17, 2016 06:54 - CONCLUSION: 1. No bleed or other acute intracranial abnormality. 2. Chronic white matter changes. 3. Sinus disease. 4. Occipital scalp laceration. Richard Tamez MD Cervical Spine CT 08/17/16 0000 Signed Impressions: Service Date/Time: Wednesday, August 17, 2016 06:54 - CONCLUSION: No fracture or acute appearing malalignment seen of the cervical spine. Degenerative changes as above. Richard Tamez MD SPECT Scan-Bone Nuclear Medicine 08/13/16 0000 Signed Impressions: Service Date/Time: Saturday, August 13, 2016 12:42 - CONCLUSION: Benign whole-body bone scan and bone SPECT of the lumbar spine Richard Lester MD Lumbar Spine MRI 08/13/16 0000 Signed Impressions: Service Date/Time: Saturday, August 13, 2016 15:36 - CONCLUSION: 1. 6.5 x 4.5 x 4.3 cm right paraspinal mass likely related to a metastasis. This does extend into the right neural foramen for the L1 nerve but there is no intrathecal extension appreciated. 2. Bilateral L5 pars defects with grade 2 anterolisthesis and bilateral L5 impingement within the neural foramen. 3. Central canal patent throughout. Aidan Wright Jr., MD Abdomen/Pelvis CT 08/11/16 0210 Signed Impressions: Service Date/Time: Thursday, August 11, 2016 03:25 - CONCLUSION: 1. Cirrhosis with moderate to large ascites and increased splenomegaly. Heterogeneous and very nodular liver; possibility of liver masses difficult to exclude. 2. 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 Plasmacytoma related to multiple myeloma would also be in the differential. This is new. I believe it arose from the right transverse process of L1. Richard Tamez MD Objective Remarks GENERAL: This is a frail, jaundiced male who appears chronically ill CARDIOVASCULAR: Regular rate and rhythm without murmurs, gallops, or rubs. RESPIRATORY: Clear to auscultation. Breath sounds equal bilaterally. No wheezes , rales, or rhonchi. GASTROINTESTINAL: Abdomen soft, tender in the RUQ, mildly distended. Normal active bowel sounds MUSCULOSKELETAL: Extremities without clubbing, cyanosis, or edema. NEURO: Awake and alert, slow speech, lethargic. Moves upper and lower extremities. PSYCH: Flat affect. Procedures Paracentesis Medications and IVs Current Medications Medications (Trade) Dose Ordered Sig/Barak Route Start Time Stop Time Status Last Admin (NS Flush) 2 ml UNSCH PRN FLUSH 08/11/16 05:00 (NS Flush) 2 ml BID FLUSH 08/11/16 09:00 08/29/16 11:04 (Zofran Inj) 4 mg Q6H PRN IVP 08/11/16 05:00 08/27/16 23:07 (Narcan Inj) 0.4 mg UNSCH PRN IV 08/11/16 05:00 (Lanoxin) 0.125 mg DAILY PO 08/12/16 09:00 08/29/16 11:03 (Neurontin) 100 mg TID PO 08/11/16 18:00 08/29/16 13:54 (KCl) 10 meq TID PO 08/11/16 18:00 08/29/16 13:54 (Paige-Colace) 2 tab BID PRN PO 08/11/16 15:45 (Restoril) 30 mg HS PO 08/11/16 21:00 08/28/16 20:54 (Spiriva Inh) 18 mcg DAILY INH 08/12/16 09:00 08/29/16 11:04 (Demadex) 20 mg DAILY PO 08/12/16 09:00 08/29/16 11:03 (Desyrel) 100 mg HS PO 08/11/16 21:00 08/28/16 20:53 (Effexor Xr) 150 mg DAILY PO 08/12/16 09:00 08/29/16 11:03 (Oscal-D 250-125) 500 mg BID PO 08/11/16 21:00 08/29/16 11:03 (Symbicort 160-4.5 Inh) 2 puff BID INH 08/11/16 21:00 08/29/16 11:04 (Lipitor) 20 mg HS PO 08/11/16 21:00 08/28/16 20:53 (Duragesic 100 Mcg Patch.72 Hr) 1 patch Q3D TD 08/12/16 09:00 08/27/16 10:47 (Roxicodone) 10 mg Q12HR PRN PO 08/13/16 21:00 08/29/16 05:56 (Protonix) 40 mg Q12HR PO 08/14/16 21:00 08/29/16 11:03 (NS Flush) 5 ml UNSCH PRN IVF 08/18/16 19:45 (Heparin Central Flush) 250 units UNSCH PRN IVF 08/18/16 19:45 08/29/16 13:54 Heparin Sodium (Porcine) 500 units 500 units UNSCH IVF 08/18/16 19:45 08/25/16 23:10 (Levaquin 750 Mg Premix Inj) 150 ml @ 100 mls/hr Q24H IV 08/18/16 23:00 08/28/16 23:06 Miscellaneous Information 1 Q3D TD 08/21/16 09:00 08/27/16 10:46 (Lactulose Liq) 30 ml QID PO 08/25/16 09:00 08/29/16 13:54 (Megace Liq) 400 mg DAILY PO 08/29/16 16:15 A/P Problem List: (1) Hematemesis ICD Code: K92.0 Status: Resolved (2) GI bleed ICD Code: K92.2 Status: Acute (3) Cirrhosis of liver ICD Code: K74.60 Status: Chronic (4) Liver mass ICD Code: R16.0 Status: Chronic (5) Rhvzp-0-[id number] deficiency ICD Code: E88.01 Status: Chronic (6) Respiratory failure, acute and chronic ICD Code: J96.20 Status: Acute Assessment and Plan 65-year-old male with metastatic liver cancer initially presented with GI bleed. Patient found to have a paraspinous mass causing back pain. Patient currently undergoing radiation therapy. End stage liver disease/ ascites/ metabolic encephalopathy LFTs continue to increase. Pt is encephalopathic. S/p paracentesis 1/3 with removal of over 2 L fluid. Appreciate GI consult. MRI showed: Cirrhotic liver with extensive nodularity likely representing multiple regenerating nodules; Underlying masses cannot be excluded; Splenomegaly with abdominal ascites; Right paraspinal mass along the right pedicle/transverse process at L1. - Continue Demadex. - IV albumin d/c 08/27. - GI signed off. Reconsult if needed. - continue lactulose. - consider hospice. - trend LFTs. - pt with severe malnutrition. He said he would not want an NGT for tube feeds and seems also not to want a PEG. Encourage PO intake. Start Megace 08/29. Hypotension May be s/t fluid shifts s/t paracentesis. - IV albumin ordered. D/c 08/27. - fluids if needed. Encourage by mouth intake. Hematemesis/GI bleed H&H remained stable. Status post EGD with band ligation 08/11/16. Currently stable without any GI bleed. S/p PPI as well as octreotide drip 08/14/16. Appreciate input from gastroenterology. - monitor H&H and transfuse accordingly. - Discontinue Xarelto. - PPI. Liver cancer CT abdomen with malignant appearing upper lumbar right paraspinous mass, nonspecific but most likely a metastasis. MRI as above. Appreciate input from medical oncology. - Radiation Oncology following, palliative radiation scheduled. - Follow up with palliative care. 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 Respiratory status worsen on 08/17. Repeat chest X-ray shows new right upper and left lower lobe infiltrates. Appreciate pulmonology consult. - Continue Levaquin. - Continue breathing treatments. - nebs and oxygen as needed. - Continue weekly Prolastin patient to follow up outpatient with hepatology at [facility] for new clinical trial in September 2016. Atrial fibrillation Currently rate controlled. - continue with digoxin and monitor level. History of hypertension Currently hypotensive. - Continue to hold all oral antihypertensive medications Fall Status post mechanical fall 08/17/[address], thoracic and cervical spine noted and review and are unremarkable. - Fall precautions. - PT/OT. DVT prophylaxis: Chemical anti-prophylaxis is contraindicated secondary to GI bleed, bilateral SCDs. GI prophylaxis: PPI. Discharge Planning Consider home hospice. Problem Qualifiers (1) GI bleed: Qualified Code: K92.2 - Gastrointestinal hemorrhage, unspecified gastrointestinal hemorrhage type Tone Hensley DO Aug 29, 2016 16:26
[2016-08-29] MEDS: MEGESTROL ACETATE SUSP 400 MG/10 ML CUP PO SCH (17:13)
[2016-08-29] MEDS: ATORVASTATIN 20 MG TAB PO SCH (20:37)
[2016-08-29] MEDS: traZODone HCL 100 MG TAB PO SCH (20:37)
[2016-08-29] MEDS: TEMAZEPAM 15 MG CAP PO SCH (20:37)
[2016-08-29] MEDS: LEVOFLOXACIN 750 MG PREMIX INJ 150 ML IV SCH (23:53)
[2016-08-30] VITALS (9 sets, daily range): BP systolic 85–111; BP diastolic 54–66; PULSE 81–117; RESP 16–20; TEMP 97.2–97.9; O2SAT 92–96
[2016-08-30] MEDS: MEGESTROL ACETATE SUSP 400 MG/10 ML CUP PO SCH (08:50)
[2016-08-30] MEDS: TORSEMIDE 20 MG TAB PO SCH (08:50)
[2016-08-30] MEDS: VENLAFAXINE HCL XR 75 MG CAP PO SCH (08:50)
[2016-08-30] MEDS: CALCIUM/VITAMIN D 250 MG/125 U TAB PO SCH ×2 (08:50→23:03)
[2016-08-30] MEDS: DIGOXIN 0.125 MG TAB PO SCH (08:50)
[2016-08-30] MEDS: SODIUM CHLORIDE 0.9% FLUSH 5 ML FLUSH FLUSH SCH ×2 (08:50→23:04)
[2016-08-30] MEDS: PANTOPRAZOLE SOD 40 MG DELAYED RELEASE TAB PO SCH ×2 (08:50→23:03)
[2016-08-30] MEDS: GABAPENTIN 100 MG CAP PO SCH ×3 (08:50→17:21)
[2016-08-30] MEDS: LACTULOSE SYRUP 20 GM/30 ML CUP PO SCH ×4 (08:50→23:04)
[2016-08-30] MEDS: POTASSIUM CHLORIDE 10 MEQ CONTROLLED RELEASE TAB PO SCH ×3 (08:50→17:21)
[2016-08-30] MEDS: TIOTROPIUM BROMIDE 18 MCG INH INH SCH (08:51)
[2016-08-30] MEDS: BUDESONIDE-FORMOTEROL 160/4.5 MCG INHALER INH SCH ×2 (08:51→21:00)
[2016-08-30] MEDS: fentaNYL 100 MCG/HR PATCH TD SCH (08:53)
[2016-08-30] MEDS: REMOVE OLD PATCH TD SCH (08:53)
--- NOTE | 2016-08-30 12:09 | HHI.PR ---
Subjective Remarks The patient was sitting up in a chair, talking on the phone. He said he still had pain in his abdomen and back. He said the medications were helping. He said he ate some of his breakfast. He had no acute complaints. Objective Vitals Vital Signs Date Time Temp Pulse Resp B/P Pulse Ox O2 Delivery O2 Flow Rate FiO2 08/30/16 09:00 Nasal Cannula 4.00 Humidified 08/30/16 08:51 95 Nasal Cannula 3.00 08/30/16 08:04 97.5 81 19 85/57 94 08/30/16 08:00 82 08/30/16 05:51 97.5 117 18 87/59 92 08/30/16 00:11 97.4 82 20 87/54 92 08/29/16 21:00 Nasal Cannula 4.00 Humidified 08/29/16 20:36 98.0 89 20 111/77 94 08/29/16 20:10 94 Nasal Cannula 4.00 08/29/16 20:00 87 08/29/16 16:00 99.5 86 18 107/73 94 I/O 08/29/16 08/29/16 08/29/16 08/30/16 08/30/16 08/30/16 07:00 15:00 23:00 07:00 15:00 23:00 Intake Total 240 ml 480 ml 150 ml Output Total 150 ml Balance 240 ml 480 ml -150 ml 150 ml Intake Oral 240 ml 480 ml IV Total 150 ml Output Urine Total 150 ml # Voids 3 2 3 # Bowel Movements 3 0 1 Result Diagram: 08/29/16 0600 Imaging Last Impressions Abdomen MRI 08/25/16 0000 Signed Impressions: Service Date/Time: Thursday, August 25, 2016 18:47 - CONCLUSION: 1. Cirrhotic liver with extensive nodularity likely representing multiple regenerating nodules. Underlying masses cannot be excluded. 2. Splenomegaly with abdominal ascites. 3. Right paraspinal mass along the right pedicle/transverse process at L1 again seen. Efraín Javier MD Cyst Biopsy Asp-Paracentesis US 08/24/16 0000 Signed Impressions: Service Date/Time: Wednesday, August 24, 2016 10:20 - CONCLUSION: Uncomplicated ultrasound guided paracentesis. Kiran Perez MD Chest X-Ray 08/22/16 0000 Signed Impressions: Service Date/Time: Monday, August 22, 2016 12:30 - CONCLUSION: No significant change has occurred. Jay Ventura MD Thoracic Spine CT 08/17/16 0000 Signed Impressions: Service Date/Time: Wednesday, August 17, 2016 06:58 - CONCLUSION: No acute fracture or subluxation of the thoracic spine. Scoliosis and multilevel degenerative changes as above. Nonacute appearing mild compression deformity of T10. Richard Tamez MD Head CT 08/17/16 0000 Signed Impressions: Service Date/Time: Wednesday, August 17, 2016 06:54 - CONCLUSION: 1. No bleed or other acute intracranial abnormality. 2. Chronic white matter changes. 3. Sinus disease. 4. Occipital scalp laceration. Richard Tamez MD Cervical Spine CT 08/17/16 0000 Signed Impressions: Service Date/Time: Wednesday, August 17, 2016 06:54 - CONCLUSION: No fracture or acute appearing malalignment seen of the cervical spine. Degenerative changes as above. Richard Tamez MD SPECT Scan-Bone Nuclear Medicine 08/13/16 0000 Signed Impressions: Service Date/Time: Saturday, August 13, 2016 12:42 - CONCLUSION: Benign whole-body bone scan and bone SPECT of the lumbar spine Richard Lester MD Lumbar Spine MRI 08/13/16 0000 Signed Impressions: Service Date/Time: Saturday, August 13, 2016 15:36 - CONCLUSION: 1. 6.5 x 4.5 x 4.3 cm right paraspinal mass likely related to a metastasis. This does extend into the right neural foramen for the L1 nerve but there is no intrathecal extension appreciated. 2. Bilateral L5 pars defects with grade 2 anterolisthesis and bilateral L5 impingement within the neural foramen. 3. Central canal patent throughout. Aidan Wright Jr., MD Abdomen/Pelvis CT 08/11/16 0210 Signed Impressions: Service Date/Time: Thursday, August 11, 2016 03:25 - CONCLUSION: 1. Cirrhosis with moderate to large ascites and increased splenomegaly. Heterogeneous and very nodular liver; possibility of liver masses difficult to exclude. 2. 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 Plasmacytoma related to multiple myeloma would also be in the differential. This is new. I believe it arose from the right transverse process of L1. Richard Tamez MD Objective Remarks GENERAL: This is a frail, jaundiced male who appears chronically ill CARDIOVASCULAR: Regular rate and rhythm without murmurs, gallops, or rubs. RESPIRATORY: Clear to auscultation. Breath sounds equal bilaterally. No wheezes , rales, or rhonchi. GASTROINTESTINAL: Abdomen soft, tender in the RUQ, mildly distended. Normal active bowel sounds MUSCULOSKELETAL: Extremities without clubbing, cyanosis, or edema. NEURO: Awake and alert, slow speech, lethargic. Moves upper and lower extremities. PSYCH: Flattened affect. Procedures Paracentesis Medications and IVs Current Medications Medications (Trade) Dose Ordered Sig/Barak Route Start Time Stop Time Status Last Admin (NS Flush) 2 ml UNSCH PRN FLUSH 08/11/16 05:00 (NS Flush) 2 ml BID FLUSH 08/11/16 09:00 08/30/16 08:50 (Zofran Inj) 4 mg Q6H PRN IVP 08/11/16 05:00 08/27/16 23:07 (Narcan Inj) 0.4 mg UNSCH PRN IV 08/11/16 05:00 (Lanoxin) 0.125 mg DAILY PO 08/12/16 09:00 08/30/16 08:50 (Neurontin) 100 mg TID PO 08/11/16 18:00 08/30/16 08:50 (KCl) 10 meq TID PO 08/11/16 18:00 08/30/16 08:50 (Paige-Colace) 2 tab BID PRN PO 08/11/16 15:45 (Restoril) 30 mg HS PO 08/11/16 21:00 08/29/16 20:37 (Spiriva Inh) 18 mcg DAILY INH 08/12/16 09:00 08/30/16 08:51 (Demadex) 20 mg DAILY PO 08/12/16 09:00 08/30/16 08:50 (Desyrel) 100 mg HS PO 08/11/16 21:00 08/29/16 20:37 (Effexor Xr) 150 mg DAILY PO 08/12/16 09:00 08/30/16 08:50 (Oscal-D 250-125) 500 mg BID PO 08/11/16 21:00 08/30/16 08:50 (Symbicort 160-4.5 Inh) 2 puff BID INH 08/11/16 21:00 08/30/16 08:51 (Lipitor) 20 mg HS PO 08/11/16 21:00 08/29/16 20:37 (Duragesic 100 Mcg Patch.72 Hr) 1 patch Q3D TD 08/12/16 09:00 08/30/16 08:53 (Roxicodone) 10 mg Q12HR PRN PO 08/13/16 21:00 08/30/16 01:09 (Protonix) 40 mg Q12HR PO 08/14/16 21:00 08/30/16 08:50 (NS Flush) 5 ml UNSCH PRN IVF 08/18/16 19:45 (Heparin Central Flush) 250 units UNSCH PRN IVF 08/18/16 19:45 08/29/16 13:54 Heparin Sodium (Porcine) 500 units 500 units UNSCH IVF 08/18/16 19:45 08/25/16 23:10 (Levaquin 750 Mg Premix Inj) 150 ml @ 100 mls/hr Q24H IV 08/18/16 23:00 08/29/16 23:53 Miscellaneous Information 1 Q3D TD 08/21/16 09:00 08/30/16 08:53 (Lactulose Liq) 30 ml QID PO 08/25/16 09:00 08/30/16 08:50 (Megace Liq) 400 mg DAILY PO 08/29/16 16:15 08/30/16 08:50 A/P Problem List: (1) Hematemesis ICD Code: K92.0 Status: Resolved (2) GI bleed ICD Code: K92.2 Status: Acute (3) Cirrhosis of liver ICD Code: K74.60 Status: Chronic (4) Liver mass ICD Code: R16.0 Status: Chronic (5) Pzeed-5-yythdenwjbp deficiency ICD Code: E88.01 Status: Chronic (6) Respiratory failure, acute and chronic ICD Code: J96.20 Status: Acute Assessment and Plan 65-year-old male with metastatic liver cancer initially presented with GI bleed. Patient found to have a paraspinous mass causing back pain. Patient currently undergoing radiation therapy. End stage liver disease/ ascites/ metabolic encephalopathy/ liver cancer with paraspinous mets CT abdomen with malignant appearing upper lumbar right paraspinous mass, nonspecific but most likely a metastasis. Appreciate input from medical oncology. LFTs continue to increase. Pt is encephalopathic. S/p paracentesis 08/24 with removal of over 2 L fluid. Appreciate GI consult. MRI showed: Cirrhotic liver with extensive nodularity likely representing multiple regenerating nodules; Underlying masses cannot be excluded; Splenomegaly with abdominal ascites; Right paraspinal mass along the right pedicle/transverse process at L1. - Continue Demadex. - IV albumin d/c 08/27. - GI signed off. Reconsult if needed. - continue lactulose. - consider hospice. - trend LFTs. - pt with severe malnutrition. He said he would not want an NGT for tube feeds and seems also not to want a PEG. Encourage PO intake. Started Megace 08/29. The pt said he tolerated his breakfast 08/30. - tentatively to follow up with hepatology at [facility] for new clinical trial in September 2016. - Radiation Oncology following, palliative radiation scheduled. - Follow up with palliative care. Hypotension May be s/t fluid shifts s/t paracentesis. - IV albumin ordered. D/c 08/27. - fluids if needed. Encourage by mouth intake. Hematemesis/GI bleed H&H remained stable. Status post EGD with band ligation 08/11/16. Currently stable without any GI bleed. S/p PPI as well as octreotide drip 08/14/16. Appreciate input from gastroenterology. - monitor H&H and transfuse accordingly. - Discontinue Xarelto. - PPI. 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 Respiratory status worsen on 08/17. Repeat chest X-ray shows new right upper and left lower lobe infiltrates. Appreciate pulmonology consult. On 4L NC 08/30. - Continue Levaquin. - Continue breathing treatments. - nebs and oxygen as needed. - Continue weekly Prolastin patient. Atrial fibrillation Currently rate controlled. - continue with digoxin and monitor level. History of hypertension Currently hypotensive. - Continue to hold all oral antihypertensive medications Fall Status post mechanical fall 08/17/[address], thoracic and cervical spine noted and review and are unremarkable. - Fall precautions. - PT/OT. DVT prophylaxis: Chemical anti-prophylaxis is contraindicated secondary to GI bleed, bilateral SCDs. GI prophylaxis: PPI. Discharge Planning Consider home hospice. Problem Qualifiers (1) GI bleed: Qualified Code: K92.2 - Gastrointestinal hemorrhage, unspecified gastrointestinal hemorrhage type Tone Hensley DO Aug 30, 2016 12:09
--- NOTE | 2016-08-30 14:46 | HHI.HCPN ---
Reason for visit a. To assist with evaluation and management of symptoms including: Pain; dyspnea; encephalopathy b. To assist medical decision maker(s) with: better understanding of current medical conditions; weighing benefits/burdens of medical treatment options; making medical treatment decisions. . Subjective/Interval History Pt is easily arousable, but extremely fatigued. He complain of some pain of his hips. He is alert able to answer questions. Able to perform supine therapeutic excercise with PT. Spoke with pt, reviewed that with his performace status, I don't think he can tolerate any clinical trial as shands. He maintain the same thing as my meeting with them last time to take things a day at a time. At the time pt's respiratory status was worse, and family had ask for directional driller. Pt resp status is better, but goals remains aggressive. . Family/friend interactions nor family at bedside. Advance Directives Living Will: Never completed Health Care Surrogate: Never completed Durable Power of Gizzard Skin Remover: Never completed Advance Directive Specifics Date completed: No completed advance directives . Health Care Surrogate(s): No written designation of health care surrogate. . Documented care wishes: No written documentation of health care goals/preferences. . Objective Vital Signs Date Time Temp Pulse Resp B/P Pulse Ox O2 Delivery O2 Flow Rate FiO2 08/30/16 12:07 97.5 85 19 96/62 96 08/30/16 09:00 Nasal Cannula 4.00 Humidified 08/30/16 08:51 95 Nasal Cannula 3.00 08/30/16 08:04 97.5 81 19 85/57 94 08/30/16 08:00 82 08/30/16 05:51 97.5 117 18 87/59 92 08/30/16 00:11 97.4 82 20 87/54 92 08/29/16 21:00 Nasal Cannula 4.00 Humidified 08/29/16 20:36 98.0 89 20 111/77 94 08/29/16 20:10 94 Nasal Cannula 4.00 08/29/16 20:00 87 08/29/16 16:00 99.5 86 18 107/73 94 Intake & Output 08/30/16 08/30/16 07:00 19:00 Intake Total 150 ml 2 ml Output Total 150 ml Balance 0 ml 2 ml IV Total 150 ml 2 ml Output Urine Total 150 ml # Voids 3 # Bowel Movements 1 Physical Exam CONSTITUTIONAL/GENERAL: This is an weak,frail gentlemen with 02 via nasal cannula in place. He is arousable, but very lethargic. No obvious distress. SKIN:Mild jaundice, rashes, or lesions. No wounds seen anteriorly. Skin temperature appropriate. Not diaphoretic. HEAD: Atraumatic. Normocephalic. EYES: Mild scleral icterus. No injection or drainage. Fundi not examined. ENT: Hearing grossly normal. Nose without bleeding or purulent drainage. Throat without visible erythema, exudates, masses, or lesions. NECK: Trachea midline. Supple. CARDIOVASCULAR: Regular rate and rhythm without murmurs, gallops, or rubs. No JVD. RESPIRATORY/CHEST: Decrease breath sound bilaterally GASTROINTESTINAL: Abdomen soft, distended, non-tender, umblical hernia present. GENITOURINARY: Without palpable bladder distension. MUSCULOSKELETAL: Extremities without clubbing, cyanosis, or edema. No mottling or clubbing. LYMPHATICS: Not examined. NEUROLOGICAL: Lethargic; easily arousable. follow commands. . Diagnostic Tests Laboratory Laboratory Tests Test 08/29/16 06:00 Prothrombin Time 15.4 SEC (9.8-11.6) Prothromb Time International 1.4 RATIO Ratio Sodium Level 143 MEQ/L (136-145) Potassium Level 3.9 MEQ/L (3.5-5.1) Chloride Level 103 MEQ/L (98-107) Carbon Dioxide Level 34.4 MEQ/L (21.0-32.0) Anion Gap 6 MEQ/L (5-15) Blood Urea Nitrogen 34 MG/DL (7-18) Creatinine 1.53 MG/DL (0.60-1.30) Estimat Glomerular Filtration 46 ML/MIN (>89) Rate Random Glucose 79 MG/DL (74-106) Calcium Level 9.3 MG/DL (8.5-10.1) Total Bilirubin 11.5 MG/DL (0.2-1.0) Aspartate Amino Transf 894 U/L (15-37) (AST/SGOT) Alanine Aminotransferase 148 U/L (12-78) (ALT/SGPT) Alkaline Phosphatase 804 U/L (45-117) Total Protein 5.8 GM/DL (6.4-8.2) Albumin 2.6 GM/DL (3.4-5.0) Prealbumin 4 MG/DL (20-40) Result Diagram: 08/29/16 0600 Assessment and Plan Disease Oriented Problem List: (1) Wtkvw-1-jctwrxvguzs deficiency (2) Liver mass Comment: with mets to the paraspinal process. (3) Depression (4) CAD (coronary artery disease) (5) GI bleed (6) Cirrhosis of liver (7) COPD (chronic obstructive pulmonary disease) (8) Chronic atrial fibrillation Symptom Scale: (1) Pain 0-10 Scale: Unable to quantify Comment: LIkely sources of pain include met to the spine,abdominal pain., pain from prolonged bedbound status. . (2) Encephalopathy 0-10 Scale: Unable to quantify Comment: Encephalopathy may be multi-factorial. . Pertinent Non-Medical Issues Psychosocial: . Normally lives with . Spiritual: Spiritism Legal: No living will or written health care surrogate documentation. Ethical issues impacting care: Patient is intermittently awake and alert. . Important Contacts * Estella Hunter ( and proxy) [phone]; [phone] . 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 Declining now in hospital with worsening renal and hepatic function. Receiving radiation therapy for spine lesion, but overall prognosis is considered to be poor. Likely days to weeks. . Code Status: Alternative Code Plan == Code Status: ALTERNATE CODE. Patient last stated that he wanted chest compressions and shock but did not want intubation. OK to BiPAP. == Decision making: Patient has had fluctuating mental status. I recommend that the patient's , the proxy, be brought into any major decisions. == Goals of medical treatment: Remains aggressive. I reviewed with pt about is perfromance status, and that he will more than likely not tolerate any trials a shands. Hospice has been offered to the before, and she has declined. == Pain: . No recommended changes at this time. == Lethargy: Probably multi-factorial. There is probably an element of hepatic encephalopathy. == Palliative care will continue to follow to assist with symptom management and to further clarify goals of medical treatment as the clinical case evolves. . Roderick Arteaga MD Aug 30, 2016 14:46
--- NOTE | 2016-08-30 19:16 | HHI.PR ---
Subjective Remarks 65 YOWM with COPD, Hepatocellular ca,AF, CAD ABG Showes compensated Resp acidosis Breathing better Palliative care consulted Weaned to 4 LNC Appetite poor Up in chair. Objective Vital Signs Vital Signs Date Time Temp Pulse Resp B/P Pulse Ox O2 Delivery O2 Flow Rate FiO2 08/30/16 16:11 97.9 85 20 105/64 94 08/30/16 12:07 97.5 85 19 96/62 96 08/30/16 09:00 Nasal Cannula 4.00 Humidified 08/30/16 08:51 95 Nasal Cannula 3.00 08/30/16 08:04 97.5 81 19 85/57 94 08/30/16 08:00 82 08/30/16 05:51 97.5 117 18 87/59 92 08/30/16 00:11 97.4 82 20 87/54 92 08/29/16 21:00 Nasal Cannula 4.00 Humidified 08/29/16 20:36 98.0 89 20 111/77 94 08/29/16 20:10 94 Nasal Cannula 4.00 08/29/16 20:00 87 I/O 08/29/16 08/29/16 08/29/16 08/30/16 08/30/16 08/30/16 07:00 15:00 23:00 07:00 15:00 23:00 Intake Total 240 ml 480 ml 150 ml 722 ml Output Total 150 ml 600 ml Balance 240 ml 480 ml -150 ml 150 ml 122 ml Intake Oral 240 ml 480 ml 720 ml IV Total 150 ml 2 ml Output Urine Total 150 ml 600 ml # Voids 3 2 3 # Bowel Movements 3 0 1 1 Result Diagram: 08/29/16 0600 Objective Remarks GENERAL: MBMN WM, mild SOB SKIN: Warm and dry. HEAD: Normocephalic. EYES: No scleral icterus. No injection or drainage. NECK: Supple, trachea midline. No JVD or lymphadenopathy. CARDIOVASCULAR: Regular rate and rhythm without murmurs, gallops, or rubs. RESPIRATORY: Breath sounds equal bilaterally. No accessory muscle use. Decreased Chest excursion. GASTROINTESTINAL: Abdomen soft, non-tender, nondistended. MUSCULOSKELETAL: No cyanosis, or edema. BACK: Nontender without obvious deformity. No CVA tenderness. A/P Assessment and Plan COPD Alpha-1 Antitrypsin def Hepatocellular ca AF CAD PLAN: Aerosol nebs Symbicort 2 puffs bid Spiriva daily Protonix 40 mg daily Wean 02 to keep sat >90% Encourage PO Palliative care seeing pt. Cristobal Antonio MD Aug 30, 2016 19:16
[2016-08-30] MEDS: traZODone HCL 100 MG TAB PO SCH (23:03)
[2016-08-30] MEDS: ATORVASTATIN 20 MG TAB PO SCH (23:03)
[2016-08-30] MEDS: TEMAZEPAM 15 MG CAP PO SCH (23:03)
[2016-08-30] MEDS: LEVOFLOXACIN 750 MG PREMIX INJ 150 ML IV SCH (23:04)
[2016-08-31] VITALS (9 sets, daily range): BP systolic 85–111; BP diastolic 55–85; PULSE 83–89; RESP 16–20; TEMP 97.4–98.2; O2SAT 90–95
[2016-08-31 07:04] LABS: INTERNATIONAL NORMALIZED RATIO 1.6 RATIO; PROTHROMBIN TIME - PATIENT 17.8 SEC (9.8-11.6)
[2016-08-31 07:14] LABS: BICARBONATE 29.9 MEQ/L (21.0-32.0); MAGNESIUM 1.8 MG/DL (1.5-2.5); POTASSIUM 4.2 MEQ/L (3.5-5.1)
[2016-08-31 07:21] LABS: INDIRECT BILIRUBIN 3.1 MG/DL (0.0-0.8); TOTAL BILIRUBIN ADULT 15.1 MG/DL (0.2-1.0)
[2016-08-31 07:29] LABS: HEMATOCRIT 24.5 % (39.0-51.0); MEAN CELL VOLUME 89.9 FL (80.0-100.0); MEAN CORPUSCULAR HEMOGLOBIN 31.2 PG (27.0-34.0); MEAN CORPUSCULAR HGB CONC 34.7 % (32.0-36.0); PLATELET COUNT 48 TH/MM3 (150-450); RED BLOOD COUNT 2.73 MIL/MM3 (4.50-5.90); RED CELL DISTRIBUTION WIDTH 21.5 % (11.6-17.2); WHITE BLOOD COUNT 4.5 TH/MM3 (4.0-11.0)
[2016-08-31] MEDS: LACTULOSE SYRUP 20 GM/30 ML CUP PO SCH ×4 (08:35→23:11)
[2016-08-31] MEDS: POTASSIUM CHLORIDE 10 MEQ CONTROLLED RELEASE TAB PO SCH ×3 (08:35→16:15)
[2016-08-31] MEDS: DIGOXIN 0.125 MG TAB PO SCH (08:35)
[2016-08-31] MEDS: MEGESTROL ACETATE SUSP 400 MG/10 ML CUP PO SCH (08:36)
[2016-08-31] MEDS: PANTOPRAZOLE SOD 40 MG DELAYED RELEASE TAB PO SCH ×3 (08:36→23:12)
[2016-08-31] MEDS: VENLAFAXINE HCL XR 75 MG CAP PO SCH (08:36)
[2016-08-31] MEDS: GABAPENTIN 100 MG CAP PO SCH ×3 (08:36→16:15)
[2016-08-31] MEDS: TORSEMIDE 20 MG TAB PO SCH (08:36)
[2016-08-31] MEDS: SODIUM CHLORIDE 0.9% FLUSH 5 ML FLUSH FLUSH SCH ×2 (08:36→23:15)
[2016-08-31] MEDS: CALCIUM/VITAMIN D 250 MG/125 U TAB PO SCH ×3 (08:36→23:12)
[2016-08-31] MEDS: BUDESONIDE-FORMOTEROL 160/4.5 MCG INHALER INH SCH ×2 (08:37→23:09)
[2016-08-31] MEDS: TIOTROPIUM BROMIDE 18 MCG INH INH SCH (08:37)
[2016-08-31 08:56] LABS: REVIEW FLAG AUTO DIFF
--- NOTE | 2016-08-31 15:26 | HHI.PR ---
Subjective Remarks Follow-up end-stage liver disease, encephalopathy, hypotension. Patient off the floor to have radiation therapy. Discussed with patient's nurse. He has been tired today. Objective Vitals Vital Signs Date Time Temp Pulse Resp B/P Pulse Ox O2 Delivery O2 Flow Rate FiO2 08/31/16 12:00 97.4 87 16 85/55 90 08/31/16 08:53 86 08/31/16 08:53 Nasal Cannula 4.00 08/31/16 08:20 93 Nasal Cannula 3.00 08/31/16 08:00 98.2 83 20 87/57 93 08/31/16 04:00 98.1 87 20 91/58 92 08/31/16 00:00 98.2 89 18 111/58 95 08/30/16 21:19 Nasal Cannula 3.00 08/30/16 20:40 Nasal Cannula 4.00 08/30/16 20:00 84 08/30/16 20:00 97.8 85 16 101/66 96 08/30/16 16:11 97.9 85 20 105/64 94 I/O 08/30/16 08/30/16 08/30/16 08/31/16 08/31/16 08/31/16 07:00 15:00 23:00 07:00 15:00 23:00 Intake Total 150 ml 722 ml 120 ml 0 ml Output Total 600 ml Balance 150 ml 122 ml 120 ml 0 ml Intake Oral 720 ml 120 ml 0 ml IV Total 150 ml 2 ml Output Urine Total 600 ml # Voids 3 1 1 # Bowel Movements 1 1 1 1 Result Diagram: 08/31/16 0631 08/31/16 0631 Imaging Last Impressions Abdomen MRI 08/25/16 0000 Signed Impressions: Service Date/Time: Thursday, August 25, 2016 18:47 - CONCLUSION: 1. Cirrhotic liver with extensive nodularity likely representing multiple regenerating nodules. Underlying masses cannot be excluded. 2. Splenomegaly with abdominal ascites. 3. Right paraspinal mass along the right pedicle/transverse process at L1 again seen. Efraín Javier MD Cyst Biopsy Asp-Paracentesis US 08/24/16 0000 Signed Impressions: Service Date/Time: Wednesday, August 24, 2016 10:20 - CONCLUSION: Uncomplicated ultrasound guided paracentesis. Kiran Perez MD Chest X-Ray 08/22/16 0000 Signed Impressions: Service Date/Time: Monday, August 22, 2016 12:30 - CONCLUSION: No significant change has occurred. Jay Ventura MD Thoracic Spine CT 08/17/16 0000 Signed Impressions: Service Date/Time: Wednesday, August 17, 2016 06:58 - CONCLUSION: No acute fracture or subluxation of the thoracic spine. Scoliosis and multilevel degenerative changes as above. Nonacute appearing mild compression deformity of T10. Richard Tamez MD Head CT 08/17/16 0000 Signed Impressions: Service Date/Time: Wednesday, August 17, 2016 06:54 - CONCLUSION: 1. No bleed or other acute intracranial abnormality. 2. Chronic white matter changes. 3. Sinus disease. 4. Occipital scalp laceration. Richard Tamez MD Cervical Spine CT 08/17/16 0000 Signed Impressions: Service Date/Time: Wednesday, August 17, 2016 06:54 - CONCLUSION: No fracture or acute appearing malalignment seen of the cervical spine. Degenerative changes as above. Richard Tamez MD SPECT Scan-Bone Nuclear Medicine 08/13/16 0000 Signed Impressions: Service Date/Time: Saturday, August 13, 2016 12:42 - CONCLUSION: Benign whole-body bone scan and bone SPECT of the lumbar spine Richard Lester MD Lumbar Spine MRI 08/13/16 0000 Signed Impressions: Service Date/Time: Saturday, August 13, 2016 15:36 - CONCLUSION: 1. 6.5 x 4.5 x 4.3 cm right paraspinal mass likely related to a metastasis. This does extend into the right neural foramen for the L1 nerve but there is no intrathecal extension appreciated. 2. Bilateral L5 pars defects with grade 2 anterolisthesis and bilateral L5 impingement within the neural foramen. 3. Central canal patent throughout. Aidan Wright Jr., MD Abdomen/Pelvis CT 08/11/16 0210 Signed Impressions: Service Date/Time: Thursday, August 11, 2016 03:25 - CONCLUSION: 1. Cirrhosis with moderate to large ascites and increased splenomegaly. Heterogeneous and very nodular liver; possibility of liver masses difficult to exclude. 2. 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 Plasmacytoma related to multiple myeloma would also be in the differential. This is new. I believe it arose from the right transverse process of L1. Richard Tamez MD Objective Remarks Not examined -- patient off the floor at radiation therapy. Procedures Paracentesis Urinary Catheter: No Vascular Central Line Catheter: No A/P Problem List: (1) Hematemesis ICD Code: K92.0 Status: Resolved (2) GI bleed ICD Code: K92.2 Status: Acute (3) Cirrhosis of liver ICD Code: K74.60 Status: Chronic (4) Liver mass ICD Code: R16.0 Status: Chronic (5) Wnctn-8-hcveuorcfls deficiency ICD Code: E88.01 Status: Chronic (6) Respiratory failure, acute and chronic ICD Code: J96.20 Status: Acute Assessment and Plan 1. End-stage liver disease, ascites, liver cancer with paraspinous metastases: LFTs continue to increase. Patient remains encephalopathic. Status post paracentesis on 08/24/16 with removal of 2 L. Gastroenterology signed off. Continue lactulose. Radiation oncology following. Palliative radiation scheduled. Patient is tentatively scheduled to follow up with hepatology at [facility] for a clinical trial in September 2016. 2. Hypotension: Possibly secondary to fluid shifts following paracentesis. IV albumin discontinued. IV fluids if necessary. Encourage oral intake. 3. Hematemesis, GI bleeding: Resolved. H&H stable. Status post EGD with band ligation on 08/11/16. No apparent active bleeding. Continue PPI. Xarelto discontinued. 4. Acute on chronic respiratory failure: Patient has history of alpha-1 trypsin deficiency. Continue Levaquin. Appreciate pulmonology recommendations. Continue bronchodilators, supplemental oxygen. 5. Atrial fibrillation: Rate controlled. Continue digoxin. Anticoagulation on hold secondary to GI bleed. 6. History of hypertension: Patient currently hypotensive. Oral antihypertensive medications on hold. Monitor blood pressure closely. 7. Mechanical fall, 08/17/16: Imaging unremarkable. Fall precautions. PT/OT. 8. DVT prophylaxis: SCDs. Chemical prophylaxis contraindicated secondary to GI bleed. Problem Qualifiers (1) GI bleed: Qualified Code: K92.2 - Gastrointestinal hemorrhage, unspecified gastrointestinal hemorrhage type Guy Price MD Aug 31, 2016 15:26 Qualified Code: K92.2 - Gastrointestinal hemorrhage, unspecified gastrointestinal hemorrhage type Guy Price MD Aug 31, 2016 15:26
--- NOTE | 2016-08-31 18:22 | HHI.PR ---
Subjective Remarks 65 YOWM with COPD, Hepatocellular ca,AF, CAD Breathing better Palliative care consulted Weaned to 4 LNC Appetite poor Went for radiation Objective Vital Signs Vital Signs Date Time Temp Pulse Resp B/P Pulse Ox O2 Delivery O2 Flow Rate FiO2 08/31/16 18:07 95 Nasal Cannula 3.00 08/31/16 15:00 97.6 88 20 88/85 95 08/31/16 12:00 97.4 87 16 85/55 90 08/31/16 08:53 86 08/31/16 08:53 Nasal Cannula 4.00 08/31/16 08:20 93 Nasal Cannula 3.00 08/31/16 08:00 98.2 83 20 87/57 93 08/31/16 04:00 98.1 87 20 91/58 92 08/31/16 00:00 98.2 89 18 111/58 95 08/30/16 21:19 Nasal Cannula 3.00 08/30/16 20:40 Nasal Cannula 4.00 08/30/16 20:00 84 08/30/16 20:00 97.8 85 16 101/66 96 I/O 08/30/16 08/30/16 08/30/16 08/31/16 08/31/16 08/31/16 07:00 15:00 23:00 07:00 15:00 23:00 Intake Total 150 ml 722 ml 120 ml 0 ml 120 ml Output Total 600 ml 600 ml Balance 150 ml 122 ml 120 ml 0 ml -480 ml Intake Oral 720 ml 120 ml 0 ml 120 ml IV Total 150 ml 2 ml Output Urine Total 600 ml 600 ml # Voids 3 1 1 # Bowel Movements 1 1 1 1 1 Result Diagram: 08/31/1631 08/31/1631 Objective Remarks GENERAL: MBMN WM, mild SOB SKIN: Warm and dry. HEAD: Normocephalic. EYES: No scleral icterus. No injection or drainage. NECK: Supple, trachea midline. No JVD or lymphadenopathy. CARDIOVASCULAR: Regular rate and rhythm without murmurs, gallops, or rubs. RESPIRATORY: Breath sounds equal bilaterally. No accessory muscle use. Decreased Chest excursion. GASTROINTESTINAL: Abdomen soft, non-tender, nondistended. MUSCULOSKELETAL: No cyanosis, or edema. BACK: Nontender without obvious deformity. No CVA tenderness. A/P Assessment and Plan COPD Alpha-1 Antitrypsin def Hepatocellular ca AF CAD End stage Liver Disease PLAN: Aerosol nebs Symbicort 2 puffs bid Spiriva daily Protonix 40 mg daily Wean 02 to keep sat >90% Encourage PO Palliative care seeing pt. Cristobal Antonio MD Aug 31, 2016 18:22
[2016-08-31] MEDS: TEMAZEPAM 15 MG CAP PO SCH (21:00)
[2016-08-31] MEDS: traZODone HCL 100 MG TAB PO SCH ×2 (21:00→23:12)
[2016-08-31] MEDS: ATORVASTATIN 20 MG TAB PO SCH (21:00)
[2016-08-31] MEDS: LEVOFLOXACIN 750 MG PREMIX INJ 150 ML IV SCH (23:15)
[2016-09-01] VITALS (7 sets, daily range): BP systolic 90–104; BP diastolic 55–75; PULSE 85–98; RESP 16–20; TEMP 97.4–98.8; O2SAT 91–97
[2016-09-01 07:27] LABS: HEMATOCRIT 24.3 % (39.0-51.0); MEAN CELL VOLUME 91.2 FL (80.0-100.0); MEAN CORPUSCULAR HEMOGLOBIN 31.1 PG (27.0-34.0); PLATELET COUNT 53 TH/MM3 (150-450); RED BLOOD COUNT 2.66 MIL/MM3 (4.50-5.90); RED CELL DISTRIBUTION WIDTH 21.9 % (11.6-17.2); WHITE BLOOD COUNT 4.7 TH/MM3 (4.0-11.0)
[2016-09-01 07:31] LABS: HEMO FLAGS AUTO DIFF
[2016-09-01 07:35] LABS: ALKALINE PHOSPHATASE 852 U/L (45-117); ALT (GPT) 148 U/L (12-78); ANION GAP 11 MEQ/L (5-15); AST (GOT) 1251 U/L (15-37); BICARBONATE 28.7 MEQ/L (21.0-32.0); BLOOD UREA NITROGEN 45 MG/DL (7-18); CHLORIDE 95 MEQ/L (98-107); GLOMERULAR FILTRATION RATE 34 ML/MIN (>89); POTASSIUM 4.5 MEQ/L (3.5-5.1); SODIUM (NA) 135 MEQ/L (136-145)
--- NOTE | 2016-09-01 07:48 | HHI.PR ---
Subjective Remarks Follow up liver failure, dysphagia. Per nursing, patient had desaturation overnight. He is refusing medications due to difficulty swallowing. He denies shortness of breath currently. He is coughing. He does appear confused. Objective Vitals Vital Signs Date Time Temp Pulse Resp B/P Pulse Ox O2 Delivery O2 Flow Rate FiO2 09/01/16 04:00 98.1 89 18 90/60 92 09/01/16 00:00 97.9 88 17 93/58 96 08/31/16 20:00 Nasal Cannula 4.00 08/31/16 20:00 97.6 88 18 93/62 92 08/31/16 20:00 86 08/31/16 18:07 95 Nasal Cannula 3.00 08/31/16 15:00 97.6 88 20 88/85 95 08/31/16 12:00 97.4 87 16 85/55 90 08/31/16 08:53 86 08/31/16 08:53 Nasal Cannula 4.00 08/31/16 08:20 93 Nasal Cannula 3.00 08/31/16 08:00 98.2 83 20 87/57 93 I/O 08/31/16 08/31/16 08/31/16 09/01/16 09/01/16 09/01/16 07:00 15:00 23:00 07:00 15:00 23:00 Intake Total 0 ml 120 ml 840 ml 100 ml Output Total 600 ml Balance 0 ml -480 ml 840 ml 100 ml Intake Oral 0 ml 120 ml 840 ml 100 ml Output Urine Total 600 ml # Voids 1 3 3 # Bowel Movements 1 1 1 2 Result Diagram: 09/01/1630 09/01/16 0630 Imaging Last Impressions Abdomen MRI 08/25/16 0000 Signed Impressions: Service Date/Time: Thursday, August 25, 2016 18:47 - CONCLUSION: 1. Cirrhotic liver with extensive nodularity likely representing multiple regenerating nodules. Underlying masses cannot be excluded. 2. Splenomegaly with abdominal ascites. 3. Right paraspinal mass along the right pedicle/transverse process at L1 again seen. Efraín Javier MD Cyst Biopsy Asp-Paracentesis US 08/24/16 0000 Signed Impressions: Service Date/Time: Wednesday, August 24, 2016 10:20 - CONCLUSION: Uncomplicated ultrasound guided paracentesis. Kiran Perez MD Chest X-Ray 08/22/16 0000 Signed Impressions: Service Date/Time: Monday, August 22, 2016 12:30 - CONCLUSION: No significant change has occurred. Jay Ventura MD Thoracic Spine CT 08/17/16 0000 Signed Impressions: Service Date/Time: Wednesday, August 17, 2016 06:58 - CONCLUSION: No acute fracture or subluxation of the thoracic spine. Scoliosis and multilevel degenerative changes as above. Nonacute appearing mild compression deformity of T10. Richard Tamez MD Head CT 08/17/16 0000 Signed Impressions: Service Date/Time: Wednesday, August 17, 2016 06:54 - CONCLUSION: 1. No bleed or other acute intracranial abnormality. 2. Chronic white matter changes. 3. Sinus disease. 4. Occipital scalp laceration. Richard Tamez MD Cervical Spine CT 08/17/16 0000 Signed Impressions: Service Date/Time: Wednesday, August 17, 2016 06:54 - CONCLUSION: No fracture or acute appearing malalignment seen of the cervical spine. Degenerative changes as above. Richard Tamez MD SPECT Scan-Bone Nuclear Medicine 08/13/16 0000 Signed Impressions: Service Date/Time: Saturday, August 13, 2016 12:42 - CONCLUSION: Benign whole-body bone scan and bone SPECT of the lumbar spine Richard Lester MD Lumbar Spine MRI 08/13/16 0000 Signed Impressions: Service Date/Time: Saturday, August 13, 2016 15:36 - CONCLUSION: 1. 6.5 x 4.5 x 4.3 cm right paraspinal mass likely related to a metastasis. This does extend into the right neural foramen for the L1 nerve but there is no intrathecal extension appreciated. 2. Bilateral L5 pars defects with grade 2 anterolisthesis and bilateral L5 impingement within the neural foramen. 3. Central canal patent throughout. Aidan Wright Jr., MD Abdomen/Pelvis CT 08/11/16 0210 Signed Impressions: Service Date/Time: Thursday, August 11, 2016 03:25 - CONCLUSION: 1. Cirrhosis with moderate to large ascites and increased splenomegaly. Heterogeneous and very nodular liver; possibility of liver masses difficult to exclude. 2. 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 Plasmacytoma related to multiple myeloma would also be in the differential. This is new. I believe it arose from the right transverse process of L1. Richard Tamez MD Objective Remarks General: Cachectic male in no acute distress. Jaundiced. Heart: Regular rate and rhythm. No murmur. Lungs: Clear to auscultation bilaterally. No wheezes, rales, or rhonchi. Breathing is nonlabored. Abdomen: Soft, mild diffuse tenderness to palpation without rebound or guarding , nondistended. Extremities: No lower extremity edema. SCDs. Psych: Alert, confused. Procedures Paracentesis Urinary Catheter: No Vascular Central Line Catheter: No A/P Problem List: (1) Hematemesis ICD Code: K92.0 Status: Resolved (2) GI bleed ICD Code: K92.2 Status: Acute (3) Cirrhosis of liver ICD Code: K74.60 Status: Chronic (4) Liver mass ICD Code: R16.0 Status: Chronic (5) Dhxkf-2-ilcbbnubyxn deficiency ICD Code: E88.01 Status: Chronic (6) Respiratory failure, acute and chronic ICD Code: J96.20 Status: Acute Assessment and Plan 1. End-stage liver disease, ascites, liver cancer with paraspinous metastases: LFTs continue to increase. Patient remains encephalopathic. Status post paracentesis on 08/24/16 with removal of 2 L. Gastroenterology signed off. Continue lactulose. Radiation oncology following. Had palliative radiation therapy yesterday. Patient is tentatively scheduled to follow up with hepatology at [facility] for a clinical trial in September 2016, however patient's declining functional status will likely preclude travel to [facility] or participation in study. 2. Hypotension: Possibly secondary to fluid shifts following paracentesis. IV albumin discontinued. IV fluids if necessary. Encourage oral intake. 3. Hematemesis, GI bleeding: Resolved. H&H stable. Status post EGD with band ligation on 08/11/16. No apparent active bleeding. Continue PPI. Xarelto discontinued. 4. Acute on chronic respiratory failure: Patient has history of alpha-1 antitrypsin deficiency. Continue Levaquin. Appreciate pulmonology recommendations. Continue bronchodilators, supplemental oxygen. 5. Atrial fibrillation: Rate controlled. Continue digoxin. Anticoagulation on hold secondary to GI bleed. 6. History of hypertension: Patient currently hypotensive. Oral antihypertensive medications on hold. Monitor blood pressure closely. 7. Mechanical fall, 08/17/16: Imaging unremarkable. Fall precautions. PT/OT. 8. DVT prophylaxis: SCDs. Chemical prophylaxis contraindicated secondary to GI bleed. 9. Poor prognosis. Appreciate palliative care assistance. 10. Dysphagia: Check swallow eval. Problem Qualifiers (1) GI bleed: Qualified Code: K92.2 - Gastrointestinal hemorrhage, unspecified gastrointestinal hemorrhage type Guy Price MD Sep 01, 2016 07:48
[2016-09-01] MEDS: BUDESONIDE-FORMOTEROL 160/4.5 MCG INHALER INH SCH ×2 (08:49→21:41)
[2016-09-01] MEDS: TIOTROPIUM BROMIDE 18 MCG INH INH SCH (08:50)
[2016-09-01] MEDS: SODIUM CHLORIDE 0.9% FLUSH 5 ML FLUSH FLUSH SCH ×2 (08:50→21:41)
[2016-09-01] MEDS: POTASSIUM CHLORIDE 10 MEQ CONTROLLED RELEASE TAB PO SCH ×3 (08:52→18:22)
[2016-09-01] MEDS: VENLAFAXINE HCL XR 75 MG CAP PO SCH (08:52)
[2016-09-01] MEDS: TORSEMIDE 20 MG TAB PO SCH (08:52)
[2016-09-01] MEDS: DIGOXIN 0.125 MG TAB PO SCH (08:53)
[2016-09-01] MEDS: LACTULOSE SYRUP 20 GM/30 ML CUP PO SCH ×4 (08:53→21:00)
[2016-09-01] MEDS: CALCIUM/VITAMIN D 250 MG/125 U TAB PO SCH ×2 (08:53→21:42)
[2016-09-01] MEDS: PANTOPRAZOLE SOD 40 MG DELAYED RELEASE TAB PO SCH ×2 (08:53→21:42)
[2016-09-01] MEDS: MEGESTROL ACETATE SUSP 400 MG/10 ML CUP PO SCH (08:53)
[2016-09-01] MEDS: GABAPENTIN 100 MG CAP PO SCH ×3 (08:53→18:22)
[2016-09-01 10:08] LABS: BANDS 11 % (0-6); BASOPHILS 1 % (0-2); NEUTROPHIL # MANUAL DIFF 3.9 TH/MM3 (1.8-7.7); POLYS (SEG NEUTROPHILS) 73 % (16-70); WBC DIFF SAMPLE 100
[2016-09-01 10:09] LABS: PLATELET ESTIMATE SMEAR LOW (NORMAL); PLATELET MORPHOLOGY NORMAL (NORMAL); SCAN/DIFF FINAL DIFF MANUAL; TARGET CELLS 2+ (NORMAL)
--- NOTE | 2016-09-01 18:59 | HHI.PR ---
Subjective Remarks 65 YOWM with COPD, Hepatocellular ca,AF, CAD Breathing better Palliative care consulted Weaned to 4 LNC Appetite poor Feels weak, intermittentally confused Objective Vital Signs Vital Signs Date Time Temp Pulse Resp B/P Pulse Ox O2 Delivery O2 Flow Rate FiO2 09/01/16 16:00 97.4 98 20 104/75 92 09/01/16 12:00 97.9 96 20 98/58 97 09/01/16 08:59 94 09/01/16 08:59 Nasal Cannula 4.00 09/01/16 08:00 98.8 91 20 101/55 92 09/01/16 04:00 98.1 89 18 90/60 92 09/01/16 00:00 97.9 88 17 93/58 96 08/31/16 20:00 Nasal Cannula 4.00 08/31/16 20:00 97.6 88 18 93/62 92 08/31/16 20:00 86 I/O 08/31/16 08/31/16 08/31/16 09/01/16 09/01/16 09/01/16 07:00 15:00 23:00 07:00 15:00 23:00 Intake Total 0 ml 120 ml 840 ml 100 ml 0 ml Output Total 600 ml 200 ml Balance 0 ml -480 ml 840 ml 100 ml -200 ml Intake Oral 0 ml 120 ml 840 ml 100 ml 0 ml Output Urine Total 600 ml 200 ml # Voids 1 3 3 # Bowel Movements 1 1 1 2 0 1 Result Diagram: 09/01/16 0630 09/01/16 0630 Objective Remarks GENERAL: MBMN WM, mild SOB SKIN: Warm and dry. HEAD: Normocephalic. EYES: No scleral icterus. No injection or drainage. NECK: Supple, trachea midline. No JVD or lymphadenopathy. CARDIOVASCULAR: Regular rate and rhythm without murmurs, gallops, or rubs. RESPIRATORY: Breath sounds equal bilaterally. No accessory muscle use. Decreased Chest excursion. GASTROINTESTINAL: Abdomen soft, non-tender, nondistended. MUSCULOSKELETAL: No cyanosis, or edema. BACK: Nontender without obvious deformity. No CVA tenderness. A/P Assessment and Plan COPD Alpha-1 Antitrypsin def Hepatocellular ca AF CAD End stage Liver Disease PLAN: Aerosol nebs Symbicort 2 puffs bid Spiriva daily Protonix 40 mg daily Wean 02 to keep sat >90% Palliative care seeing pt. Humera on [place] Cristobal Antonio MD Sep 01, 2016 18:59
[2016-09-01] MEDS: ATORVASTATIN 20 MG TAB PO SCH (21:00)
[2016-09-01] MEDS: TEMAZEPAM 15 MG CAP PO SCH (21:00)
[2016-09-01] MEDS: traZODone HCL 100 MG TAB PO SCH (21:42)
[2016-09-01] MEDS: LEVOFLOXACIN 750 MG PREMIX INJ 150 ML IV SCH (23:56)
[2016-09-02] VITALS (7 sets, daily range): BP systolic 91–120; BP diastolic 52–64; PULSE 84–110; RESP 16–20; TEMP 97–97.9; O2SAT 93–98
[2016-09-02 07:18] LABS: AUTOMATED NEUTROPHIL # 1.3 TH/MM3 (1.8-7.7); BASOPHIL # 0.1 TH/MM3 (0-0.2); BASOPHIL % 1.4 % (0.0-2.0); EOSINOPHIL # 0.1 TH/MM3 (0-0.4); EOSINOPHIL % 1.6 % (0.0-4.0); HEMATOCRIT 24.5 % (39.0-51.0); LYMPH % 54.6 % (9.0-44.0); LYMPHOCYTE # 2.7 TH/MM3 (1.0-4.8); MEAN CELL VOLUME 90.4 FL (80.0-100.0); MEAN CORPUSCULAR HEMOGLOBIN 31.5 PG (27.0-34.0); MEAN CORPUSCULAR HGB CONC 34.8 % (32.0-36.0); NEUT % 25.4 % (16.0-70.0); PLATELET COUNT 46 TH/MM3 (150-450); RED BLOOD COUNT 2.71 MIL/MM3 (4.50-5.90); RED CELL DISTRIBUTION WIDTH 21.5 % (11.6-17.2); WHITE BLOOD COUNT 4.9 TH/MM3 (4.0-11.0)
[2016-09-02 07:25] LABS: ALT (GPT) 150 U/L (12-78); ANION GAP 9 MEQ/L (5-15); BICARBONATE 29.1 MEQ/L (21.0-32.0); BLOOD UREA NITROGEN 50 MG/DL (7-18); CHLORIDE 97 MEQ/L (98-107); POTASSIUM 4.7 MEQ/L (3.5-5.1); SODIUM (NA) 135 MEQ/L (136-145)
[2016-09-02 07:30] LABS: HEMO FLAGS AUTO DIFF
[2016-09-02 07:33] LABS: ALKALINE PHOSPHATASE 832 U/L (45-117); AST (GOT) 1389 U/L (15-37); TOTAL BILIRUBIN ADULT 18.8 MG/DL (0.2-1.0)
[2016-09-02 08:33] LABS: BANDS 15 % (0-6); BASOPHILS 1 % (0-2); EOSINOPHILS 2 % (0-4); METAMYELOCYTES 1 % (0-1); MYELOCYTES 1 % (0-0); NEUTROPHIL # MANUAL DIFF 4.1 TH/MM3 (1.8-7.7); POLYS (SEG NEUTROPHILS) 66 % (16-70); PROMYELOCYTES 1 % (0-0); WBC DIFF SAMPLE 100
[2016-09-02 08:34] LABS: ACANTHOCYTES 1+ (NORMAL); OVALOCYTES 1+ (NORMAL); TARGET CELLS 2+ (NORMAL)
[2016-09-02 08:36] LABS: PLATELET ESTIMATE SMEAR LOW (NORMAL); PLATELET MORPHOLOGY NORMAL (NORMAL)
[2016-09-02 08:37] LABS: HELMET CELLS OCC (NORMAL); SCAN/DIFF FINAL DIFF MANUAL
[2016-09-02] MEDS: LACTULOSE SYRUP 20 GM/30 ML CUP PO SCH ×5 (09:00→21:54)
[2016-09-02] MEDS: MEGESTROL ACETATE SUSP 400 MG/10 ML CUP PO SCH ×2 (09:00→09:04)
[2016-09-02] MEDS: VENLAFAXINE HCL XR 75 MG CAP PO SCH (09:05)
[2016-09-02] MEDS: GABAPENTIN 100 MG CAP PO SCH ×3 (09:05→17:58)
[2016-09-02] MEDS: POTASSIUM CHLORIDE 10 MEQ CONTROLLED RELEASE TAB PO SCH ×3 (09:05→17:58)
[2016-09-02] MEDS: DIGOXIN 0.125 MG TAB PO SCH (09:05)
[2016-09-02] MEDS: TORSEMIDE 20 MG TAB PO SCH (09:05)
[2016-09-02] MEDS: CALCIUM/VITAMIN D 250 MG/125 U TAB PO SCH ×2 (09:05→21:54)
[2016-09-02] MEDS: SODIUM CHLORIDE 0.9% FLUSH 5 ML FLUSH FLUSH SCH ×2 (09:07→21:55)
[2016-09-02] MEDS: BUDESONIDE-FORMOTEROL 160/4.5 MCG INHALER INH SCH ×2 (09:07→21:55)
[2016-09-02] MEDS: TIOTROPIUM BROMIDE 18 MCG INH INH SCH (09:07)
[2016-09-02] MEDS: PANTOPRAZOLE SOD 40 MG DELAYED RELEASE TAB PO SCH ×2 (09:08→21:54)
[2016-09-02] MEDS: REMOVE OLD PATCH TD SCH (09:09)
[2016-09-02] MEDS: fentaNYL 100 MCG/HR PATCH TD SCH (09:09)
--- NOTE | 2016-09-02 14:27 | HHI.PR ---
Subjective Remarks Follow-up liver failure, renal failure. The patient is again off the floor for palliative radiation. Discussed with nurse, who states that the patient is refusing lactulose. Objective Vitals Vital Signs Date Time Temp Pulse Resp B/P Pulse Ox O2 Delivery O2 Flow Rate FiO2 09/02/16 12:00 97.9 110 20 120/64 94 09/02/16 08:00 97.7 90 20 97/63 93 09/02/16 08:00 Nasal Cannula 4.00 Humidified 09/02/16 04:00 97.5 84 16 91/64 94 09/02/16 01:00 92/58 09/02/16 00:00 97.6 87 16 91/52 98 09/01/16 21:43 Nasal Cannula 4.00 09/01/16 20:00 97.4 85 16 93/67 91 09/01/16 20:00 Nasal Cannula 4.00 Humidified 09/01/16 16:00 97.4 98 20 104/75 92 I/O 09/01/16 09/01/16 09/01/16 09/02/16 09/02/16 09/02/16 07:00 15:00 23:00 07:00 15:00 23:00 Intake Total 100 ml 0 ml 60 ml 20 ml Output Total 200 ml 100 ml 450 ml Balance 100 ml -200 ml -40 ml -430 ml Intake Oral 100 ml 0 ml 60 ml 20 ml Output Urine Total 200 ml 100 ml 450 ml # Voids 3 # Bowel Movements 2 0 2 2 Result Diagram: 09/02/16 0630 09/02/16 0630 Imaging Last Impressions Abdomen MRI 08/25/16 0000 Signed Impressions: Service Date/Time: Thursday, August 25, 2016 18:47 - CONCLUSION: 1. Cirrhotic liver with extensive nodularity likely representing multiple regenerating nodules. Underlying masses cannot be excluded. 2. Splenomegaly with abdominal ascites. 3. Right paraspinal mass along the right pedicle/transverse process at L1 again seen. Efraín Javier MD Cyst Biopsy Asp-Paracentesis US 08/24/16 0000 Signed Impressions: Service Date/Time: Wednesday, August 24, 2016 10:20 - CONCLUSION: Uncomplicated ultrasound guided paracentesis. Kiran Perez MD Chest X-Ray 08/22/16 0000 Signed Impressions: Service Date/Time: Monday, August 22, 2016 12:30 - CONCLUSION: No significant change has occurred. Jay Ventura MD Thoracic Spine CT 08/17/16 0000 Signed Impressions: Service Date/Time: Wednesday, August 17, 2016 06:58 - CONCLUSION: No acute fracture or subluxation of the thoracic spine. Scoliosis and multilevel degenerative changes as above. Nonacute appearing mild compression deformity of T10. Richard Tamez MD Head CT 08/17/16 0000 Signed Impressions: Service Date/Time: Wednesday, August 17, 2016 06:54 - CONCLUSION: 1. No bleed or other acute intracranial abnormality. 2. Chronic white matter changes. 3. Sinus disease. 4. Occipital scalp laceration. Richard Tamez MD Cervical Spine CT 08/17/16 0000 Signed Impressions: Service Date/Time: Wednesday, August 17, 2016 06:54 - CONCLUSION: No fracture or acute appearing malalignment seen of the cervical spine. Degenerative changes as above. Richard Tamez MD SPECT Scan-Bone Nuclear Medicine 08/13/16 0000 Signed Impressions: Service Date/Time: Saturday, August 13, 2016 12:42 - CONCLUSION: Benign whole-body bone scan and bone SPECT of the lumbar spine Richard Lester MD Lumbar Spine MRI 08/13/16 0000 Signed Impressions: Service Date/Time: Saturday, August 13, 2016 15:36 - CONCLUSION: 1. 6.5 x 4.5 x 4.3 cm right paraspinal mass likely related to a metastasis. This does extend into the right neural foramen for the L1 nerve but there is no intrathecal extension appreciated. 2. Bilateral L5 pars defects with grade 2 anterolisthesis and bilateral L5 impingement within the neural foramen. 3. Central canal patent throughout. Aidan Wright Jr., MD Abdomen/Pelvis CT 08/11/16 0210 Signed Impressions: Service Date/Time: Thursday, August 11, 2016 03:25 - CONCLUSION: 1. Cirrhosis with moderate to large ascites and increased splenomegaly. Heterogeneous and very nodular liver; possibility of liver masses difficult to exclude. 2. 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 Plasmacytoma related to multiple myeloma would also be in the differential. This is new. I believe it arose from the right transverse process of L1. Richard Tamez MD Objective Remarks Not examined. Patient off the floor for radiation therapy. Procedures Paracentesis Urinary Catheter: No Vascular Central Line Catheter: No A/P Problem List: (1) Hematemesis ICD Code: K92.0 Status: Resolved (2) GI bleed ICD Code: K92.2 Status: Acute (3) Cirrhosis of liver ICD Code: K74.60 Status: Chronic (4) Liver mass ICD Code: R16.0 Status: Chronic (5) Ovihd-[id number] deficiency ICD Code: E88.01 Status: Chronic (6) Respiratory failure, acute and chronic ICD Code: J96.20 Status: Acute Assessment and Plan 1. End-stage liver disease, ascites, liver cancer with paraspinous metastases: LFTs continue to increase. Patient remains encephalopathic. Status post paracentesis on 08/24/16 with removal of 2 L. Gastroenterology signed off and recommended hospice. Continue lactulose. Radiation oncology following. Had palliative radiation therapy yesterday. Patient is tentatively scheduled to follow up with hepatology at [facility] for a clinical trial in September 2016, however patient's declining functional status will likely preclude travel to [facility] or participation in study. 2. Hypotension: Possibly secondary to fluid shifts following paracentesis. IV albumin discontinued. IV fluids if necessary. Encourage oral intake. 3. Hematemesis, GI bleeding: Resolved. H&H stable. Status post EGD with band ligation on 08/11/16. No apparent active bleeding. Continue PPI. Xarelto discontinued. 4. Acute on chronic respiratory failure: Patient has history of alpha-1 antitrypsin deficiency. Continue Levaquin. Appreciate pulmonology recommendations. Continue bronchodilators, supplemental oxygen. 5. Atrial fibrillation: Rate controlled. Continue digoxin. Anticoagulation on hold secondary to GI bleed. 6. History of hypertension: Patient has been hypotensive, but blood pressure is currently improved. Oral antihypertensive medications on hold. Monitor blood pressure closely. 7. Mechanical fall, 08/17/16: Imaging unremarkable. Fall precautions. PT/OT. 8. DVT prophylaxis: SCDs. Chemical prophylaxis contraindicated secondary to GI bleed. 9. Poor prognosis. Appreciate palliative care assistance. Hospice has been recommended, however the patient and his have declined. 10. Dysphagia: Appreciate speech therapy recommendations. Mechanical soft diet, chopped meat with gravy, thin liquids. Problem Qualifiers (1) GI bleed: Qualified Code: K92.2 - Gastrointestinal hemorrhage, unspecified gastrointestinal hemorrhage type Guy Price MD Sep 02, 2016 14:27 Qualified Code: K92.2 - Gastrointestinal hemorrhage, unspecified gastrointestinal hemorrhage type Guy Price MD Sep 02, 2016 14:27
--- NOTE | 2016-09-02 18:18 | HHI.PR ---
Subjective Remarks 65 YOWM with COPD, Hepatocellular ca,AF, CAD Breathing better Palliative care consulted Weaned to 4 LNC Appetite poor Feels weak, intermittentally confused Deeply jaundiced Objective Vital Signs Vital Signs Date Time Temp Pulse Resp B/P Pulse Ox O2 Delivery O2 Flow Rate FiO2 09/02/16 16:00 97.0 94 20 97/61 97 09/02/16 12:00 97.9 110 20 120/64 94 09/02/16 08:00 97.7 90 20 97/63 93 09/02/16 08:00 Nasal Cannula 4.00 Humidified 09/02/16 08:00 92 09/02/16 04:00 97.5 84 16 91/64 94 09/02/16 01:00 92/58 09/02/16 00:00 97.6 87 16 91/52 98 09/01/16 21:43 Nasal Cannula 4.00 09/01/16 20:00 97.4 85 16 93/67 91 09/01/16 20:00 Nasal Cannula 4.00 Humidified I/O 09/01/16 09/01/16 09/01/16 09/02/16 09/02/16 09/02/16 07:00 15:00 23:00 07:00 15:00 23:00 Intake Total 100 ml 0 ml 60 ml 20 ml 240 ml Output Total 200 ml 100 ml 450 ml 800 ml Balance 100 ml -200 ml -40 ml -430 ml -560 ml Intake Oral 100 ml 0 ml 60 ml 20 ml 240 ml Output Urine Total 200 ml 100 ml 450 ml 800 ml # Voids 3 # Bowel Movements 2 0 2 2 0 Result Diagram: 09/02/1662909/02/16629 Objective Remarks GENERAL: MBMN WM, mild SOB SKIN: Warm and dry. HEAD: Normocephalic. EYES: No scleral icterus. No injection or drainage. NECK: Supple, trachea midline. No JVD or lymphadenopathy. CARDIOVASCULAR: Regular rate and rhythm without murmurs, gallops, or rubs. RESPIRATORY: Breath sounds equal bilaterally. No accessory muscle use. Decreased Chest excursion. GASTROINTESTINAL: Abdomen soft, non-tender, nondistended. MUSCULOSKELETAL: No cyanosis, or edema. BACK: Nontender without obvious deformity. No CVA tenderness. A/P Assessment and Plan COPD Alpha-1 Antitrypsin def Hepatocellular ca AF CAD End stage Liver Disease PLAN: Aerosol nebs Symbicort 2 puffs bid Spiriva daily Protonix 40 mg daily Wean 02 to keep sat >90% Palliative care seeing ptTomasz Grubbs on [place] Encourage Cristobal Conn MD Sep 02, 2016 18:18
[2016-09-02] MEDS: traZODone HCL 100 MG TAB PO SCH (21:54)
[2016-09-02] MEDS: ATORVASTATIN 20 MG TAB PO SCH (21:54)
[2016-09-02] MEDS: TEMAZEPAM 15 MG CAP PO SCH (21:54)
[2016-09-02] MEDS: LEVOFLOXACIN 750 MG PREMIX INJ 150 ML IV SCH (22:07)
[2016-09-03] VITALS (9 sets, daily range): BP systolic 95–116; BP diastolic 53–68; PULSE 91–100; RESP 18–20; TEMP 97.3–98.6; O2SAT 86–95
[2016-09-03] MEDS: SODIUM CHLORIDE 0.9% FLUSH 5 ML FLUSH FLUSH SCH ×3 (09:00→21:21)
[2016-09-03] MEDS: MEGESTROL ACETATE SUSP 400 MG/10 ML CUP PO SCH (09:03)
[2016-09-03] MEDS: DIGOXIN 0.125 MG TAB PO SCH (09:03)
[2016-09-03] MEDS: GABAPENTIN 100 MG CAP PO SCH ×3 (09:04→17:36)
[2016-09-03] MEDS: POTASSIUM CHLORIDE 10 MEQ CONTROLLED RELEASE TAB PO SCH ×3 (09:04→17:36)
[2016-09-03] MEDS: TORSEMIDE 20 MG TAB PO SCH (09:04)
[2016-09-03] MEDS: LACTULOSE SYRUP 20 GM/30 ML CUP PO SCH ×5 (09:04→21:22)
[2016-09-03] MEDS: TIOTROPIUM BROMIDE 18 MCG INH INH SCH (09:04)
[2016-09-03] MEDS: PANTOPRAZOLE SOD 40 MG DELAYED RELEASE TAB PO SCH ×3 (09:04→21:22)
[2016-09-03] MEDS: CALCIUM/VITAMIN D 250 MG/125 U TAB PO SCH ×3 (09:04→21:22)
[2016-09-03] MEDS: VENLAFAXINE HCL XR 75 MG CAP PO SCH (09:04)
[2016-09-03] MEDS: BUDESONIDE-FORMOTEROL 160/4.5 MCG INHALER INH SCH ×2 (09:05→21:00)
[2016-09-03 10:51] LABS: HEMATOCRIT 26.5 % (39.0-51.0); MEAN CELL VOLUME 91.5 FL (80.0-100.0); MEAN CORPUSCULAR HEMOGLOBIN 31.6 PG (27.0-34.0); MEAN CORPUSCULAR HGB CONC 34.5 % (32.0-36.0); PLATELET COUNT 48 TH/MM3 (150-450); RED CELL DISTRIBUTION WIDTH 22.6 % (11.6-17.2)
[2016-09-03 10:53] LABS: HEMO FLAGS AUTO DIFF
--- NOTE | 2016-09-03 11:14 | HHI.PR ---
Subjective Remarks Follow up liver failure, renal failure. The patient has become less responsive per nursing. Is difficult to awaken and does not answer any questions today. Jaundice appears to be worsening. Objective Vitals Vital Signs Date Time Temp Pulse Resp B/P Pulse Ox O2 Delivery O2 Flow Rate FiO2 09/03/16 08:00 97.3 97 20 103/64 93 09/03/16 08:00 Nasal Cannula 4.00 Humidified 09/03/16 08:00 96 09/03/16 07:52 95 Nasal Cannula 4.00 09/03/16 04:00 98.6 93 18 95/57 95 09/03/16 00:00 98.4 91 18 116/53 94 09/02/16 20:30 Nasal Cannula 4.00 Humidified 09/02/16 20:25 93 09/02/16 16:00 97.0 94 20 97/61 97 09/02/16 12:00 97.9 110 20 120/64 94 I/O 09/02/16 09/02/16 09/02/16 09/03/16 09/03/16 09/03/16 07:00 15:00 23:00 07:00 15:00 23:00 Intake Total 20 ml 240 ml 20 ml 150 ml Output Total 450 ml 800 ml Balance -430 ml -560 ml 20 ml 150 ml Intake Oral 20 ml 240 ml 20 ml IV Total 0 ml 150 ml Output Urine Total 450 ml 800 ml # Voids 2 2 # Bowel Movements 2 0 0 1 Result Diagram: 09/03/16 1026 09/02/16 0630 Imaging Last Impressions Abdomen MRI 08/25/16 0000 Signed Impressions: Service Date/Time: Thursday, August 25, 2016 18:47 - CONCLUSION: 1. Cirrhotic liver with extensive nodularity likely representing multiple regenerating nodules. Underlying masses cannot be excluded. 2. Splenomegaly with abdominal ascites. 3. Right paraspinal mass along the right pedicle/transverse process at L1 again seen. Efraín Javier MD Cyst Biopsy Asp-Paracentesis US 08/24/16 0000 Signed Impressions: Service Date/Time: Wednesday, August 24, 2016 10:20 - CONCLUSION: Uncomplicated ultrasound guided paracentesis. Kiran Perez MD Chest X-Ray 08/22/16 0000 Signed Impressions: Service Date/Time: Monday, August 22, 2016 12:30 - CONCLUSION: No significant change has occurred. Jay Ventura MD Thoracic Spine CT 08/17/16 0000 Signed Impressions: Service Date/Time: Wednesday, August 17, 2016 06:58 - CONCLUSION: No acute fracture or subluxation of the thoracic spine. Scoliosis and multilevel degenerative changes as above. Nonacute appearing mild compression deformity of T10. Richard Tamez MD Head CT 08/17/16 0000 Signed Impressions: Service Date/Time: Wednesday, August 17, 2016 06:54 - CONCLUSION: 1. No bleed or other acute intracranial abnormality. 2. Chronic white matter changes. 3. Sinus disease. 4. Occipital scalp laceration. Richard Tamez MD Cervical Spine CT 08/17/16 0000 Signed Impressions: Service Date/Time: Wednesday, August 17, 2016 06:54 - CONCLUSION: No fracture or acute appearing malalignment seen of the cervical spine. Degenerative changes as above. Richard Tamez MD SPECT Scan-Bone Nuclear Medicine 08/13/16 0000 Signed Impressions: Service Date/Time: Saturday, August 13, 2016 12:42 - CONCLUSION: Benign whole-body bone scan and bone SPECT of the lumbar spine Richard Lester MD Lumbar Spine MRI 08/13/16 0000 Signed Impressions: Service Date/Time: Saturday, August 13, 2016 15:36 - CONCLUSION: 1. 6.5 x 4.5 x 4.3 cm right paraspinal mass likely related to a metastasis. This does extend into the right neural foramen for the L1 nerve but there is no intrathecal extension appreciated. 2. Bilateral L5 pars defects with grade 2 anterolisthesis and bilateral L5 impingement within the neural foramen. 3. Central canal patent throughout. Aidan Wright Jr., MD Abdomen/Pelvis CT 08/11/16 0210 Signed Impressions: Service Date/Time: Thursday, August 11, 2016 03:25 - CONCLUSION: 1. Cirrhosis with moderate to large ascites and increased splenomegaly. Heterogeneous and very nodular liver; possibility of liver masses difficult to exclude. 2. 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 Plasmacytoma related to multiple myeloma would also be in the differential. This is new. I believe it arose from the right transverse process of L1. Richard Tamez MD Objective Remarks General: No acute distress. Severely jaundiced. Heart: Regular rate and rhythm. No murmur. Lungs: Clear to auscultation bilaterally. No wheezes, rales, or rhonchi. Breathing is nonlabored. Abdomen: Soft, nontender, nondistended. Extremities: No lower extremity edema. Psych: Sleeping. Difficult to awaken. Does not answer questions. Procedures Paracentesis Urinary Catheter: No Vascular Central Line Catheter: No A/P Problem List: (1) Hematemesis ICD Code: K92.0 Status: Resolved (2) GI bleed ICD Code: K92.2 Status: Acute (3) Cirrhosis of liver ICD Code: K74.60 Status: Chronic (4) Liver mass ICD Code: R16.0 Status: Chronic (5) Gtdnu-8-uotdfdaypex deficiency ICD Code: E88.01 Status: Chronic (6) Respiratory failure, acute and chronic ICD Code: J96.20 Status: Acute Assessment and Plan 1. End-stage liver disease, ascites, liver cancer with paraspinous metastases: LFTs continue to increase. Patient remains encephalopathic. Status post paracentesis on 08/24/16 with removal of 2 L. Gastroenterology signed off and recommended hospice. Continue lactulose. Radiation oncology following. Had palliative radiation therapy yesterday. Patient is tentatively scheduled to follow up with hepatology at [facility] for a clinical trial in September 2016, however patient's declining functional status will likely preclude travel to [facility] or participation in study. 2. Hypotension: Possibly secondary to fluid shifts following paracentesis. IV albumin discontinued. IV fluids if necessary. Encourage oral intake. 3. Hematemesis, GI bleeding: Resolved. H&H stable. Status post EGD with band ligation on 08/11/16. No apparent active bleeding. Continue PPI. Xarelto discontinued. 4. Acute on chronic respiratory failure: Patient has history of alpha-1 antitrypsin deficiency. Continue Levaquin. Appreciate pulmonology recommendations. Continue bronchodilators, supplemental oxygen. 5. Atrial fibrillation: Rate controlled. Continue digoxin. Anticoagulation on hold secondary to GI bleed. 6. History of hypertension: Patient has been hypotensive. Oral antihypertensive medications on hold. Monitor blood pressure closely. 7. Mechanical fall, 08/17/16: Imaging unremarkable. Fall precautions. PT/OT. 8. DVT prophylaxis: SCDs. Chemical prophylaxis contraindicated secondary to GI bleed. 9. Poor prognosis. Appreciate palliative care assistance. Hospice has been recommended, however the patient and his have declined. Palliative care to speak with the patient and his family again today. 10. Dysphagia: Appreciate speech therapy recommendations. Mechanical soft diet, chopped meat with gravy, thin liquids. As patient's mental status has declined, he has poor oral intake. 11. Acute renal failure: Creatinine increasing. Add gentle IV hydration. Labs are pending today. Problem Qualifiers (1) GI bleed: Qualified Code: K92.2 - Gastrointestinal hemorrhage, unspecified gastrointestinal hemorrhage type Guy Price MD Sep 03, 2016 11:14
[2016-09-03 11:31] LABS: ALKALINE PHOSPHATASE 888 U/L (45-117); ALT (GPT) 152 U/L (12-78); ANION GAP 14 MEQ/L (5-15); AST (GOT) 1481 U/L (15-37); BICARBONATE 24.9 MEQ/L (21.0-32.0); BLOOD UREA NITROGEN 65 MG/DL (7-18); CHLORIDE 95 MEQ/L (98-107); GLOMERULAR FILTRATION RATE 22 ML/MIN (>89); POTASSIUM 5.2 MEQ/L (3.5-5.1); SODIUM (NA) 134 MEQ/L (136-145); TOTAL BILIRUBIN ADULT 21.1 MG/DL (0.2-1.0)
[2016-09-03 11:42] LABS: BANDS 3 % (0-6); BASOPHILS 1 % (0-2); EOSINOPHILS 1 % (0-4); NEUTROPHIL # MANUAL DIFF 5.3 TH/MM3 (1.8-7.7); PLATELET ESTIMATE SMEAR RARE (NORMAL); POLYS (SEG NEUTROPHILS) 73 % (16-70); SCAN/DIFF FINAL DIFF MANUAL; WBC DIFF SAMPLE 100
[2016-09-03 11:43] LABS: KERATOCYTES 1+ (NORMAL); PLATELET MORPHOLOGY NORMAL (NORMAL); TARGET CELLS 2+ (NORMAL)
[2016-09-03] MEDS ORDERED: SODIUM CHLOR 0.9% 1000 ML INJ 1,000 ML IV SCH (12:00)
--- NOTE | 2016-09-03 13:47 | HHI.HCPN ---
Reason for visit a. To assist with evaluation and management of symptoms including: Pain; dyspnea; encephalopathy b. To assist medical decision maker(s) with: better understanding of current medical conditions; weighing benefits/burdens of medical treatment options; making medical treatment decisions. . Subjective/Interval History Mr. Hunter is seen and examined in room. MAKE UP WORKER at bedside. Patient has significant, worsening jaundice. Scleral icterus noted. Patient is barely arousable, extremely lethargic. He does not answer any questions or follow commands. MAKE UP WORKER reports patient appears more jaundiced to her and less responsive compared to when she cared for him yesterday. Afebrile. Hypotensive. On oxygen via nasal cannula 4 L. WBC 7.0, hemoglobin 9.2, hematocrit 26.5, platelet 48. Creatinine is increasing, was 2.23 on increased to 2.86 today. GFR 22, BUN 65. Total bilirubin 21.1 increased from 18.8 yesterday. 1 week ago bilirubin was 9.9, on admission was 3.1. Albumin 2.3. Progress notes indicate patient has completed 7 of 10 palliative radiation treatments to T spine. In review of case management notes from 09/02/16 indicated that she still hopes that patient will be able to return home with home health care services, unfortunately I do not feel this is appropriate patient appears to be dying. . Family/friend interactions Left message for spouse, Estella Hunter on both phone numbers listed in the EMR. Awaiting return call to further clarify treatment goals. 2:30pm: Spoke with Estella Hunter, /HCP via telephone to provide medical update. I explained medical attending (Dr. Price) and my concern for declining status, likely irreversible status. She indicates that the patient was more lethargic last Tuesday, attributes lethargy to radiation therapy and thinks that he may perk up again by the weekend. I explained my concern that this decline appears to be more than radiation related given significantly worsening liver and renal function. Reviewed total bilirubin on admission was 3.1, 1 week ago 9.9 and currently 21.1. Creatinine continues to worsen now 2.83. I explained that the patient's liver function is irreversible and not sustainable with life. I informed Mrs. Hunter that I believe her is now dying. Under the circumstances, readdressed CODE STATUS. agrees that she believes that he may be dying, though is cautiously optimistic that he may perk up again over the weekend. She reports that he would want to be allowed to pass in his sleep and therefore elects NO CODE status. She is certain that he would not want chest compressions, shock, a CLS or mechanical ventilation's under the current circumstances. Discussed hospice services, she is familiar with hospice she has had a son and father under hospice care. She does not feel the need to involve hospice at this time. I explained that we can continue to ensure his comfort while he is here in the hospital. She is not yet ready to stop additional medications, will reevaluate status on Tuesday. She understands that his condition is declining such that he may not be able to eat/drink or take current medications. She states that if he can't take them that's okay. She indicates that she lost a child and therefore feels that she has been through the worst thing that she could ever imagine, she is trying to prepare herself for her 's but states you can't truly ever be ready. She understands that the patient may not be able to complete radiation therapy, given that he is not significantly painful I suspect that the completion of his final few radiation treatments will not change his care. We will readdress this again on Tuesday, if he survives. She is in agreement for me to place comfort medications for pain, anxiety or shortness of breath should his condition worsened over the weekend. She does not want the patient overmedicated, as he is not had significant pain. She does indicate that she does not want him to suffer. While she is not ready to transition to complete comfort focused care with hospice support she does understand that her is likely dying. Palliative care number provided, she appreciates time spent. . Advance Directives Living Will: Never completed Health Care Surrogate: Never completed Durable Power of Strategic Manager: Never completed Advance Directive Specifics Date completed: No completed advance directives . Health Care Surrogate(s): No written designation of health care surrogate. . Documented care wishes: No written documentation of health care goals/preferences. . Significant change in goals: NO CODE (DNR/DNI). Desires continued aggressive care short of NO CODE for now. Desires comfort medications should patient's condition decline in the coming days. May consider transition to comfort focused care with hospice support if the patient survives over the weekend, is not yet ready to consider hospice , though she understands he is dying. . Objective Vital Signs Date Time Temp Pulse Resp B/P Pulse Ox O2 Delivery O2 Flow Rate FiO2 09/03/16 12:00 97.4 96 20 103/64 93 09/03/16 08:00 97.3 97 20 103/64 93 09/03/16 08:00 Nasal Cannula 4.00 Humidified 09/03/16 08:00 96 09/03/16 07:52 95 Nasal Cannula 4.00 09/03/16 04:00 98.6 93 18 95/57 95 09/03/16 00:00 98.4 91 18 116/53 94 09/02/16 20:30 Nasal Cannula 4.00 Humidified 09/02/16 20:25 93 09/02/16 16:00 97.0 94 20 97/61 97 Intake & Output 09/03/16 09/03/16 07:00 19:00 Intake Total 170 ml Balance 170 ml Intake Oral 20 ml IV Total 150 ml # Voids 4 # Bowel Movements 1 Physical Exam CONSTITUTIONAL/GENERAL: This is an weak,frail gentlemen with 02 via nasal cannula in place. He is arousable, but very lethargic. No obvious distress. SKIN:Mild jaundice, rashes, or lesions. No wounds seen anteriorly. Skin temperature appropriate. Not diaphoretic. HEAD: Atraumatic. Normocephalic. EYES: Mild scleral icterus. No injection or drainage. Fundi not examined. ENT: Hearing grossly normal. Nose without bleeding or purulent drainage. Throat without visible erythema, exudates, masses, or lesions. NECK: Trachea midline. Supple. CARDIOVASCULAR: Regular rate and rhythm without murmurs, gallops, or rubs. No JVD. RESPIRATORY/CHEST: Decrease breath sound bilaterally GASTROINTESTINAL: Abdomen soft, distended, non-tender, umblical hernia present. GENITOURINARY: Without palpable bladder distension. MUSCULOSKELETAL: Extremities without clubbing, cyanosis, or edema. No mottling or clubbing. LYMPHATICS: Not examined. NEUROLOGICAL: Lethargic; easily arousable. follow commands. . Diagnostic Tests Laboratory Laboratory Tests Test 09/01/16 09/02/16 09/03/16 06:30 06:30 10:26 White Blood Count 4.7 TH/MM3 4.9 TH/MM3 7.0 TH/MM3 (4.0-11.0) (4.0-11.0) (4.0-11.0) Red Blood Count 2.66 MIL/MM3 2.71 MIL/MM3 2.90 MIL/MM3 (4.50-5.90) (4.50-5.90) (4.50-5.90) Hemoglobin 8.3 GM/DL 8.5 GM/DL 9.2 GM/DL (13.0-17.0) (13.0-17.0) (13.0-17.0) Hematocrit 24.3 % 24.5 % 26.5 % (39.0-51.0) (39.0-51.0) (39.0-51.0) Mean Corpuscular Volume 91.2 FL 90.4 FL 91.5 FL (80.0-100.0) (80.0-100.0) (80.0-100.0) Mean Corpuscular Hemoglobin 31.1 PG 31.5 PG 31.6 PG (27.0-34.0) (27.0-34.0) (27.0-34.0) Mean Corpuscular Hemoglobin 34.0 % 34.8 % 34.5 % Concent (32.0-36.0) (32.0-36.0) (32.0-36.0) Red Cell Distribution Width 21.9 % 21.5 % 22.6 % (11.6-17.2) (11.6-17.2) (11.6-17.2) Platelet Count 53 TH/MM3 46 TH/MM3 48 TH/MM3 (150-450) (150-450) (150-450) Mean Platelet Volume 10.7 FL 9.5 FL 9.2 FL (7.0-11.0) (7.0-11.0) (7.0-11.0) Neutrophils (%) (Auto) % (16.0-70.0) 25.4 % % (16.0-70.0) (16.0-70.0) Lymphocytes (%) (Auto) % (9.0-44.0) 54.6 % % (9.0-44.0) (9.0-44.0) Monocytes (%) (Auto) % (0.0-8.0) 17.0 % % (0.0-8.0) (0.0-8.0) Eosinophils (%) (Auto) % (0.0-4.0) 1.6 % (0.0-4.0) % (0.0-4.0) Basophils (%) (Auto) % (0.0-2.0) 1.4 % (0.0-2.0) % (0.0-2.0) Neutrophils # (Auto) TH/MM3 1.3 TH/MM3 TH/MM3 (1.8-7.7) (1.8-7.7) (1.8-7.7) Lymphocytes # (Auto) TH/MM3 2.7 TH/MM3 TH/MM3 (1.0-4.8) (1.0-4.8) (1.0-4.8) Monocytes # (Auto) TH/MM3 (0-0.9) 0.8 TH/MM3 TH/MM3 (0-0.9) (0-0.9) Eosinophils # (Auto) TH/MM3 (0-0.4) 0.1 TH/MM3 TH/MM3 (0-0.4) (0-0.4) Basophils # (Auto) TH/MM3 (0-0.2) 0.1 TH/MM3 TH/MM3 (0-0.2) (0-0.2) CBC Comment AUTO DIFF AUTO DIFF AUTO DIFF Differential Total Cells 100 100 100 Counted Neutrophils % (Manual) 73 % (16-70) 66 % (16-70) 73 % (16-70) Band Neutrophils % 11 % (0-6) 15 % (0-6) 3 % (0-6) Lymphocytes % 7 % (9-44) 5 % (9-44) 12 % (9-44) Monocytes % 8 % (0-8) 8 % (0-8) 10 % (0-8) Basophils % 1 % (0-2) 1 % (0-2) 1 % (0-2) Neutrophils # (Manual) 3.9 TH/MM3 4.1 TH/MM3 5.3 TH/MM3 (1.8-7.7) (1.8-7.7) (1.8-7.7) Differential Comment FINAL DIFF FINAL DIFF FINAL DIFF MANUAL MANUAL MANUAL Platelet Estimate LOW (NORMAL) LOW (NORMAL) RARE (NORMAL) Platelet Morphology Comment NORMAL NORMAL NORMAL (NORMAL) (NORMAL) (NORMAL) Target Cells 2+ (NORMAL) 2+ (NORMAL) 2+ (NORMAL) Sodium Level 135 MEQ/L 135 MEQ/L 134 MEQ/L (136-145) (136-145) (136-145) Potassium Level 4.5 MEQ/L 4.7 MEQ/L 5.2 MEQ/L (3.5-5.1) (3.5-5.1) (3.5-5.1) Chloride Level 95 MEQ/L 97 MEQ/L 95 MEQ/L (98-107) (98-107) (98-107) Carbon Dioxide Level 28.7 MEQ/L 29.1 MEQ/L 24.9 MEQ/L (21.0-32.0) (21.0-32.0) (21.0-32.0) Anion Gap 11 MEQ/L (5-15) 9 MEQ/L (5-15) 14 MEQ/L (5-15) Blood Urea Nitrogen 45 MG/DL (7-18) 50 MG/DL (7-18) 65 MG/DL (7-18) Creatinine 1.98 MG/DL 2.23 MG/DL 2.86 MG/DL (0.60-1.30) (0.60-1.30) (0.60-1.30) Estimat Glomerular Filtration 34 ML/MIN (>89) 22 ML/MIN (>89) Rate Random Glucose 76 MG/DL 64 MG/DL 96 MG/DL (74-106) (74-106) (74-106) Calcium Level 9.0 MG/DL 9.5 MG/DL 9.4 MG/DL (8.5-10.1) (8.5-10.1) (8.5-10.1) Magnesium Level 2.0 MG/DL (1.5-2.5) Total Bilirubin 17.0 MG/DL 18.8 MG/DL 21.1 MG/DL (0.2-1.0) (0.2-1.0) (0.2-1.0) Aspartate Amino Transf 1251 U/L 1389 U/L 1481 U/L (AST/SGOT) (15-37) (15-37) (15-37) Alanine Aminotransferase 148 U/L (12-78) 150 U/L (12-78) 152 U/L (12-78) (ALT/SGPT) Alkaline Phosphatase 852 U/L 832 U/L 888 U/L (45-117) (45-117) (45-117) Total Protein 5.8 GM/DL 5.8 GM/DL 6.1 GM/DL (6.4-8.2) (6.4-8.2) (6.4-8.2) Albumin 2.2 GM/DL 2.3 GM/DL 2.3 GM/DL (3.4-5.0) (3.4-5.0) (3.4-5.0) Eosinophils % 2 % (0-4) 1 % (0-4) Metamyelocytes 1 % (0-1) Myelocytes 1 % (0-0) Promyelocytes 1 % (0-0) Basophilic Stippling FAINT (NORMAL) Ovalocytes 1+ (NORMAL) Helmet Cells OCC (NORMAL) Acanthocytes 1+ (NORMAL) Keratocytes 1+ (NORMAL) Result Diagram: 09/03/16 1026 09/03/16 1026 Assessment and Plan Disease Oriented Problem List: (1) Sftba-[id number]-[id number] deficiency (2) Liver mass Comment: likely hepatocellular carcinoma with mets to the paraspinal process - getting palliative radiation to t-spine. (3) Depression (4) CAD (coronary artery disease) (5) GI bleed (6) Cirrhosis of liver (7) COPD (chronic obstructive pulmonary disease) (8) Chronic atrial fibrillation Symptom Scale: (1) Pain 0-10 Scale: Unable to quantify Comment: LIkely sources of pain include met to the spine,abdominal pain., pain from prolonged bedbound status. . (2) Encephalopathy 0-10 Scale: Unable to quantify Comment: Encephalopathy may be multi-factorial. . (3) Lethargy 0-10 Scale: Unable to quantify Comment: minimally responsive. (4) Jaundice Comment: T. Bilirubin 21.1. Pertinent Non-Medical Issues Psychosocial: . Normally lives with . Spiritual: Evangelical Legal: No living will or written health care surrogate documentation. Ethical issues impacting care: Patient is intermittently awake and alert. . Important Contacts * Estella Hunter ( and proxy) [phone]; [phone] . 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 Declining now in hospital with worsening renal and hepatic function. Receiving radiation therapy for spine lesion, worsening renal and liver function. Patient appears to be dying. Prognosis likely hours to days. . Code Status: Alternative Code (chest compressions, ACLS and shock only. No intubation. ) Plan * Patient is incapacitated, he will not regain capacity given hepatocellular carcinoma, liver and renal failure. According to [place] statutes health care proxy decision-making falls to the patient's spouse. * NO CODE. * 09/03/16 - Spoke with spouse, Estella Hunter (HCP) via telephone. Elects NO CODE (DNR/DNI). Desires continued aggressive care short of NO CODE for now. Desires comfort medications should patient's condition decline in the coming days. May consider transition to comfort focused care with hospice support if the patient survives over the weekend, is not yet ready to consider hospice , though she understands he is dying. * Discussed with Dr. Price and community service specialist. * SYMPTOMS: Pain: patient has oxycodone 10 mg PO every 12 hours PRN pain. Last dose 08/30/16. Encephalopathy: secondary to hepatocellular carcinoma, liver and renal failure. Lethargy: worsening lethargy, patient appears to be dying. Comfort medications ordered: lorazepam 1 mg Q4 hours PRN shortness of breath or anxiety. Dilaudid 0.5 mg every 4 hours PRN shortness of breath or pain. Recommend medical attending speak with prior to making any medication adjustments as she does not want him "snowed" though DOES NOT want him to suffer. * Palliative care will continue to follow to assist with symptom management and to further clarify goals of medical treatment as the clinical case evolves. . Attestation To help prompt me to consider important information that might be impacting today's encounter and assessment, information from prior notes written by myself or my colleagues may have been "brought forward" into today's note. My signature on this note, however, is an attestation that I personally performed the exam, history, and/or decision-making noted today, and, unless otherwise indicated, the interactions with patient, family, and staff as well as the review of records all occurred today. I also attest that the listed assessment and stated plan reflect my best clinical judgment today based on the combination of historical information, prior notes, and today's exam/ interactions. When time spent is documented, it refers only to time spent today by the signer, or if indicated, combined time spent today by collaborating physician/nurse practitioner. NICOLÁS GANT Sep 03, 2016 13:47
[2016-09-03] MEDS ORDERED: HYDROmorphone HCL PF 1 MG/ML VIAL IV PUSH PRN (15:00)
--- NOTE | 2016-09-03 17:07 | HHI.PR ---
Subjective Remarks 65 YOWM with COPD, Hepatocellular ca,AF, CAD Breathing better Palliative care consulted Weaned to 4 LNC Appetite poor Feels weak, intermittentally confused Deeply jaundiced Lethargic Now DNR Objective Vital Signs Vital Signs Date Time Temp Pulse Resp B/P Pulse Ox O2 Delivery O2 Flow Rate FiO2 09/03/16 12:00 97.4 96 20 103/64 93 09/03/16 08:00 97.3 97 20 103/64 93 09/03/16 08:00 Nasal Cannula 4.00 Humidified 09/03/16 08:00 96 09/03/16 07:52 95 Nasal Cannula 4.00 09/03/16 04:00 98.6 93 18 95/57 95 09/03/16 00:00 98.4 91 18 116/53 94 09/02/16 20:30 Nasal Cannula 4.00 Humidified 09/02/16 20:25 93 I/O 09/02/16 09/02/16 09/02/16 09/03/16 09/03/16 09/03/16 07:00 15:00 23:00 07:00 15:00 23:00 Intake Total 20 ml 240 ml 20 ml 150 ml 75 ml Output Total 450 ml 800 ml Balance -430 ml -560 ml 20 ml 150 ml 75 ml Intake Oral 20 ml 240 ml 20 ml IV Total 0 ml 150 ml 75 ml Output Urine Total 450 ml 800 ml # Voids 2 2 # Bowel Movements 2 0 0 1 Result Diagram: 09/03/16 1026 09/03/16 1026 Objective Remarks GENERAL: MBMN WM, mild SOB SKIN: Warm and dry. HEAD: Normocephalic. EYES: No scleral icterus. No injection or drainage. NECK: Supple, trachea midline. No JVD or lymphadenopathy. CARDIOVASCULAR: Regular rate and rhythm without murmurs, gallops, or rubs. RESPIRATORY: Breath sounds equal bilaterally. No accessory muscle use. Decreased Chest excursion. GASTROINTESTINAL: Abdomen soft, non-tender, nondistended. MUSCULOSKELETAL: No cyanosis, or edema. BACK: Nontender without obvious deformity. No CVA tenderness. A/P Assessment and Plan COPD Alpha-1 Antitrypsin def Hepatocellular ca AF CAD End stage Liver Disease PLAN: Aerosol nebs Symbicort 2 puffs bid Spiriva daily Protonix 40 mg daily Wean 02 to keep sat >90% Palliative care seeing pt. Prognosis poor Aneja,Cristobal Dev MD Sep 03, 2016 17:07
[2016-09-03] MEDS: traZODone HCL 100 MG TAB PO SCH ×2 (21:00→21:21)
[2016-09-03] MEDS: ATORVASTATIN 20 MG TAB PO SCH ×2 (21:00→21:21)
[2016-09-03] MEDS: TEMAZEPAM 15 MG CAP PO SCH (21:00)
[2016-09-04] VITALS (9 sets, daily range): BP systolic 74–99; BP diastolic 50–70; PULSE 100–102; RESP 19–32; TEMP 97.1–98.6; O2SAT 84–87
[2016-09-04 06:42] LABS: HEMATOCRIT 25.8 % (39.0-51.0); MEAN CELL VOLUME 91.6 FL (80.0-100.0); MEAN CORPUSCULAR HEMOGLOBIN 31.5 PG (27.0-34.0); MEAN CORPUSCULAR HGB CONC 34.4 % (32.0-36.0); PLATELET COUNT 59 TH/MM3 (150-450); RED BLOOD COUNT 2.81 MIL/MM3 (4.50-5.90); RED CELL DISTRIBUTION WIDTH 23.2 % (11.6-17.2); WHITE BLOOD COUNT 6.7 TH/MM3 (4.0-11.0)
[2016-09-04 07:10] LABS: ALKALINE PHOSPHATASE 833 U/L (45-117); ALT (GPT) 168 U/L (12-78); ANION GAP 19 MEQ/L (5-15); AST (GOT) 1728 U/L (15-37); BLOOD UREA NITROGEN 75 MG/DL (7-18); CHLORIDE 99 MEQ/L (98-107); GLOMERULAR FILTRATION RATE 17 ML/MIN (>89); POTASSIUM 5.5 MEQ/L (3.5-5.1); SODIUM (NA) 138 MEQ/L (136-145); TOTAL BILIRUBIN ADULT 21.2 MG/DL (0.2-1.0)
[2016-09-04 07:16] LABS: HEMO FLAGS AUTO DIFF
--- NOTE | 2016-09-04 07:54 | HHI.PR ---
Subjective Remarks Follow-up acute renal failure, liver failure. Patient is somewhat more alert today than yesterday. He does not answer questions. His is at bedside and states that she has trying to get him to say if he has pain, but he has not been answering her either. No acute events per nursing. Objective Vitals Vital Signs Date Time Temp Pulse Resp B/P Pulse Ox O2 Delivery O2 Flow Rate FiO2 09/04/16 00:00 98.6 102 19 99/70 87 09/03/16 22:54 90 Nasal Cannula 5.00 09/03/16 21:20 99 09/03/16 21:20 Nasal Cannula 4.00 Humidified 09/03/16 20:00 98.3 100 20 104/68 86 09/03/16 16:00 97.5 98 20 100/60 92 09/03/16 12:00 97.4 96 20 103/64 93 09/03/16 08:00 97.3 97 20 103/64 93 09/03/16 08:00 Nasal Cannula 4.00 Humidified 09/03/16 08:00 96 09/03/16 07:52 95 Nasal Cannula 4.00 I/O 09/03/16 09/03/16 09/03/16 09/04/16 09/04/16 09/04/16 07:00 15:00 23:00 07:00 15:00 23:00 Intake Total 150 ml 195 ml Balance 150 ml 195 ml Intake Oral 120 ml IV Total 150 ml 75 ml # Voids 2 4 1 # Bowel Movements 1 0 Result Diagram: 09/04/16 0535 09/04/16 0535 Imaging Last Impressions Abdomen MRI 08/25/16 0000 Signed Impressions: Service Date/Time: Thursday, August 25, 2016 18:47 - CONCLUSION: 1. Cirrhotic liver with extensive nodularity likely representing multiple regenerating nodules. Underlying masses cannot be excluded. 2. Splenomegaly with abdominal ascites. 3. Right paraspinal mass along the right pedicle/transverse process at L1 again seen. Efraín Javier MD Cyst Biopsy Asp-Paracentesis US 08/24/16 0000 Signed Impressions: Service Date/Time: Wednesday, August 24, 2016 10:20 - CONCLUSION: Uncomplicated ultrasound guided paracentesis. Kiran Perez MD Chest X-Ray 08/22/16 0000 Signed Impressions: Service Date/Time: Monday, August 22, 2016 12:30 - CONCLUSION: No significant change has occurred. Jay Ventura MD Thoracic Spine CT 08/17/16 0000 Signed Impressions: Service Date/Time: Wednesday, August 17, 2016 06:58 - CONCLUSION: No acute fracture or subluxation of the thoracic spine. Scoliosis and multilevel degenerative changes as above. Nonacute appearing mild compression deformity of T10. Richard Tamez MD Head CT 08/17/16 0000 Signed Impressions: Service Date/Time: Wednesday, August 17, 2016 06:54 - CONCLUSION: 1. No bleed or other acute intracranial abnormality. 2. Chronic white matter changes. 3. Sinus disease. 4. Occipital scalp laceration. Richard Tamez MD Cervical Spine CT 08/17/16 0000 Signed Impressions: Service Date/Time: Wednesday, August 17, 2016 06:54 - CONCLUSION: No fracture or acute appearing malalignment seen of the cervical spine. Degenerative changes as above. Richard Tamez MD SPECT Scan-Bone Nuclear Medicine 08/13/16 0000 Signed Impressions: Service Date/Time: Saturday, August 13, 2016 12:42 - CONCLUSION: Benign whole-body bone scan and bone SPECT of the lumbar spine Richard Lester MD Lumbar Spine MRI 08/13/16 0000 Signed Impressions: Service Date/Time: Saturday, August 13, 2016 15:36 - CONCLUSION: 1. 6.5 x 4.5 x 4.3 cm right paraspinal mass likely related to a metastasis. This does extend into the right neural foramen for the L1 nerve but there is no intrathecal extension appreciated. 2. Bilateral L5 pars defects with grade 2 anterolisthesis and bilateral L5 impingement within the neural foramen. 3. Central canal patent throughout. Aidan Wright Jr., MD Abdomen/Pelvis CT 08/11/16 0210 Signed Impressions: Service Date/Time: Thursday, August 11, 2016 03:25 - CONCLUSION: 1. Cirrhosis with moderate to large ascites and increased splenomegaly. Heterogeneous and very nodular liver; possibility of liver masses difficult to exclude. 2. 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 Plasmacytoma related to multiple myeloma would also be in the differential. This is new. I believe it arose from the right transverse process of L1. Richard Tamez MD Objective Remarks General: No acute distress. Severely jaundiced. Heart: Regular rate and rhythm. No murmur. Lungs: Clear to auscultation bilaterally. No wheezes, rales, or rhonchi. Breathing is nonlabored. Abdomen: Soft, nontender, nondistended. Extremities: No lower extremity edema. Psych: Alert. Does not answer questions. Procedures Paracentesis Urinary Catheter: No Vascular Central Line Catheter: No A/P Problem List: (1) Hematemesis ICD Code: K92.0 Status: Resolved (2) GI bleed ICD Code: K92.2 Status: Acute (3) Cirrhosis of liver ICD Code: K74.60 Status: Chronic (4) Liver mass ICD Code: R16.0 Status: Chronic (5) Rmrte-1-[id number] deficiency ICD Code: E88.01 Status: Chronic (6) Respiratory failure, acute and chronic ICD Code: J96.20 Status: Acute (7) Acute renal failure ICD Code: N17.9 Status: Acute (8) Jaundice ICD Code: R17 Status: Acute (9) Liver failure ICD Code: K72.90 Status: Acute Assessment and Plan 1. End-stage liver disease, ascites, liver cancer with paraspinous metastases: LFTs continue to increase. Patient remains encephalopathic. Status post paracentesis on 08/24/16 with removal of 2 L. Gastroenterology signed off and recommended hospice. Continue lactulose. Radiation oncology following. Had palliative radiation therapy yesterday. Patient is tentatively scheduled to follow up with hepatology at [facility] for a clinical trial in September 2016, however patient's declining functional status will likely preclude travel to [facility] or participation in study. 2. Hypotension: Possibly secondary to fluid shifts following paracentesis. IV albumin discontinued. IV fluids if necessary. Encourage oral intake. 3. Hematemesis, GI bleeding: Resolved. H&H stable. Status post EGD with band ligation on 08/11/16. No apparent active bleeding. Continue PPI. Xarelto discontinued. 4. Acute on chronic respiratory failure: Patient has history of alpha-1 antitrypsin deficiency. Continue Levaquin. Appreciate pulmonology recommendations. Continue bronchodilators, supplemental oxygen. 5. Atrial fibrillation: Rate controlled. Continue digoxin. Anticoagulation on hold secondary to GI bleed. 6. History of hypertension: Patient has been hypotensive. Oral antihypertensive medications on hold. Monitor blood pressure closely. 7. Mechanical fall, 08/17/16: Imaging unremarkable. Fall precautions. PT/OT. 8. DVT prophylaxis: SCDs. Chemical prophylaxis contraindicated secondary to GI bleed. 9. Poor prognosis. Appreciate palliative care assistance. Hospice has been recommended, however the patient and his have declined. CODE STATUS changed to DO NOT RESUSCITATE per palliative care discussion with the patient's . I spoke with the patient's at bedside. We discussed the poor prognosis. We discussed what to expect with liver and renal failure. She expresses understanding of his medical condition. 10. Dysphagia: Appreciate speech therapy recommendations. Mechanical soft diet, chopped meat with gravy, thin liquids. As patient's mental status has declined, he has poor oral intake. 11. Acute renal failure: Creatinine increasing. Continue gentle IV hydration. Consult nephrology. Problem Qualifiers (1) GI bleed: Qualified Code: K92.2 - Gastrointestinal hemorrhage, unspecified gastrointestinal hemorrhage type Guy Price MD Sep 04, 2016 07:54
[2016-09-04] MEDS: SODIUM CHLORIDE 0.9% FLUSH 5 ML FLUSH FLUSH SCH (09:10)
[2016-09-04] MEDS: BUDESONIDE-FORMOTEROL 160/4.5 MCG INHALER INH SCH (09:10)
[2016-09-04] MEDS: TIOTROPIUM BROMIDE 18 MCG INH INH SCH (09:10)
[2016-09-04] MEDS: MEGESTROL ACETATE SUSP 400 MG/10 ML CUP PO SCH (09:11)
[2016-09-04] MEDS: LACTULOSE SYRUP 20 GM/30 ML CUP PO SCH ×2 (09:11→13:31)
[2016-09-04] MEDS: GABAPENTIN 100 MG CAP PO SCH ×2 (09:11→13:31)
[2016-09-04] MEDS: DIGOXIN 0.125 MG TAB PO SCH (09:11)
[2016-09-04] MEDS: VENLAFAXINE HCL XR 75 MG CAP PO SCH (09:11)
[2016-09-04] MEDS: CALCIUM/VITAMIN D 250 MG/125 U TAB PO SCH (09:12)
[2016-09-04] MEDS: PANTOPRAZOLE SOD 40 MG DELAYED RELEASE TAB PO SCH (09:12)
[2016-09-04] MEDS: LORazepam 2 MG/ML VIAL IV PUSH PRN ×2 (09:13→15:07)
[2016-09-04 10:32] LABS: BANDS 18 % (0-6); BASOPHILS 1 % (0-2); NEUTROPHIL # MANUAL DIFF 5.7 TH/MM3 (1.8-7.7); PLATELET ESTIMATE SMEAR LOW (NORMAL); PLATELET MORPHOLOGY NORMAL (NORMAL); POLYS (SEG NEUTROPHILS) 67 % (16-70); SCAN/DIFF FINAL DIFF MANUAL; TARGET CELLS 2+ (NORMAL); WBC DIFF SAMPLE 100
[2016-09-04 10:34] LABS: HOWELL-JOLLY BODIES PRESENT (NONE SEEN); KERATOCYTES OCC (NORMAL)
[2016-09-04] MEDS ORDERED: SODIUM CHLOR 0.9% 250 ML INJ 250 ML IV ONE (12:30)
[2016-09-04] MEDS ORDERED: DEXTROSE 50% IN WATER 50 ML VIAL(D50) ONE (12:31)
[2016-09-04] MEDS ORDERED: DEXTROSE 50% IN WATER 50 ML VIAL(D50) IV PUSH PRN (12:45)
[2016-09-04] MEDS ORDERED: GLUCAGON 1 MG/ML VIAL OTHER PRN (12:45)
--- NOTE | 2016-09-04 13:07 | RADRPT ---
EXAM DATE/TIME: 09/04/2016 12:39 [facility] COMPARISON: CHEST SINGLE AP, August 22, 2016, 12:30. INDICATIONS : Respiratory Distress. MEDICAL HISTORY : Metastatic, liver. SURGICAL HISTORY : IVC Filter placement. ENCOUNTER: Initial ACUITY: 1 day PAIN SCORE: Non-responsive. LOCATION: Bilateral chest FINDINGS: A single view of the chest demonstrates the lungs to be symmetrically aerated without evidence of mas s, infiltrate or effusion except for mild biapical pleural-parenchymal scarring. There is diffuse int erstitial lung disease throughout the lungs. The cardiomediastinal contours are unremarkable. Osseou s structures are intact. CONCLUSION: N mild diffuse interstitial lung disease with some biapical pleural-parenchymal scarring left greater than right . Right IJ Ofpdav-x-Oiwe catheter in good position. Javid Vital MD on September 04, 2016 at 13:04 Board Certified Radiologist. This report was verified electronically.
[2016-09-04] MEDS ORDERED: MORPHINE SULFATE 4 MG/ML INJ IV PUSH PRN (14:30)
[2016-09-04] MEDS ORDERED: SODIUM CHLOR 0.9% 1000 ML INJ 1,000 ML IV SCH (15:00)
[2016-09-04] MEDS ORDERED: INSULIN ASPART SUPPLEMENTAL SCALE SQ SCH (16:00)
[2016-09-04] MEDS ORDERED: LEVOFLOXACIN 750 MG PREMIX INJ 150 ML IV SCH (22:00)
--- NOTE | 2016-09-20 14:42 | HHI.DS ---
Summary Note Date of : Sep 04, 2016 Time Of : 1540 Admission Date Aug 11, 2016 at 05:00 Admitting Diagnosis GI Bleed, concern for Variceal bleed Diagnosis at Time of : (1) Hematemesis ICD Code: K92.0 (2) GI bleed ICD Code: K92.2 (3) Cirrhosis of liver ICD Code: K74.60 (4) Liver mass ICD Code: R16.0 (5) Qmabw-3-hqwqyfcchhs deficiency ICD Code: E88.01 (6) Respiratory failure, acute and chronic ICD Code: J96.20 (7) Acute renal failure ICD Code: N17.9 (8) Jaundice ICD Code: R17 (9) Liver failure ICD Code: K72.90 Procedures Paracentesis Brief History 65 year-old male with a past medical history of alpha 1 antitrypsin deficiency, liver cancer, cirrhosis presents to the ED for evaluation of an acute onset hematemesis 2 associated with abdominal pain and distention which started last night without any hematochezia, melena. Patient currently is being followed by hepatology at Located within [facility] and states, there is a plan for a new clinical trial in September for treatment. Although H&H stable, CT abdomen with evidence of cirrhosis as well as what appear to be metastasis. He denies any chest pain however reports shortness of breath Imaging Last Impressions Chest X-Ray 09/04/16 0000 Signed Impressions: Service Date/Time: Sunday, September 04, 2016 12:39 - CONCLUSION: N mild diffuse interstitial lung disease with some biapical pleural-parenchymal scarring left greater than right . Right IJ Wtrohb-b-Ojrk catheter in good position. Javid Vital MD Abdomen MRI 08/25/16 0000 Signed Impressions: Service Date/Time: Thursday, August 25, 2016 18:47 - CONCLUSION: 1. Cirrhotic liver with extensive nodularity likely representing multiple regenerating nodules. Underlying masses cannot be excluded. 2. Splenomegaly with abdominal ascites. 3. Right paraspinal mass along the right pedicle/transverse process at L1 again seen. Efraín Javier MD Cyst Biopsy Asp-Paracentesis US 08/24/16 0000 Signed Impressions: Service Date/Time: Wednesday, August 24, 2016 10:20 - CONCLUSION: Uncomplicated ultrasound guided paracentesis. Kiran Perez MD Thoracic Spine CT 08/17/16 0000 Signed Impressions: Service Date/Time: Wednesday, August 17, 2016 06:58 - CONCLUSION: No acute fracture or subluxation of the thoracic spine. Scoliosis and multilevel degenerative changes as above. Nonacute appearing mild compression deformity of T10. Richard Tamez MD Head CT 08/17/16 0000 Signed Impressions: Service Date/Time: Wednesday, August 17, 2016 06:54 - CONCLUSION: 1. No bleed or other acute intracranial abnormality. 2. Chronic white matter changes. 3. Sinus disease. 4. Occipital scalp laceration. Richard Tamez MD Cervical Spine CT 08/17/16 0000 Signed Impressions: Service Date/Time: Wednesday, August 17, 2016 06:54 - CONCLUSION: No fracture or acute appearing malalignment seen of the cervical spine. Degenerative changes as above. Richard Tamez MD SPECT Scan-Bone Nuclear Medicine 08/13/16 0000 Signed Impressions: Service Date/Time: Saturday, August 13, 2016 12:42 - CONCLUSION: Benign whole-body bone scan and bone SPECT of the lumbar spine Richard Lester MD Lumbar Spine MRI 08/13/16 0000 Signed Impressions: Service Date/Time: Saturday, August 13, 2016 15:36 - CONCLUSION: 1. 6.5 x 4.5 x 4.3 cm right paraspinal mass likely related to a metastasis. This does extend into the right neural foramen for the L1 nerve but there is no intrathecal extension appreciated. 2. Bilateral L5 pars defects with grade 2 anterolisthesis and bilateral L5 impingement within the neural foramen. 3. Central canal patent throughout. Aidan Wright Jr., MD Abdomen/Pelvis CT 08/11/16 0210 Signed Impressions: Service Date/Time: Thursday, August 11, 2016 03:25 - CONCLUSION: 1. Cirrhosis with moderate to large ascites and increased splenomegaly. Heterogeneous and very nodular liver; possibility of liver masses difficult to exclude. 2. 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 Plasmacytoma related to multiple myeloma would also be in the differential. This is new. I believe it arose from the right transverse process of L1. Richard Tamez MD Hospital Course The patient was admitted for evaluation of GI bleed, hematemesis. He was started on PPI and octreotide drip. Gastroenterology was consulted. Anticoagulation was discontinued. EGD showed esophageal varices. Oncology was consulted regarding patient's history of liver cancer. Paraspinal lesion was felt to be likely metastatic. Palliative care was consulted. Patient's family requested aggressive care. Radiation oncology was consulted. The patient was started on palliative radiation therapy. Pulmonology was consulted regarding history of COPD and off for 1 antitrypsin deficiency. He was continued on supplemental oxygen, IV Solu-Medrol, and bronchodilators. Physical therapy continued to work with the patient as well. The patient continued to decline clinically during the hospitalization. He developed worsening liver failure and subsequent jaundice. He developed acute renal failure. Palliative care had lengthy discussions with the patient's , and his CODE STATUS was changed to DO NOT RESUSCITATE. As the patient's liver failure and renal failure worsened, he developed cardiopulmonary arrest. Guy Price MD Sep 20, 2016 14:42
== END 2016-09-04 19:52 | disposition expired | DRG 377 ==
LOC: NEPC 01:44 → NEDA 05:00 → NEDH 09:03 → N04B 15:33
PROVIDERS: ADMIT Family Medicine; ATTEND Family Medicine
PROC: 0DB98ZX Excision of Duodenum, Via Natural or Artificial Opening Endoscopic, Diagnostic (ICD-10-PCS; 2016-08-11)
PROC: 06L34CZ Occlusion of Esophageal Vein with Extraluminal Device, Percutaneous Endoscopic Approach (ICD-10-PCS; principal; 2016-08-11 11:35)
PROC: 0W9G3ZZ Drainage of Peritoneal Cavity, Percutaneous Approach (ICD-10-PCS; 2016-08-24)
PROC: DW031ZZ Beam Radiation of Abdomen using Photons 1 - 10 MeV (ICD-10-PCS; 2016-08-24)
DX: K92.0 Hematemesis (principal); G93.41 Metabolic encephalopathy; J96.21 Acute and chronic respiratory failure with hypoxia; E43 Unspecified severe protein-calorie malnutrition; N17.9 Acute kidney failure, unspecified; R18.8 Other ascites; C22.0 Liver cell carcinoma; C79.51 Secondary malignant neoplasm of bone; J98.11 Atelectasis; E87.2 Acidosis; E88.01 Alpha-1-antitrypsin deficiency; D69.6 Thrombocytopenia, unspecified; K74.60 Unspecified cirrhosis of liver; R16.1 Splenomegaly, not elsewhere classified; J44.9 Chronic obstructive pulmonary disease, unspecified; I10 Essential (primary) hypertension; I25.10 Atherosclerotic heart disease of native coronary artery without angina pectoris; F32.9 Major depressive disorder, single episode, unspecified; R74.0 Nonspecific elevation of levels of transaminase and lactic acid dehydrogenase [LDH]; G89.29 Other chronic pain; M19.90 Unspecified osteoarthritis, unspecified site; I85.10 Secondary esophageal varices without bleeding; K21.9 Gastro-esophageal reflux disease without esophagitis; Z51.5 Encounter for palliative care; I48.2 Chronic atrial fibrillation; D64.9 Anemia, unspecified; K63.89 Other specified diseases of intestine; K44.9 Diaphragmatic hernia without obstruction or gangrene; R13.10 Dysphagia, unspecified; K72.90 Hepatic failure, unspecified without coma; S01.91XA Laceration without foreign body of unspecified part of head, initial encounter; I25.2 Old myocardial infarction; Z86.14 Personal history of Methicillin resistant Staphylococcus aureus infection; Z95.5 Presence of coronary angioplasty implant and graft; Z87.891 Personal history of nicotine dependence; Z86.718 Personal history of other venous thrombosis and embolism; Z87.01 Personal history of pneumonia (recurrent); W19.XXXA Unspecified fall, initial encounter; Y92.239 Unspecified place in hospital as the place of occurrence of the external cause
CPT/HCPCS: 36600; 49083; 70450; 71010; 72125; 72128; 72158; 74176; 74183; 77263; 77280; 77290; 77295; 77300; 77334; 77387; 77412; 77427; 78306; 78320; 78399; 80048; 80053; 80076; 80162; 81001; 82105; 82140; 82378; 82550; 82784; 82805; 82948; 83605; 83615; 83690; 83735; 83883; 84134; 84153; 84165; 84484; 84702; 85007; 85014; 85018; 85025; 85027; 85610; 85730; 86300; 86301; 86850; 86900; 86901; 88305; 93005; 94640; 94664; 96365; 96366; 96375; 96376; 99222; A9503; A9579; C1729; C9113; J1642; J1956; J2060; J2270; J2354; J2405; J7030; J7040; J7050; P9047